=== PATIENT | female | born 1935 | race Caucasian/White ===

== ENCOUNTER 2016-08-14 11:24 | Emergency (ER) | payer MEDICARE, OTHER ==
[2016-08-14] MEDS ORDERED: Zofran 4 MG/2 ML VIAL IV ONE (11:51)
[2016-08-14 12:01] LABS: Mean Cell Volume 91.2 fl (78-100); Mean Corpuscular Hemoglobin 29.4 pg (26-32); Mean Platelet Volume 8.9 fl (6-9.5); Platelet Count 281 K/mm3 (150-450); Red Blood Count 3.77 M/mm3 (4.1-5.4); Red Cell Distribution Width 12.3 % (11.5-14.0); White Blood Count 11.5 K/mm3 (4.0-10.5)
--- NOTE | 2016-08-14 12:08 | ERPHSYRPT ---
- History of Present Illness Time Seen by Provider: 08/14/16 11:51 Source: patient Exam Limitations: no limitations Patient Subjective Stated Complaint: co not feeling well for a week,. not sleeping well. vomitedx2 this morning, loose stools since yesterday after taking a laxative, no fever, Triage Nursing Assessment: seen christianne a week ago and told she was constipated and had pain so he put her on predinsone, stopped meds after 3 days. pt alert resp easy,skin w/d ,abd soft, moves all ext well. pt aslo states quick care on thursday and started antibotics for UTI Physician History: The patient is an 81-year-old female who comes in complaining of general body pain from her neck to her toes for the past 2 weeks. She vomited twice this morning. She says her stomach is "rolling". She is a difficult historian. She saw Dr. Duke George a week ago for the pain and was given prednisone that she stopped taking after 3 days. She saw [facility] after seeing Dr. George and was given an antibiotic for a urinary tract infection. The patient states she fell on her left knee 2 weeks ago and since then she has been hurting from her neck down to her feet. Her left knee was bruised for a few days but is no longer bruised. Her past medical history is significant for diabetes. Timing/Duration: week(s) (1) Severity: mild Modifying Factors: Improves With: medication Associated Symptoms: nausea, vomiting Allergies/Adverse Reactions: aspirin Allergy (Severe, Verified 08/14/16 11:41) Difficulty Breathing iodine Allergy (Severe, Verified 08/14/16 11:41) Difficulty Breathing Penicillins Allergy (Severe, Verified 08/14/16 11:41) Difficulty Breathing Home Medications: Clopidogrel Bisulfate 75 mg [PLAVIX 75 MG Tablet] 75 mg PO HS 02/11/15 [ History] Metformin HCl 500 mg [Glucophage 500 MG] 500 mg PO DAILY PRN PRN 02/11/15 [History] Trazodone HCl 100 mg PO HS 02/11/15 [History] Alprazolam 1 mg [Xanax 1 mg] 1 mg PO HS 10/15/15 [History] Albuterol Sulfate [Albuterol Sulfate Hfa] 1 neb IH Q4H 11/23/15 [History] Citalopram Hydrobromide 20 mg* [ceLEXa 20 MG] 40 mg PO DAILY 01/06/16 [ History] Hx Tetanus, Diphtheria Vaccination/Date Given: No Hx Influenza Vaccination/Date Given: No Hx Pneumococcal Vaccination/Date Given: Yes Immunizations Up to Date: Yes - Review of Systems Constitutional: Other (body pain), No Fever, No Chills Eyes: No Symptoms Ears, Nose, & Throat: No Symptoms Respiratory: No Cough, No Dyspnea Cardiac: No Chest Pain, No Edema, No Syncope Abdominal/Gastrointestinal: Nausea, Vomiting Genitourinary Symptoms: Dysuria Musculoskeletal: Back Pain, Fall, No Neck Pain Skin: No Rash Neurological: No Dizziness, No Focal Weakness, No Sensory Changes Psychological: No Symptoms Endocrine: No Symptoms Hematologic/Lymphatic: No Symptoms Immunological/Allergic: No Symptoms All Other Systems: Reviewed and Negative - Past Medical History Pertinent Past Medical History: Yes Neurological History: No Pertinent History ENT History: Cataracts, Macular Degeneration Cardiac History: Arrhythmia Respiratory History: Asthma, Bronchitis, COPD Endocrine Medical History: Diabetes Type II Musculoskeletal History: Arthritis GI Medical History: GERD History: Other Psycho-Social History: Anxiety, Depression Female Reproductive Disorders: Endometriosis, Other Other Medical History: DVT left leg - Past Surgical History Past Surgical History: Yes Neuro Surgical History: No Pertinent History Cardiac: No Pertinent History Respiratory: No Pertinent History Gastrointestinal: Appendectomy, Cholecystectomy Genitourinary: No Pertinent History Musculoskeletal: Joint Replacement, Orthopedic Surgery Female Surgical History: Section, Hysterectomy Other Surgical History: Fernando hip replacement,back surgery-disc replacement per pt., cataracts - Social History Smoking Status: Never smoker Exposure to second hand smoke: No Drug Use: none Patient Lives Alone: Yes Significant Family History: no pertinent family hx - Female History Hx Last Menstrual Period: post Hx Now: No - Nursing Vital Signs Nursing Vital Signs: Initial Vital Signs Temperature 98.2 F Temperature Source Oral Pulse Rate 80 Respiratory Rate 18 Blood Pressure 169/68 Pain Intensity 3 - Physical Exam General Appearance: no apparent distress, alert Eye Exam: PERRL/EOMI, eyes nml inspection Ears, Nose, Throat Exam: normal ENT inspection, TMs normal, pharynx normal, moist mucous membranes Neck Exam: normal inspection, non-tender, supple, full range of motion Respiratory Exam: normal breath sounds, lungs clear, No respiratory distress Cardiovascular Exam: regular rate/rhythm, normal heart sounds, normal peripheral pulses Gastrointestinal/Abdomen Exam: tenderness (generalized) Pelvic Exam: not done Rectal Exam: not done Back Exam: normal inspection, normal range of motion, No CVA tenderness, No vertebral tenderness Extremity Exam: normal inspection, normal range of motion, pelvis stable Neurologic Exam: alert, oriented x 3, cooperative, normal mood/affect, nml cerebellar function, nml station & gait, sensation nml, No motor deficits Skin Exam: normal color, warm, dry, No rash Lymphatic Exam: No adenopathy SpO2 Interpretation: normal SpO2: 98 Oxygen Delivery: Room Air - Radiology Exams Abdomen X-ray Interpretation: Teleradiologist Report, Other (minimal air fluid levels in colon.) - CT Exams Abdomen/Pelvis CT Interpretation: Tele-radiologist Report, Other (colonic air fluid levels consistent with diarrhea.) Ordered Tests: Active Orders 24 hr Category Date Time Status IV Insertion STAT Care 08/14/16 11:51 Active ABDOMEN AND PELVIS W/0 CONTRAS [CT] Stat Exams 08/14/16 14:31 Completed OBSTR/ACUTE ABDOMEN SERIES Stat Exams 08/14/16 11:52 Completed BMP Stat Lab 08/14/16 11:58 Completed CBC W DIFF Stat Lab 08/14/16 11:58 Completed Manual Differential NC Stat Lab 08/14/16 11:58 Completed UA W/ MICROSCOPIC Stat Lab 08/14/16 14:02 Completed Respiratory Nebulizer STAT RT 08/14/16 14:27 Completed Medication Summary Discontinued Medications Generic Name Dose Route Start Last Admin Trade Name Freq PRN Reason Stop Dose Admin Albuterol Sulfate 2.5 mg 08/14/16 14:27 08/14/16 14:31 Proventil 2.5 Mg/3 Ml Neb IH 08/14/16 14:28 2.5 mg STAT ONE Administration Albuterol Sulfate Confirm 08/14/16 14:30 Proventil 2.5 Mg/3 Ml Neb Administered 08/14/16 14:31 Dose 2.5 mg IH .STK-MED ONE Ondansetron HCl 4 mg 08/14/16 11:51 08/14/16 12:18 Zofran 4 Mg/2 Ml Vial IV 08/14/16 11:52 4 mg STAT ONE Administration Ondansetron HCl Confirm 08/14/16 12:17 Zofran 4 Mg/2 Ml Vial Administered 08/14/16 12:18 Dose 4 mg .ROUTE .[facility]-MED ONE Lab/Rad Data: Laboratory Result Diagrams 08/14/16 11:58 08/14/16 11:58 Laboratory Results 08/14/16 08/14/16 08/14/16 Range/Units 14:02 11:58 11:58 WBC 11.5 H (4.0-10.5) K/mm3 RBC 3.77 L (4.1-5.4) M/mm3 Hgb 11.1 L (12.0-16.0) gm/dl Hct 34.4 L (35-47) % MCV 91.2 (78-100) fl MCH 29.4 (26-32) pg MCHC 32.3 (32-36) g/dl RDW 12.3 (11.5-14.0) % Plt Count 281 (150-450) K/mm3 MPV 8.9 (6-9.5) fl Segmented Neutrophils 82 H (36.0-66.0) % Lymphocytes (Manual) 7 L (24-44) % Monocytes (Manual) 11 (0.0-12.0) % Differential Comment ABNORMAL Platelet Estimate NORMAL (NORMAL) Anisocytosis 1+ Sodium 129 L (136-145) mEq/L Potassium 4.4 (3.5-5.1) mEq/L Chloride 93 L (98-107) mEq/L Carbon Dioxide 27.9 (21-32) mEq/L Anion Gap 12.7 (5-15) MEQ/L BUN 14 (9-20) mg/dL Creatinine 0.84 (0.55-1.30) mg/dl Estimated GFR > 60 ML/MIN Glucose 125 H (70-110) MG/DL Calcium 8.7 (8.5-10.1) mg/dL Ur Collection Type CCMS Urine Color YELLOW (YELLOW) Urine Appearance SLIGHTLY CLOUDY (CLEAR) Urine pH 7.0 (5-6) Ur Specific [place] 1.020 (1.005-1.025) Urine Protein 30 (Negative) Urine Glucose (UA) NEGATIVE (NEGATIVE) mg/dL Urine Ketones NEGATIVE (NEGATIVE) Urine Nitrite NEGATIVE (NEGATIVE) Urine Bilirubin NEGATIVE (NEGATIVE) Urine Urobilinogen 0.2 (0-1) mg/dL Urine WBC (Auto) NEGATIVE (NEGATIVE) Urine RBC (Auto) MODERATE (0-5) Oh/ul Urine Microscopic RBC 5-10 (0-2) /HPF Urine Microscopic WBC 0-2 (0-5) /HPF Ur Epithelial Cells RARE (FEW) /HPF Amorphous Crystals MODERATE (NEGATIVE) /HPF Urine Bacteria FEW (NEGATIVE) /HPF Specimen Received 08-14-16 1420 - Progress Progress: improved Discussed with : Vidal (Discussed pt with Dr Drake who will see pt tomorrow at 12:45.) Counseled pt/family regarding: lab results, diagnosis, need for follow-up, rad results - Departure Time of Disposition: 15:40 Departure Disposition: Home Clinical Impression: Gastroenteritis Condition: Stable Critical Care Time: No Additional Instructions: You have gastroenteritis. Take ciprofloxacin twice a day for 3 days. Take zofran as needed and directed for nausea and vomiting. You have a follow appt tomorrow at 12:[address] Drake. Prescriptions: Ondansetron [Zofran Odt] 4 mg PO Q6HPRN PRN #10 tab.rapdis PRN Reason: Nausea/Vomiting Ciprofloxacin HCl 500 mg [Cipro 500 MG] 1 tab PO BID #6 tablet
[2016-08-14 12:13] LABS: ANION GAP 12.7 MEQ/L (5-15); BLOOD UREA NITROGEN 14 mg/dL (9-20); CHLORIDE 93 mEq/L (98-107); Carbon Dioxide 27.9 mEq/L (21-32); Glucose 125 MG/DL (70-110); SODIUM 129 mEq/L (136-145)
[2016-08-14 12:16] LABS: Potassium 4.4 mEq/L (3.5-5.1)
[2016-08-14] MEDS ORDERED: Zofran 4 MG/2 ML VIAL ONE (12:17)
[2016-08-14 12:29] LABS: Total Cells Counted 100
[2016-08-14 12:30] LABS: Platelet Estimate NORMAL (NORMAL)
--- NOTE | 2016-08-14 12:30 | XRAY ---
Indication: Nausea, vomiting, and diarrhea. Comparison: None 2 views of the abdomen demonstrates minimal air distended colon with minimal fluid leveling favoring known diarrhea. No focal bowel dilatation, obstruction, or free air. Previous cholecystectomy. Solid organs unremarkable. Osseous structures intact with osteopenia, spinal degenerative changes, L4-L5 laminectomy, and bilateral total hip arthroplasty. Single frontal chest remains clear again with right mid lung calcified granuloma. Heart is not enlarged. Bony thorax intact again with osteopenia and degenerative changes. Impression: Minimal air distended colon with some fluid leveling favoring known diarrhea. Remaining abdomen negative. Stable nonacute one view chest.
[2016-08-14 12:33] LABS: ANISOCYTOSIS 1+
[2016-08-14 14:27] LABS: COMPLETE URINE MICROSCOPIC? YES; Collection Type CCMS; WBC 0-2 /HPF (0-5)
[2016-08-14] MEDS ORDERED: PROVENTIL 2.5 MG/3 ML NEB IH ONE ×2 (14:27→14:30)
[2016-08-14 14:28] LABS: Bacteria FEW /HPF (NEGATIVE); Epithelial Cells RARE /HPF (FEW)
--- NOTE | 2016-08-14 15:14 | XRAY ---
Indication: Nausea, vomiting, and diarrhea. Multiple contiguous axial images obtained through the abdomen and pelvis without contrast as ordered. Comparison: February 13, 2016 Lung bases demonstrate stable bibasilar fibrosis/scarring. Heart is not enlarged. Again bilateral hip prostheses produces extensive beam artifact limiting evaluation of the pelvis. Noncontrasted stomach and bowel loops appear nonobstructed. Mild fluid distended transverse and descending colon with some fluid leveling favoring diarrhea. Stable sigmoid diverticulosis. Previous cholecystectomy, hysterectomy, and appendectomy. No free fluid/air. Remaining liver, pancreas, spleen, adrenal glands, kidneys, ureters, bladder, and aorta unremarkable for noncontrast exam. Osseous structures intact again with osteopenia, degenerative changes throughout the lumbar spine, and previous lower lumbar laminectomy. Impression: 1. Again previous bilateral total hip arthroplasty producing beam artifact limiting evaluation of the pelvic contents. 2. Mild fluid distended transverse/descending colon with fluid leveling consistent with patient's symptoms of diarrhea. 3. Stable sigmoid diverticulosis. 4. Remaining CT abdomen/pelvis without contrast exam is negative. CT DI is 18.14
[2016-08-14 15:43] VITALS: O2SAT 98
[2016-08-14 16:06] VITALS: BP 139/64; PULSE 75
== END 2016-08-14 16:05 | disposition home or self-care (01) ==
LOC: ED 11:24
DX: K52.9 Noninfective gastroenteritis and colitis, unspecified (principal); R11.2 Nausea with vomiting, unspecified; Z79.899 Other long term (current) drug therapy
CPT/HCPCS: 36000; 36415; 74022; 74176; 80048; 81000; 85025; 94640; 96374; 99283; J2405

== ENCOUNTER 2016-12-06 17:04 | Emergency (ER) | payer MEDICARE, OTHER ==
[2016-12-06 17:59] VITALS: BP 134/69; PULSE 73; O2SAT 96
--- NOTE | 2016-12-06 18:06 | ERPHSYRPT ---
- History of Present Illness Time Seen by Provider: 12/06/16 18:04 Source: patient Exam Limitations: no limitations Patient Subjective Stated Complaint: pt reports her heart rate was 110 when she left her house-reports dizziness beginning this am-reports feeling bad all over Triage Nursing Assessment: pt pale diaphoetic anxious upon arrival to ed-resp nonlaobred-lungs clear-speaking in complete sentences with ease-right radial pulse regular et strong Physician History: 81-year-old female with significant past medical history of peripheral vascular disease and COPD came to the emergency room with complaining of dizziness. She states that she felt her heart was running fast and she checked her pulse and it was around 110 when she came to the emergency room her pulse was back to normal. She was just feeling weak all over. She has a recent history of urinary tract infection. She denies any fever, nausea, vomiting, chills, loss of consciousness, headache or changing the vision Timing/Duration: today Associated Symptoms: denies symptoms Allergies/Adverse Reactions: aspirin Allergy (Severe, Verified 12/06/16 17:19) Difficulty Breathing iodine Allergy (Severe, Verified 12/06/16 17:19) Difficulty Breathing Penicillins Allergy (Severe, Verified 12/06/16 17:19) Difficulty Breathing Home Medications: Clopidogrel Bisulfate 75 mg [PLAVIX 75 MG Tablet] 75 mg PO HS 02/11/15 [ History] Metformin HCl 500 mg [Glucophage 500 MG] 500 mg PO DAILY PRN PRN 02/11/15 [History] Alprazolam 1 mg [Xanax 1 mg] 1 mg PO HS 10/15/15 [History] Albuterol Sulfate [Albuterol Sulfate Hfa] 1 neb IH Q4H 11/23/15 [History] Citalopram Hydrobromide 20 mg* [ceLEXa 20 MG] 40 mg PO DAILY 01/06/16 [ History] Nortriptyline HCl 50 mg PO HS 12/06/16 [History] Hx Tetanus, Diphtheria Vaccination/Date Given: No Hx Influenza Vaccination/Date Given: No Hx Pneumococcal Vaccination/Date Given: Yes Immunizations Up to Date: Yes - Review of Systems Constitutional: No Fever, No Chills Eyes: No Symptoms Ears, Nose, & Throat: No Symptoms Respiratory: No Cough, No Dyspnea Cardiac: No Chest Pain, No Edema, No Syncope Abdominal/Gastrointestinal: No Abdominal Pain, No Nausea, No Vomiting, No Diarrhea Genitourinary Symptoms: No Dysuria Musculoskeletal: No Back Pain, No Neck Pain Skin: No Rash Neurological: Dizziness, No Focal Weakness, No Sensory Changes Psychological: No Symptoms Endocrine: No Symptoms All Other Systems: Reviewed and Negative - Past Medical History Pertinent Past Medical History: Yes Neurological History: No Pertinent History ENT History: Cataracts, Macular Degeneration Cardiac History: Arrhythmia Respiratory History: Asthma, Bronchitis, COPD Endocrine Medical History: Diabetes Type II Musculoskeletal History: Arthritis GI Medical History: GERD History: Other Psycho-Social History: Anxiety, Depression Female Reproductive Disorders: Endometriosis, Other Other Medical History: DVT left leg - Past Surgical History Past Surgical History: Yes Neuro Surgical History: No Pertinent History Cardiac: No Pertinent History Respiratory: No Pertinent History Gastrointestinal: Appendectomy, Cholecystectomy Genitourinary: No Pertinent History Musculoskeletal: Joint Replacement, Orthopedic Surgery Female Surgical History: Section, Hysterectomy Other Surgical History: Fernando hip replacement,back surgery-disc replacement per pt., cataracts - Social History Smoking Status: Never smoker Exposure to second hand smoke: No Drug Use: none Patient Lives Alone: Yes Significant Family History: no pertinent family hx - Female History Hx Now: No - Nursing Vital Signs Nursing Vital Signs: Initial Vital Signs Temperature 98.1 F Temperature Source Oral Pulse Rate 73 Respiratory Rate 18 Blood Pressure [Right Arm] 134/69 Pain Intensity 0 - Physical Exam General Appearance: no apparent distress, alert Eye Exam: PERRL/EOMI, eyes nml inspection Ears, Nose, Throat Exam: normal ENT inspection, TMs normal, pharynx normal, moist mucous membranes Neck Exam: normal inspection, non-tender, supple, full range of motion Respiratory Exam: normal breath sounds, lungs clear, No respiratory distress Cardiovascular Exam: regular rate/rhythm, normal heart sounds, normal peripheral pulses Gastrointestinal/Abdomen Exam: soft, normal bowel sounds, No tenderness, No mass Back Exam: normal inspection, normal range of motion, No CVA tenderness, No vertebral tenderness Extremity Exam: normal inspection, normal range of motion, pelvis stable Neurologic Exam: alert, oriented x 3, cooperative, normal mood/affect, nml cerebellar function, nml station & gait, sensation nml, No motor deficits Skin Exam: normal color, warm, dry, No rash Lymphatic Exam: No adenopathy SpO2: 96 Oxygen Delivery: Room Air - Course Nursing assessment & vital signs reviewed: Yes Ordered Tests: Active Orders 24 hr Category Date Time Status CBC W DIFF Stat Lab 12/06/16 18:15 Completed CMP Stat Lab 12/06/16 18:15 Completed Manual Differential NC Stat Lab 12/06/16 18:15 Completed UA W/ MICROSCOPIC Stat Lab 12/06/16 18:30 Completed Lab/Rad Data: Laboratory Result Diagrams 12/06/16 18:15 12/06/16 18:15 Laboratory Results 12/06/16 12/06/16 12/06/16 Range/Units 18:30 18:15 18:15 WBC 9.4 (4.0-10.5) K/mm3 RBC 3.70 L (4.1-5.4) M/mm3 Hgb 10.9 L (12.0-16.0) gm/dl Hct 34.6 L (35-47) % MCV 93.5 (78-100) fl MCH 29.4 (26-32) pg MCHC 31.5 L (32-36) g/dl RDW 12.6 (11.5-14.0) % Plt Count 238 (150-450) K/mm3 MPV 8.7 (6-9.5) fl Segmented Neutrophils 77 H (36.0-66.0) % Lymphocytes (Manual) 12 L (24-44) % Monocytes (Manual) 9 (0.0-12.0) % Eosinophils (Manual) 2 (0.00-3.0) % Differential Comment NORMAL Platelet Estimate NORMAL (NORMAL) Sodium 135 L (136-145) mEq/L Potassium 4.7 (3.5-5.1) mEq/L Chloride 100 (98-107) mEq/L Carbon Dioxide 26.2 (21-32) mEq/L Anion Gap 13.7 (5-15) MEQ/L BUN 21 H (9-20) mg/dL Creatinine 1.18 (0.55-1.30) mg/dl Estimated GFR 46 ML/MIN Glucose 99 (70-110) MG/DL Calcium 8.9 (8.5-10.1) mg/dL Total Bilirubin 0.3 (0.2-1.0) mg/dL AST 15 (15-37) U/L ALT 13 (12-78) U/L Alkaline Phosphatase 94 (46-116) U/L Serum Total Protein 6.9 (6.4-8.2) gm/dL Albumin 3.9 (3.4-5.0) g/dL Ur Collection Type CLEAN CATCH Urine Color YELLOW (YELLOW) Urine Appearance SLIGHTLY CLOUDY (CLEAR) Urine pH 6.5 (5-6) Ur Specific [place] 1.020 (1.005-1.025) Urine Protein 30 (Negative) Urine Glucose (UA) NEGATIVE (NEGATIVE) mg/dL Urine Ketones TRACE (NEGATIVE) Urine Nitrite NEGATIVE (NEGATIVE) Urine Bilirubin NEGATIVE (NEGATIVE) Urine Urobilinogen 0.2 (0-1) mg/dL Urine WBC (Auto) SMALL (NEGATIVE) Urine RBC (Auto) MODERATE (0-5) Oh/ul Urine Microscopic RBC 10-15 (0-2) /HPF Urine Microscopic WBC 2-5 (0-5) /HPF Ur Epithelial Cells FEW (FEW) /HPF Urine Bacteria FEW (NEGATIVE) /HPF Urine Mucus SLIGHT (NEGATIVE) /HPF Specimen Received 12/06/16:1830 - Progress Progress: improved Counseled pt/family regarding: lab results, diagnosis, need for follow-up - Departure Time of Disposition: 18:50 Departure Disposition: Home Clinical Impression: UTI (lower urinary tract infection), Dizziness and giddiness Condition: Stable Critical Care Time: No Referrals: CJ MORROW [Primary Care Provider] - Additional Instructions: URINARY TRACT INFECTION 1. You will need to drink plenty of fluids in order to keep your urinary system flushed. These fluids should mainly consist of water and juices. 2. Take medications as directed. You need to completely finish any antiobiotic prescription given. 3. Try to avoid coffee, tea, alcohol, and seasoned foods as they may cause bladder irritation. 4. If signs and symptoms persist after 3-4 days, you will need to follow up with your family physician. 5. Female Patients: A. Avoid intercourse for 3-4 days. B. Empty bladder before and after intercourse to reduce risk of re- infection. C. After emptying bladder, wipe from front to back to reduce the risk of re- infection. Please follow the instructions given to you. Please take your medication as prescribed if given. If symptoms recur or get worse, come back to the emergency room if you cannot reach your primary care physician, or call your primary care physician for an appointment. Again if your symptoms get worse, come back to the emergency room. Thanks for visiting emergency room, and let us take care of you. Prescriptions: Meclizine HCl 25 mg [Antivert 25 mg] 25 mg PO TID #15 tablet Ciprofloxacin HCl 500 mg [Cipro 500 MG] 500 mg PO BIDAC #20 tablet
[2016-12-06 18:27] LABS: Mean Cell Volume 93.5 fl (78-100); Mean Platelet Volume 8.7 fl (6-9.5); Platelet Count 238 K/mm3 (150-450); Red Cell Distribution Width 12.6 % (11.5-14.0); White Blood Count 9.4 K/mm3 (4.0-10.5)
[2016-12-06 18:34] LABS: Mean Corpuscular Hemoglobin 29.4 pg (26-32)
[2016-12-06 18:43] LABS: Bacteria FEW /HPF (NEGATIVE); COMPLETE URINE MICROSCOPIC? YES; Collection Type CLEAN CATCH; Epithelial Cells FEW /HPF (FEW); Mucus SLIGHT /HPF (NEGATIVE); Ph 6.5 (5-6)
[2016-12-06 18:44] LABS: Eosinophil 2 % (0.00-3.0); Platelet Estimate NORMAL (NORMAL); Total Cells Counted 100
[2016-12-06 18:47] LABS: ALBUMIN 3.9 g/dL (3.4-5.0); ANION GAP 13.7 MEQ/L (5-15); BILIRUBIN,TOTAL 0.3 mg/dL (0.2-1.0); Carbon Dioxide 26.2 mEq/L (21-32); Potassium 4.7 mEq/L (3.5-5.1); Total Protein 6.9 gm/dL (6.4-8.2)
[2016-12-06] MEDS ORDERED: Rocephin 1000 MG INJ IM ONE (18:49)
[2016-12-06] MEDS ORDERED: Rocephin 1000 MG INJ ONE (18:56)
== END 2016-12-06 19:10 | disposition home or self-care (01) ==
LOC: ED 17:04
DX: N39.0 Urinary tract infection, site not specified (principal); R42 Dizziness and giddiness; I73.9 Peripheral vascular disease, unspecified; J44.9 Chronic obstructive pulmonary disease, unspecified; Z79.899 Other long term (current) drug therapy
CPT/HCPCS: 36415; 80053; 81000; 85025; 96372; 99282; J0696

== ENCOUNTER 2016-12-13 22:58 | Emergency (ER) | payer MEDICARE, OTHER ==
--- NOTE | 2016-12-13 23:19 | ERPHSYRPT ---
- History of Present Illness Time Seen by Provider: 12/13/16 23:06 Source: patient Exam Limitations: no limitations Physician History: The patient is an 81-year-old female who complains of urinary retention since yesterday morning. She says it does not hurt to urinate but she only dribbles a small amount. She feels a little bit of pressure and discomfort in her lower abdomen. She was seen in the doctor's office and in the ER recently and is currently on ciprofloxacin for UTI. Her past medical history is significant for diabetes, COPD, UTI, gout, COPD, hypertension, and high cholesterol. Timing/Duration: yesterday Activites at Onset: none Quality: other (retention) Pain Radiation: other (suprapubic) Severity of Pain-Max: mild Severity of Pain-Current: mild Prior abdominal problems: UTI Sexual intercourse history: non-contributory Modifying Factors: Improves With: nothing Associated Symptoms: abdominal pain Allergies/Adverse Reactions: aspirin Allergy (Severe, Verified 12/13/16 23:09) Difficulty Breathing iodine Allergy (Severe, Verified 12/13/16 23:09) Difficulty Breathing Penicillins Allergy (Severe, Verified 12/13/16 23:09) Difficulty Breathing Home Medications: Clopidogrel Bisulfate 75 mg [PLAVIX 75 MG Tablet] 75 mg PO HS 02/11/15 [ History] Metformin HCl 500 mg [Glucophage 500 MG] 500 mg PO DAILY PRN PRN 02/11/15 [History] Alprazolam 1 mg [Xanax 1 mg] 1 mg PO HS 10/15/15 [History] Albuterol Sulfate [Albuterol Sulfate Hfa] 1 neb IH Q4H 11/23/15 [History] Citalopram Hydrobromide 20 mg* [ceLEXa 20 MG] 40 mg PO DAILY 01/06/16 [ History] Nortriptyline HCl 50 mg PO HS 12/06/16 [History] Hx Tetanus, Diphtheria Vaccination/Date Given: No Hx Influenza Vaccination/Date Given: No Hx Pneumococcal Vaccination/Date Given: Yes - Review of Systems Constitutional: No Fever, No Chills Eyes: No Symptoms Ears, Nose, & Throat: No Symptoms Respiratory: No Cough, No Dyspnea Cardiac: No Chest Pain, No Edema, No Syncope Abdominal/Gastrointestinal: No Abdominal Pain, No Nausea, No Vomiting, No Diarrhea Genitourinary Symptoms: Other (retention), No Dysuria Musculoskeletal: No Back Pain, No Neck Pain Skin: No Rash Neurological: No Dizziness, No Focal Weakness, No Sensory Changes Psychological: No Symptoms Endocrine: No Symptoms Hematologic/Lymphatic: No Symptoms Immunological/Allergic: No Symptoms All Other Systems: Reviewed and Negative - Past Medical History Pertinent Past Medical History: Yes Neurological History: No Pertinent History ENT History: Cataracts, Macular Degeneration Cardiac History: Arrhythmia Respiratory History: Asthma, Bronchitis, COPD Endocrine Medical History: Diabetes Type II Musculoskeletal History: Arthritis GI Medical History: GERD History: Other Psycho-Social History: Anxiety, Depression Female Reproductive Disorders: Endometriosis, Other Other Medical History: DVT left leg - Past Surgical History Past Surgical History: Yes Neuro Surgical History: No Pertinent History Cardiac: No Pertinent History Respiratory: No Pertinent History Gastrointestinal: Appendectomy, Cholecystectomy Genitourinary: No Pertinent History Musculoskeletal: Joint Replacement, Orthopedic Surgery Female Surgical History: Section, Hysterectomy Other Surgical History: Fernando hip replacement,back surgery-disc replacement per pt., cataracts - Social History Smoking Status: Never smoker Exposure to second hand smoke: No Drug Use: none Patient Lives Alone: Yes Significant Family History: no pertinent family hx - Female History Hx Now: No - Nursing Vital Signs Nursing Vital Signs: Initial Vital Signs Temperature 98.3 F Temperature Source Oral Pulse Rate 90 Respiratory Rate 18 Blood Pressure [Right Arm] 158/67 Pain Intensity 0 - Physical Exam General Appearance: no apparent distress, alert Eye Exam: PERRL/EOMI, eyes nml inspection Ears, Nose, Throat Exam: normal ENT inspection, TMs normal, pharynx normal, moist mucous membranes Neck Exam: normal inspection, non-tender, supple, full range of motion Respiratory Exam: normal breath sounds, lungs clear, No respiratory distress Cardiovascular Exam: regular rate/rhythm, normal heart sounds, normal peripheral pulses Gastrointestinal/Abdomen Exam: soft, No tenderness, No mass Pelvic Exam: not done Rectal Exam: not done Back Exam: normal inspection, normal range of motion, No CVA tenderness, No vertebral tenderness Extremity Exam: normal inspection, normal range of motion, pelvis stable Neurologic Exam: alert, oriented x 3, cooperative, supervising law enforcement analyst II-XII nml as tested, normal mood/affect, sensation nml, No motor deficits Skin Exam: normal color, warm, dry Lymphatic Exam: No adenopathy SpO2 Interpretation: normal SpO2: 99 Oxygen Delivery: Room Air Ordered Tests: Active Orders 24 hr Category Date Time Status Catheter-Higginson David STAT Care 12/13/16 23:31 Active UA W/ MICROSCOPIC Stat Lab 12/13/16 23:36 Completed Lab/Rad Data: Laboratory Results 12/13/16 Range/Units 23:36 Ur Collection Type CLEAN CATCH Urine Color YELLOW (YELLOW) Urine Appearance CLEAR (CLEAR) Urine pH 6.0 (5-6) Ur Specific [place] 1.025 (1.005-1.025) Urine Protein 30 (Negative) Urine Glucose (UA) NEGATIVE (NEGATIVE) mg/dL Urine Ketones NEGATIVE (NEGATIVE) Urine Nitrite NEGATIVE (NEGATIVE) Urine Bilirubin NEGATIVE (NEGATIVE) Urine Urobilinogen 0.2 (0-1) mg/dL Urine WBC (Auto) NEGATIVE (NEGATIVE) Urine RBC (Auto) MODERATE (0-5) Oh/ul Urine Microscopic RBC 15-25 (0-2) /HPF Urine Microscopic WBC 2-5 (0-5) /HPF Ur Epithelial Cells FEW (FEW) /HPF Urine Bacteria FEW (NEGATIVE) /HPF Urine Mucus MODERATE (NEGATIVE) /HPF Specimen Received 12/16/16 2330 - Progress Progress: unchanged Blood Culture(s) Obtained: No Antibiotics given: No Counseled pt/family regarding: lab results, diagnosis - Departure Time of Disposition: 00:13 Departure Disposition: Home Clinical Impression: Urinary retention Condition: Stable Critical Care Time: No Additional Instructions: You had a David catheter placed and your bladder for the feeling of urinary retention. Your urinalysis does not show an infection in her bladder at this time. Continue to take the ciprofloxacin as directed. Keep the David catheter in until you see Dr. denny Estevez on Thursday. Call him on Thursday for an appointment and tell him you were seen by Dr. Muñoz in the ER on Thursday.
[2016-12-13 23:50] LABS: Bacteria FEW /HPF (NEGATIVE); COMPLETE URINE MICROSCOPIC? YES; Collection Type CLEAN CATCH; Epithelial Cells FEW /HPF (FEW); Mucus MODERATE /HPF (NEGATIVE)
[2016-12-14 00:35] VITALS: BP 147/65; PULSE 75; O2SAT 98
== END 2016-12-14 00:37 | disposition home or self-care (01) ==
LOC: ED 22:58
DX: R33.9 Retention of urine, unspecified (principal); R10.30 Lower abdominal pain, unspecified; E11.9 Type 2 diabetes mellitus without complications; J44.9 Chronic obstructive pulmonary disease, unspecified; I10 Essential (primary) hypertension; E78.00 Pure hypercholesterolemia, unspecified; Z79.899 Other long term (current) drug therapy; Z79.84 Long term (current) use of oral hypoglycemic drugs
CPT/HCPCS: 51702; 81000; 99283

== ENCOUNTER 2016-12-16 21:55 | Observation (INO) | payer MEDICARE, OTHER ==
--- NOTE | 2016-12-16 22:44 | ERPHSYRPT ---
- History of Present Illness Time Seen by Provider: 12/16/16 22:35 Source: patient Exam Limitations: no limitations Patient Subjective Stated Complaint: pt states she had guillaume dc'd today at 1000 and has not been able to void since then. pt also states her head has been spinning and she feels unsteady when shes up. Triage Nursing Assessment: pt alert and oriented. answers questions approp. skin pink warm and dry. respirations nonlabored with lungs cta. speech normal. pupils equal and reactive. sap ppm consultant equal and strong. lower ext strength equal and wnl. abd soft and nontender. Physician History: This 81-year-old white female with history of macular degeneration arrhythmia asthma bronchitis COPD diabetes arthritis GERD anxiety depression endometriosis and DVT of the left leg. She arrives with complaint that she has been unable to urinate since 10:00 this morning. Patient states she was seen here in the emergency room 3 prior times secondary to the same complaint she states that she went to Dr. Benson's office this morning and the nurse practitioner there pulled the Guillaume. She states she has been unable to urinate since. She states this is the fourth time that she's been here to the emergency room for the same complaint. She does state now that she feels dizzy and feels like her head is spinning around she is not having any problems moving she has no speech problems she has no fevers no nausea no vomiting. Past medical history includes cataracts, macular degeneration, arrhythmia, asthma, bronchitis, COPD, diabetes type 2, arthritis, GERD, anxiety, depression , endometriosis, DVT of the left leg. Past surgical history includes appendectomy, cholecystectomy, orthopedic surgery , joint replacement, , hysterectomy, bilateral hip arthroplasty, back disc replacement, cataracts Timing/Duration: today (unable to urinate since 10:00 toda) Severity: moderate Modifying Factors: Improves With: other (patient had Guillaume removed today at urologist's office) Associated Symptoms: other (patient states she feels dizzy and unable to urinate ), No nausea, No vomiting, No abdominal pain, No shortness of breath, No heartburn, No diaphoresis, No cough, No chills, No chest pain, No fever, No headaches, No loss of appetite, No malaise, No rash, No syncope, No seizure, No weakness Allergies/Adverse Reactions: aspirin Allergy (Severe, Verified 12/16/16 22:30) Difficulty Breathing iodine Allergy (Severe, Verified 12/16/16 22:30) Difficulty Breathing Penicillins Allergy (Severe, Verified 12/16/16 22:30) Difficulty Breathing Home Medications: Clopidogrel Bisulfate 75 mg [PLAVIX 75 MG Tablet] 75 mg PO HS 02/11/15 [ History] Metformin HCl 500 mg [Glucophage 500 MG] 500 mg PO DAILY PRN PRN 02/11/15 [History] Alprazolam 1 mg [Xanax 1 mg] 1 mg PO HS 10/15/15 [History] Albuterol Sulfate [Albuterol Sulfate Hfa] 1 neb IH Q4H 11/23/15 [History] Citalopram Hydrobromide 20 mg* [ceLEXa 20 MG] 40 mg PO DAILY 01/06/16 [ History] Nortriptyline HCl 50 mg PO HS 12/06/16 [History] Fluticasone Propionate [Flonase NASAL] 1 puff INTRANASAL BID 12/16/16 [ History] Hx Tetanus, Diphtheria Vaccination/Date Given: No Hx Influenza Vaccination/Date Given: No Hx Pneumococcal Vaccination/Date Given: Yes - Review of Systems Constitutional: No Fever, No Chills Eyes: No Symptoms Ears, Nose, & Throat: No Symptoms Respiratory: No Cough, No Dyspnea Cardiac: No Chest Pain, No Edema, No Syncope Abdominal/Gastrointestinal: No Abdominal Pain, No Nausea, No Vomiting, No Diarrhea Genitourinary Symptoms: Urinary Retention, No Dysuria, No Frequency, No Hematuria, No Hesitancy, No Incontinence, No Urgency, No Flank Pain, No Menorrhagia, No , No Vaginal Bleeding, No Vaginal Discharge, No Vaginal Itching Musculoskeletal: No Back Pain, No Neck Pain Skin: No Rash Neurological: Dizziness, Vertigo, No Focal Weakness, No Headache, No Irritability, No Lethargy, No Paralysis, No Parasthesia, No Seizure, No Sensory Changes, No Speech Changes, No Tics, No Tremors Psychological: No Symptoms Endocrine: No Symptoms All Other Systems: Reviewed and Negative - Past Medical History Pertinent Past Medical History: Yes Neurological History: No Pertinent History ENT History: Cataracts, Macular Degeneration Cardiac History: Arrhythmia Respiratory History: Asthma, Bronchitis, COPD Endocrine Medical History: Diabetes Type II Musculoskeletal History: Arthritis GI Medical History: GERD History: Other Psycho-Social History: Anxiety, Depression Female Reproductive Disorders: Endometriosis, Other Other Medical History: DVT left leg - Past Surgical History Past Surgical History: Yes Neuro Surgical History: No Pertinent History Cardiac: No Pertinent History Respiratory: No Pertinent History Gastrointestinal: Appendectomy, Cholecystectomy Genitourinary: No Pertinent History Musculoskeletal: Joint Replacement, Orthopedic Surgery Female Surgical History: Section, Hysterectomy Other Surgical History: Fernando hip replacement,back surgery-disc replacement per pt., cataracts - Social History Smoking Status: Never smoker Exposure to second hand smoke: No Drug Use: none Patient Lives Alone: Yes Significant Family History: no pertinent family hx - Female History Hx Now: No - Nursing Vital Signs Nursing Vital Signs: Initial Vital Signs Temperature 98.3 F Temperature Source Oral Pulse Rate 76 Respiratory Rate 16 Blood Pressure [Right Arm] 151/63 Pain Intensity 0 - Physical Exam General Appearance: no apparent distress, alert Eye Exam: PERRL/EOMI, eyes nml inspection Ears, Nose, Throat Exam: normal ENT inspection, TMs normal, pharynx normal, moist mucous membranes Neck Exam: normal inspection, non-tender, supple, full range of motion Respiratory Exam: normal breath sounds, lungs clear, No respiratory distress Cardiovascular Exam: regular rate/rhythm, normal heart sounds, normal peripheral pulses Gastrointestinal/Abdomen Exam: soft, normal bowel sounds, No tenderness, No mass Back Exam: normal inspection, normal range of motion, No CVA tenderness, No vertebral tenderness Extremity Exam: normal inspection, normal range of motion, pelvis stable Neurologic Exam: alert, oriented x 3, cooperative, normal mood/affect, nml cerebellar function, nml station & gait, sensation nml, No motor deficits Skin Exam: normal color, warm, dry, No rash SpO2 Interpretation: normal (99%) SpO2: 99 Oxygen Delivery: Room Air - Course Nursing assessment & vital signs reviewed: Yes EKG Interpreted by Me: RATE (74 bpm), Sinus Rhythm, NORMAL AXIS, Other (EKG: Sinus rhythm, 74 bpm, normal axis, no acute ST or T wave changes, compared to January 25, 2016) Ordered Tests: Active Orders 24 hr Category Date Time Status Accucheck STAT Care 12/16/16 22:39 Active Catheter-Vilonia Guillaume STAT Care 12/16/16 22:38 Active EKG-ER Only STAT Care 12/16/16 22:38 Active IV Insertion STAT Care 12/16/16 22:39 Active Orthostatic Vital Signs STAT Care 12/16/16 22:39 Active AMYLASE Stat Lab 12/16/16 23:07 Completed CBC W DIFF Stat Lab 12/16/16 23:07 Completed CMP Stat Lab 12/16/16 23:07 Completed CULTURE,URINE Stat Lab 12/17/16 00:05 Received LIPASE Stat Lab 12/16/16 23:07 Completed Manual Differential NC Stat Lab 12/16/16 23:07 Completed TROPONIN Stat Lab 12/16/16 23:07 Completed UA W/ MICROSCOPIC Stat Lab 12/16/16 23:25 Completed Lab/Rad Data: Laboratory Result Diagrams 12/16/16 23:07 12/16/16 23:07 Laboratory Results 12/16/16 12/16/16 12/16/16 Range/Units 23:25 23:07 23:07 WBC 9.1 (4.0-10.5) K/mm3 RBC 3.31 L (4.1-5.4) M/mm3 Hgb 9.7 L (12.0-16.0) gm/dl Hct 30.4 L (35-47) % MCV 91.8 (78-100) fl MCH 29.3 (26-32) pg MCHC 31.9 L (32-36) g/dl RDW 12.5 (11.5-14.0) % Plt Count 204 (150-450) K/mm3 MPV 8.9 (6-9.5) fl Segmented Neutrophils 79 H (36.0-66.0) % Band Neutrophils 1 (0.0-2.0) % Lymphocytes (Manual) 10 L (24-44) % Monocytes (Manual) 10 (0.0-12.0) % Differential Comment ABNORMAL Platelet Estimate NORMAL (NORMAL) Poikilocytosis 2+ Ovalocytes 2+ Sodium 130 L (136-145) mEq/L Potassium 4.5 (3.5-5.1) mEq/L Chloride 95 L (98-107) mEq/L Carbon Dioxide 25.7 (21-32) mEq/L Anion Gap 14.0 (5-15) MEQ/L BUN 17 (9-20) mg/dL Creatinine 1.24 (0.55-1.30) mg/dl Estimated GFR 44 ML/MIN Glucose 135 H (70-110) MG/DL Calcium 8.7 (8.5-10.1) mg/dL Total Bilirubin 0.4 (0.2-1.0) mg/dL AST 20 (15-37) U/L ALT 13 (12-78) U/L Alkaline Phosphatase 87 (46-116) U/L Troponin I < 0.017 (0.000-0.056) ng/ml Serum Total Protein 6.5 (6.4-8.2) gm/dL Albumin 3.6 (3.4-5.0) g/dL Amylase 39 (25-115) U/L Lipase 82 (73-393) U/L Ur Collection Type CLEAN CATCH Urine Color YELLOW (YELLOW) Urine Appearance SLIGHTLY CLOUDY (CLEAR) Urine pH 7.0 (5-6) Ur Specific [place] 1.020 (1.005-1.025) Urine Protein 30 (Negative) Urine Glucose (UA) NEGATIVE (NEGATIVE) mg/dL Urine Ketones NEGATIVE (NEGATIVE) Urine Nitrite NEGATIVE (NEGATIVE) Urine Bilirubin NEGATIVE (NEGATIVE) Urine Urobilinogen 0.2 (0-1) mg/dL Urine WBC (Auto) TRACE (NEGATIVE) Urine RBC (Auto) MODERATE (0-5) Oh/ul Urine Microscopic RBC 25-50 (0-2) /HPF Urine Microscopic WBC 10-15 (0-5) /HPF Ur Epithelial Cells FEW (FEW) /HPF Amorphous Crystals MODERATE (NEGATIVE) /HPF Urine Bacteria MODERATE (NEGATIVE) /HPF Urine Mucus SLIGHT (NEGATIVE) /HPF Specimen Received 12/16/16 2330 - Progress Progress: improved Progress Note: 12/17/16 00:21 81-year-old white female who states that she was seen her multiple times secondary to urinary retention she states that she went to see her urologist's office today and had a Guillaume removed which was placed in this emergency room she states that this was remount at about 10:00 and she is unable to urinate since. Patient states she is now feeling dizzy she has no chest pain no shortness of breath she states she just feels like her head is spinning she has not had any problems speaking or moving. Patient's vitals are stable EKG remarkable for normal sinus rhythm 74 bpm normal axis no acute ST or T wave changes are noted Patient has a normal neurologic exam CBC is essentially normal with white count 9.1 hemoglobin 9.7 hematocrit 30.4 chemistry is normal patient with normal orthostatic vital signs Patient did have 25-50 red cells and 10-15 white cells in her urine Guillaume was placed and patient really produced less than 100 mL of urine when this was placed. patient apparently is on Cipro 500 mg at home. I've discussed the case with Dr. Drake like the patient placed on observation IV fluids and Rocephin Will provide telemetry will ask the nurses to do every 4 hours neuro checks. Diagnosis UTI. Urinary retention. Dizziness. - Departure Time of Disposition: 00:24 Departure Disposition: Observation Clinical Impression: Urinary retention, Dizziness UTI (urinary tract infection) Qualifiers: Urinary tract infection type: site unspecified Hematuria presence: with hematuria Qualified Code(s): N39.0 - Urinary tract infection, site not specified Condition: Fair Critical Care Time: No Referrals: CJ DRAKE [Primary Care Provider] -
[2016-12-16 23:11] LABS: Mean Cell Volume 91.8 fl (78-100); Mean Corpuscular Hemoglobin 29.3 pg (26-32); Mean Platelet Volume 8.9 fl (6-9.5); Platelet Count 204 K/mm3 (150-450); Red Blood Count 3.31 M/mm3 (4.1-5.4); Red Cell Distribution Width 12.5 % (11.5-14.0); White Blood Count 9.1 K/mm3 (4.0-10.5)
[2016-12-16 23:36] LABS: ALBUMIN 3.6 g/dL (3.4-5.0); ALKALINE PHOSPHATASE 87 U/L (46-116); BILIRUBIN,TOTAL 0.4 mg/dL (0.2-1.0); BLOOD UREA NITROGEN 17 mg/dL (9-20); CHLORIDE 95 mEq/L (98-107); Carbon Dioxide 25.7 mEq/L (21-32); Glucose 135 MG/DL (70-110); LIPASE 82 U/L (73-393); Potassium 4.5 mEq/L (3.5-5.1); SGOT/AST 20 U/L (15-37); SODIUM 130 mEq/L (136-145); Total Protein 6.5 gm/dL (6.4-8.2)
[2016-12-16 23:45] LABS: SGPT/ALT 13 U/L (12-78)
[2016-12-16 23:52] LABS: TROPONIN < 0.017 ng/ml (0.000-0.056)
[2016-12-17 00:07] LABS: Bacteria MODERATE /HPF (NEGATIVE); COMPLETE URINE MICROSCOPIC? YES; Collection Type CLEAN CATCH; Epithelial Cells FEW /HPF (FEW); Mucus SLIGHT /HPF (NEGATIVE)
[2016-12-17 00:17] LABS: BAND 1 % (0.0-2.0); Ovalocytes 2+; Platelet Estimate NORMAL (NORMAL); Poikilocytosis 2+; Total Cells Counted 100
[2016-12-17] MEDS ORDERED: ROCEPHIN 1 Gm-D5w 50 ml Bag** 50 ML IV ONE ×2 (00:55→00:56)
[2016-12-17] MEDS ORDERED: XANAX 1 MG ONE (02:38)
[2016-12-17] MEDS ORDERED: PLAVIX 75 MG Tablet ONE (02:39)
[2016-12-17] MEDS ORDERED: NORTRIPTYLINE HCL ONE (02:39)
[2016-12-17] MEDS: XANAX 1 MG PO SCH ×2 (02:40→22:18)
[2016-12-17] MEDS: PLAVIX 75 MG Tablet PO SCH ×2 (02:40→23:50)
[2016-12-17] MEDS: NORTRIPTYLINE HCL PO SCH ×2 (02:40→22:18)
[2016-12-17] MEDS ORDERED: DUONEB 0.5-3 MG/3 ml Neb IH SCH (03:00)
[2016-12-17] MEDS ORDERED: PROVENTIL 2.5 MG/3 ML NEB IH ONE (03:04)
[2016-12-17] MEDS: PROVENTIL 2.5 MG/3 ML NEB IH SCH ×6 (03:10→22:38)
[2016-12-17] MEDS: Sodium Chloride 0.9% 1000 ML 1,000 ML IV SCH ×2 (03:44→13:29)
[2016-12-17 05:51] LABS: Mean Cell Volume 91.2 fl (78-100); Mean Corpuscular Hemoglobin 29.2 pg (26-32); Platelet Count 182 K/mm3 (150-450); Red Blood Count 3.18 M/mm3 (4.1-5.4); Red Cell Distribution Width 12.3 % (11.5-14.0); White Blood Count 8.3 K/mm3 (4.0-10.5)
[2016-12-17 06:14] LABS: ALBUMIN 3.2 g/dL (3.4-5.0); ANION GAP 10.7 MEQ/L (5-15); BILIRUBIN,TOTAL 0.3 mg/dL (0.2-1.0); Carbon Dioxide 27.1 mEq/L (21-32); Potassium 3.8 mEq/L (3.5-5.1); Total Protein 5.9 gm/dL (6.4-8.2)
[2016-12-17 07:54] LABS: BAND 3 % (0.0-2.0); Eosinophil 2 % (0.00-3.0); Total Cells Counted 100
[2016-12-17 07:55] LABS: Platelet Estimate NORMAL (NORMAL); Toxic Granulation 1+
--- NOTE | 2016-12-17 10:57 | PCM.HP ---
History of Present Illness - Chief Complaint Chief Complaint: Urinary retention, UTI, dizziness History of Present Illness: is a 81 year old female pt from [facility] with COPD and recent urinary retention who came to the ER last night c/o inability to urinate. She had some urinary retention during her last admission for COPD exacerbation (discharged 06/26) and she followed up with Dr. Benson. He did a cystoscopy per pt without issues. On 12/06/16 she came to the ER and was found to have UTI, was treated and released. On 12/13/16 she came to ER with urinary retention, guillaume catheter was placed and she was discharged to home. She followed up with Viri Leyva NP in Dr. Benson's office yesterday morning and the catheter was removed. She was instructed to return to the office if she didn't urinate before 3 p.m. She did have a small, approx several Tablespoon output of urine so she did not call the office. By 7 pm she had drunk 2 water bottles and couldn't urinate so she came to [facility] ER. Per pt report she had 1400 cc out with guillaume placement, but I do not see this documented. She denies any dysuria. Did feel "hot" at one point at home. Yayo po. - Review of Systems Constitutional: Fatigue Respiratory: Cough, Short Of Breath, Wheezing (at baseline) Abdominal/Gastrointestinal: Abdominal Pain (epigastric/RUQ pain after eating, feels like gas) Genitourinary Symptoms: Urinary Retention, Other (blood with catheter removal and placement.) Musculoskeletal: No Symptoms Neurological: Dizziness (when she first stands) Psychological: Anxiety Hematologic/Lymphatic: Anemia All Other Systems: Reviewed and Negative Medications & Allergies Home Medications: Home Medication List Cholecalciferol (Vitamin D3) [Vitamin D3] 2,000 unit PO DAILY #90 tab 06/30/14 [ Rx Confirmed 12/16/16] PANTOPRAZOLE 40 mg Tablet [Protonix 40MG Tablet] 40 mg PO DAILY #90 tab [Rx Confirmed 12/16/16] Zafirlukast 20 mg [Accolate 20 mg] 20 mg PO BID #180 tablet 06/30/14 [Rx Confirmed 12/16/16] Clopidogrel Bisulfate 75 mg [PLAVIX 75 MG Tablet] 75 mg PO HS 02/11/15 [ History Confirmed 12/16/16] Metformin HCl 500 mg [Glucophage 500 MG] 500 mg PO DAILY PRN PRN 02/11/15 [History Confirmed 12/16/16] Alprazolam 1 mg [Xanax 1 mg] 1 mg PO HS 10/15/15 [History Confirmed ] Albuterol Sulfate [Albuterol Sulfate Hfa] 1 neb IH Q4H 11/23/15 [History Confirmed 12/16/16] Citalopram Hydrobromide 20 mg* [ceLEXa 20 MG] 40 mg PO DAILY 01/06/16 [ History Confirmed 12/16/16] Ciprofloxacin [Cipro 500 MG] 500 mg PO BIDAC #20 tablet 12/06/16 [Rx Confirmed 12/16/16] Meclizine HCl 25 mg [Antivert 25 mg] 25 mg PO TID #15 tablet 12/06/16 [Rx Confirmed 12/16/16] Nortriptyline HCl 50 mg PO HS 12/06/16 [History Confirmed 12/16/16] Fluticasone Propionate [Flonase NASAL] 1 puff INTRANASAL BID 12/16/16 [ History Confirmed 12/16/16] Allergies/Adverse Reactions: Allergies Allergy/AdvReac Type Severity Reaction Status Date / Time aspirin Allergy Severe Difficulty Verified 12/16/16 22:30 Breathing iodine Allergy Severe Difficulty Verified 12/16/16 22:30 Breathing Penicillins Allergy Severe Difficulty Verified 12/16/16 22:30 Breathing - Past Medical History Past Medical History: Yes Neurological History: No Pertinent History ENT History: Cataracts, Macular Degeneration Cardiac History: Arrhythmia Respiratory History: Asthma, Bronchitis, COPD Endocrine Medical History: Diabetes Type II Musculoskelatal History: Arthritis GI Medical History: GERD History: Other Pyscho-Social History: Anxiety, Depression Reproductive Disorders: Endometriosis, Other Comment: DVT left leg - Female History Are you now?: (post) - Past Surgical History Past Surgical History: Yes Neuro Surgical History: No Pertinent History Cardiac History: No Pertinent History Respiratory Surgery: No Pertinent History GI Surgical History: Appendectomy, Cholecystectomy Genitourinary Surgical Hx: No Pertinent History Musculskeletal Surgical Hx: Joint Replacement, Orthopedic Surgery Female Surgical History: Section, Hysterectomy Other Surgical History: Fernando hip replacement,back surgery-disc replacement per pt., cataracts - Social History Smoking Status: Never smoker Exposure to second hand smoke: No Alcohol: None Drug Use: none Significant Family History: no pertinent family hx - Physical Exam Vital Signs: Vital Signs - 24 hr Temp Pulse Resp BP Pulse Ox 12/17/16 10:36 79 18 98 12/17/16 07:09 98.1 F 78 18 150/70 95 12/17/16 06:59 72 20 99 12/17/16 04:00 98.4 F 81 14 169/76 93 L 12/17/16 03:00 81 18 94 L 12/17/16 01:28 98.5 F 81 16 160/71 94 L 12/17/16 00:48 99 12/17/16 00:07 76 16 151/63 97 12/16/16 22:19 98.3 F 81 20 156/66 99 General Appearance: no apparent distress Neurologic Exam: alert, oriented x 3, cooperative Eye Exam: eyes nml inspection Neck Exam: normal inspection, non-tender, No lymphadenopathy Respiratory Exam: diminished breath sounds, No crackles/rales, No rhonchi, No wheezing Cardiovascular Exam: regular rate/rhythm, normal heart sounds, No murmur Gastrointestinal/Abdomen Exam: soft, normal bowel sounds, No tenderness Back Exam: normal inspection Extremity Exam: No pedal edema, No swelling Skin Exam: normal color, warm, dry Results - Labs Lab/Micro Results: Accuchecks Date 12/17/16 Time 07:30 Accucheck Value: 98 Lab Results-Last 24 Hours 12/17/16 12/17/16 Range/Units 05:05 05:05 WBC 8.3 (4.0-10.5) K/mm3 RBC 3.18 L (4.1-5.4) M/mm3 Hgb 9.3 L (12.0-16.0) gm/dl Hct 29.0 L (35-47) % MCV 91.2 (78-100) fl MCH 29.2 (26-32) pg MCHC 32.1 (32-36) g/dl RDW 12.3 (11.5-14.0) % Plt Count 182 (150-450) K/mm3 MPV 9.0 (6-9.5) fl Segmented Neutrophils 74 H (36.0-66.0) % Band Neutrophils 3 H (0.0-2.0) % Lymphocytes (Manual) 16 L (24-44) % Monocytes (Manual) 5 (0.0-12.0) % Eosinophils (Manual) 2 (0.00-3.0) % Differential Comment NORMAL Toxic Granulation 1+ Platelet Estimate NORMAL (NORMAL) Sodium 134 L (136-145) mEq/L Potassium 3.8 (3.5-5.1) mEq/L Chloride 100 (98-107) mEq/L Carbon Dioxide 27.1 (21-32) mEq/L Anion Gap 10.7 (5-15) MEQ/L BUN 14 (9-20) mg/dL Creatinine 1.04 (0.55-1.30) mg/dl Estimated GFR 54 ML/MIN Glucose 116 H (70-110) MG/DL Calcium 8.4 L (8.5-10.1) mg/dL Total Bilirubin 0.3 (0.2-1.0) mg/dL AST 16 (15-37) U/L ALT 10 L (12-78) U/L Alkaline Phosphatase 82 (46-116) U/L Serum Total Protein 5.9 L (6.4-8.2) gm/dL Albumin 3.2 L (3.4-5.0) g/dL Accuchecks Date 12/17/16 Time 07:30 Accucheck Value: 98 - Other Procedures and Tests Respiratory Therapy 12/17/16 03:00 Respiratory Nebulizer Q4H 12/17/16 03:01 Oxygen NASAL CANNULA 2 lpm Assessment/Plan (1) UTI (urinary tract infection) Current Visit: Yes Status: Acute Qualifiers: Urinary tract infection type: site unspecified Hematuria presence: with hematuria Qualified Code(s): N39.0 - Urinary tract infection, site not specified; R31.9 - Hematuria, unspecified Assessment & Plan: On IV rocephin, UCx pending. Will likely send th epatient home tomorrow. Code(s): N39.0 - URINARY TRACT INFECTION, SITE NOT SPECIFIED (2) Urinary retention Current Visit: Yes Status: Chronic Assessment & Plan: RN spoke wiht Dr. Benson, will leave the catheter in for 1 week and will have remove it one morning wiht a urology appointment that afternoon. Code(s): R33.9 - RETENTION OF URINE, UNSPECIFIED (3) Dizziness Current Visit: Yes Status: Acute Assessment & Plan: chronic, somewhat worse recently; perhaps due to UTI. check orthostats. Code(s): R42 - DIZZINESS AND GIDDINESS (4) Anemia Current Visit: No Status: Acute Qualifiers: Iron deficiency anemia type: unspecified iron deficiency Assessment & Plan: hemoccult stool. Code(s): D64.9 - ANEMIA, UNSPECIFIED (5) COPD (chronic obstructive pulmonary disease) Current Visit: No Status: Acute Qualifiers: COPD type: unspecified COPD Qualified Code(s): J44.9 - Chronic obstructive pulmonary disease, unspecified Assessment & Plan: doing great here. on RA at times while awake. (6) Diabetes mellitus Current Visit: No Status: Acute Qualifiers: Diabetes mellitus type: type 2 Diabetes mellitus complication status: with other specified complication Diabetes mellitus ferry terminal supervisor insulin use: without ferry terminal supervisor use Qualified Code(s): E11.69 - Type 2 diabetes mellitus with other specified complication Assessment & Plan: she is diet controlled; last a1c was 5.8. Code(s): E11.9 - TYPE 2 DIABETES MELLITUS WITHOUT COMPLICATIONS (7) Generalized weakness Current Visit: No Status: Acute Assessment & Plan: PT to eval Code(s): R53.1 - WEAKNESS
[2016-12-17] MEDS ORDERED: Glucophage 500 MG PO PRN (12:52)
[2016-12-17] MEDS ORDERED: Ventolin Hfa MDI IH SCH (13:00)
[2016-12-17] MEDS: Protonix 40MG Tablet PO SCH (13:24)
[2016-12-17] MEDS: VITAMIN D PO SCH (13:25)
[2016-12-17] MEDS: ACCOLATE 20 MG PO SCH ×2 (13:25→22:18)
[2016-12-17] MEDS: Flonase NASAL NS SCH ×2 (13:25→22:28)
[2016-12-17] MEDS: ceLEXa 20 MG PO SCH (13:25)
[2016-12-17] MEDS: ANTIVERT 25 MG PO SCH ×2 (15:09→22:17)
[2016-12-17] MEDS ORDERED: ROCEPHIN 1 Gm-D5w 50 ml Bag** 50 ML IV SCH (22:00)
[2016-12-18] MEDS: PROVENTIL 2.5 MG/3 ML NEB IH SCH ×4 (03:04→15:02)
[2016-12-18] MEDS: Sodium Chloride 0.9% 1000 ML 1,000 ML IV SCH ×2 (05:40)
--- NOTE | 2016-12-18 09:03 | XRAY ---
Indication: Head injury following fall. Multiple contiguous axial images obtained through the head without contrast. Comparison: October 15, 2015. Age-appropriate global atrophy and minimal periventricular degenerative micro-ischemia. Again left anterior parafalcine calcified meningioma. No acute intracranial hemorrhage, abnormal extra- axial fluid collection, or mass effect. Fourth ventricle is midline without hydrocephalus. Bony calvarium intact. Again minimal opacification of the right mastoid air cells. Tiny fluid leveling in the visualized left maxillary sinus. Impression: 1. Again anterior parafalcine calcified meningioma, age related atrophy, and degenerative micro-ischemia. 2. No new/acute intracranial abnormalities. 3. Stable partial opacification of the right mastoid air cells, presumed inflammatory. 4. New paranasal sinus disease. Comment: Preliminary interpretation was made by [facility]. No critical discrepancy. CT DI 49.27
[2016-12-18] MEDS: VITAMIN D PO SCH (09:57)
[2016-12-18] MEDS: ANTIVERT 25 MG PO SCH ×2 (09:57→14:57)
[2016-12-18] MEDS: ceLEXa 20 MG PO SCH (09:58)
[2016-12-18] MEDS: ACCOLATE 20 MG PO SCH (09:58)
[2016-12-18] MEDS: Protonix 40MG Tablet PO SCH (09:58)
[2016-12-18] MEDS ORDERED: NON-FORMULARY ITEM (Cholecalciferol (Vitamin D3) [Vitamin D3] 2,000 UNIT) PO SCH (10:00)
[2016-12-18] MEDS: Flonase NASAL NS SCH (10:00)
[2016-12-18 10:15] LABS: Mean Cell Volume 94.2 fl (78-100); Platelet Count 181 K/mm3 (150-450); Red Blood Count 2.95 M/mm3 (4.1-5.4); Red Cell Distribution Width 12.7 % (11.5-14.0); White Blood Count 9.1 K/mm3 (4.0-10.5)
[2016-12-18 10:22] LABS: Mean Corpuscular Hemoglobin 29.4 pg (26-32)
[2016-12-18 10:26] LABS: ANION GAP 10.3 MEQ/L (5-15); BLOOD UREA NITROGEN 12 mg/dL (9-20); CHLORIDE 104 mEq/L (98-107); Carbon Dioxide 27.8 mEq/L (21-32); Glucose 98 MG/DL (70-110); Potassium 4.5 mEq/L (3.5-5.1); SODIUM 138 mEq/L (136-145)
[2016-12-18] MEDS ORDERED: Miralax Powder 17GM PACKET PO SCH (12:28)
--- NOTE | 2016-12-18 14:38 | PCM.DS ---
Discharge Summary Date of Admission: 12/17/16 01:15 Admitting Physician: CJ MORROW Consults: Consults on Case 12/17/16 11:04 Consult Nephrology ROUTINE 12/17/16 11:14 Consult Neurology ROUTINE 12/17/16 11:59 Consult Urology ROUTINE 12/18/16 12:02 Consult Neurology ROUTINE Primary Care Provider: CJ MORROW Allergies Allergies aspirin Allergy (Severe, Verified 12/16/16 22:30) Difficulty Breathing iodine Allergy (Severe, Verified 12/16/16 22:30) Difficulty Breathing Penicillins Allergy (Severe, Verified 12/16/16 22:30) Difficulty Breathing Hospital Summary - Hospital Course Hospital Course: Pt admitted with urinary retention, found to have UTI and treated with IV antibiotics. David catheter was placed and will remain in place for [address] Benson. She had a fall last night, was standing up by her end table and just fell down. She hit her head but CT of the head was negative. Today she is feeling well, georgette po well. PT has evaluated, they recommend a walker or cane. Will f/u with neurology OP for ongoing dizziness. - Vitals & Intake/Output Vital Signs: Vital Signs Temperature 99.5 F 12/18/16 11:43 Pulse Rate 84 12/18/16 11:43 Respiratory Rate 18 12/18/16 11:43 Blood Pressure 129/57 12/18/16 11:43 O2 Sat by Pulse Oximetry 95 12/18/16 11:43 Oxygen-Last Documented O2 Percentage 4 Liters = 36% Intake & Output: Intake & Output 12/16/16 12/17/16 12/18/16 12/19/16 11:59 11:59 11:59 11:59 Intake Total 360 2550 420 Output Total 1700 2225 Balance -1340 325 420 Weight 70.987 kg 71.214 kg - Lab Result Diagrams: 12/18/16 09:45 12/18/16 09:45 Lab Results-Last 24 Hrs: Accuchecks Date 12/18/16 Date 12/18/16 Date 12/17/16 Time 11:42 Time 07:30 Time 16:30 Accucheck Value: 94 Accucheck Value: 102 Accucheck Value: 124 Accucheck Value: 166 Lab Results-Last 24 Hours 12/18/16 12/18/16 Range/Units 09:45 09:45 WBC 9.1 (4.0-10.5) K/mm3 RBC 2.95 L (4.1-5.4) M/mm3 Hgb 8.7 L (12.0-16.0) gm/dl Hct 27.8 L (35-47) % MCV 94.2 (78-100) fl MCH 29.4 (26-32) pg MCHC 31.3 L (32-36) g/dl RDW 12.7 (11.5-14.0) % Plt Count 181 (150-450) K/mm3 MPV 9.0 (6-9.5) fl Sodium 138 (136-145) mEq/L Potassium 4.5 (3.5-5.1) mEq/L Chloride 104 (98-107) mEq/L Carbon Dioxide 27.8 (21-32) mEq/L Anion Gap 10.3 (5-15) MEQ/L BUN 12 (9-20) mg/dL Creatinine 0.89 (0.55-1.30) mg/dl Estimated GFR > 60 ML/MIN Glucose 98 (70-110) MG/DL Calcium 8.5 (8.5-10.1) mg/dL Micro Results-Entire Visit: Accuchecks Date 12/18/16 Date 12/18/16 Date 12/17/16 Time 11:42 Time 07:30 Time 16:30 Accucheck Value: 94 Accucheck Value: 102 Accucheck Value: 124 Accucheck Value: 166 - Radiology Exams Ordered Rad Exams-Entire Visit: Radiology Procedures Category Date Time Status HEAD WITHOUT CONTRAST [CT] Stat Exams 12/17/16 23:13 Completed - Procedures and Test Procedures and Tests throughout Hospitalization: Therapy Orders & Screens 12/17/16 01:57 RT Screen per Nursing Assess ONCE Comment: Protocol Order Physician Instructions: Greater than 3 points order RT Admission Screen Reason For Exam: Triggered on Admission Diagnosis: Urinary retention, UTI, dizziness Diagnosis: Urinary retention, UTI, dizziness Pneumonia: No Home O2: Yes: PRN Asthma: No CHF: No Home CPAP/BIPAP: No Home Nebs/MDI: Yes Total Points: 12/17/16 03:00 Respiratory Nebulizer Q4H Comment: Diagnosis: Urinary retention, UTI, dizziness 12/17/16 03:01 Oxygen NASAL CANNULA 2 lpm Comment: 2l at night Diagnosis: Urinary retention, UTI, dizziness 12/17/16 11:06 PT Eval & Treat (MD Order) ROUTINE Evaluate: Yes Treat: Yes Reason for Eval:: weakness, dizziness on standing Diagnosis: Urinary retention, UTI, dizziness Discharge Exam General Appearance: no apparent distress Neurologic Exam: alert, oriented x 3, cooperative, other (muscles grossly nl bilat) Skin Exam: normal color, warm, dry Respiratory Exam: lungs clear, diminished breath sounds, No crackles/rales, No rhonchi, No wheezing Cardiovascular Exam: regular rate/rhythm, normal heart sounds, No murmur Gastrointestinal/Abdomen Exam: soft, normal bowel sounds, No tenderness, No distention Extremity Exam: No pedal edema, No swelling Final Diagnosis/Problem List - Final Discharge Diagnosis/Problem (1) UTI (urinary tract infection) Current Visit: Yes Status: Acute Assessment & Plan: Day #3 of IV rocephin - no meds needed at home. UCx final - no growth. (2) Urinary retention Current Visit: Yes Status: Chronic Assessment & Plan: David to remain in place per urology instructions for the next [address] Benson for removal. (3) Dizziness Current Visit: Yes Status: Chronic Assessment & Plan: outpatient neurology follow up. (4) Anemia Current Visit: No Status: Acute Assessment & Plan: Hgb to 8.7 today. Hemoccult is pending. Would like her to have a CBC next week. F/u with me in office next week. (5) COPD (chronic obstructive pulmonary disease) Current Visit: No Status: Acute (6) Diabetes mellitus Current Visit: No Status: Acute (7) Generalized weakness Current Visit: No Status: Acute - Discharge Disposition: Home, Self-Care Condition: Stable Prescriptions: Continue Zafirlukast 20 mg [Accolate 20 mg] 20 mg PO BID #180 tablet PANTOPRAZOLE 40 mg Tablet [Protonix 40MG Tablet] 40 mg PO DAILY #90 tab Cholecalciferol (Vitamin D3) [Vitamin D3] 2,000 unit PO DAILY #90 tab Clopidogrel Bisulfate 75 mg [PLAVIX 75 MG Tablet] 75 mg PO HS Metformin HCl 500 mg [Glucophage 500 MG] 500 mg PO DAILY PRN PRN PRN Reason: BLOOD SUGAR Alprazolam 1 mg [Xanax 1 mg] 1 mg PO HS Albuterol Sulfate [Albuterol Sulfate Hfa] 1 neb IH Q4H Citalopram Hydrobromide 20 mg* [ceLEXa 20 MG] 40 mg PO DAILY Nortriptyline HCl 50 mg PO HS Meclizine HCl 25 mg [Antivert 25 mg] 25 mg PO TID #15 tablet Fluticasone Propionate [Flonase NASAL] 1 puff INTRANASAL BID Discontinued Ciprofloxacin [Cipro 500 MG] 500 mg PO BIDAC #20 tablet Instructions: Urinary Tract Infection (UTI), Care for Your David Catheter -- Female, Urinary Retention in Women Additional Instructions: David Catheter is to stay for one week. After one week discontinue David catheter and see with Dr Benson's PN in the office in the afternoon the same day. December 24, 2016 2:45. Follow up with: CJ MORROW [Primary Care Provider] - 12/26/16 10:00 am MARLINE LANCASTER NP [ALLIED HEALTH PROFESSION STAFF] - 12/24/16 2:45 pm ([place] office) LUCY ALTAMIRANO [NON-STAFF PHY W/O PRIVILEGES] - 12/29/16 10:15 am (patients appt is december 29 at 1045 a.m. but they want her there at 1015 for paper work.) Forms: Discharge Instructions
[2016-12-18 15:55] VITALS: BP 129/59; PULSE 100; O2SAT 99
[2016-12-19] MEDS ORDERED: Miralax Powder 17GM PACKET PO SCH (11:30)
== END 2016-12-18 16:12 | disposition home or self-care (01) ==
LOC: ED 21:55 → MED SURG 12-17 01:15
PROVIDERS: ADMIT Family Medicine; ATTEND Family Medicine
DX: N39.0 Urinary tract infection, site not specified (principal); R33.9 Retention of urine, unspecified; R42 Dizziness and giddiness; D64.9 Anemia, unspecified; J44.9 Chronic obstructive pulmonary disease, unspecified; E11.69 Type 2 diabetes mellitus with other specified complication; Z79.01 Long term (current) use of anticoagulants; R53.1 Weakness; J45.909 Unspecified asthma, uncomplicated; Z79.899 Other long term (current) drug therapy
CPT/HCPCS: 36000; 36415; 51702; 70450; 80048; 80053; 81000; 81002; 82150; 82962; 83690; 84484; 85025; 85027; 87086; 93005; 93268; 94640; 94760; 96365; 99285; G0378; J0696; A9270-GY

== ENCOUNTER 2016-12-22 00:57 | Inpatient (IN) | payer MEDICARE, OTHER ==
[2016-12-22] MEDS ORDERED: Sodium Chloride 0.9% 1000 ML 1,000 ML IV STA (01:25)
--- NOTE | 2016-12-22 01:31 | ERPHSYRPT ---
- History of Present Illness Time Seen by Provider: 12/22/16 01:20 Source: patient Exam Limitations: other Patient Subjective Stated Complaint: PT STATES SHE FELL WHILE IN THE HOSPITAL ON THURSDAY AND HAS BEEN HAVING HEAD AND NECK PAIN SINCE. STATES TODAY SHE SLID DOWN THE THE CABINETS WHILE STANDING IN THE KITCHEN. DENIES HITTING HEAD AOR ANY OTHER INJURIES TODAY. Triage Nursing Assessment: PT ALERT AND ORIENTED, ANSWERS QUESTIONS APPROP. RESPIRATIONS NONLABORED WITH LUNGS CTA. C COLLAR IN PLACE PER EMS. BRUISING NOTED TO BILAT POSTERIOR SHOULDERS AND UNDER LT ARM. RASH NOTED TO BILAT THIGHS. PT STATES SHE WAS NOT AWARE THAT SHE HAD A RASH. Physician History: PATIENT WITH HISTORY OF COPD, AND FREQUENT FALLS, FELL WHILE IN THE HOSPITAL 5 DAYS AGO STRUCK BACK OF HEAD AND NECK. STATES HER RIGHT KNEE GAVE OUT AND SHE SLID DOWN THE BACK OF THE WALL. DENIES LOSS OF CONSCIOUSNESS, NECK PAIN AND RIGHT KNEE PAIN.ALSO HAS DIFFICULT BREATHING. Occurred: just prior to arrival Reason for Fall: unknown Injuries/Pain Location: head, face, lower extremity Loss of Consciousness: brief (seconds) Severity of Pain-Max: none Severity of Pain-Current: none Associated Symptoms (Fall): extremity injury Allergies/Adverse Reactions: aspirin Allergy (Severe, Verified 12/22/16 00:58) Difficulty Breathing iodine Allergy (Severe, Verified 12/22/16 00:58) Difficulty Breathing Penicillins Allergy (Severe, Verified 12/22/16 00:58) Difficulty Breathing Home Medications: Clopidogrel Bisulfate 75 mg [PLAVIX 75 MG Tablet] 75 mg PO HS 02/11/15 [ History] Metformin HCl 500 mg [Glucophage 500 MG] 500 mg PO DAILY PRN PRN 02/11/15 [History] Alprazolam 1 mg [Xanax 1 mg] 1 mg PO HS 10/15/15 [History] Albuterol Sulfate [Albuterol Sulfate Hfa] 1 neb IH Q4H 11/23/15 [History] Citalopram Hydrobromide 20 mg* [ceLEXa 20 MG] 40 mg PO DAILY 01/06/16 [ History] Nortriptyline HCl 50 mg PO HS 12/06/16 [History] Fluticasone Propionate [Flonase NASAL] 1 puff INTRANASAL BID 12/16/16 [ History] Hx Tetanus, Diphtheria Vaccination/Date Given: No Hx Influenza Vaccination/Date Given: No Hx Pneumococcal Vaccination/Date Given: Yes - Review of Systems Constitutional: No Fever, No Chills Eyes: No Symptoms Ears, Nose, & Throat: No Symptoms Respiratory: Cough, Dyspnea Cardiac: No Symptoms, No Chest Pain, No Edema, No Syncope Abdominal/Gastrointestinal: No Abdominal Pain, No Nausea, No Vomiting, No Diarrhea Genitourinary Symptoms: No Symptoms, No Dysuria Musculoskeletal: Neck Pain, No Back Pain Skin: No Rash Neurological: No Dizziness, No Focal Weakness, No Sensory Changes Psychological: No Symptoms Endocrine: No Symptoms Hematologic/Lymphatic: No Symptoms, Easy Bruising Immunological/Allergic: No Symptoms All Other Systems: Reviewed and Negative - Past Medical History Pertinent Past Medical History: Yes Neurological History: No Pertinent History ENT History: Cataracts, Macular Degeneration Cardiac History: Arrhythmia Respiratory History: Asthma, Bronchitis, COPD Endocrine Medical History: Diabetes Type II Musculoskeletal History: Arthritis GI Medical History: GERD History: Other Psycho-Social History: Anxiety, Depression Female Reproductive Disorders: Endometriosis, Other Other Medical History: DVT left leg - Past Surgical History Past Surgical History: Yes Neuro Surgical History: No Pertinent History Cardiac: No Pertinent History Respiratory: No Pertinent History Gastrointestinal: Appendectomy, Cholecystectomy Genitourinary: No Pertinent History Musculoskeletal: Joint Replacement, Orthopedic Surgery Female Surgical History: Section, Hysterectomy Other Surgical History: Fernando hip replacement,back surgery-disc replacement per pt., cataracts - Social History Smoking Status: Never smoker Exposure to second hand smoke: No Drug Use: none Patient Lives Alone: Yes Significant Family History: no pertinent family hx - Female History Hx Now: No - Nursing Vital Signs Nursing Vital Signs: Initial Vital Signs Temperature 100.5 F Temperature Source Oral Pulse Rate 90 Respiratory Rate 16 Blood Pressure [] 127/43 Pain Intensity 5 - Thom Coma Score Best Eye Response (Charlotte): (4) open spontaneously Best Verbal Response (Charlotte): (5) oriented Best Motor Response (Charlotte): (6) obeys commands Thom Total: 15 - Physical Exam General Appearance: no apparent distress, alert Head Injury: no evidence of injury Eye Exam: PERRL/EOMI ENT Exam: airway nml Neck Exam: normal inspection, stiff neck, other (ARRIVE TO EMERGENCY ROOM WITH RIGID COLLAR INTACT), No tenderness Respiratory/Chest Exam: chest tenderness (THERE IS RIGHT UPPER BACK TENDERNESS, 6CM X 7CM AROUND THE SPINE OF THE SCAPULA, NO CREPITUS), normal breath sounds, No respiratory distress Cardiovascular Exam: normal heart sounds, regular rate/rhythm Gastrointestinal Exam: soft, No tenderness, No distention, No guarding, No ecchymosis Back Exam: normal inspection, No vertebral tenderness Extremity Exam: normal inspection, normal range of motion, pelvis stable, No deformities Neurologic Exam: alert, oriented x 3, cooperative, sensation nml, No motor deficits Skin Exam: normal color, warm, dry SpO2: 94 Oxygen Delivery: Room Air - Radiology Exams Chest X-ray Interpretation: Interpreted by me (COPD, HYPERINFLATION.) Right Knee X-ray Interpretation: Interpreted by me (DEGENERATIVE ARHRITIS, NO DISLOCATION OR FRACTURE) - CT Exams Head CT Interpretation: Negative, Tele-radiologist Report (THERE IS A FRONTAL PARAFALCINE 2.2X 1.6CM CALCIFIED MEINGOMA) Cervical Spine CT Interpretation: Negative (NO FRACTURE) Ordered Tests: Active Orders 24 hr Category Date Time Status Up With Assistance ROUTINE Activity 12/22/16 03:18 Active Accucheck ACHS Care 12/22/16 03:18 Active Admission/Status Order ROUTINE Care 12/22/16 03:18 Active Rear Admiral STAT Care 12/22/16 01:25 Active Catheter-[place] David STAT Care 12/22/16 01:25 Active Code Status Order ROUTINE Care 12/22/16 03:18 Active IV Care Q6H Care 12/22/16 03:18 Active IV Insertion STAT Care 12/22/16 01:25 Active Oxygen-ED Only NASAL CANNULA 2 lpm Care 12/22/16 01:28 Active Hever Hose, Apply ROUTINE Care 12/22/16 03:18 Active Telemetry ROUTINE Care 12/22/16 03:18 Active Vital Signs Q4H Care 12/22/16 03:18 Active Weight,Daily 0600 Care 12/22/16 03:18 Active 1800 Calorie ADA Diet 12/22/16 Breakfast Active CERVICAL SPINE WO CONTRAST [CT] Stat Exams 12/22/16 01:29 Taken CHEST 1 VIEW (PORTABLE) Stat Exams 12/22/16 01:26 Taken HEAD WITHOUT CONTRAST [CT] Stat Exams 12/22/16 01:29 Taken KNEE (3 VIEWS) Stat Exams 12/22/16 01:28 Taken CBC W DIFF Stat Lab 12/22/16 01:30 Completed CMP Stat Lab 12/22/16 01:30 Completed Manual Differential NC Stat Lab 12/22/16 01:30 Completed PROTIME WITH INR Stat Lab 12/22/16 01:30 Completed TROPONIN Q3H Lab 12/22/16 01:30 Completed TROPONIN Q3H Lab 12/22/16 04:30 Ordered TROPONIN Q3H Lab 12/22/16 07:30 Ordered TROPONIN Q3H Lab 12/22/16 10:30 Ordered TROPONIN Q3H Lab 12/22/16 13:30 Ordered UA W/ MICROSCOPIC Stat Lab 12/22/16 02:45 Completed Oxygen NASAL CANNULA 2 lpm RT 12/22/16 03:18 Active Respiratory Nebulizer STAT RT 12/22/16 02:26 Completed Respiratory Nebulizer STAT RT 12/22/16 03:25 Active Transfer Order Routine Transfer 12/22/16 03:16 Ordered Medication Summary Generic Name Dose Route Start Last Admin Trade Name Freq PRN Reason Stop Dose Admin Clopidogrel Bisulfate 75 mg 12/22/16 10:00 Plavix 75 Mg Tablet PO 01/21/17 09:59 DAILY PARIS Levofloxacin/Dextrose 150 mls @ 150 mls/hr 12/22/16 03:30 12/22/16 03:30 Levofloxacin 750mg/150ml D5w IV 01/21/17 03:29 150 mls/hr Q24H PARIS Administration Levalbuterol HCl 1.25 mg 12/22/16 03:24 Xopenex 1.25 Mg/0.5 Ml Ud Nebule 01/21/17 03:23 Q2HPRN PRN DIFFICULTY BREATHING Metformin HCl 500 mg 12/22/16 08:00 Glucophage 500 Mg PO 01/21/17 07:59 BREAKFAST [place] Methylprednisolone Sodium Succinate 80 mg 12/22/16 06:00 Solu-Medrol 125 Mg IV 01/21/17 05:59 Q6HT PARIS Discontinued Medications Generic Name Dose Route Start Last Admin Trade Name Freq PRN Reason Stop Dose Admin Albuterol/Ipratropium 3 ml 12/22/16 02:25 12/22/16 02:41 Duoneb 0.5-3 Mg/3 Ml Neb IH 12/22/16 02:26 3 ml STAT ONE Administration Albuterol/Ipratropium Confirm 12/22/16 02:38 Duoneb 0.5-3 Mg/3 Ml Neb Administered 12/22/16 02:39 Dose 3 ml IH .STK-MED ONE Sodium Chloride 1,000 mls @ 60 mls/hr 12/22/16 01:25 12/22/16 02:13 Sodium Chloride 0.9% 1000 Ml IV 12/22/16 18:04 500 mls/hr .[id number] STA Administration Sodium Chloride Confirm 12/22/16 02:11 Sodium Chloride 0.9% 1000 Ml Administered 12/22/16 02:12 Dose 1,000 mls @ ud .ROUTE .STK-MED ONE Methylprednisolone Sodium Succinate 125 mg 12/22/16 03:26 12/22/16 03:30 Solu-Medrol 125 Mg IV 12/22/16 03:27 125 mg STAT ONE Administration Lab/Rad Data: Laboratory Result Diagrams 12/22/16 01:30 12/22/16 01:30 Laboratory Results 12/22/16 12/22/16 12/22/16 Range/Units 02:45 01:30 01:30 WBC (4.0-10.5) K/mm3 RBC (4.1-5.4) M/mm3 Hgb (12.0-16.0) gm/dl Hct (35-47) % MCV (78-100) fl MCH (26-32) pg MCHC (32-36) g/dl RDW (11.5-14.0) % Plt Count (150-450) K/mm3 MPV (6-9.5) fl Segmented Neutrophils (36.0-66.0) % Lymphocytes (Manual) (24-44) % Monocytes (Manual) (0.0-12.0) % Eosinophils (Manual) (0.00-3.0) % Differential Comment Atypical Lymphocytes % Platelet Estimate (NORMAL) Hypochromasia Anisocytosis INR 1.18 (0.8-3.0) Sodium (136-145) mEq/L Potassium (3.5-5.1) mEq/L Chloride (98-107) mEq/L Carbon Dioxide (21-32) mEq/L Anion Gap (5-15) MEQ/L BUN (9-20) mg/dL Creatinine (0.55-1.30) mg/dl Estimated GFR ML/MIN Glucose (70-110) MG/DL Calcium (8.5-10.1) mg/dL Total Bilirubin (0.2-1.0) mg/dL AST (15-37) U/L ALT (12-78) U/L Alkaline Phosphatase (46-116) U/L Troponin I < 0.017 (0.000-0.056) ng/ml Serum Total Protein (6.4-8.2) gm/dL Albumin (3.4-5.0) g/dL Ur Collection Type CLEAN CATCH Urine Color YELLOW (YELLOW) Urine Appearance CLEAR (CLEAR) Urine pH 8.0 (5-6) Ur Specific Dema 1.010 (1.005-1.025) Urine Protein 30 (Negative) Urine Glucose (UA) NEGATIVE (NEGATIVE) mg/dL Urine Ketones NEGATIVE (NEGATIVE) Urine Nitrite NEGATIVE (NEGATIVE) Urine Bilirubin NEGATIVE (NEGATIVE) Urine Urobilinogen 0.2 (0-1) mg/dL Urine WBC (Auto) SMALL (NEGATIVE) Urine RBC (Auto) LARGE (0-5) Oh/ul Urine Microscopic RBC 25-50 (0-2) /HPF Urine Microscopic WBC 2-5 (0-5) /HPF Ur Epithelial Cells FEW (FEW) /HPF Urine Bacteria FEW (NEGATIVE) /HPF Urine Mucus SLIGHT (NEGATIVE) /HPF Specimen Received 12/22/16:0245 12/22/16 12/22/16 Range/Units 01:30 01:30 WBC 12.7 H (4.0-10.5) K/mm3 RBC 2.93 L (4.1-5.4) M/mm3 Hgb 8.7 L (12.0-16.0) gm/dl Hct 27.1 L (35-47) % MCV 92.5 (78-100) fl MCH 29.6 (26-32) pg MCHC 32.1 (32-36) g/dl RDW 12.6 (11.5-14.0) % Plt Count 242 (150-450) K/mm3 MPV 9.5 (6-9.5) fl Segmented Neutrophils 68 H (36.0-66.0) % Lymphocytes (Manual) 14 L (24-44) % Monocytes (Manual) 10 (0.0-12.0) % Eosinophils (Manual) 1 (0.00-3.0) % Differential Comment ABNORMAL Atypical Lymphocytes 7 % Platelet Estimate NORMAL (NORMAL) Hypochromasia 1+ Anisocytosis 1+ INR (0.8-3.0) Sodium 127 L (136-145) mEq/L Potassium 4.8 (3.5-5.1) mEq/L Chloride 96 L (98-107) mEq/L Carbon Dioxide 24.7 (21-32) mEq/L Anion Gap 11.4 (5-15) MEQ/L BUN 14 (9-20) mg/dL Creatinine 0.85 (0.55-1.30) mg/dl Estimated GFR > 60 ML/MIN Glucose 145 H (70-110) MG/DL Calcium 8.3 L (8.5-10.1) mg/dL Total Bilirubin 0.5 (0.2-1.0) mg/dL AST 23 (15-37) U/L ALT 11 L (12-78) U/L Alkaline Phosphatase 82 (46-116) U/L Troponin I (0.000-0.056) ng/ml Serum Total Protein 5.8 L (6.4-8.2) gm/dL Albumin 3.1 L (3.4-5.0) g/dL Ur Collection Type Urine Color (YELLOW) Urine Appearance (CLEAR) Urine pH (5-6) Ur Specific Dema (1.005-1.025) Urine Protein (Negative) Urine Glucose (UA) (NEGATIVE) mg/dL Urine Ketones (NEGATIVE) Urine Nitrite (NEGATIVE) Urine Bilirubin (NEGATIVE) Urine Urobilinogen (0-1) mg/dL Urine WBC (Auto) (NEGATIVE) Urine RBC (Auto) (0-5) Oh/ul Urine Microscopic RBC (0-2) /HPF Urine Microscopic WBC (0-5) /HPF Ur Epithelial Cells (FEW) /HPF Urine Bacteria (NEGATIVE) /HPF Urine Mucus (NEGATIVE) /HPF Specimen Received - Progress Progress Note: 12/22/16 03:01 PATIENT GIVEN DUO NEB AEROSOL TR, IV NORMAL SALINE, LEVAQUIN 500MG IVPB 12/22/16 03:[address] Welch (DISCUSSED WITH DR WELCH AT 0310 FOR ADMISSION) - Departure Time of Disposition: 03:40 Departure Disposition: Observation Clinical Impression: FREQUENT FALLS, EXACERBATION COPD, ANEMIA Condition: Stable Critical Care Time: No Referrals: CJ OMRROW [Primary Care Provider] -
[2016-12-22 02:09] LABS: Mean Cell Volume 92.5 fl (78-100); Mean Platelet Volume 9.5 fl (6-9.5); Platelet Count 242 K/mm3 (150-450); Red Blood Count 2.93 M/mm3 (4.1-5.4); Red Cell Distribution Width 12.6 % (11.5-14.0); White Blood Count 12.7 K/mm3 (4.0-10.5)
[2016-12-22 02:10] LABS: Mean Corpuscular Hemoglobin 29.6 pg (26-32)
[2016-12-22] MEDS ORDERED: Sodium Chloride 0.9% 1000 ML 1,000 ML ONE (02:11)
[2016-12-22 02:15] LABS: INR 1.18 (0.8-3.0); PROTIME 13.2 SECONDS (9.95-12.35)
[2016-12-22] MEDS ORDERED: DUONEB 0.5-3 MG/3 ml Neb IH ONE ×2 (02:25→02:38)
[2016-12-22 02:26] LABS: ALBUMIN 3.1 g/dL (3.4-5.0); ALKALINE PHOSPHATASE 82 U/L (46-116); ANION GAP 11.4 MEQ/L (5-15); BILIRUBIN,TOTAL 0.5 mg/dL (0.2-1.0); BLOOD UREA NITROGEN 14 mg/dL (9-20); CHLORIDE 96 mEq/L (98-107); Carbon Dioxide 24.7 mEq/L (21-32); Glucose 145 MG/DL (70-110); Potassium 4.8 mEq/L (3.5-5.1); SGOT/AST 23 U/L (15-37); SGPT/ALT 11 U/L (12-78); SODIUM 127 mEq/L (136-145); Total Protein 5.8 gm/dL (6.4-8.2)
[2016-12-22 02:56] LABS: COMPLETE URINE MICROSCOPIC? YES; Collection Type CLEAN CATCH
[2016-12-22 02:59] LABS: Bacteria FEW /HPF (NEGATIVE); Epithelial Cells FEW /HPF (FEW); Mucus SLIGHT /HPF (NEGATIVE)
[2016-12-22 03:05] LABS: ANISOCYTOSIS 1+; ATYPICAL LYMPHS 7 %; Eosinophil 1 % (0.00-3.0); Hypochromia 1+; Platelet Estimate NORMAL (NORMAL); Total Cells Counted 100
[2016-12-22] MEDS ORDERED: Xopenex 1.25 MG/0.5 ML UD NEBULE IH PRN (03:24)
[2016-12-22] MEDS ORDERED: solu-MEDROL 125 MG IV ONE (03:26)
[2016-12-22] MEDS ORDERED: solu-MEDROL 125 MG ONE (03:29)
[2016-12-22] MEDS: LEVOFLOXACIN 750MG/150ML D5W 150 ML IV SCH (03:30)
[2016-12-22] MEDS: solu-MEDROL 125 MG IV SCH ×4 (05:35→23:25)
[2016-12-22] MEDS: DUONEB 0.5-3 MG/3 ml Neb IH SCH ×5 (06:48→22:23)
[2016-12-22] MEDS ORDERED: Glucophage 500 MG PO SCH (08:00)
--- NOTE | 2016-12-22 08:48 | PCM.HP ---
History of Present Illness - Chief Complaint Chief Complaint: frequient fall, anemia, exb COPD History of Present Illness: is a 81 year old female pt of mine who was discharged from the hospital 4 days ago with UTI, urinary retention, and a fall. She fell while in the hospital and hit her head; CT head was neg. She does complain of more dizziness than usual at home. She was dx with COPD exacerbation here and has a tmax of 100.5. She also had a rash to bilateral upper legs on admission that she was not aware of. She complains of neck stiffness and R knee pain since her fall. - Review of Systems Constitutional: Fever Respiratory: Cough, Short Of Breath, Wheezing Genitourinary Symptoms: Urinary Retention (has guillaume catheter in place) Musculoskeletal: Neck Pain, Fall, Joint Pain Skin: Rash Neurological: Dizziness Psychological: Anxiety All Other Systems: Reviewed and Negative Medications & Allergies Home Medications: Home Medication List Cholecalciferol (Vitamin D3) [Vitamin D3] 2,000 unit PO DAILY #90 tab 06/30/14 [ Rx Confirmed 12/22/16] PANTOPRAZOLE 40 mg Tablet [Protonix 40MG Tablet] 40 mg PO DAILY #90 tab [Rx Confirmed 12/22/16] Zafirlukast 20 mg [Accolate 20 mg] 20 mg PO BID #180 tablet 06/30/14 [Rx Confirmed 12/22/16] Clopidogrel Bisulfate 75 mg [PLAVIX 75 MG Tablet] 75 mg PO HS 02/11/15 [ History Confirmed 12/22/16] Metformin HCl 500 mg [Glucophage 500 MG] 500 mg PO DAILY PRN PRN 02/11/15 [History Confirmed 12/22/16] Alprazolam 1 mg [Xanax 1 mg] 1 mg PO HS 10/15/15 [History Confirmed ] Albuterol Sulfate [Albuterol Sulfate Hfa] 1 neb IH Q4H 11/23/15 [History Confirmed 12/22/16] Citalopram Hydrobromide 20 mg* [ceLEXa 20 MG] 40 mg PO DAILY 01/06/16 [ History Confirmed 12/22/16] Fluticasone Propionate [Flonase NASAL] 1 puff INTRANASAL BID PRN 12/16/16 [History Confirmed 12/22/16] Meclizine HCl 25 mg [Antivert 25 mg] 25 mg PO TIDPRN PRN 12/22/16 [ History Confirmed 12/22/16] Allergies/Adverse Reactions: Allergies Allergy/AdvReac Type Severity Reaction Status Date / Time aspirin Allergy Severe Difficulty Verified 12/22/16 00:58 Breathing iodine Allergy Severe Difficulty Verified 12/22/16 00:58 Breathing Penicillins Allergy Severe Difficulty Verified 12/22/16 00:58 Breathing - Past Medical History Past Medical History: Yes Neurological History: No Pertinent History ENT History: Cataracts, Macular Degeneration Cardiac History: Arrhythmia Respiratory History: Asthma, Bronchitis, COPD Endocrine Medical History: Diabetes Type II Musculoskelatal History: Arthritis, Other GI Medical History: GERD History: Other Pyscho-Social History: Anxiety, Depression Reproductive Disorders: Endometriosis, Other Comment: DVT left leg, pt cant remember arrhythmia states " it was a long time ago". hx of UTI, ovary removed, fernando hip replacements, hx of back problems - Female History Are you now?: No - Past Surgical History Past Surgical History: Yes Neuro Surgical History: No Pertinent History Cardiac History: No Pertinent History Respiratory Surgery: No Pertinent History GI Surgical History: Appendectomy, Cholecystectomy Genitourinary Surgical Hx: No Pertinent History Musculskeletal Surgical Hx: Joint Replacement, Orthopedic Surgery Female Surgical History: Hysterectomy, Section, Other Other Surgical History: Fernando hip replacement,back surgery-disc replacement per pt., cataracts - Social History Smoking Status: Never smoker Exposure to second hand smoke: No Alcohol: None Drug Use: none Significant Family History: no pertinent family hx - Physical Exam Vital Signs: Vital Signs - 24 hr Temp Pulse Resp BP Pulse Ox 12/22/16 08:00 98.6 F 88 20 139/71 91 L 12/22/16 06:50 88 22 94 L 12/22/16 04:50 99.9 F 90 20 143/63 99 12/22/16 03:50 94 L 12/22/16 03:43 90 16 127/43 96 12/22/16 02:50 91 H 20 133/53 97 12/22/16 02:41 94 H 24 99 12/22/16 02:25 95 H 20 142/60 94 L 12/22/16 01:03 100.5 F 84 20 139/56 94 L General Appearance: no apparent distress Neurologic Exam: alert, oriented x 3, cooperative Eye Exam: eyes nml inspection Neck Exam: normal inspection Respiratory Exam: lungs clear, diminished breath sounds, No crackles/rales, No rhonchi, No wheezing Cardiovascular Exam: regular rate/rhythm, normal heart sounds, No murmur Gastrointestinal/Abdomen Exam: soft, normal bowel sounds, No tenderness, No distention, No guarding Extremity Exam: No pedal edema, No swelling Skin Exam: rash (scattered to coalescent macular nonblanching erythema; on R anterior upper leg there is a linear demarcation with no rash distal of the line. On L anterior upper leg the rash extends just distal to the knee laterally.) Results - Labs Lab/Micro Results: Lab Results-Last 24 Hours 12/22/16 12/22/16 Range/Units 04:30 07:12 Troponin I < 0.017 < 0.017 (0.000-0.056) ng/ml - Other Procedures and Tests Respiratory Therapy 12/22/16 03:18 Oxygen NASAL CANNULA 2 lpm 12/22/16 06:13 neb [Respiratory Nebulizer] 0700,1100,1500,1900,2300,0300 Assessment/Plan (1) COPD exacerbation Current Visit: No Status: Acute Assessment & Plan: On IV levaquin and steroids. Code(s): J44.1 - CHRONIC OBSTRUCTIVE PULMONARY DISEASE W (ACUTE) EXACERBATION (2) Accidental fall Current Visit: No Status: Acute Qualifiers: Encounter type: subsequent encounter Qualified Code(s): W19.XXXD - Unspecified fall, subsequent encounter Assessment & Plan: Will add flexeril for neck pain. C-Spine CT done in ER. Code(s): W19.XXXA - UNSPECIFIED FALL, INITIAL ENCOUNTER (3) Neck pain Current Visit: Yes Status: Acute Code(s): M54.2 - CERVICALGIA (4) Rash Current Visit: Yes Status: Acute Assessment & Plan: With linear nature of rash, suspect related to a dressing or garment. She denies wearing thigh high DARRION hose. Will check for coagulapathy. Code(s): R21 - RASH AND OTHER NONSPECIFIC SKIN ERUPTION (5) Anemia Current Visit: No Status: Acute Qualifiers: Anemia type: iron deficiency Iron deficiency anemia type: unspecified iron deficiency Qualified Code(s): D50.9 - Iron deficiency anemia, unspecified Assessment & Plan: start po iron. hemoccult stool. Code(s): D64.9 - ANEMIA, UNSPECIFIED (6) Diabetes mellitus Current Visit: No Status: Acute Qualifiers: Diabetes mellitus type: type 2 Diabetes mellitus complication status: without complication Diabetes mellitus retirement insulin use: without tissue inserter use Qualified Code(s): E11.9 - Type 2 diabetes mellitus without complications Assessment & Plan: novolog SS low dose. Code(s): E11.9 - TYPE 2 DIABETES MELLITUS WITHOUT COMPLICATIONS (7) Urinary retention Current Visit: No Status: Acute Assessment & Plan: catheter in place. She is to follow up with Dr. Benson. Code(s): R33.9 - RETENTION OF URINE, UNSPECIFIED (8) Dizziness Current Visit: No Status: Chronic Assessment & Plan: acute on chronic. May get neuro eval. Code(s): R42 - DIZZINESS AND GIDDINESS
[2016-12-22] MEDS ORDERED: Mylicon 80MG PO PRN (08:49)
[2016-12-22] MEDS ORDERED: XANAX 1 MG PO ONE (08:49)
[2016-12-22 09:15] LABS: INR 1.26 (0.8-3.0)
--- NOTE | 2016-12-22 09:18 | XRAY ---
Indication: Pain following repeat fall. Multiple contiguous axial images obtained through the head without contrast. Comparison: December 17, 2016. Stable global atrophy and minimal periventricular degenerative micro-ischemia. Again left anterior parafalcine calcified meningioma. No acute intracranial hemorrhage, abnormal extra- axial fluid collection, or mass effect. Fourth ventricle is midline without hydrocephalus. Bony calvarium intact. Again minimal opacification of the right mastoid air cells. Tiny fluid leveling in the visualized left maxillary sinus. Impression: 1. Again anterior parafalcine calcified meningioma, age related atrophy, and degenerative micro-ischemia. 2. No new/acute intracranial abnormalities. 3. Stable partial opacification of the right mastoid air cells, presumed inflammatory. 4. Stable paranasal sinus disease. Comment: Preliminary interpretation was made by [facility]. No critical discrepancy. CT DI 49.41
[2016-12-22] MEDS: Cyclobenzaprine 10 MG PO PRN (09:20)
--- NOTE | 2016-12-22 09:22 | XRAY ---
Indication: Pain following fall. Multiple contiguous axial images obtained through the cervical spine. Sagittal and coronal reformatted images obtained. Comparison: None Images through the C2-C4 level slightly degraded by motion artifact. No acute fracture, suspicious bony lesions, or spinal canal stenosis. C5-C6 degenerative endplate spurring and mild multilevel bilateral degenerative facet hypertrophy. Sagittal and coronal reformatted images demonstrates lordotic straightening, positional versus paraspinal muscular spasm. C5-C6 disc space loss. No acute compression fracture, subluxation, or jumped facet. Normal-appearing craniocervical junction. Visualized noncontrasted soft tissues demonstrates mild carotid calcifications bilaterally and minimal biapical fibrosis/scarring. Impression: 1. Negative for acute fracture/subluxation. 2. Lordotic straightening, positional versus paraspinal spasm. 3. Multilevel degenerative changes. Comment: Preliminary interpretation was made by [facility]. No critical discrepancy. CTDI 113.25
[2016-12-22] MEDS: NovoLOG Insulin SQ PRN ×3 (09:23→21:56)
--- NOTE | 2016-12-22 09:24 | XRAY ---
Indication: Cough and dyspnea. Comparison: August 14, 2016. Portable chest remains hyperinflated and clear again with right lung calcified granuloma. Heart is not enlarged. Bony thorax intact again with osteopenia and degenerative changes. Impression: Stable nonacute hyperinflated chest with chronic features.
--- NOTE | 2016-12-22 09:24 | XRAY ---
Indication: Pain following fall. Comparison: None 3 views of the right knee demonstrates osteopenia, mild tricompartmental degenerative changes, tiny nonspecific suprapatellar effusion, and faint vascular calcifications. No other bony, articular, or soft tissue abnormalities.
[2016-12-22] MEDS: FEOSOL 325 MG PO SCH ×2 (09:34→21:56)
[2016-12-22] MEDS ORDERED: PLAVIX 75 MG Tablet PO SCH (10:00)
[2016-12-22] MEDS ORDERED: ANTIVERT 25 MG PO PRN (10:13)
[2016-12-22] MEDS ORDERED: Ventolin Hfa MDI IH SCH (10:15)
[2016-12-22] MEDS: ceLEXa 20 MG PO SCH (10:52)
[2016-12-22] MEDS: VITAMIN D PO SCH (10:52)
[2016-12-22] MEDS: ACCOLATE 20 MG PO SCH ×2 (10:54→21:56)
[2016-12-22] MEDS: XANAX 1 MG PO SCH (21:56)
[2016-12-23] MEDS: DUONEB 0.5-3 MG/3 ml Neb IH SCH ×6 (02:49→22:48)
[2016-12-23] MEDS: LEVOFLOXACIN 750MG/150ML D5W 150 ML IV SCH (02:58)
[2016-12-23] MEDS: solu-MEDROL 125 MG IV SCH (06:02)
[2016-12-23] MEDS: NovoLOG Insulin SQ PRN ×3 (08:00→22:05)
--- NOTE | 2016-12-23 08:40 | PCM.NOTE ---
Date and Time: 12/23/16834 Subjective Assessment: She woke up at 5 am when her IV made noise. She has been feeling very shaky, enough that it makes her stutter. She is concerned about her dizziness because it seems different than her previous episodes of BPPV. She is tolerating po. - Review of Systems Constitutional: No Fever Respiratory: Cough Objective Exam General Appearance: no apparent distress, other (generalized marked tremor this morning) Neurologic Exam: alert, oriented x 3, cooperative, metallographic technician II-XII nml as tested, other (unable to do finger-nose testing due to marked tremor) Skin Exam: warm, dry Eye Exam: eyes nml inspection Respiratory Exam: lungs clear, diminished breath sounds, No crackles/rales, No rhonchi, No wheezing Cardiovascular Exam: regular rate/rhythm, normal heart sounds, No murmur Extremity Exam: other (bilat erythema anterior thighs is decreased, markedly decreased on R) Back Exam: normal inspection OBJECTIVE DATA Vital Signs: Vital Signs - 24 hr Temp Pulse Resp BP Pulse Ox 12/23/16 07:02 98.8 F 80 20 132/68 96 12/23/16 06:39 89 18 96 12/23/16 04:00 97.9 F 85 21 158/68 97 12/23/16 02:51 82 20 97 12/23/16 00:00 98.5 F 93 H 18 166/70 97 12/22/16 22:23 95 H 18 95 12/22/16 20:00 97.8 F 89 18 160/70 98 12/22/16 18:26 89 20 98 12/22/16 16:00 97.5 F 84 20 174/72 99 12/22/16 14:46 79 20 98 12/22/16 12:00 97.9 F 79 20 147/65 96 12/22/16 11:22 78 20 96 Oxygen-Last 24 hours O2 Percentage 3 Liters = 32% O2 Percentage 3 Liters = 32% Pain Assessment - Last Documented Pain Intensity 2 Pain Scale Used 0-10 Pain Scale Intake and Output: Intake & Output 12/20/16 12/21/16 12/22/16 12/23/16 11:59 11:59 11:59 11:59 Intake Total 200 1857 Output Total 2400 1550 Balance -2200 307 Weight 73.573 kg 72.393 kg Lab Results: Accuchecks Date 12/23/16 Date 12/22/16 Date 12/22/16 Date 12/22/16 Time 07:30 Time 16:30 Time 11:30 Accucheck Value: 214 Accucheck Value: 244 Accucheck Value: 196 Accucheck Value: 215 Lab Results-Last 24 Hours 12/22/16 12/22/16 12/22/16 Range/Units 07:00 10:10 10:49 INR 1.26 (0.8-3.0) Lactic Acid 1.0 (0.4-2.0) Troponin I < 0.017 (0.000-0.056) ng/ml 12/22/16 Range/Units 13:45 INR (0.8-3.0) Lactic Acid (0.4-2.0) Troponin I < 0.017 (0.000-0.056) ng/ml Multi-Disciplinary Progress Notes: Multi-Disciplinary Progress Notes 12/22/16 15:57 Physical Therapy Note by Raquel Jonas PATIENT SLEEPING THROUGHOUT THE DAY....WAS ADMITTED DURING THE NIGHT. WILL ATTEMPT TO SEE PATIENT IN THE A.M. Initialized on 12/22/16 15:57 - END OF NOTE 12/22/16 10:30 Pharmacy Note by Suresh Troncoso Please be aware of possible drug interaction with Levaquin and Celexa. May prolong the QT interval. Initialized on 12/22/16 10:30 - END OF NOTE 12/22/16 09:45 (created 12/22/16 14:13) Case Management Note by Rosie Peters DISCHARGE PLAN REVIEWED, PROVIDES SELF CARE, INDEPENDENT WITH ALL ADL'S. DECLINED NEEDS FOR [facility] SERVICES/EQUIP ON DC. DRIVES AND HAS TRANSPORTATION FOR ALL APPTS. DISCUSSED HHC SERVICES FOR ADD[facility] SUPPORT ON DISCHARGE. REFUSED AT PRESENT. REPORTS THAT SHE PLANS TO RETURN HOME TO PRE EPISODIC LEVEL OF [place]. ALSO, HAS BROTHER THAT CAN ASSIST IF NEEDED. ENCOURAGED HHC SERVICES FOR ADDNL SUPPORT ON DISCHARGE. REPORTS THAT SHE WILL THINK ABOUT IT. DECLINED ADDNL NEEDS. WILL CONTINUE TO FOLLOW AND ASSESS FOR ALL DC NEEDS. Initialized on 12/22/16 14:13 - END OF NOTE Assessment/Plan (1) Dizziness Current Visit: No Status: Chronic Assessment & Plan: with increased falling. MRI brain, RPR, TSH, B12/folate. Then neurology consult. Code(s): R42 - DIZZINESS AND GIDDINESS (2) Tremor Current Visit: Yes Status: Acute Assessment & Plan: marked; I have never seen her have a tremor of this amplitude before. Could be related to steroids; decreasing drastically to po dosing today. Also neuro workup as below. Code(s): R25.1 - TREMOR, UNSPECIFIED (3) COPD exacerbation Current Visit: No Status: Acute Assessment & Plan: on IV levaquin. Decrease steroid to 60mg po daily, starting at 2 p.m. Code(s): J44.1 - CHRONIC OBSTRUCTIVE PULMONARY DISEASE W (ACUTE) EXACERBATION (4) Accidental fall Current Visit: No Status: Acute Qualifiers: Encounter type: subsequent encounter Qualified Code(s): W19.XXXD - Unspecified fall, subsequent encounter Assessment & Plan: PT consulting. Code(s): W19.XXXA - UNSPECIFIED FALL, INITIAL ENCOUNTER (5) Neck pain Current Visit: Yes Status: Acute Assessment & Plan: added flexeril yesterday prn Code(s): M54.2 - CERVICALGIA (6) Rash Current Visit: Yes Status: Acute Assessment & Plan: better, I think related to the plavix. Code(s): R21 - RASH AND OTHER NONSPECIFIC SKIN ERUPTION (7) Anemia Current Visit: No Status: Acute Qualifiers: Anemia type: iron deficiency Iron deficiency anemia type: unspecified iron deficiency Qualified Code(s): D50.9 - Iron deficiency anemia, unspecified Assessment & Plan: recheck Code(s): D64.9 - ANEMIA, UNSPECIFIED (8) Diabetes mellitus Current Visit: No Status: Acute Qualifiers: Diabetes mellitus type: type 2 Diabetes mellitus complication status: without complication Diabetes mellitus technician terminal and repeater insulin use: without detention use Qualified Code(s): E11.9 - Type 2 diabetes mellitus without complications Assessment & Plan: stable Code(s): E11.9 - TYPE 2 DIABETES MELLITUS WITHOUT COMPLICATIONS (9) Urinary retention Current Visit: No Status: Acute Assessment & Plan: has guillaume catheter in place and will f/u with urology on discharge. relatively new issue. Code(s): R33.9 - RETENTION OF URINE, UNSPECIFIED (10) Meningioma Current Visit: Yes Status: Chronic Assessment & Plan: calcified. however will recheck on MRI. Code(s): D32.9 - BENIGN NEOPLASM OF MENINGES, UNSPECIFIED
[2016-12-23 09:21] LABS: Mean Corpuscular Hemoglobin 29.9 pg (26-32); Platelet Count 322 K/mm3 (150-450); Red Blood Count 3.21 M/mm3 (4.1-5.4); Red Cell Distribution Width 12.3 % (11.5-14.0); White Blood Count 16.2 K/mm3 (4.0-10.5)
[2016-12-23] MEDS: Protonix 40MG Tablet PO SCH (09:37)
[2016-12-23] MEDS: ceLEXa 20 MG PO SCH (09:37)
[2016-12-23] MEDS: ACCOLATE 20 MG PO SCH ×2 (09:37→21:47)
[2016-12-23] MEDS: VITAMIN D PO SCH (09:37)
[2016-12-23] MEDS: FEOSOL 325 MG PO SCH ×2 (09:37→21:48)
[2016-12-23 09:49] LABS: ALBUMIN 3.1 g/dL (3.4-5.0); ANION GAP 12.5 MEQ/L (5-15); BILIRUBIN,TOTAL 0.3 mg/dL (0.2-1.0); Carbon Dioxide 25.1 mEq/L (21-32); MAGNESIUM 1.9 mg/dL (1.8-2.4); Potassium 3.9 mEq/L (3.5-5.1)
[2016-12-23] MEDS ORDERED: PREVNAR 13 SYRINGE IM ONE (10:00)
[2016-12-23] MEDS ORDERED: NON-FORMULARY ITEM (Cholecalciferol (Vitamin D3) [Vitamin D3] 2,000 UNIT) PO SCH (10:00)
[2016-12-23 10:24] LABS: Platelet Estimate NORMAL (NORMAL); Total Cells Counted 100
--- NOTE | 2016-12-23 10:31 | XRAY ---
Indication: Dizziness. Two-dimensional sonogram and color Doppler imaging of the carotid arteries of the neck was performed. Comparison: None Examination of the right carotid circulation demonstrates minimal soft plaquing in the bulb and proximal internal carotid artery. PSV of the CCA is 63 cm/s. PSV of the ICA is 105 cm/s. ICA/CCA ratio is 1.7. Normal antegrade vertebral artery flow. Examination of the left carotid circulation demonstrates minimal soft plaquing in the bulb and proximal external carotid artery. PSV of the CCA is 102 cm/s. PSV of the ICA is 100 cm/s. ICA/CCA ratio is 1.0. Normal antegrade vertebral artery flow. Impression: Minimal arteriosclerotic disease bilaterally. Velocity measurements and ratios are however negative for hemodynamically significant flow-limiting stenosis.
[2016-12-23 12:55] LABS: Erythrocyte Sedimentation Rate 100 mm/hr (0-20)
--- NOTE | 2016-12-23 13:10 | XRAY ---
Indication: Dizziness. Status post fall. Sagittal, coronal, and axial MRI brain was performed without contrast using T1, T2, FLAIR, diffusion, and ADC sequences. Comparison: September 29, 2016. Stable age-appropriate global atrophy and known left parafalcine calcified meningioma. No acute intracranial hemorrhage, abnormal extra-axial fluid collection, or mass effect. Diffusion images are again negative for restricted signal. Fourth ventricle is midline without hydrocephalus. 7/8 cranial nerve complex bilaterally symmetric. Normal flow-void signal within the major intracerebral circulation. Normal-appearing craniocervical junction and sella turcica. Again tiny fluid leveling in the left maxillary sinus and fluid signal in both mastoid air cells presumed inflammatory. Impression: 1. Again no acute intracranial abnormalities or evidence for evolving large vessel territorial stroke. 2. Stable age-appropriate global atrophy. 3. Stable known left parafalcine calcified meningioma. 4. Stable left maxillary sinus disease and fluid signal in both mastoid air cells presumed inflammatory.
[2016-12-23] MEDS ORDERED: DELTASONE 20 MG PO SCH (14:00)
[2016-12-23] MEDS: TYLENOL 325 MG PO PRN (15:07)
[2016-12-23] MEDS: Flonase NASAL NS PRN (15:10)
[2016-12-23] MEDS ORDERED: PLAVIX 75 MG Tablet ONE (19:39)
[2016-12-23] MEDS ORDERED: ELIQUIS ONE (19:43)
[2016-12-23] MEDS: PLAVIX 75 MG Tablet PO SCH (21:49)
[2016-12-23] MEDS: XANAX 1 MG PO SCH (21:49)
[2016-12-23] MEDS: Cyclobenzaprine 10 MG PO PRN (22:04)
[2016-12-24] MEDS: LEVOFLOXACIN 750MG/150ML D5W 150 ML IV SCH (03:05)
[2016-12-24] MEDS: DUONEB 0.5-3 MG/3 ml Neb IH SCH ×6 (03:13→23:18)
[2016-12-24 05:34] LABS: Mean Cell Volume 90.8 fl (78-100); Mean Platelet Volume 8.7 fl (6-9.5); Platelet Count 340 K/mm3 (150-450); Red Blood Count 3.14 M/mm3 (4.1-5.4); Red Cell Distribution Width 12.4 % (11.5-14.0)
[2016-12-24 05:44] LABS: Mean Corpuscular Hemoglobin 28.9 pg (26-32)
[2016-12-24 06:00] LABS: ANION GAP 10.6 MEQ/L (5-15); BLOOD UREA NITROGEN 20 mg/dL (9-20); CHLORIDE 99 mEq/L (98-107); Carbon Dioxide 26.8 mEq/L (21-32); Glucose 184 MG/DL (70-110); Potassium 4.4 mEq/L (3.5-5.1); SODIUM 132 mEq/L (136-145)
[2016-12-24 07:09] LABS: BAND 1 % (0.0-2.0); Total Cells Counted 100
[2016-12-24 07:10] LABS: Platelet Estimate NORMAL (NORMAL); Toxic Granulation 1+
[2016-12-24] MEDS ORDERED: CITROMA 296 ML PO ONE (08:31)
--- NOTE | 2016-12-24 08:35 | PCM.NOTE ---
Date and Time: 12/24/16828 Subjective Assessment: Pt did not sleep at all last night. States when she closed her eyes she saw a white sheet descending from the ceiling; states in the past she saw things crawling on the esparza when she had steroids. She is still having tremor and some stuttering. She has been constipated. States the catheter is bothering her. - Review of Systems Constitutional: No Fever Respiratory: Cough Objective Exam General Appearance: no apparent distress, other (tremor hands bilat worse with movement, some mild stuttering) Neurologic Exam: alert, oriented x 3, cooperative Skin Exam: normal color, warm, dry Respiratory Exam: diminished breath sounds, No crackles/rales, No rhonchi, No wheezing Cardiovascular Exam: regular rate/rhythm, normal heart sounds, No murmur Back Exam: normal inspection OBJECTIVE DATA Vital Signs: Vital Signs - 24 hr Temp Pulse Resp BP Pulse Ox 12/24/16 07:12 98 F 91 H 20 158/70 97 12/24/16 06:40 91 H 18 98 12/24/16 04:00 98.7 F 92 H 18 155/67 97 12/24/16 03:13 92 H 18 97 12/23/16 23:49 20 12/23/16 23:25 98.6 F 86 20 161/70 100 12/23/16 22:48 86 20 96 12/23/16 20:03 99 H 139/65 12/23/16 20:00 99.1 F 95 H 20 148/65 95 12/23/16 19:12 91 H 20 95 12/23/16 16:00 98.4 F 88 20 165/68 97 12/23/16 15:00 89 18 96 12/23/16 12:18 98.4 F 98 H 20 130/65 96 12/23/16 12:00 18 12/23/16 10:28 93 H 18 98 Oxygen-Last 24 hours O2 Percentage 2 Liters = 28% O2 Percentage 2 Liters = 28% Pain Assessment - Last Documented Pain Intensity 5 Pain Scale Used [facility] Intake and Output: Intake & Output 12/21/16 12/22/16 12/23/16 12/24/16 11:59 11:59 11:59 11:59 Intake Total 200 1857 1610 Output Total 2400 1550 1925 Balance -2200 307 -315 Weight 73.573 kg 72.393 kg 72.393 kg Lab Results: Accuchecks Date 12/24/16 Date 12/23/16 Date 12/23/16 Time 07:21 Time 16:30 Time 11:00 Accucheck Value: 234 Accucheck Value: 160 Accucheck Value: 249 Lab Results-Last 24 Hours 12/23/16 12/23/16 12/23/16 Range/Units 08:40 08:55 08:55 WBC 16.2 H (4.0-10.5) K/mm3 RBC 3.21 L (4.1-5.4) M/mm3 Hgb 9.6 L (12.0-16.0) gm/dl Hct 29.2 L (35-47) % MCV 91.0 (78-100) fl MCH 29.9 (26-32) pg MCHC 32.9 (32-36) g/dl RDW 12.3 (11.5-14.0) % Plt Count 322 (150-450) K/mm3 MPV 9.0 (6-9.5) fl Segmented Neutrophils 88 H (36.0-66.0) % Band Neutrophils (0.0-2.0) % Lymphocytes (Manual) 8 L (24-44) % Monocytes (Manual) 4 (0.0-12.0) % Differential Comment NORMAL Toxic Granulation Platelet Estimate NORMAL (NORMAL) ESR 100 H (0-20) mm/hr Sodium 131 L (136-145) mEq/L Potassium 3.9 (3.5-5.1) mEq/L Chloride 97 L (98-107) mEq/L Carbon Dioxide 25.1 (21-32) mEq/L Anion Gap 12.5 (5-15) MEQ/L BUN 16 (9-20) mg/dL Creatinine 1.23 (0.55-1.30) mg/dl Estimated GFR 44 ML/MIN Glucose 205 H (70-110) MG/DL Calcium 9.2 (8.5-10.1) mg/dL Magnesium 1.9 (1.8-2.4) mg/dL Total Bilirubin 0.3 (0.2-1.0) mg/dL AST 11 L (15-37) U/L ALT 11 L (12-78) U/L Alkaline Phosphatase 79 (46-116) U/L Serum Total Protein 7.0 (6.4-8.2) gm/dL Albumin 3.1 L (3.4-5.0) g/dL Vitamin B12 (193-986) Folic Acid (8.6-58.9) Free T4 1.24 (0.76-1.46) ng/dl TSH 3rd Generation 0.154 L (0.358-3.740) mIU/L 12/24/16 12/24/16 12/24/16 Range/Units 05:15 05:15 05:15 WBC 19.0 H (4.0-10.5) K/mm3 RBC 3.14 L (4.1-5.4) M/mm3 Hgb 9.1 L (12.0-16.0) gm/dl Hct 28.5 L (35-47) % MCV 90.8 (78-100) fl MCH 28.9 (26-32) pg MCHC 31.9 L (32-36) g/dl RDW 12.4 (11.5-14.0) % Plt Count 340 (150-450) K/mm3 MPV 8.7 (6-9.5) fl Segmented Neutrophils 87 H (36.0-66.0) % Band Neutrophils 1 (0.0-2.0) % Lymphocytes (Manual) 6 L (24-44) % Monocytes (Manual) 6 (0.0-12.0) % Differential Comment NORMAL Toxic Granulation 1+ Platelet Estimate NORMAL (NORMAL) ESR (0-20) mm/hr Sodium 132 L (136-145) mEq/L Potassium 4.4 (3.5-5.1) mEq/L Chloride 99 (98-107) mEq/L Carbon Dioxide 26.8 (21-32) mEq/L Anion Gap 10.6 (5-15) MEQ/L BUN 20 (9-20) mg/dL Creatinine 0.94 (0.55-1.30) mg/dl Estimated GFR > 60 ML/MIN Glucose 184 H (70-110) MG/DL Calcium 9.2 (8.5-10.1) mg/dL Magnesium (1.8-2.4) mg/dL Total Bilirubin (0.2-1.0) mg/dL AST (15-37) U/L ALT (12-78) U/L Alkaline Phosphatase (46-116) U/L Serum Total Protein (6.4-8.2) gm/dL Albumin (3.4-5.0) g/dL Vitamin B12 507 (193-986) Folic Acid 16.0 (8.6-58.9) Free T4 (0.76-1.46) ng/dl TSH 3rd Generation (0.358-3.740) mIU/L Radiology Exams: Radiology Procedures Category Date Time Status CAROTID BILATERAL [US] Routine Exams 12/23/16 08:42 Completed MRI BRAIN W/O CONTRAST [MRI] Routine Exams 12/23/16 08:42 Completed Multi-Disciplinary Progress Notes: Multi-Disciplinary Progress Notes 12/23/16 17:26 Physical Therapy Note by Raquel Jonas PATIENT AMBULATED WITH ROLLER WALKER IN THE HALLWAY APPROX 150' WITH MINIMAL/ CGA OF 1. SOME PROBLEMS WITH MEDICATION REACTION TODAY...WILL CONTINUE TOLERATED TOMORROW. Initialized on 12/23/16 17:26 - END OF NOTE 12/23/16 10:00 (created 12/23/16 13:54) Case Management Note by Rosie Peters DISCHARGE PLAN REVIEWED, CONTINUES TO PLAN TO RETURN HOME TO PRE EPISODIC LEVEL OF [place]. DECLINED ADDNL NEEDS FOR DISCHARGE. WILL CONTINUE TO FOLLOW AND ASSESS FOR ALL DC NEEDS. Initialized on 12/23/16 13:54 - END OF NOTE Assessment/Plan (1) Dizziness Current Visit: No Status: Chronic Assessment & Plan: Not complaining this morning, but has been a chronic issue. Appreciate neurology consult. Will let them know of the elevated ESR (100). Code(s): R42 - DIZZINESS AND GIDDINESS (2) Tremor Current Visit: Yes Status: Acute Assessment & Plan: seems a bit better. I spoke on the phone with her daughter in [place] and daughter says this shaking is often a late side effect of the steroids - for years has happened every time she goes in the hospital. Code(s): R25.1 - TREMOR, UNSPECIFIED (3) COPD exacerbation Current Visit: No Status: Acute Assessment & Plan: no wheezing currently. I am stopping steroids altogether. Code(s): J44.1 - CHRONIC OBSTRUCTIVE PULMONARY DISEASE W (ACUTE) EXACERBATION (4) Accidental fall Current Visit: No Status: Acute Qualifiers: Encounter type: subsequent encounter Qualified Code(s): W19.XXXD - Unspecified fall, subsequent encounter Code(s): W19.XXXA - UNSPECIFIED FALL, INITIAL ENCOUNTER (5) Neck pain Current Visit: Yes Status: Acute Code(s): M54.2 - CERVICALGIA (6) Rash Current Visit: Yes Status: Acute Code(s): R21 - RASH AND OTHER NONSPECIFIC SKIN ERUPTION (7) Anemia Current Visit: No Status: Acute Qualifiers: Anemia type: iron deficiency Iron deficiency anemia type: unspecified iron deficiency Qualified Code(s): D50.9 - Iron deficiency anemia, unspecified Assessment & Plan: hemoccult Code(s): D64.9 - ANEMIA, UNSPECIFIED (8) Diabetes mellitus Current Visit: No Status: Acute Qualifiers: Diabetes mellitus type: type 2 Diabetes mellitus complication status: without complication Diabetes mellitus solar sales representative insulin use: without halfway use Qualified Code(s): E11.9 - Type 2 diabetes mellitus without complications Code(s): E11.9 - TYPE 2 DIABETES MELLITUS WITHOUT COMPLICATIONS (9) Urinary retention Current Visit: No Status: Acute Assessment & Plan: will try bladder training today and see how she does with catheter out - will notify urology. pt had her appt scheduled OP for today. Code(s): R33.9 - RETENTION OF URINE, UNSPECIFIED (10) Meningioma Current Visit: Yes Status: Chronic Assessment & Plan: stable on MRI. Code(s): D32.9 - BENIGN NEOPLASM OF MENINGES, UNSPECIFIED (11) Insomnia Current Visit: Yes Status: Acute Assessment & Plan: Add trazodone tonight for sleep, she states she takes it at home but it wasn't on her med list. Code(s): G47.00 - INSOMNIA, UNSPECIFIED (12) Constipation Current Visit: No Status: Acute Qualifiers: Constipation type: drug induced constipation Qualified Code(s): K59.09 - Other constipation Assessment & Plan: try magnesium citrate per pt request. Code(s): K59.00 - CONSTIPATION, UNSPECIFIED
[2016-12-24] MEDS: FEOSOL 325 MG PO SCH ×2 (08:50→21:53)
[2016-12-24] MEDS: VITAMIN D PO SCH (08:50)
[2016-12-24] MEDS: Protonix 40MG Tablet PO SCH (08:51)
[2016-12-24] MEDS: ceLEXa 20 MG PO SCH (08:51)
[2016-12-24] MEDS: ACCOLATE 20 MG PO SCH ×2 (08:51→21:53)
[2016-12-24] MEDS: Flonase NASAL NS PRN (21:52)
[2016-12-24] MEDS: PLAVIX 75 MG Tablet PO SCH (21:54)
[2016-12-24] MEDS: DESYREL 50 MG PO SCH (21:54)
[2016-12-24] MEDS: XANAX 1 MG PO SCH (21:54)
[2016-12-25] MEDS: LEVOFLOXACIN 750MG/150ML D5W 150 ML IV SCH (03:33)
[2016-12-25] MEDS: DUONEB 0.5-3 MG/3 ml Neb IH SCH ×6 (06:17→22:36)
--- NOTE | 2016-12-25 08:10 | PCM.NOTE ---
Date and Time: 12/25/16 0804 Subjective Assessment: Pt's shaking is better although she is still stuttering this morning. Has been out of bed to the bathroom. Stool x 3 last night after magnesium citrate. She slept from 11pm to 4 a.m. Breathing is better. Was able to urinate. c/o neck pain ever since the fall. - Review of Systems Constitutional: No Fever Respiratory: Cough Objective Exam General Appearance: no apparent distress Neurologic Exam: alert, oriented x 3, cooperative, other (tremor less at baseline. Stutters with talking intermittently.) Skin Exam: normal color, warm, dry Respiratory Exam: diminished breath sounds, No crackles/rales, No rhonchi, No wheezing Cardiovascular Exam: regular rate/rhythm, normal heart sounds, No murmur Extremity Exam: No pedal edema, No swelling Back Exam: normal inspection OBJECTIVE DATA Vital Signs: Vital Signs - 24 hr Temp Pulse Resp BP Pulse Ox 12/25/16 07:02 76 18 98 12/25/16 03:39 98.0 F 91 H 18 135/72 98 12/24/16 23:22 97.4 F 82 18 120/56 94 L 12/24/16 23:00 84 18 94 L 12/24/16 20:18 84 20 95 12/24/16 20:00 98.1 F 85 20 135/70 95 12/24/16 15:15 98.1 F 92 H 20 138/64 95 12/24/16 15:00 78 18 98 12/24/16 11:15 97.8 F 99 H 20 135/58 96 12/24/16 10:36 95 H 18 98 Oxygen-Last 24 hours O2 Percentage 2 Liters = 28% O2 Percentage 2 Liters = 28% Pain Assessment - Last Documented Pain Scale Used 0-10 Pain Scale Intake and Output: Intake & Output 12/22/16 12/23/16 12/24/16 12/25/16 11:59 11:59 11:59 11:59 Intake Total 721 Output Total 1150 450 Balance -1150 271 Weight 71.169 kg Lab Results: Accuchecks Date 12/25/16 Date 12/24/16 Date 12/24/16 Time 07:30 Time 21:02 Time 16:15 Accucheck Value: 112 Accucheck Value: 125 Accucheck Value: 177 Accucheck Value: 140 Lab Results-Last 24 Hours 12/24/16 12/24/16 12/25/16 Range/Units 15:42 20:55 Unknown Stool Occult Bld Scrn NEGATIVE Stool Occult Blood NEGATIVE NEGATIVE (Negative) Assessment/Plan (1) COPD exacerbation Current Visit: No Status: Acute Assessment & Plan: On IV levaquin. No steroids due to side effects. With several recent admissions, will probably keep another 1-3 days on IV antibiotics in an effort to avoid a re-admission. Code(s): J44.1 - CHRONIC OBSTRUCTIVE PULMONARY DISEASE W (ACUTE) EXACERBATION (2) Dizziness Current Visit: No Status: Chronic Code(s): R42 - DIZZINESS AND GIDDINESS (3) Tremor Current Visit: Yes Status: Acute Assessment & Plan: improved. steroid side effect. Code(s): R25.1 - TREMOR, UNSPECIFIED (4) Accidental fall Current Visit: No Status: Acute Qualifiers: Encounter type: subsequent encounter Qualified Code(s): W19.XXXD - Unspecified fall, subsequent encounter Assessment & Plan: PT to eval today. Code(s): W19.XXXA - UNSPECIFIED FALL, INITIAL ENCOUNTER (5) Neck pain Current Visit: Yes Status: Acute Assessment & Plan: s/p fall. heat, muscle relaxers sparingly as they can increase the risk of further falls. Code(s): M54.2 - CERVICALGIA (6) Rash Current Visit: Yes Status: Resolved Assessment & Plan: resolving. Code(s): R21 - RASH AND OTHER NONSPECIFIC SKIN ERUPTION (7) Anemia Current Visit: No Status: Acute Qualifiers: Anemia type: iron deficiency Iron deficiency anemia type: unspecified iron deficiency Qualified Code(s): D50.9 - Iron deficiency anemia, unspecified Assessment & Plan: she has not tolerated iron well in the past due to her constipation. She had a colonoscopy [address] Rios - would like to see that on the chart. Code(s): D64.9 - ANEMIA, UNSPECIFIED (8) Diabetes mellitus Current Visit: No Status: Acute Qualifiers: Diabetes mellitus type: type 2 Diabetes mellitus complication status: without complication Diabetes mellitus intermediate project manager insulin use: without skilled nursing use Qualified Code(s): E11.9 - Type 2 diabetes mellitus without complications Assessment & Plan: BS 100s to 200s here; SS novolog coverage. Code(s): E11.9 - TYPE 2 DIABETES MELLITUS WITHOUT COMPLICATIONS (9) Urinary retention Current Visit: No Status: Acute Assessment & Plan: check post void residual today. Code(s): R33.9 - RETENTION OF URINE, UNSPECIFIED (10) Meningioma Current Visit: Yes Status: Chronic Assessment & Plan: stable Code(s): D32.9 - BENIGN NEOPLASM OF MENINGES, UNSPECIFIED (11) Insomnia Current Visit: Yes Status: Acute Assessment & Plan: better with her trazodone Code(s): G47.00 - INSOMNIA, UNSPECIFIED (12) Constipation Current Visit: No Status: Chronic Qualifiers: Constipation type: drug induced constipation Qualified Code(s): K59.09 - Other constipation Assessment & Plan: better since mag citrate. chronic. Code(s): K59.00 - CONSTIPATION, UNSPECIFIED
[2016-12-25] MEDS: Cyclobenzaprine 10 MG PO PRN ×2 (09:51→21:42)
[2016-12-25] MEDS: ceLEXa 20 MG PO SCH (09:52)
[2016-12-25] MEDS: FEOSOL 325 MG PO SCH ×2 (09:52→21:41)
[2016-12-25] MEDS: ACCOLATE 20 MG PO SCH ×2 (09:52→21:42)
[2016-12-25] MEDS: Protonix 40MG Tablet PO SCH (09:52)
[2016-12-25] MEDS: VITAMIN D PO SCH (09:52)
[2016-12-25] MEDS: Flonase NASAL NS PRN (09:53)
--- NOTE | 2016-12-25 11:32 | XRAY ---
Indication: Retention. Two-dimensional urinary bladder sonogram performed. Comparison: None Urinary bladder is normally distended without focal bladder mass. Prevoid volume is recorded 152 cc. Postvoid volume is 44 cc. Impression: Negative bladder sonogram. Post void residual as above.
[2016-12-25] MEDS: XANAX 1 MG PO SCH (21:41)
[2016-12-25] MEDS: PLAVIX 75 MG Tablet PO SCH (21:42)
[2016-12-25] MEDS: DESYREL 50 MG PO SCH (21:43)
[2016-12-26] MEDS: LEVOFLOXACIN 750MG/150ML D5W 150 ML IV SCH (03:29)
[2016-12-26] MEDS: DUONEB 0.5-3 MG/3 ml Neb IH SCH ×6 (03:32→23:25)
[2016-12-26 05:43] LABS: Mean Corpuscular Hemoglobin 29.2 pg (26-32); Mean Platelet Volume 8.6 fl (6-9.5); Platelet Count 323 K/mm3 (150-450); Red Blood Count 3.01 M/mm3 (4.1-5.4); Red Cell Distribution Width 12.9 % (11.5-14.0); White Blood Count 11.3 K/mm3 (4.0-10.5)
[2016-12-26 06:05] LABS: ANION GAP 9.1 MEQ/L (5-15); Carbon Dioxide 30.2 mEq/L (21-32); Potassium 4.4 mEq/L (3.5-5.1)
[2016-12-26 07:20] LABS: Eosinophil 2 % (0.00-3.0); Total Cells Counted 100
[2016-12-26 07:21] LABS: ANISOCYTOSIS 2+; Basophilic Stippling 1+; Platelet Estimate NORMAL (NORMAL); Poikilocytosis 1+
[2016-12-26] MEDS: Protonix 40MG Tablet PO SCH (09:47)
[2016-12-26] MEDS: Cyclobenzaprine 10 MG PO PRN ×2 (09:47→15:09)
[2016-12-26] MEDS: ceLEXa 20 MG PO SCH (09:48)
[2016-12-26] MEDS: VITAMIN D PO SCH (09:49)
[2016-12-26] MEDS: FEOSOL 325 MG PO SCH ×2 (09:49→22:37)
[2016-12-26] MEDS: ACCOLATE 20 MG PO SCH ×2 (09:49→22:37)
--- NOTE | 2016-12-26 14:40 | PCM.NOTE ---
Date and Time: 12/26/16 1432 Subjective Assessment: Not feeling great today. Didn't sleep well last night. - Review of Systems Constitutional: No Fever Respiratory: Cough Objective Exam General Appearance: no apparent distress Neurologic Exam: alert, oriented x 3, cooperative, other (mild tremor) Skin Exam: normal color, warm, dry Respiratory Exam: lungs clear, diminished breath sounds, No crackles/rales, No rhonchi, No wheezing Cardiovascular Exam: regular rate/rhythm, normal heart sounds, No murmur Gastrointestinal/Abdomen Exam: soft, normal bowel sounds Extremity Exam: No pedal edema, No swelling Back Exam: normal inspection OBJECTIVE DATA Vital Signs: Vital Signs - 24 hr Temp Pulse Resp BP Pulse Ox 12/26/16 12:00 18 12/26/16 11:12 97.8 F 70 18 126/60 98 12/26/16 11:06 72 18 94 L 12/26/16 08:00 20 12/26/16 07:13 97.8 F 73 20 127/58 99 12/26/16 06:45 73 16 99 12/26/16 04:02 98.4 F 74 12 128/57 98 12/26/16 04:00 12 12/26/16 03:33 74 12 98 12/25/16 23:53 98.6 F 80 20 116/55 99 12/25/16 22:36 81 20 93 L 12/25/16 20:34 82 20 94 L 12/25/16 20:00 20 12/25/16 19:16 98.7 F 81 20 104/53 95 12/25/16 16:00 20 12/25/16 15:21 98.2 F 80 20 119/72 97 12/25/16 14:56 87 20 93 L Oxygen-Last 24 hours O2 Percentage 2 Liters = 28% O2 Percentage 2 Liters = 28% Pain Assessment - Last Documented Pain Intensity 2 Pain Scale Used 0-10 Pain Scale Intake and Output: Intake & Output 12/24/16 12/25/16 12/26/16 12/27/16 11:59 11:59 11:59 11:59 Intake Total 941 1530 360 Output Total 5654 768 3257 200 Balance -1150 291 -520 160 Weight 71.169 kg 71.123 kg Lab Results: Accuchecks Date 12/26/16 Date 12/26/16 Date 12/25/16 Date 12/25/16 Time 11:00 Time 07:30 Time 21:34 Time 16:21 Accucheck Value: 120 Accucheck Value: 159 Accucheck Value: 123 Lab Results-Last 24 Hours 12/26/16 12/26/16 Range/Units 05:05 05:05 WBC 11.3 H (4.0-10.5) K/mm3 RBC 3.01 L (4.1-5.4) M/mm3 Hgb 8.8 L (12.0-16.0) gm/dl Hct 28.0 L (35-47) % MCV 93.0 (78-100) fl MCH 29.2 (26-32) pg MCHC 31.4 L (32-36) g/dl RDW 12.9 (11.5-14.0) % Plt Count 323 (150-450) K/mm3 MPV 8.6 (6-9.5) fl Segmented Neutrophils 65 (36.0-66.0) % Lymphocytes (Manual) 30 (24-44) % Monocytes (Manual) 3 (0.0-12.0) % Eosinophils (Manual) 2 (0.00-3.0) % Differential Comment ABNORMAL Platelet Estimate NORMAL (NORMAL) Poikilocytosis 1+ Basophilic Stippling 1+ Anisocytosis 2+ Sodium 134 L (136-145) mEq/L Potassium 4.4 (3.5-5.1) mEq/L Chloride 99 (98-107) mEq/L Carbon Dioxide 30.2 (21-32) mEq/L Anion Gap 9.1 (5-15) MEQ/L BUN 16 (9-20) mg/dL Creatinine 1.02 (0.55-1.30) mg/dl Estimated GFR 55 ML/MIN Glucose 111 H (70-110) MG/DL Calcium 8.5 (8.5-10.1) mg/dL Radiology Exams: Radiology Procedures Category Date Time Status BLADDER [US] Routine Exams 12/25/16 08:05 Completed Multi-Disciplinary Progress Notes: Multi-Disciplinary Progress Notes 12/26/16 09:40 Respiratory Note by Raquel Edwards 12/25/16 On the documentation for 12/25/16 at 4 it was noted that the heartrate was 22 via the respiratory therapist this was a typo and should have been 82 spershing surgical lead Initialized on 12/26/16 09:40 - END OF NOTE Assessment/Plan (1) COPD exacerbation Current Visit: No Status: Acute Assessment & Plan: Slowly improving. May be ready to d/c home tomorrow or Thursday. Code(s): J44.1 - CHRONIC OBSTRUCTIVE PULMONARY DISEASE W (ACUTE) EXACERBATION (2) Dizziness Current Visit: No Status: Chronic Assessment & Plan: chronic, but having balance issues and falls. Neuro workup neg. PT has been working with her. Code(s): R42 - DIZZINESS AND GIDDINESS (3) Tremor Current Visit: Yes Status: Acute Assessment & Plan: Likely due to steroids. All steroids stopped 2d ago. Slowly improving. Per her daughter, this happens every time she's hospitalized and on steroids for the past few years. Code(s): R25.1 - TREMOR, UNSPECIFIED (4) Accidental fall Current Visit: No Status: Acute Qualifiers: Encounter type: subsequent encounter Qualified Code(s): W19.XXXD - Unspecified fall, subsequent encounter Assessment & Plan: Had a fall during her last hospital stay. Still having some sequela in the form of neck stiffness and some headaches. CT head, MRI brain, and CT cervical spine all negative. Code(s): W19.XXXA - UNSPECIFIED FALL, INITIAL ENCOUNTER (5) Neck pain Current Visit: Yes Status: Acute Assessment & Plan: as above Code(s): M54.2 - CERVICALGIA (6) Anemia Current Visit: No Status: Acute Qualifiers: Anemia type: iron deficiency Iron deficiency anemia type: unspecified iron deficiency Qualified Code(s): D50.9 - Iron deficiency anemia, unspecified Code(s): D64.9 - ANEMIA, UNSPECIFIED (7) Diabetes mellitus Current Visit: No Status: Acute Qualifiers: Diabetes mellitus type: type 2 Diabetes mellitus complication status: without complication Diabetes mellitus usp insulin use: without terminologist use Qualified Code(s): E11.9 - Type 2 diabetes mellitus without complications Assessment & Plan: covering with SS insulin here. Code(s): E11.9 - TYPE 2 DIABETES MELLITUS WITHOUT COMPLICATIONS (8) Urinary retention Current Visit: No Status: Acute Assessment & Plan: Pt came in with Qui[place]ones catheter, this is a recent development. She completed her 1 week of catheter placement while here and when the catheter was removed, her post void residual was low. Plan on outpatient urology f/u. Code(s): R33.9 - RETENTION OF URINE, UNSPECIFIED (9) Meningioma Current Visit: Yes Status: Chronic Assessment & Plan: stable. Code(s): D32.9 - BENIGN NEOPLASM OF MENINGES, UNSPECIFIED (10) Insomnia Current Visit: Yes Status: Acute Assessment & Plan: Sleeps when she has her trazodone but wakes easily (for labs etc) Code(s): G47.00 - INSOMNIA, UNSPECIFIED (11) Constipation Current Visit: No Status: Resolved Qualifiers: Constipation type: drug induced constipation Qualified Code(s): K59.09 - Other constipation Code(s): K59.00 - CONSTIPATION, UNSPECIFIED
[2016-12-26] MEDS: TYLENOL 325 MG PO PRN (16:15)
[2016-12-26] MEDS: DESYREL 50 MG PO SCH (22:37)
[2016-12-26] MEDS: PLAVIX 75 MG Tablet PO SCH (22:37)
[2016-12-26] MEDS: XANAX 1 MG PO SCH (22:37)
[2016-12-27] MEDS: DUONEB 0.5-3 MG/3 ml Neb IH SCH ×3 (03:49→10:05)
[2016-12-27] MEDS: LEVOFLOXACIN 750MG/150ML D5W 150 ML IV SCH (06:23)
[2016-12-27] MEDS: ACCOLATE 20 MG PO SCH (09:14)
[2016-12-27] MEDS: VITAMIN D PO SCH (09:14)
[2016-12-27] MEDS: FEOSOL 325 MG PO SCH (09:14)
[2016-12-27] MEDS: Protonix 40MG Tablet PO SCH (09:14)
[2016-12-27] MEDS: ceLEXa 20 MG PO SCH (09:14)
[2016-12-27] MEDS: Flonase NASAL NS PRN (09:15)
--- NOTE | 2016-12-27 10:56 | PCM.DCORD ---
- Discharge Discharge Date: 12/27/16 Disposition: Home, Self-Care Condition: Stable Prescriptions: New Nystatin 60 ml [Nystatin SUSPENSION 60 ML] 5 ml PO QID #120 ml Acetaminophen 325 mg [Tylenol 325 mg] 650 mg PO Q6H PRN PRN #0 tablet PRN Reason: Pain And/Or Fever Continue Zafirlukast 20 mg [Accolate 20 mg] 20 mg PO BID #180 tablet PANTOPRAZOLE 40 mg Tablet [Protonix 40MG Tablet] 40 mg PO DAILY #90 tab Cholecalciferol (Vitamin D3) [Vitamin D3] 2,000 unit PO DAILY #90 tab Clopidogrel Bisulfate 75 mg [PLAVIX 75 MG Tablet] 75 mg PO HS Metformin HCl 500 mg [Glucophage 500 MG] 500 mg PO DAILY PRN PRN PRN Reason: BLOOD SUGAR Alprazolam 1 mg [Xanax 1 mg] 1 mg PO HS Albuterol Sulfate [Albuterol Sulfate Hfa] 1 neb IH Q4H Citalopram Hydrobromide 20 mg* [ceLEXa 20 MG] 40 mg PO DAILY Fluticasone Propionate [Flonase NASAL] 1 puff INTRANASAL BID PRN Meclizine HCl 25 mg [Antivert 25 mg] 25 mg PO TIDPRN PRN PRN Reason: Dizziness Follow up with: CJ MORROW [Primary Care Provider] - Forms: Patient Portal Information
[2016-12-27 11:38] VITALS: BP 121/56; PULSE 79; O2SAT 95
--- NOTE | 2016-12-27 19:43 | PCM.DS ---
Discharge Summary Date of Admission: 12/24/16 08:29 Date of Discharge: 12/27/16 Admitting Physician: CJ MORROW Primary Care Provider: CJ MORROW Allergies Allergies aspirin Allergy (Severe, Verified 12/22/16 00:58) Difficulty Breathing iodine Allergy (Severe, Verified 12/22/16 00:58) Difficulty Breathing Penicillins Allergy (Severe, Verified 12/22/16 00:58) Difficulty Breathing Hospital Summary - Hospital Course Hospital Course: she was treated for copd exacerbation then home for 4 days and had a fall with significant bruising and pain to shoulders back and neck. She presented to ED weak with fever to 100.5. She was admitted and treated for continued copd exacerbation. She had MRI of brain to rule out stroke as cause of vertigo and a neuro consult done but that evaluation is not available to me at this time. She had a chronic meningioma unchanged. Her guillaume for urinary retention was removed with normal residual post void. She continued to progressively improve her shaking improved off the steroids. She did have an IV go bad the day prior to discharge and some mild tenderness in the left antecubital area. She felt much better on day of discharge the dizziness was improved and she felt her weakness was improving and was requesting discharge back to her home. she had completed 5 days of antibiotics for the copd exacerbation and was treated prior to hospitalization for this as well and thus no further abx continued at discharge she uses home O2 at night and in day prn at her baseline. - Vitals & Intake/Output Vital Signs: Vital Signs Temperature 98.4 F 12/27/16 11:37 Pulse Rate 79 12/27/16 11:37 Respiratory Rate 20 12/27/16 12:00 Blood Pressure 121/56 12/27/16 11:37 O2 Sat by Pulse Oximetry 95 12/27/16 11:37 Oxygen-Last Documented O2 Percentage 2 Liters = 28% Intake & Output: Intake & Output 12/25/16 12/26/16 12/27/16 12/28/16 11:59 11:59 11:59 11:59 Intake Total 941 1530 1900 Output Total 650 2050 3950 Balance 291 -520 -2050 Weight 71.169 kg 71.123 kg 70.125 kg - Lab Result Diagrams: 12/26/16 05:05 12/26/16 05:05 Lab Results-Last 24 Hrs: Accuchecks Date 12/27/16 Date 12/27/16 Date 12/26/16 Time 11:30 Time 07:30 Time 21:00 Accucheck Value: 122 Accucheck Value: 148 Accucheck Value: 140 Micro Results-Entire Visit: Accuchecks Date 12/27/16 Date 12/27/16 Date 12/26/16 Time 11:30 Time 07:30 Time 21:00 Accucheck Value: 122 Accucheck Value: 148 Accucheck Value: 140 - Procedures and Test Procedures and Tests throughout Hospitalization: Therapy Orders & Screens 12/25/16 08:07 PT Eval & Treat (MD Order) Evaluate: Yes Treat: Yes Reason for Eval:: freq falls Diagnosis: frequient fall, anemia, exb COPD Discharge Exam General Appearance: no apparent distress, alert Neurologic Exam: alert, oriented x 3, cooperative, normal mood/affect, No motor deficits Skin Exam: normal color, warm, dry, ecchymosis (large on the left upper and lower arm left upper back), other (just distal to left antecubital fossa is a small papule that is not tender at the site of previous IV site warm compresses to the area were discussed.) Eye Exam: PERRL, EOMI, eyes nml inspection Ears, Nose, Throat Exam: normal ENT inspection, pharynx normal, moist mucous membranes Neck Exam: normal inspection, non-tender, supple, full range of motion Respiratory Exam: normal breath sounds, lungs clear, No respiratory distress Cardiovascular Exam: regular rate/rhythm, normal heart sounds, murmur Gastrointestinal/Abdomen Exam: soft, No tenderness, No mass Extremity Exam: normal inspection, normal range of motion Back Exam: normal inspection, normal range of motion, No CVA tenderness, No vertebral tenderness Pelvic Exam: deferred Rectal Exam: deferred Final Diagnosis/Problem List - Final Discharge Diagnosis/Problem (1) COPD exacerbation Status: Acute (2) Accidental fall Status: Acute (3) Anemia Status: Acute (4) Diabetes mellitus Status: Acute (5) Dizziness and giddiness Status: Acute (6) Elevated blood pressure Status: Acute (7) GERD (gastroesophageal reflux disease) Status: Acute (8) Generalized weakness Status: Acute (9) Urinary retention Status: Acute (10) Meningioma Status: Chronic (11) Constipation Status: Resolved - Discharge Disposition: Home, Self-Care Condition: Stable Prescriptions: New Nystatin 60 ml [Nystatin SUSPENSION 60 ML] 5 ml PO QID #120 ml Acetaminophen 325 mg [Tylenol 325 mg] 650 mg PO Q6H PRN PRN #0 tablet PRN Reason: Pain And/Or Fever Continue Zafirlukast 20 mg [Accolate 20 mg] 20 mg PO BID #180 tablet PANTOPRAZOLE 40 mg Tablet [Protonix 40MG Tablet] 40 mg PO DAILY #90 tab Cholecalciferol (Vitamin D3) [Vitamin D3] 2,000 unit PO DAILY #90 tab Clopidogrel Bisulfate 75 mg [PLAVIX 75 MG Tablet] 75 mg PO HS Metformin HCl 500 mg [Glucophage 500 MG] 500 mg PO DAILY PRN PRN PRN Reason: BLOOD SUGAR Alprazolam 1 mg [Xanax 1 mg] 1 mg PO HS Albuterol Sulfate [Albuterol Sulfate Hfa] 1 neb IH Q4H Citalopram Hydrobromide 20 mg* [ceLEXa 20 MG] 40 mg PO DAILY Fluticasone Propionate [Flonase NASAL] 1 puff INTRANASAL BID PRN Meclizine HCl 25 mg [Antivert 25 mg] 25 mg PO TIDPRN PRN PRN Reason: Dizziness Instructions: Fainting, Chronic Obstructive Pulmonary Disease Follow up with: CJ MORROW [Primary Care Provider] - 01/01/17 11:15 am Forms: Discharge Instructions, Patient Portal Information
== END 2016-12-27 12:05 | disposition home or self-care (01) | DRG 192 ==
LOC: ED 00:57 → MED SURG 03:52 → OBSVTOIN 12-24 08:29
PROVIDERS: ADMIT Family Medicine; ATTEND Family Medicine
DX: J44.1 Chronic obstructive pulmonary disease with (acute) exacerbation (principal); W18.39XA Other fall on same level, initial encounter; R29.6 Repeated falls; Z91.81 History of falling; Y93.89 Activity, other specified; Y92.230 Patient room in hospital as the place of occurrence of the external cause; D50.9 Iron deficiency anemia, unspecified; E11.9 Type 2 diabetes mellitus without complications; Z79.4 Long term (current) use of insulin; R42 Dizziness and giddiness; R03.0 Elevated blood-pressure reading, without diagnosis of hypertension; K21.9 Gastro-esophageal reflux disease without esophagitis; R53.1 Weakness; R33.9 Retention of urine, unspecified; D32.9 Benign neoplasm of meninges, unspecified; R21 Rash and other nonspecific skin eruption; M19.90 Unspecified osteoarthritis, unspecified site; K59.00 Constipation, unspecified; R25.1 Tremor, unspecified; M54.2 Cervicalgia; M25.561 Pain in right knee; G47.00 Insomnia, unspecified; J45.909 Unspecified asthma, uncomplicated; Z79.899 Other long term (current) drug therapy
CPT/HCPCS: 36000; 36415; 51702; 70450; 70551; 71010; 72125; 73562; 76705; 80048; 80053; 81000; 82270; 82272; 82607; 82746; 82962; 83605; 83735; 84439; 84443; 84480; 84484; 85025; 85610; 85652; 86592; 90670; 93041; 93268; 93880; 94640; 94760; 96360; 96361; 99285; G0009; G0378; J1956; J2930; A9270-GY; J7506

== ENCOUNTER 2016-12-31 08:13 | Observation (INO) | payer MEDICARE, OTHER ==
--- NOTE | 2016-12-31 09:03 | ERPHSYRPT ---
- History of Present Illness Time Seen by Provider: 12/31/16 08:52 Source: patient, family Patient Subjective Stated Complaint: lt rib pain since this morning Triage Nursing Assessment: pt states she has pain with breating and movement to lt rib area. splinting noted. denies injury but has bruises noted to post shoulders for 'falls over 2 weeks ago' denies sob. states was in hospital and left thursday. has had increased pain to lt side and minimal urinary input since yesterday. Physician History: The patient is an 81-year-old female complaining of left-sided upper abdominal pain that began earlier this morning and worsened at 6 AM. She is a poor historian and doesn't answer questions very well. She is continually saying it hurts. It hurts to breathe. It hurts to move. Decreased urine output today. She was in the hospital about a week ago for urinary tract infection. She also states that she was there for COPD. She denies nausea vomiting or diarrhea today. She did not eat breakfast. Her past medical history is significant for diabetes, UTI, COPD, depression, frequent falls, and gastroenteritis. Timing/Duration: hour(s) (4), gradual onset Severity: severe Modifying Factors: Improves With: nothing Associated Symptoms: denies symptoms Allergies/Adverse Reactions: aspirin Allergy (Severe, Verified 12/31/16 08:45) Difficulty Breathing iodine Allergy (Severe, Verified 12/31/16 08:45) Difficulty Breathing Penicillins Allergy (Severe, Verified 12/31/16 08:45) Difficulty Breathing iron Adverse Reaction (Verified 12/31/16 08:45) prednisone Adverse Reaction (Verified 12/31/16 08:45) Home Medications: Clopidogrel Bisulfate 75 mg [PLAVIX 75 MG Tablet] 75 mg PO HS 02/11/15 [ History] Metformin HCl 500 mg [Glucophage 500 MG] 500 mg PO DAILY PRN PRN 02/11/15 [History] Alprazolam 1 mg [Xanax 1 mg] 1 mg PO HS 10/15/15 [History] Albuterol Sulfate [Albuterol Sulfate Hfa] 1 neb IH Q4H 11/23/15 [History] Citalopram Hydrobromide 20 mg* [ceLEXa 20 MG] 40 mg PO DAILY 01/06/16 [ History] Fluticasone Propionate [Flonase NASAL] 1 puff INTRANASAL BID PRN 12/16/16 [History] Meclizine HCl 25 mg [Antivert 25 mg] 25 mg PO TIDPRN PRN 12/22/16 [History ] Hx Tetanus, Diphtheria Vaccination/Date Given: No Hx Influenza Vaccination/Date Given: No Hx Pneumococcal Vaccination/Date Given: Yes - Review of Systems Constitutional: No Fever, No Chills Eyes: No Symptoms Ears, Nose, & Throat: No Symptoms Respiratory: No Cough, No Dyspnea Cardiac: Chest Pain (left rib pain) Abdominal/Gastrointestinal: Abdominal Pain, No Nausea, No Vomiting, No Diarrhea Genitourinary Symptoms: Other (decrease urine output today.) Musculoskeletal: No Back Pain, No Neck Pain Skin: No Rash Neurological: No Dizziness, No Focal Weakness, No Sensory Changes Psychological: No Symptoms Endocrine: No Symptoms Hematologic/Lymphatic: No Symptoms Immunological/Allergic: No Symptoms All Other Systems: Reviewed and Negative - Past Medical History Pertinent Past Medical History: Yes Neurological History: No Pertinent History ENT History: Cataracts, Macular Degeneration Cardiac History: Arrhythmia Respiratory History: Asthma, Bronchitis, COPD Endocrine Medical History: Diabetes Type II Musculoskeletal History: Arthritis, Other GI Medical History: GERD History: Other Psycho-Social History: Anxiety, Depression Female Reproductive Disorders: Endometriosis, Other Other Medical History: DVT left leg, pt cant remember arrhythmia states " it was a long time ago". hx of UTI, ovary removed, fernando hip replacements, hx of back problems - Past Surgical History Past Surgical History: Yes Neuro Surgical History: No Pertinent History Cardiac: No Pertinent History Respiratory: No Pertinent History Gastrointestinal: Appendectomy, Cholecystectomy Genitourinary: No Pertinent History Musculoskeletal: Joint Replacement, Orthopedic Surgery Female Surgical History: Hysterectomy, Section, Other Other Surgical History: Fernando hip replacement,back surgery-disc replacement per pt., cataracts - Social History Smoking Status: Never smoker Exposure to second hand smoke: No Drug Use: none Patient Lives Alone: Yes Significant Family History: no pertinent family hx - Female History Hx Now: No - Nursing Vital Signs Nursing Vital Signs: Initial Vital Signs Temperature 97.9 F Temperature Source Oral Pulse Rate 80 Respiratory Rate 18 Blood Pressure [Right Arm] 129/65 Pain Intensity 6 - Physical Exam General Appearance: moderate distress Eye Exam: PERRL/EOMI, eyes nml inspection Ears, Nose, Throat Exam: normal ENT inspection, TMs normal, pharynx normal, moist mucous membranes Neck Exam: normal inspection, non-tender, supple, full range of motion Respiratory Exam: normal breath sounds, chest tenderness (left lower anterior and lateral rib cage area.), lungs clear, No respiratory distress Cardiovascular Exam: regular rate/rhythm, normal heart sounds, normal peripheral pulses Gastrointestinal/Abdomen Exam: tenderness (upper left abd. ), guarding Pelvic Exam: not done Rectal Exam: not done Back Exam: normal inspection, normal range of motion, No CVA tenderness, No vertebral tenderness Extremity Exam: normal inspection, normal range of motion, pelvis stable Neurologic Exam: alert, oriented x 3, cooperative, normal mood/affect, nml cerebellar function, nml station & gait, sensation nml, No motor deficits Skin Exam: normal color, warm, dry, No rash Lymphatic Exam: No adenopathy SpO2 Interpretation: normal SpO2: 100 Oxygen Delivery: Room Air - Course EKG Interpreted by Me: Sinus Rhythm, NORMAL ST-T - Radiology Exams Chest X-ray Interpretation: Teleradiologist Report, Other (LLL infiltrate/ atelecstasis per DR Kuo) Left Ribs X-ray Interpretation: Teleradiologist Report, No Fracture (Per Dr Kuo) - CT Exams Chest CT Interpretation: Tele-radiologist Report, Other ([place] left pleural effusion per DR Kuo.) Abdomen/Pelvis CT Interpretation: Tele-radiologist Report, Other (no acute per Dr Kuo) Ordered Tests: Active Orders 24 hr Category Date Time Status Cath [Catheter-[place] David] STAT Care 12/31/16 09:39 Active EKG-ER Only STAT Care 12/31/16 09:23 Active IV Insertion STAT Care 12/31/16 09:04 Active ABDOMEN AND PELVIS W/0 CONTRAS [CT] Stat Exams 12/31/16 10:54 Completed CHEST 2 VIEWS (PA AND LAT) Stat Exams 12/31/16 09:22 Completed CHEST WITHOUT CONTRAST [CT] Stat Exams 12/31/16 10:40 Completed RIBS UNILATERAL Stat Exams 12/31/16 09:23 Completed BNP [NT PRO BNP] Stat Lab 12/31/16 11:53 Ordered CBC W DIFF Stat Lab 12/31/16 09:30 Completed CMP Stat Lab 12/31/16 09:30 Completed LIPASE Stat Lab 12/31/16 09:30 Completed Lactic Acid Stat Lab 12/31/16 09:21 Completed Manual Differential NC Stat Lab 12/31/16 09:30 Completed TROPONIN Stat Lab 12/31/16 09:30 Completed UA W/ MICROSCOPIC Stat Lab 12/31/16 09:47 Completed Urine Triage Profile Stat Lab 12/31/16 09:21 Completed Respiratory Nebulizer STAT RT 12/31/16 11:52 Ordered Medication Summary Discontinued Medications Generic Name Dose Route Start Last Admin Trade Name Freq PRN Reason Stop Dose Admin Albuterol Sulfate 2.5 mg 12/31/16 11:51 Proventil 2.5 Mg/3 Ml Neb IH 12/31/16 11:52 STAT ONE Furosemide 40 mg 12/31/16 11:56 Lasix 40 Mg/4 Ml IV 12/31/16 11:57 STAT ONE Morphine Sulfate 4 mg 12/31/16 09:21 12/31/16 09:26 Morphine Sulfate 4 Mg Inj IV 12/31/16 09:22 4 mg STAT ONE Administration Morphine Sulfate Confirm 12/31/16 09:26 Morphine Sulfate 4 Mg Inj Administered 12/31/16 09:27 Dose 4 mg .ROUTE .STK-MED ONE Morphine Sulfate 4 mg 12/31/16 10:42 12/31/16 10:50 Morphine Sulfate 4 Mg Inj IV 12/31/16 10:43 4 mg STAT ONE Administration Morphine Sulfate Confirm 12/31/16 10:49 Morphine Sulfate 4 Mg Inj Administered 12/31/16 10:50 Dose 4 mg .ROUTE .STK-MED ONE Ondansetron HCl 4 mg 12/31/16 09:21 12/31/16 09:26 Zofran 4 Mg/2 Ml Vial IV 12/31/16 09:22 4 mg STAT ONE Administration Ondansetron HCl Confirm 12/31/16 09:26 Zofran 4 Mg/2 Ml Vial Administered 12/31/16 09:27 Dose 4 mg .ROUTE .STK-MED ONE Lab/Rad Data: Laboratory Result Diagrams 12/31/16 09:30 12/31/16 09:30 Laboratory Results 12/31/16 12/31/16 12/31/16 Range/Units 09:47 09:30 09:30 WBC 18.1 H (4.0-10.5) K/mm3 RBC 3.25 L (4.1-5.4) M/mm3 Hgb 9.5 L (12.0-16.0) gm/dl Hct 30.2 L (35-47) % MCV 92.9 (78-100) fl MCH 29.2 (26-32) pg MCHC 31.5 L (32-36) g/dl RDW 13.1 (11.5-14.0) % Plt Count 329 (150-450) K/mm3 MPV 8.9 (6-9.5) fl Segmented Neutrophils 70 H (36.0-66.0) % Lymphocytes (Manual) 12 L (24-44) % Monocytes (Manual) 18 H (0.0-12.0) % Platelet Estimate NORMAL (NORMAL) Sodium 135 L (136-145) mEq/L Potassium 4.5 (3.5-5.1) mEq/L Chloride 100 (98-107) mEq/L Carbon Dioxide 27.8 (21-32) mEq/L Anion Gap 12.0 (5-15) MEQ/L BUN 15 (9-20) mg/dL Creatinine 0.96 (0.55-1.30) mg/dl Estimated GFR 59 ML/MIN Glucose 139 H (70-110) MG/DL Lactic Acid (0.4-2.0) Calcium 9.2 (8.5-10.1) mg/dL Total Bilirubin 0.3 (0.2-1.0) mg/dL AST 12 L (15-37) U/L ALT 12 (12-78) U/L Alkaline Phosphatase 69 (46-116) U/L Troponin I < 0.017 (0.000-0.056) ng/ml Serum Total Protein 6.5 (6.4-8.2) gm/dL Albumin 3.0 L (3.4-5.0) g/dL Lipase 110 (73-393) U/L Ur Collection Type CATH Urine Color YELLOW (YELLOW) Urine Appearance CLEAR (CLEAR) Urine pH 7.0 (5-6) Ur Specific [place] 1.015 (1.005-1.025) Urine Protein NEGATIVE (Negative) Urine Glucose (UA) NEGATIVE (NEGATIVE) mg/dL Urine Ketones NEGATIVE (NEGATIVE) Urine Nitrite NEGATIVE (NEGATIVE) Urine Bilirubin NEGATIVE (NEGATIVE) Urine Urobilinogen 0.2 (0-1) mg/dL Urine WBC (Auto) NEGATIVE (NEGATIVE) Urine RBC (Auto) MODERATE (0-5) [place] Urine Microscopic RBC 2-5 (0-2) /HPF Urine Microscopic WBC 0-2 (0-5) /HPF Ur Epithelial Cells RARE (FEW) /HPF Urine Bacteria RARE (NEGATIVE) /HPF Urine Mucus SLIGHT (NEGATIVE) /HPF Urine Opiates Level (NEGATIVE) Ur Methadone (NEGATIVE) Urine Barbiturates (NEGATIVE) Ur Phencyclidine (PCP) (NEGATIVE) Urine Amphetamine (NEGATIVE) U Benzodiazepine Level (NEGATIVE) Urine Cocaine (NEGATIVE) Urine Marijuana (THC) (NEGATIVE) Specimen Received 12/31/16 0940 12/31/16 12/31/16 Range/Units 09:21 09:21 WBC (4.0-10.5) K/mm3 RBC (4.1-5.4) M/mm3 Hgb (12.0-16.0) gm/dl Hct (35-47) % MCV (78-100) fl MCH (26-32) pg MCHC (32-36) g/dl RDW (11.5-14.0) % Plt Count (150-450) K/mm3 MPV (6-9.5) fl Segmented Neutrophils (36.0-66.0) % Lymphocytes (Manual) (24-44) % Monocytes (Manual) (0.0-12.0) % Platelet Estimate (NORMAL) Sodium (136-145) mEq/L Potassium (3.5-5.1) mEq/L Chloride (98-107) mEq/L Carbon Dioxide (21-32) mEq/L Anion Gap (5-15) MEQ/L BUN (9-20) mg/dL Creatinine (0.55-1.30) mg/dl Estimated GFR ML/MIN Glucose (70-110) MG/DL Lactic Acid 1.4 (0.4-2.0) Calcium (8.5-10.1) mg/dL Total Bilirubin (0.2-1.0) mg/dL AST (15-37) U/L ALT (12-78) U/L Alkaline Phosphatase (46-116) U/L Troponin I (0.000-0.056) ng/ml Serum Total Protein (6.4-8.2) gm/dL Albumin (3.4-5.0) g/dL Lipase (73-393) U/L Ur Collection Type Urine Color (YELLOW) Urine Appearance (CLEAR) Urine pH (5-6) Ur Specific [place] (1.005-1.025) Urine Protein (Negative) Urine Glucose (UA) (NEGATIVE) mg/dL Urine Ketones (NEGATIVE) Urine Nitrite (NEGATIVE) Urine Bilirubin (NEGATIVE) Urine Urobilinogen (0-1) mg/dL Urine WBC (Auto) (NEGATIVE) Urine RBC (Auto) (0-5) [place] Urine Microscopic RBC (0-2) /HPF Urine Microscopic WBC (0-5) /HPF Ur Epithelial Cells (FEW) /HPF Urine Bacteria (NEGATIVE) /HPF Urine Mucus (NEGATIVE) /HPF Urine Opiates Level NEG. (NEGATIVE) Ur Methadone NEG. (NEGATIVE) Urine Barbiturates NEG. (NEGATIVE) Ur Phencyclidine (PCP) NEG. (NEGATIVE) Urine Amphetamine NEG. (NEGATIVE) U Benzodiazepine Level POS. (NEGATIVE) Urine Cocaine NEG. (NEGATIVE) Urine Marijuana (THC) NEG. (NEGATIVE) Specimen Received - Progress Progress: improved Discussed with : Vidal Will see patient in: hospital (observation) Counseled pt/family regarding: lab results, diagnosis, rad results - Departure Time of Disposition: 12:07 Departure Disposition: Observation (Per Dr Drake) Clinical Impression: Pleural effusion on left, Leukocytosis Condition: Stable Critical Care Time: No
[2016-12-31] MEDS ORDERED: MORPHINE SULFATE 4 MG INJ IV ONE ×2 (09:21→10:42)
[2016-12-31] MEDS ORDERED: Zofran 4 MG/2 ML VIAL IV ONE (09:21)
[2016-12-31] MEDS ORDERED: Zofran 4 MG/2 ML VIAL ONE (09:26)
[2016-12-31] MEDS ORDERED: MORPHINE SULFATE 4 MG INJ ONE ×2 (09:26→10:49)
[2016-12-31 09:51] LABS: Mean Cell Volume 92.9 fl (78-100); Mean Corpuscular Hemoglobin 29.2 pg (26-32); Mean Platelet Volume 8.9 fl (6-9.5); Platelet Count 329 K/mm3 (150-450); Red Blood Count 3.25 M/mm3 (4.1-5.4); Red Cell Distribution Width 13.1 % (11.5-14.0); White Blood Count 18.1 K/mm3 (4.0-10.5)
[2016-12-31 09:56] LABS: Collection Type CATH
[2016-12-31 09:57] LABS: COMPLETE URINE MICROSCOPIC? YES
[2016-12-31 10:03] LABS: ALKALINE PHOSPHATASE 69 U/L (46-116); BILIRUBIN,TOTAL 0.3 mg/dL (0.2-1.0); BLOOD UREA NITROGEN 15 mg/dL (9-20); CHLORIDE 100 mEq/L (98-107); Carbon Dioxide 27.8 mEq/L (21-32); Glucose 139 MG/DL (70-110); LIPASE 110 U/L (73-393); Potassium 4.5 mEq/L (3.5-5.1); SGOT/AST 12 U/L (15-37); SGPT/ALT 12 U/L (12-78); SODIUM 135 mEq/L (136-145); Total Protein 6.5 gm/dL (6.4-8.2)
[2016-12-31 10:05] LABS: TROPONIN < 0.017 ng/ml (0.000-0.056)
[2016-12-31 10:07] LABS: ADD URINE CULTURE? NO (NO); Bacteria RARE /HPF (NEGATIVE); Epithelial Cells RARE /HPF (FEW); Mucus SLIGHT /HPF (NEGATIVE); WBC 0-2 /HPF (0-5)
--- NOTE | 2016-12-31 10:18 | XRAY ---
Indication: Left rib pain following fall 1-2 weeks ago. Comparison: None 2 views of the left ribs demonstrates osteopenia and degenerative changes throughout the spine and left shoulder. Incidental left lung base infiltrate/atelectasis. No other bony, articular, or soft tissue abnormalities.
--- NOTE | 2016-12-31 10:20 | XRAY ---
Indication: Chest pain. Comparison: December 22, 2016. PA/lateral chest again hyperinflated with right lung calcified granuloma. New left lower lobe infiltrate/atelectasis. No other cardiopulmonary abnormalities.
[2016-12-31 11:23] LABS: Total Cells Counted 100
[2016-12-31 11:25] LABS: Platelet Estimate NORMAL (NORMAL)
--- NOTE | 2016-12-31 11:38 | XRAY ---
Indication: Chest pain. Multiple contiguous axial images obtained through the chest without contrast as ordered. Comparison: None There is mild/moderate effusion in the dependent left hemithorax with compressive left base atelectasis. Minimal right middle, right lower lobe, and lingular atelectasis/scarring. Subtle patchy groundglass airspace opacities in left upper lobe. Right middle lobe calcified granuloma. Heart is not enlarged. Aorta minimally arteriosclerotic without aneurysmal dilatation. Tiny mediastinal and bilateral hilar calcified nodes. No pathologic mediastinal lymphadenopathy. Small hiatal hernia. Bony thorax intact with mild degenerative changes throughout the spine. CT abdomen reported separately. Impression: 1. Left upper lobe patchy groundglass airspace disease with effusion with left base atelectasis. 2. Small hiatal hernia and evidence for old granulomatous disease. CT DI 14.09
--- NOTE | 2016-12-31 11:39 | XRAY ---
Indication: Abdominal pain. Multiple contiguous axial images obtained through the abdomen and pelvis without contrast as ordered. Comparison: August 14, 2016. CT chest reported separately. Again bilateral hip prostheses produces extensive beam artifact limiting evaluation of the pelvis. Noncontrasted stomach and bowel loops appear nonobstructed. Stable sigmoid diverticulosis. Previous cholecystectomy, hysterectomy, and appendectomy. No free fluid/air. New David catheter empties the bladder. Remaining liver, pancreas, spleen, adrenal glands, kidneys, ureters, bladder, and aorta unremarkable for noncontrast exam. Osseous structures intact again with osteopenia, degenerative changes throughout the lumbar spine, and previous lower lumbar laminectomy. Impression: 1. Again previous bilateral total hip arthroplasty producing beam artifact limiting evaluation of the pelvic contents. 2. Stable sigmoid diverticulosis. New David catheter in situ. 3. No acute intra-abdominal/pelvic abnormalities on this noncontrast exam. CT DI 16.78
[2016-12-31] MEDS ORDERED: PROVENTIL 2.5 MG/3 ML NEB IH ONE ×2 (11:51→12:08)
[2016-12-31] MEDS ORDERED: Lasix 40 MG/4 ML IV ONE (11:56)
[2016-12-31] MEDS ORDERED: Lasix 40 MG/4 ML ONE (12:03)
[2016-12-31] MEDS: ROCEPHIN 1 Gm-D5w 50 ml Bag** 1 G/50 ML IVPB IV SCH (13:18)
[2016-12-31] MEDS ORDERED: Norco 10/325 MG Tablet PO PRN (13:25)
[2016-12-31] MEDS ORDERED: Phenergan 25 MG INJ IV ONE (13:35)
[2016-12-31] MEDS ORDERED: Zithromax 500 MG/ 250 ML NaCl Premix 500 MG/250 ML IVPB IV SCH (14:00)
[2016-12-31] MEDS ORDERED: TYLENOL 325 MG PO PRN (14:58)
[2016-12-31] MEDS ORDERED: ANTIVERT 25 MG PO PRN (14:58)
[2016-12-31] MEDS ORDERED: Flonase NASAL NS SCH (15:00)
[2016-12-31] MEDS: Lasix 20 MG/2 ML IV SCH (16:12)
[2016-12-31] MEDS: Nystatin SUSPENSION 60 ML PO SCH ×2 (16:12→22:50)
[2016-12-31] MEDS ORDERED: MORPHINE SULFATE 2 MG INJ IV PRN (16:32)
[2016-12-31] MEDS: DUONEB 0.5-3 MG/3 ml Neb IH SCH ×3 (16:54→22:50)
[2016-12-31] MEDS: PROVENTIL 2.5 MG/3 ML NEB IH SCH ×2 (16:57→19:02)
[2016-12-31] MEDS: DILAUDID 1 MG/1ML PCA IV PRN ×2 (18:43→23:25)
[2016-12-31] MEDS ORDERED: Sodium Chloride 0.9% 500 ML 500 ML IV SCH (18:45)
[2016-12-31] MEDS ORDERED: PROVENTIL 2.5 MG/3 ML NEB IH PRN (19:29)
[2016-12-31] MEDS ORDERED: Narcan 0.4 MG/ML IV PRN (21:26)
[2016-12-31] MEDS ORDERED: PLAVIX 75 MG Tablet PO SCH (22:00)
[2016-12-31] MEDS ORDERED: DESYREL 50 MG PO SCH (22:00)
[2016-12-31] MEDS ORDERED: XANAX 1 MG PO SCH (22:00)
[2016-12-31] MEDS: ACCOLATE 20 MG PO SCH (22:49)
[2017-01-01] MEDS: DUONEB 0.5-3 MG/3 ml Neb IH SCH ×3 (05:56→10:59)
[2017-01-01 06:24] LABS: Mean Cell Volume 93.4 fl (78-100); Mean Corpuscular Hemoglobin 29.1 pg (26-32); Mean Platelet Volume 8.9 fl (6-9.5); Platelet Count 344 K/mm3 (150-450); Red Blood Count 3.33 M/mm3 (4.1-5.4); Red Cell Distribution Width 13.4 % (11.5-14.0); White Blood Count 23.4 K/mm3 (4.0-10.5)
[2017-01-01 06:47] LABS: ANION GAP 13.6 MEQ/L (5-15); Carbon Dioxide 27.8 mEq/L (21-32); Potassium 4.6 mEq/L (3.5-5.1)
[2017-01-01] MEDS: ROCEPHIN 1 Gm-D5w 50 ml Bag** 1 G/50 ML IVPB IV SCH (08:32)
--- NOTE | 2017-01-01 08:36 | XRAY ---
Indication: Pleural effusion. Comparison: One day earlier. PA/lateral chest demonstrates minimally increasing left base effusion/atelectasis again without cardiomegaly. Remaining chest unchanged.
[2017-01-01] MEDS ORDERED: DILAUDID 2 MG INJECTION IV PRN (09:10)
[2017-01-01] MEDS: Lasix 20 MG/2 ML IV SCH (09:59)
[2017-01-01] MEDS ORDERED: Protonix 40MG Tablet PO SCH (10:00)
[2017-01-01] MEDS ORDERED: ceLEXa 20 MG PO SCH (10:00)
[2017-01-01] MEDS ORDERED: VITAMIN D PO SCH (10:00)
[2017-01-01] MEDS ORDERED: NON-FORMULARY ITEM (Cholecalciferol (Vitamin D3) [Vitamin D3] 2,000 UNIT) PO SCH (10:00)
[2017-01-01] MEDS ORDERED: Merrem 1 GM 1 G in Sodium Chloride 100ML MINI-BAG PLUS 100 ML IV SCH ×2 (10:00→22:00)
--- NOTE | 2017-01-01 10:09 | XRAY ---
Indication: Upper abdominal pain. Multiple contiguous axial images obtained through the abdomen and pelvis without contrast as ordered. Comparison: One day earlier. Lung bases demonstrates increasing moderate left base pleural effusion with now near-complete compressive left lower lobe atelectasis. New right base dependent atelectasis with stable right middle lobe calcified granuloma. Heart is not enlarged. Stable small hiatal hernia. Again bilateral hip prostheses produces extensive beam artifact limiting evaluation of the pelvis. Stomach is now moderately fluid distended. There is now mild air distended small and large bowel loops. No focal bowel dilatation or obstruction. Stable sigmoid diverticulosis without diverticulitis. Stable cholecystectomy, hysterectomy, and appendectomy. No free fluid/air. David catheter again empties the bladder. Remaining liver, pancreas, spleen, adrenal glands, kidneys, ureters, bladder, and aorta unremarkable for noncontrast exam. Impression: 1. Again previous bilateral total hip arthroplasty producing beam artifact limiting evaluation of the pelvic contents. 2. Nonspecific mild air distended small and large bowel loops without focal bowel dilatation/obstruction. 3. Stable hiatal hernia, sigmoid diverticulosis, and David catheter in situ. 3. Worsening left lung base effusion/atelectasis. CT DI 15.78
[2017-01-01] MEDS: Nystatin SUSPENSION 60 ML PO SCH (10:10)
[2017-01-01] MEDS: ACCOLATE 20 MG PO SCH (10:12)
--- NOTE | 2017-01-01 10:13 | XRAY ---
Indication: Upper abdominal pain. Comparison: August 14, 2016. 2 views of the abdomen demonstrates mild air distended small and large bowel loops without focal bowel dilatation or obstruction. No free air. Right upper quadrant cholecystectomy clips. Solid organs unremarkable. Osseous structures intact again with osteopenia, spinal degenerative spondylosis, L4/L5 laminectomy, and bilateral total hip arthroplasty. New left lung base atelectasis/effusion. Impression: Nonspecific air distended bowel loops without obstruction. New left lung base atelectasis/effusion.
[2017-01-01] MEDS ORDERED: Sodium Chloride 0.9% 1000 ML 1,000 ML IV SCH (11:15)
[2017-01-01 11:45] VITALS: BP 115/58; PULSE 100; O2SAT 95
--- NOTE | 2017-01-01 12:01 | PCM.SSS ---
History of Present Illness - Chief Complaint Chief Complaint: plueral effusion History of Present Illness: is a 81 year old female pt of mine from [facility] with 2 recent hospital admissions over the past 2 weeks. She came to ER yesterday c/o L sided pain. She had a fall 2 hospital admissions ago and fell on that side. CT abd/pelvis done with diverticulosis and new L sided pleural effusion, otherwise no new findings. She had an elevated WBC count to 18,000 ; lactate 1.4. She was admitted on IV rocephin and zithromax and pulmonology was consulted. This morning her WBC count is 24,000 and she is c/o 8/10 upper abd pain (inferior to ribs bilat). she is not feeling well at all. On dilaudid coffee maker overnight. Antibiotics changed to merropenem. On exam her abdomen was hard. Abdominal film neg for free air; nonspecific bowel gas pattern. I [facility] with the [facility]ist [facility] and am transferring the patient out for worry for intra abdominal process. - Review of Systems Constitutional: Night Sweats, Weakness, No Fever Respiratory: No Cough Abdominal/Gastrointestinal: Abdominal Pain, No Vomiting, No Diarrhea Neurological: Dizziness Psychological: Anxiety All Other Systems: Reviewed and Negative Medications & Allergies Home Medications: Home Medication List Cholecalciferol (Vitamin D3) [Vitamin D3] 2,000 unit PO DAILY #90 tab 06/30/14 [ Rx Confirmed 12/31/16] PANTOPRAZOLE 40 mg Tablet [Protonix 40MG Tablet] 40 mg PO DAILY #90 tab [Rx Confirmed 12/31/16] Zafirlukast 20 mg [Accolate 20 mg] 20 mg PO BID #180 tablet 06/30/14 [Rx Confirmed 12/31/16] Clopidogrel Bisulfate 75 mg [PLAVIX 75 MG Tablet] 75 mg PO HS 02/11/15 [ History Confirmed 12/31/16] Metformin HCl 500 mg [Glucophage 500 MG] 500 mg PO DAILY PRN PRN 02/11/15 [History Confirmed 12/31/16] Alprazolam 1 mg [Xanax 1 mg] 1 mg PO HS 10/15/15 [History Confirmed ] Albuterol Sulfate [Albuterol Sulfate Hfa] 1 neb IH Q4H 11/23/15 [History Confirmed 12/31/16] Citalopram Hydrobromide 20 mg* [ceLEXa 20 MG] 40 mg PO DAILY 01/06/16 [ History Confirmed 12/31/16] Fluticasone Propionate [Flonase NASAL] 1 puff INTRANASAL BID PRN 12/16/16 [History Confirmed 12/31/16] Meclizine HCl 25 mg [Antivert 25 mg] 25 mg PO TIDPRN PRN 12/22/16 [ History Confirmed 12/31/16] Acetaminophen 325 mg [Tylenol 325 mg] 650 mg PO Q6H PRN PRN #0 tablet [Rx Confirmed 12/31/16] Nystatin 60 ml [Nystatin SUSPENSION 60 ML] 5 ml PO QID #120 ml 12/27/16 [ Rx Confirmed 12/31/16] Trazodone HCl 50 mg [Desyrel 50 mg] 50 mg PO HS 12/31/16 [History Confirmed 12/31/16] Allergies/Adverse Reactions: Allergies Allergy/AdvReac Type Severity Reaction Status Date / Time aspirin Allergy Severe Difficulty Verified 12/31/16 08:45 Breathing iodine Allergy Severe Difficulty Verified 12/31/16 08:45 Breathing Penicillins Allergy Severe Difficulty Verified 12/31/16 08:45 Breathing iron AdvReac Verified 12/31/16 08:45 prednisone AdvReac Verified 12/31/16 08:45 - Past Medical History Past Medical History: Yes Neurological History: No Pertinent History ENT History: Cataracts, Macular Degeneration Cardiac History: Arrhythmia Respiratory History: Asthma, Bronchitis, COPD Endocrine Medical History: Diabetes Type II Musculoskelatal History: Arthritis, Other GI Medical History: GERD History: Other Pyscho-Social History: Anxiety, Depression Reproductive Disorders: Endometriosis, Other Comment: DVT left leg, pt cant remember arrhythmia states " it was a long time ago". hx of UTI, ovary removed, fernando hip replacements, hx of back problems - Past Surgical History Past Surgical History: Yes Neuro Surgical History: No Pertinent History Cardiac History: No Pertinent History Respiratory Surgery: No Pertinent History GI Surgical History: Appendectomy, Cholecystectomy Genitourinary Surgical Hx: No Pertinent History Musculskeletal Surgical Hx: Joint Replacement, Orthopedic Surgery Female Surgical History: Hysterectomy, Section, Other Other Surgical History: Fernando hip replacement,back surgery-disc replacement per pt., cataracts - Social History Smoking Status: Never smoker Exposure to second hand smoke: No Alcohol: None Drug Use: none Significant Family History: no pertinent family hx - Physical Exam Vital Signs: Vital Signs - 24 hr Temp Pulse Resp BP Pulse Ox 01/01/17 11:44 98.8 F 100 H 20 115/58 95 01/01/17 10:59 120 H 26 H 93 L 01/01/17 07:35 98.8 F 99 H 18 105/52 91 L 01/01/17 07:25 92 L 01/01/17 06:45 108 H 26 H 94 L 01/01/17 04:00 98.4 F 86 20 119/57 97 01/01/17 03:25 97 01/01/17 00:25 99.1 F 96 H 15 113/54 99 12/31/16 23:25 99 12/31/16 22:54 98 H 30 H 98 12/31/16 20:00 98.2 F 81 15 101/60 93 L 12/31/16 19:20 83 10 L 91 L 12/31/16 18:43 96 12/31/16 16:54 93 H 24 92 L 12/31/16 13:08 99 F 87 20 124/60 95 12/31/16 12:22 85 18 133/62 12/31/16 12:15 100 12/31/16 12:10 84 24 95 Oxygen-Last 24 hours O2 Percentage 3 Liters = 32% O2 Percentage 3 Liters = 32% O2 Percentage 2 Liters = 28% O2 Percentage 2 Liters = 28% General Appearance: mild distress Neurologic Exam: alert, oriented x 3, cooperative Eye Exam: eyes nml inspection Neck Exam: normal inspection Respiratory Exam: diminished breath sounds, prolonged expirations, other (good air exchange), No crackles/rales, No rhonchi, No wheezing Cardiovascular Exam: regular rate/rhythm, normal heart sounds, No murmur Gastrointestinal/Abdomen Exam: normal bowel sounds, tenderness (diffuse), other (abd is hard throughout) Extremity Exam: No pedal edema, No swelling Skin Exam: normal color, warm, dry Results - Labs Lab/Micro Results: Lab Results-Last 24 Hours 01/01/17 01/01/17 01/01/17 Range/Units 05:45 05:45 11:20 WBC 23.4 H (4.0-10.5) K/mm3 RBC 3.33 L (4.1-5.4) M/mm3 Hgb 9.7 L (12.0-16.0) gm/dl Hct 31.1 L (35-47) % MCV 93.4 (78-100) fl MCH 29.1 (26-32) pg MCHC 31.2 L (32-36) g/dl RDW 13.4 (11.5-14.0) % Plt Count 344 (150-450) K/mm3 MPV 8.9 (6-9.5) fl Sodium 136 (136-145) mEq/L Potassium 4.6 (3.5-5.1) mEq/L Chloride 99 (98-107) mEq/L Carbon Dioxide 27.8 (21-32) mEq/L Anion Gap 13.6 (5-15) MEQ/L BUN 20 (9-20) mg/dL Creatinine 1.84 H (0.55-1.30) mg/dl Estimated GFR 28 ML/MIN Glucose 118 H (70-110) MG/DL Lactic Acid 1.4 (0.4-2.0) Calcium 9.2 (8.5-10.1) mg/dL - Radiology Impressions Radiology Exams & Impressions: Radiology Procedures Category Date Time Status ABDOMEN 2 VIEW Stat Exams 01/01/17 08:59 Completed ABDOMEN AND PELVIS W/0 CONTRAS [CT] Stat Exams 01/01/17 08:59 Completed CHEST 2 VIEWS (PA AND LAT) Routine Exams 01/01/17 12:37 Completed - Other Procedures and Tests Respiratory Therapy 12/31/16 13:16 Oxygen NASAL CANNULA 2 lpm 12/31/16 15:00 Respiratory Nebulizer Q4H Assessment/Plan (1) Abdominal pain Current Visit: No Status: Acute Assessment & Plan: transfer pt to higher level of care, concern for ischemic bowel disease. Code(s): R10.9 - UNSPECIFIED ABDOMINAL PAIN (2) Leukocytosis Current Visit: Yes Status: Acute Assessment & Plan: increased from 18,000 to 24,000. on merrem IV Code(s): D72.829 - ELEVATED WHITE BLOOD CELL COUNT, UNSPECIFIED (3) Pleural effusion on left Current Visit: Yes Status: Acute Assessment & Plan: usnure etiology, could be related to abdominal pathology. Code(s): J90 - PLEURAL EFFUSION, NOT ELSEWHERE CLASSIFIED (4) Accidental fall Current Visit: No Status: Acute Qualifiers: Encounter type: subsequent encounter Qualified Code(s): W19.XXXD - Unspecified fall, subsequent encounter Assessment & Plan: in the past 2 weeks. she is frail. Code(s): W19.XXXA - UNSPECIFIED FALL, INITIAL ENCOUNTER (5) Anemia Current Visit: No Status: Acute Qualifiers: Anemia type: iron deficiency Iron deficiency anemia type: unspecified iron deficiency Qualified Code(s): D50.9 - Iron deficiency anemia, unspecified Assessment & Plan: This is chronic; she had hemoccult testing during/after her last stay. Code(s): D64.9 - ANEMIA, UNSPECIFIED (6) COPD (chronic obstructive pulmonary disease) Current Visit: No Status: Chronic Qualifiers: COPD type: unspecified COPD Qualified Code(s): J44.9 - Chronic obstructive pulmonary disease, unspecified Assessment & Plan: sounds good today (7) Diabetes mellitus Current Visit: No Status: Acute Qualifiers: Diabetes mellitus type: type 2 Diabetes mellitus complication status: without complication Diabetes mellitus intermediate teacher insulin use: without intermediate teacher use Qualified Code(s): E11.9 - Type 2 diabetes mellitus without complications Assessment & Plan: has been stable here, only on oral meds Code(s): E11.9 - TYPE 2 DIABETES MELLITUS WITHOUT COMPLICATIONS Hospital Summary - Hospital Course Hospital Course: is a 81 year old female pt of mine from [facility] with 2 recent hospital admissions over the past 2 weeks. She came to ER yesterday c/o L sided pain. She had a fall 2 hospital admissions ago and fell on that side. CT abd/pelvis done with diverticulosis and new L sided pleural effusion, otherwise no new findings. She had an elevated WBC count to 18,000 ; lactate 1.4. She was admitted on IV rocephin and zithromax and pulmonology was consulted. This morning her WBC count is 24,000 and she is c/o 8/10 upper abd pain (inferior to ribs bilat). she is not feeling well at all. On dilaudid coffee maker overnight. Antibiotics changed to merropenem. On exam her abdomen was hard. Abdominal film neg for free air; nonspecific bowel gas pattern. I spoke with the hospitalist and trauma [facility] and am transferring the patient out for worry for intra abdominal process. - Vitals & Intake/Output Vital Signs: Vital Signs Temperature 98.8 F 01/01/17 11:44 Pulse Rate 100 H 01/01/17 11:44 Respiratory Rate 20 01/01/17 11:44 Blood Pressure 115/58 01/01/17 11:44 O2 Sat by Pulse Oximetry 95 01/01/17 11:44 Oxygen-Last Documented O2 Percentage 3 Liters = 32% Intake & Output: Intake & Output 12/29/16 12/30/16 12/31/16 01/01/17 11:59 11:59 11:59 11:59 Intake Total 1920 Output Total 1025 Balance 895 Weight 71.94 kg - Lab Result Diagrams: 01/01/17 05:45 01/01/17 05:45 Lab Results-Last 24 Hrs: Lab Results-Last 24 Hours 01/01/17 01/01/17 01/01/17 Range/Units 05:45 05:45 11:20 WBC 23.4 H (4.0-10.5) K/mm3 RBC 3.33 L (4.1-5.4) M/mm3 Hgb 9.7 L (12.0-16.0) gm/dl Hct 31.1 L (35-47) % MCV 93.4 (78-100) fl MCH 29.1 (26-32) pg MCHC 31.2 L (32-36) g/dl RDW 13.4 (11.5-14.0) % Plt Count 344 (150-450) K/mm3 MPV 8.9 (6-9.5) fl Sodium 136 (136-145) mEq/L Potassium 4.6 (3.5-5.1) mEq/L Chloride 99 (98-107) mEq/L Carbon Dioxide 27.8 (21-32) mEq/L Anion Gap 13.6 (5-15) MEQ/L BUN 20 (9-20) mg/dL Creatinine 1.84 H (0.55-1.30) mg/dl Estimated GFR 28 ML/MIN Glucose 118 H (70-110) MG/DL Lactic Acid 1.4 (0.4-2.0) Calcium 9.2 (8.5-10.1) mg/dL - Radiology Exams Ordered Rad Exams-Entire Visit: Radiology Procedures Category Date Time Status ABDOMEN 2 VIEW Stat Exams 01/01/17 08:59 Completed ABDOMEN AND PELVIS W/0 CONTRAS [CT] Stat Exams 01/01/17 08:59 Completed CHEST 2 VIEWS (PA AND LAT) Routine Exams 01/01/17 12:37 Completed - Procedures and Test Procedures and Tests throughout Hospitalization: Therapy Orders & Screens 12/31/16 13:16 Oxygen NASAL CANNULA 2 lpm Comment: 2 lpm nc at HS Diagnosis: plueral effusion 12/31/16 13:28 PT Screen per Nursing Assess ONCE Comment: Protocol Order Physician Instructions: Greater than 3 points order PT Admission Screenin Reason For Exam: Triggered on Admission Diagnosis: plueral effusion Open Wound/Cellutlitis/Pressure Ulcers: No Acute Fx/ORIF/Change in wt bearing status: No Severe MUSCULOSKELETAL pain: Yes ADL Dysfunction: No Acute CVA w/Hemiparesis/Hemiplegia: No Decreased Functional Mobility/Strength: No Sprain/Strain: No Acute Post-op Mobility Dysfunction: No Total Points: 5 RT Screen per Nursing Assess ONCE Comment: Protocol Order Physician Instructions: Greater than 3 points order RT Admission Screen Reason For Exam: Triggered on Admission Diagnosis: plueral effusion Diagnosis: plueral effusion Pneumonia: Yes Home O2: Yes Asthma: No Home CPAP/BIPAP: No Home Nebs/MDI: Yes Total Points: 13 12/31/16 15:00 Respiratory Nebulizer Q4H Comment: Diagnosis: plueral effusion - [facility]charge Disposition: [facility] Condition: Stable Prescriptions: No Action Zafirlukast 20 mg [Accolate 20 mg] 20 mg PO BID #180 tablet PANTOPRAZOLE 40 mg Tablet [Protonix 40MG Tablet] 40 mg PO DAILY #90 tab Cholecalciferol (Vitamin D3) [Vitamin D3] 2,000 unit PO DAILY #90 tab Clopidogrel Bisulfate 75 mg [PLAVIX 75 MG Tablet] 75 mg PO HS Metformin HCl 500 mg [Glucophage 500 MG] 500 mg PO DAILY PRN PRN PRN Reason: BLOOD SUGAR Alprazolam 1 mg [Xanax 1 mg] 1 mg PO HS Albuterol Sulfate [Albuterol Sulfate Hfa] 1 neb IH Q4H Citalopram Hydrobromide 20 mg* [ceLEXa 20 MG] 40 mg PO DAILY Fluticasone Propionate [Flonase NASAL] 1 puff INTRANASAL BID PRN Meclizine HCl 25 mg [Antivert 25 mg] 25 mg PO TIDPRN PRN PRN Reason: Dizziness Nystatin 60 ml [Nystatin SUSPENSION 60 ML] 5 ml PO QID #120 ml Acetaminophen 325 mg [Tylenol 325 mg] 650 mg PO Q6H PRN PRN #0 tablet PRN Reason: Pain And/Or Fever Trazodone HCl 50 mg [Desyrel 50 mg] 50 mg PO HS Follow up with: CJ MORROW [Primary Care Provider] -
[2017-01-01] MEDS: DILAUDID 1 MG/1ML PCA IV PRN (12:33)
== END 2017-01-01 12:30 | disposition short-term general hospital (02) ==
LOC: ED 08:13 → MED SURG 12:30
PROVIDERS: ADMIT Family Medicine; ATTEND Family Medicine
DX: R10.9 Unspecified abdominal pain (principal); D72.829 Elevated white blood cell count, unspecified; J90 Pleural effusion, not elsewhere classified; W19.XXXD Unspecified fall, subsequent encounter; W19.XXXA Unspecified fall, initial encounter; D50.9 Iron deficiency anemia, unspecified; J44.9 Chronic obstructive pulmonary disease, unspecified; E11.9 Type 2 diabetes mellitus without complications; Z79.4 Long term (current) use of insulin; K21.9 Gastro-esophageal reflux disease without esophagitis; J45.909 Unspecified asthma, uncomplicated; F41.8 Other specified anxiety disorders; Z79.899 Other long term (current) drug therapy; Z86.718 Personal history of other venous thrombosis and embolism
CPT/HCPCS: 36000; 36415; 51702; 71020; 71100; 71250; 74020; 74176; 80048; 80053; 80307; 81000; 83605; 83690; 83880; 84484; 85025; 85027; 93005; 93268; 94640; 94760; 96374; 96375; 96376; 99285; G0378; J0456; J0696; J1170; J1940; J2270; J2405; J2550; A9270-GY

== ENCOUNTER 2017-01-08 08:31 | Inpatient (IN) | payer MEDICARE, OTHER ==
[2017-01-08] MEDS ORDERED: DUONEB 0.5-3 MG/3 ml Neb IH ONE (13:49)
[2017-01-08] MEDS: DUONEB 0.5-3 MG/3 ml Neb IH SCH ×3 (13:54→22:21)
[2017-01-08] MEDS ORDERED: Lasix 20 MG/2 ML IV ONE (16:07)
[2017-01-08] MEDS ORDERED: Sodium Chloride 0.9% 1000 ML 1,000 ML IV SCH (16:15)
[2017-01-08] MEDS ORDERED: Lasix 40 MG/4 ML IV ONE (16:45)
[2017-01-08] MEDS ORDERED: TYLENOL 325 MG PO PRN (16:53)
[2017-01-08] MEDS ORDERED: PROVENTIL COMMON CANISTER IH PRN (17:00)
[2017-01-08] MEDS: Sodium Chloride 0.9% 1000 ML 1,000 ML IV SCH ×2 (17:06→23:46)
[2017-01-08] MEDS: ENOXAPARIN SODIUM SQ SCH (18:29)
[2017-01-08] MEDS: DESYREL 50 MG PO SCH (21:28)
[2017-01-08] MEDS: ACCOLATE 20 MG PO SCH (21:28)
[2017-01-08] MEDS: XANAX 1 MG PO SCH (21:28)
[2017-01-08] MEDS: NORCO 5/325 MG PO PRN (21:46)
[2017-01-09] MEDS: DUONEB 0.5-3 MG/3 ml Neb IH SCH ×6 (05:09→22:47)
[2017-01-09 06:13] LABS: ANION GAP 10.4 MEQ/L (5-15); BLOOD UREA NITROGEN 10 mg/dL (9-20); CHLORIDE 104 mEq/L (98-107); Carbon Dioxide 33.4 mEq/L (21-32); Glucose 92 MG/DL (70-110); Potassium 3.7 mEq/L (3.5-5.1); SODIUM 144 mEq/L (136-145)
[2017-01-09] MEDS: Sodium Chloride 0.9% 1000 ML 1,000 ML IV SCH ×3 (06:22→21:21)
[2017-01-09 06:47] LABS: Mean Cell Volume 94.9 fl (78-100); Mean Platelet Volume 9.2 fl (6-9.5); Platelet Count 379 K/mm3 (150-450); Red Blood Count 2.74 M/mm3 (4.1-5.4); Red Cell Distribution Width 13.5 % (11.5-14.0); White Blood Count 10.5 K/mm3 (4.0-10.5)
[2017-01-09 06:52] LABS: Mean Corpuscular Hemoglobin 28.4 pg (26-32)
--- NOTE | 2017-01-09 08:39 | PCM.NOTE ---
Date and Time: 01/09/17830 Subjective Assessment: She woke up at 3 am with some R sided chest pain, unable to characterize it, "it 's breathtaking." worse with inspiration. She did not tell the nurse. Still having difficulty breathing. LE edema is improved. - Review of Systems Constitutional: No Fever Respiratory: Short Of Breath Cardiac: Chest Pain Objective Exam General Appearance: moderate distress Neurologic Exam: alert, oriented x 3, cooperative Skin Exam: normal color, warm, dry Respiratory Exam: diminished breath sounds (poor to fair air exchange), wheezing (scattered exp), No crackles/rales, No rhonchi Cardiovascular Exam: regular rate/rhythm, normal heart sounds, No murmur Extremity Exam: pedal edema (1+ bilat), swelling (trace pretibial edema bilat) Back Exam: normal inspection OBJECTIVE DATA Vital Signs: Vital Signs - 24 hr Temp Pulse Resp BP Pulse Ox 01/09/17 05:10 78 18 98 01/09/17 04:15 97.9 F 77 24 136/61 97 01/08/17 23:54 98.7 F 90 20 115/54 96 01/08/17 22:21 79 20 98 01/08/17 20:00 97.4 F 79 20 154/68 98 01/08/17 18:54 79 18 98 01/08/17 16:00 20 01/08/17 15:19 98 F 93 H 20 135/60 97 01/08/17 14:09 97.8 F 90 18 174/79 95 01/08/17 13:55 90 18 95 01/08/17 13:24 97.8 F 80 20 174/79 95 Oxygen-Last 24 hours O2 Percentage 2 Liters = 28% O2 Percentage 2 Liters = 28% O2 Percentage 2 Liters = 28% Pain Assessment - Last Documented Pain Intensity 9 Pain Scale Used 0-10 Pain Scale Intake and Output: Intake & Output 01/06/17 01/07/17 01/08/17 01/09/17 11:59 11:59 11:59 11:59 Intake Total 2739 Output Total 3250 Balance -511 Weight 71.577 kg Lab Results: Lab Results-Last 24 Hours 01/08/17 01/08/17 01/08/17 Range/Units 13:52 14:00 16:02 WBC (4.0-10.5) K/mm3 RBC (4.1-5.4) M/mm3 Hgb (12.0-16.0) gm/dl Hct (35-47) % MCV (78-100) fl MCH (26-32) pg MCHC (32-36) g/dl RDW (11.5-14.0) % Plt Count (150-450) K/mm3 MPV (6-9.5) fl D-Dimer 7519.39 H* (0.00-500.00) ng/mL Sodium (136-145) mEq/L Potassium (3.5-5.1) mEq/L Chloride (98-107) mEq/L Carbon Dioxide (21-32) mEq/L Anion Gap (5-15) MEQ/L BUN (9-20) mg/dL Creatinine (0.55-1.30) mg/dl Estimated GFR ML/MIN Glucose (70-110) MG/DL Lactic Acid 2.0 3.7 H (0.4-2.0) Calcium (8.5-10.1) mg/dL NT-Pro-B Natriuret Pep (0-450) pg/ml 01/08/17 01/08/17 01/09/17 Range/Units 18:15 22:00 04:00 WBC (4.0-10.5) K/mm3 RBC (4.1-5.4) M/mm3 Hgb (12.0-16.0) gm/dl Hct (35-47) % MCV (78-100) fl MCH (26-32) pg MCHC (32-36) g/dl RDW (11.5-14.0) % Plt Count (150-450) K/mm3 MPV (6-9.5) fl D-Dimer (0.00-500.00) ng/mL Sodium (136-145) mEq/L Potassium (3.5-5.1) mEq/L Chloride (98-107) mEq/L Carbon Dioxide (21-32) mEq/L Anion Gap (5-15) MEQ/L BUN (9-20) mg/dL Creatinine (0.55-1.30) mg/dl Estimated GFR ML/MIN Glucose (70-110) MG/DL Lactic Acid 2.5 H 1.1 1.7 (0.4-2.0) Calcium (8.5-10.1) mg/dL NT-Pro-B Natriuret Pep (0-450) pg/ml 01/09/17 01/09/17 Range/Units 05:03 05:03 WBC 10.5 (4.0-10.5) K/mm3 RBC 2.74 L (4.1-5.4) M/mm3 Hgb 7.8 L (12.0-16.0) gm/dl Hct 26.0 L (35-47) % MCV 94.9 (78-100) fl MCH 28.4 (26-32) pg MCHC 30.0 L (32-36) g/dl RDW 13.5 (11.5-14.0) % Plt Count 379 (150-450) K/mm3 MPV 9.2 (6-9.5) fl D-Dimer (0.00-500.00) ng/mL Sodium 144 (136-145) mEq/L Potassium 3.7 (3.5-5.1) mEq/L Chloride 104 (98-107) mEq/L Carbon Dioxide 33.4 H (21-32) mEq/L Anion Gap 10.4 (5-15) MEQ/L BUN 10 (9-20) mg/dL Creatinine 0.90 (0.55-1.30) mg/dl Estimated GFR > 60 ML/MIN Glucose 92 (70-110) MG/DL Lactic Acid (0.4-2.0) Calcium 8.7 (8.5-10.1) mg/dL NT-Pro-B Natriuret Pep 2532 H (0-450) pg/ml Radiology Exams: Radiology Procedures Category Date Time Status ECHO W/2D AND DOPPLER [US] Routine Exams 01/09/17 08:00 Ordered PULMONARY PERF VENTILATION [NUCMED] Routine Exams 01/09/17 08:00 Ordered Multi-Disciplinary Progress Notes: Multi-Disciplinary Progress Notes 01/09/17 05:13 Respiratory Note by Thaddeus Zelaya GAVE PT HER 0300 TX AT 0500 PT REQUESTED TO NOT BE WOKE UP IF SHE WAS ASLEEP. I GAVE PT HER TX AFTER LAB WOKE HER FOR MORNING BLOOD DRAW. Initialized on 01/09/17 05:13 - END OF NOTE 01/08/17 15:53 Case Management Note by Rosie Peters SPOKE WITH [facility], NURSE SORT WORKER [employer]. REPORTS THAT WHEN HER NURSE WENT FOR ADMISSION YESTERDAY, THAT PT WAS A "MESS" ANXIOUS AND SHORT OF BREATH. REPORTS THAT NURSE, ASAD, HAD TALKED WITH HER, GOT HER SETTLED DOWN, AND ADMITTED TO SERVICE. REPORTS THAT HER NURSE FEELS THAT PT COULD BENEFIT FROM SHORT TERM REHAB STAY WELL. WILL NOTIFY [facility] WHEN PT DECIDES VS BACK HOME WITH [facility] OR SHORT TERM REHAB STAY. Initialized on 01/08/17 15:53 - END OF NOTE 01/08/17 15:14 Case Management Note by Rosie Peters DISCHARGE PLAN REVIEWED WITH PT. DISCUSSED RECENT READMISSIONS. REPORTS THAT SHE WAS DISCHARGED FROM [facility] TOO SOON. REPORTS THAT THEY TOLD HER THAT SHE HAD DOUBLE PNEUMONIA ONE DAY AND SENT HER HOME THE NEXT DAY. REPORTS THAT SHE WAS DISCHARGED ON 01/05/17. REPORTS THAT [facility] NURSE WAS IN HER HOME YESTERDAY TO ADMIT TO SERVICE. PT HAS HER OXYGEN OFF AT THIS TIME. REPORTS THAT SHE DOES NOT WEAR IT ALL THE TIME. DISPLAYS NO S/S SOB OR DIFF BREATHING DURING OUR CONVERSATION. DISCUSSED GOING FOR REHAB STAY - TO WHICH PT ADAMANTLY DECLINED NEED. ENCOURAGED REHAB STAY AND [facility] FOR NEED. PT IS MORE OPEN TO IDEA. WANTS TO DISCUSS WITH FAMILY. DID ADMIT TO FEELING SCARED AND ANXIOUS AT HOME BY HERSELF, WHICH SHE FEELS PROBABLY ADDS TO HER SHORTNESS OF BREATH. AGAIN, ENCOURAGED SHORT-TERM REHAB STAY @ [facility] PRIOR TO RETURN HOME WITH [facility]. PT REPORTS THAT SHE WILL THINK ABOUT IT AND TALK TO HER BROTHER AND HER DAUGHTER. Initialized on 01/08/17 15:14 - END OF NOTE Assessment/Plan (1) Chest pain Current Visit: Yes Status: Acute Qualifiers: Chest pain type: chest pain on breathing Qualified Code(s): R07.1 - Chest pain on breathing Assessment & Plan: Stat EKG and troponin. Nitro. Concern for acute coronary syndrome or PE. She is having VQ scan this morning. Code(s): R07.9 - CHEST PAIN, UNSPECIFIED (2) COPD exacerbation Current Visit: No Status: Acute Assessment & Plan: On IV rocephin. Code(s): J44.1 - CHRONIC OBSTRUCTIVE PULMONARY DISEASE W (ACUTE) EXACERBATION (3) Anemia Current Visit: No Status: Acute Qualifiers: Anemia type: iron deficiency Assessment & Plan: Hgb to 7.8 this morning. With concern for possible ACS as above will transfuse 1 unit PRBC at this time. Code(s): D64.9 - ANEMIA, UNSPECIFIED (4) Diabetes mellitus Current Visit: No Status: Chronic Qualifiers: Diabetes mellitus type: type 2 Diabetes mellitus complication status: without complication Diabetes mellitus prison insulin use: without prison use Qualified Code(s): E11.9 - Type 2 diabetes mellitus without complications Assessment & Plan: Off metformin currently. Cover with SS insulin. Code(s): E11.9 - TYPE 2 DIABETES MELLITUS WITHOUT COMPLICATIONS
[2017-01-09] MEDS ORDERED: NovoLOG Insulin SQ PRN (08:41)
[2017-01-09] MEDS: Nitrostat 0.4 MG Tablet SL PRN (08:45)
[2017-01-09] MEDS: Lasix 40 MG/4 ML IV SCH ×2 (08:45→16:50)
[2017-01-09] MEDS: NORCO 5/325 MG PO PRN ×2 (08:55→18:49)
[2017-01-09] MEDS: DELTASONE 10 MG PO SCH (10:24)
[2017-01-09] MEDS: ENOXAPARIN SODIUM SQ SCH (10:24)
[2017-01-09] MEDS: ceLEXa 20 MG PO SCH (10:24)
[2017-01-09] MEDS: ACCOLATE 20 MG PO SCH ×2 (10:24→21:19)
[2017-01-09] MEDS: Protonix 40MG Tablet PO SCH (10:24)
[2017-01-09] MEDS ORDERED: CITROMA 296 ML PO ONE (13:51)
--- NOTE | 2017-01-09 14:19 | XRAY ---
Indication: Dyspnea. Elevated d-dimer. COPD. Comparison: None Patient received 4.8 mCi technetium 99 MAA for the perfusion portion of the exam. Patient inhaled 38.8 mCi of aerosolized technetium 99 DTPA for the ventilation portion. Multiplanar images obtained. Perfusion images demonstrates 2 small foci of perfusion defect in the posterior left lower lobe. Ventilation images demonstrates matching defects in the posterior left lower lobe. Remaining ventilation images demonstrates heterogeneous radiopharmaceutical activity with predominant activity centrally favoring chronic of active disease. Impression: 1. 2 matched defects in the left lower lobe. Chest x-ray one day earlier demonstrates left base pleural-parenchymal opacity. PIOPED criteria for pulmonary embolus is intermediate probability. 2. Ventilation images suggests chronic affective disease.
[2017-01-09] MEDS: ROCEPHIN 1 Gm-D5w 50 ml Bag** 1 G/50 ML IVPB IV SCH (16:50)
[2017-01-09] MEDS: DESYREL 50 MG PO SCH (21:19)
[2017-01-09] MEDS: XANAX 1 MG PO SCH (21:19)
[2017-01-10] MEDS: Nitrostat 0.4 MG Tablet SL PRN (01:31)
[2017-01-10] MEDS: Sodium Chloride 0.9% 1000 ML 1,000 ML IV SCH ×4 (01:37→23:51)
[2017-01-10] MEDS: NORCO 5/325 MG PO PRN ×3 (02:04→22:09)
[2017-01-10] MEDS: DUONEB 0.5-3 MG/3 ml Neb IH SCH ×6 (03:40→22:22)
[2017-01-10 07:15] LABS: ALBUMIN 2.5 g/dL (3.4-5.0); ALKALINE PHOSPHATASE 96 U/L (46-116); ANION GAP 8.3 MEQ/L (5-15); BLOOD UREA NITROGEN 8 mg/dL (9-20); CHLORIDE 102 mEq/L (98-107); Carbon Dioxide 34.2 mEq/L (21-32); Glucose 104 MG/DL (70-110); Potassium 3.4 mEq/L (3.5-5.1); SGOT/AST 22 U/L (15-37); SGPT/ALT 18 U/L (12-78); SODIUM 141 mEq/L (136-145); Total Protein 5.8 gm/dL (6.4-8.2)
[2017-01-10 07:35] LABS: Mean Cell Volume 92.8 fl (78-100); Mean Platelet Volume 8.9 fl (6-9.5); Platelet Count 334 K/mm3 (150-450); Red Blood Count 3.05 M/mm3 (4.1-5.4); Red Cell Distribution Width 14.6 % (11.5-14.0); White Blood Count 12.7 K/mm3 (4.0-10.5)
[2017-01-10 07:40] LABS: Mean Corpuscular Hemoglobin 28.8 pg (26-32)
[2017-01-10] MEDS: Lasix 40 MG/4 ML IV SCH ×2 (08:41→16:23)
[2017-01-10] MEDS: Protonix 40MG Tablet PO SCH (08:43)
[2017-01-10] MEDS: ACCOLATE 20 MG PO SCH ×2 (08:43→22:08)
[2017-01-10] MEDS: ROCEPHIN 1 Gm-D5w 50 ml Bag** 1 G/50 ML IVPB IV SCH (08:44)
[2017-01-10] MEDS: DELTASONE 10 MG PO SCH (08:44)
[2017-01-10] MEDS: ceLEXa 20 MG PO SCH (08:44)
[2017-01-10] MEDS ORDERED: Klor Con 10 MEQ PO ONE (09:19)
[2017-01-10] MEDS ORDERED: PLAVIX 75 MG Tablet PO ONE (10:09)
--- NOTE | 2017-01-10 11:46 | PCM.NOTE ---
Date and Time: 01/10/17 1141 Subjective Assessment: She had chest pain overnight last night again. Discussed with Dr. Drake today about VQ scan results. Dr. Drake decided yesterday that since her risk was intermediate and she had other reasons for the mismatch to not anticoagulate her. Patient reports some trouble urinating. conitnued wheezing and some abdominal firmness but no tenderness. She has had some swelling in her legs. She thinks yesterday was the first time she ever had to have a blood transfusion. - Review of Systems Constitutional: No Symptoms Eyes: No Symptoms Ears, Nose, & Throat: No Symptoms Respiratory: Short Of Breath, Wheezing Cardiac: Chest Pain Abdominal/Gastrointestinal: Other (abdominal firmness), No Abdominal Pain, No Nausea, No Vomiting, No Diarrhea, No Constipation Genitourinary Symptoms: Urinary Retention Musculoskeletal: No Symptoms Skin: No Symptoms Objective Exam General Appearance: no apparent distress, alert Neurologic Exam: alert, cooperative, normal mood/affect Skin Exam: normal color, warm, dry, No rash Respiratory Exam: other (scattered wheezes throughout, equal breath sounds, no crackles) Cardiovascular Exam: regular rate/rhythm, normal heart sounds, No murmur, No friction rub, No gallop Gastrointestinal/Abdomen Exam: soft, normal bowel sounds, distention, No tenderness, No mass, No guarding Extremity Exam: other (no c/c, trace edema bilat) OBJECTIVE DATA Vital Signs: Vital Signs - 24 hr Temp Pulse Resp BP BP Pulse Ox 01/10/17 11:30 98.5 F 79 20 150/67 92 L 01/10/17 10:41 77 20 92 L 01/10/17 08:00 20 01/10/17 07:35 156/67 01/10/17 07:34 98.4 F 78 20 179/75 96 01/10/17 07:04 75 20 98 01/10/17 04:00 98.3 F 72 20 178/69 99 01/10/17 01:31 193/78 01/10/17 00:00 98.0 F 78 20 162/67 97 01/09/17 22:47 78 20 97 01/09/17 20:00 98.5 F 70 20 149/65 95 01/09/17 18:54 76 18 95 01/09/17 16:00 98.4 F 84 18 128/65 98 01/09/17 14:42 91 H 18 93 L 01/09/17 12:50 18 01/09/17 12:00 98.4 F 84 18 128/65 98 Oxygen-Last 24 hours O2 Percentage 2 Liters = 28% O2 Percentage 5 Liters = 40% O2 Percentage 2 Liters = 28% Pain Assessment - Last Documented Pain Intensity 5 Pain Scale Used 0-10 Pain Scale Intake and Output: Intake & Output 01/08/17 01/09/17 01/10/17 01/11/17 06:59 06:59 06:59 06:59 Intake Total 2739 1992 420 Output Total 3250 1890 600 Balance -511 302 -180 Weight 71.577 kg 72.439 kg Lab Results: Lab Results-Last 24 Hours 01/09/17 01/10/17 01/10/17 Range/Units 17:30 02:16 05:40 WBC 12.7 H (4.0-10.5) K/mm3 RBC 3.05 L (4.1-5.4) M/mm3 Hgb 10.3 L 8.8 L (12.0-16.0) gm/dl Hct 32.8 L 28.3 L (35-47) % MCV 92.8 (78-100) fl MCH 28.8 (26-32) pg MCHC 31.1 L (32-36) g/dl RDW 14.6 H (11.5-14.0) % Plt Count 334 (150-450) K/mm3 MPV 8.9 (6-9.5) fl Sodium (136-145) mEq/L Potassium (3.5-5.1) mEq/L Chloride (98-107) mEq/L Carbon Dioxide (21-32) mEq/L Anion Gap (5-15) MEQ/L BUN (9-20) mg/dL Creatinine (0.55-1.30) mg/dl Estimated GFR ML/MIN Glucose (70-110) MG/DL Calcium (8.5-10.1) mg/dL Magnesium (1.8-2.4) mg/dL Iron (50-175) ug/dl TIBC (250-450) ug/dl Iron Saturation (20-39) % Total Bilirubin (0.2-1.0) mg/dL AST (15-37) U/L ALT (12-78) U/L Alkaline Phosphatase (46-116) U/L Troponin I < 0.017 (0.000-0.056) ng/ml Serum Total Protein (6.4-8.2) gm/dL Albumin (3.4-5.0) g/dL Vitamin B12 (193-986) Stool Occult Blood (Negative) 01/10/17 01/10/17 01/10/17 Range/Units 05:40 05:42 07:01 WBC (4.0-10.5) K/mm3 RBC (4.1-5.4) M/mm3 Hgb (12.0-16.0) gm/dl Hct (35-47) % MCV (78-100) fl MCH (26-32) pg MCHC (32-36) g/dl RDW (11.5-14.0) % Plt Count (150-450) K/mm3 MPV (6-9.5) fl Sodium 141 (136-145) mEq/L Potassium 3.4 L (3.5-5.1) mEq/L Chloride 102 (98-107) mEq/L Carbon Dioxide 34.2 H (21-32) mEq/L Anion Gap 8.3 (5-15) MEQ/L BUN 8 L (9-20) mg/dL Creatinine 0.88 (0.55-1.30) mg/dl Estimated GFR > 60 ML/MIN Glucose 104 (70-110) MG/DL Calcium 8.0 L (8.5-10.1) mg/dL Magnesium (1.8-2.4) mg/dL Iron (50-175) ug/dl TIBC (250-450) ug/dl Iron Saturation (20-39) % Total Bilirubin 0.40 (0.2-1.0) mg/dL AST 22 (15-37) U/L ALT 18 (12-78) U/L Alkaline Phosphatase 96 (46-116) U/L Troponin I < 0.017 (0.000-0.056) ng/ml Serum Total Protein 5.8 L (6.4-8.2) gm/dL Albumin 2.5 L (3.4-5.0) g/dL Vitamin B12 740 (193-986) Stool Occult Blood (Negative) 01/10/17 01/10/17 01/10/17 Range/Units 07:01 07:01 10:50 WBC (4.0-10.5) K/mm3 RBC (4.1-5.4) M/mm3 Hgb (12.0-16.0) gm/dl Hct (35-47) % MCV (78-100) fl MCH (26-32) pg MCHC (32-36) g/dl RDW (11.5-14.0) % Plt Count (150-450) K/mm3 MPV (6-9.5) fl Sodium (136-145) mEq/L Potassium (3.5-5.1) mEq/L Chloride (98-107) mEq/L Carbon Dioxide (21-32) mEq/L Anion Gap (5-15) MEQ/L BUN (9-20) mg/dL Creatinine (0.55-1.30) mg/dl Estimated GFR ML/MIN Glucose (70-110) MG/DL Calcium (8.5-10.1) mg/dL Magnesium 2.0 (1.8-2.4) mg/dL Iron 19 L (50-175) ug/dl TIBC 145 L (250-450) ug/dl Iron Saturation 13.1 L (20-39) % Total Bilirubin (0.2-1.0) mg/dL AST (15-37) U/L ALT (12-78) U/L Alkaline Phosphatase (46-116) U/L Troponin I (0.000-0.056) ng/ml Serum Total Protein (6.4-8.2) gm/dL Albumin (3.4-5.0) g/dL Vitamin B12 (193-986) Stool Occult Blood NEGATIVE (Negative) Radiology Exams: Radiology Procedures Category Date Time Status CHEST WITHOUT CONTRAST [CT] Urgent Exams 01/10/17 10:05 Ordered ECHO W/2D AND DOPPLER [US] Routine Exams 01/09/17 08:00 Taken PULMONARY PERF VENTILATION [NUCMED] Routine Exams 01/09/17 08:00 Completed VENOUS BILATERAL EXTREMITY [US] Urgent Exams 01/10/17 11:40 Ordered Multi-Disciplinary Progress Notes: Multi-Disciplinary Progress Notes 01/09/17 16:29 Case Management Note by Rosie Peters SPOKE WITH DAVE AT [facility], REPORTS THAT THEY WILL HAVE A REHAB BED AVAILABLE WHEN MD READY FOR DISCHARGE. HAS HAD 3 DAY QUALIFYING STAY ON 12/24/16 @ 0829 - 12/27/16 @ 1205. Initialized on 01/09/17 16:29 - END OF NOTE 01/09/17 16:05 Case Management Note by Rosie Peters LEVEL I COMPLETE, REFERRAL FAXED TO [facility]. SPOKE WITH DAVE. Initialized on 01/09/17 16:05 - END OF NOTE 01/09/17 13:00 (created 01/09/17 15:08) Case Management Note by Rosie Peters DISCHARGE PLAN REVIEWED WITH PT. AGREES TO GO TO REHAB ON DISCHARGE. REQUESTS REFERRAL TO [facility]. PLANS TO GO FOR SHORT TERM REHAB STAY ON DISCHARGE. Initialized on 01/09/17 15:08 - END OF NOTE Assessment/Plan (1) Chest pain Current Visit: Yes Status: Acute Qualifiers: Chest pain type: chest pain on breathing Qualified Code(s): R07.1 - Chest pain on breathing Assessment & Plan: Troponins checked again last night x 2 when she had chest pain and still negative. Chest CT ordered today without contrast. Will check dopplers of lower extremities since her D-dimer was high. Patient denies hx of DVT and Dr. Drake does not thinks she has a hx of DVT. Code(s): R07.9 - CHEST PAIN, UNSPECIFIED (2) COPD exacerbation Current Visit: No Status: Acute Assessment & Plan: Continue ceftriaxone and prednisone by mouth. Continue oxygen if needed and breathing treatments. Code(s): J44.1 - CHRONIC OBSTRUCTIVE PULMONARY DISEASE W (ACUTE) EXACERBATION (3) Essential hypertension Current Visit: Yes Status: Acute Assessment & Plan: Start lisinopril 10 mg po daily. Code(s): I10 - ESSENTIAL (PRIMARY) HYPERTENSION (4) DNR no code (do not resuscitate) Current Visit: Yes Status: Acute Assessment & Plan: Discussed code status with patient and she does not want to have chest compression or be put on a breathing machine. Code order form 01/08/17 signed on the front of the chart today. (5) Iron deficiency anemia Current Visit: Yes Status: Acute Assessment & Plan: Iron levels checked and are low. Vit b 12 level ordered but not back yet. Patient reports she cannot take iron. She received 1 unit PRBC's yesterday. Code(s): D50.9 - IRON DEFICIENCY ANEMIA, UNSPECIFIED
[2017-01-10] MEDS ORDERED: Zestril 10 MG PO STA (11:55)
--- NOTE | 2017-01-10 16:01 | XRAY ---
Indication: Right-sided chest pain. Bloated. Multiple contiguous axial images obtained through the chest without contrast as ordered. Comparison: Made to 2016. Previous left effusion and left base atelectasis has minimally improved and persists. New mild/moderate right effusion with right base atelectasis. Stable scattered bilateral fibrosis/scarring and right middle lobe calcified granuloma. Previous left upper lobe airspace opacity has cleared. Heart is not enlarged. Aorta minimally arteriosclerotic without aneurysmal dilatation. Tiny mediastinal and bilateral hilar calcified nodes unchanged. No pathologic mediastinal lymphadenopathy. Stable small hiatal hernia. Bony thorax intact with mild degenerative changes throughout the spine. Limited upper abdomen is unremarkable. Impression: 1. New right effusion and right base atelectasis. 2. Slightly diminished left effusion and left base atelectasis. 3. Stable scattered fibrosis/scarring, small hiatal hernia, and evidence for old granulomatous disease. CTDI 14.26
--- NOTE | 2017-01-10 16:02 | ECHO ---
DATE: 01/09/17 A transthoracic echocardiograph examination with color Doppler study was done. INDICATION: Shortness of breath, diabetes, hyperlipidemia. IMPRESSION: 1. BORDERLINE LEFT VENTRICULAR HYPOKINESIA WITH ESTIMATED GLOBAL LEFT VENTRICULAR EJECTION FRACTION AROUND 50%. 2. TRACE MITRAL REGURGITATION. The left ventricle was only partially visualized, but this demonstrated some borderline left ventricular hypokinesia. Estimated global left ventricular ejection fraction is 50%. The left ventricle thickness is normal. The mitral valve was seen and this opens adequately. There is trace mitral regurgitation. The left atrium appears to be normal. The aortic valve was partially seen, but this appears to open adequately. There is no significant gradient across the left ventricular outflow tract. The right-sided chambers are normal.
--- NOTE | 2017-01-10 16:09 | XRAY ---
Indication: Elevated d-dimer. Two-dimensional sonogram and color Doppler imaging of the major venous vessels of the left and right leg was performed. Comparison: None No thrombus seen in the examined deep venous vessels of the left or right leg including greater saphenous veins. Veins demonstrate normal compressibility. Venous waveforms are normal with and without augmentation. Impression: Left and right legs negative for DVT. Comment: Preliminary report was given.
[2017-01-10] MEDS: XANAX 1 MG PO SCH (22:08)
[2017-01-10] MEDS: DESYREL 50 MG PO SCH (22:08)
[2017-01-11] MEDS: DUONEB 0.5-3 MG/3 ml Neb IH SCH ×7 (03:28→21:58)
[2017-01-11] MEDS: NORCO 5/325 MG PO PRN ×2 (04:23→21:22)
[2017-01-11] MEDS: Zestril 10 MG PO SCH (08:51)
[2017-01-11] MEDS: ceLEXa 20 MG PO SCH (08:51)
[2017-01-11] MEDS: ROCEPHIN 1 Gm-D5w 50 ml Bag** 1 G/50 ML IVPB IV SCH (08:51)
[2017-01-11] MEDS: Protonix 40MG Tablet PO SCH (08:51)
[2017-01-11] MEDS: DELTASONE 10 MG PO SCH (08:51)
[2017-01-11] MEDS: PLAVIX 75 MG Tablet PO SCH (08:51)
[2017-01-11] MEDS: ACCOLATE 20 MG PO SCH ×2 (08:51→21:22)
[2017-01-11] MEDS: Lasix 40 MG/4 ML IV SCH ×2 (08:51→16:35)
--- NOTE | 2017-01-11 09:49 | PCM.NOTE ---
Date and Time: 01/11/17942 Subjective Assessment: She reports that she does not wear her oxygen all the time so it is off this AM. She reports she had chest pain last night but it is better today. She denies any abdominal pain. - Review of Systems Constitutional: No Symptoms Eyes: No Symptoms Ears, Nose, & Throat: No Symptoms Respiratory: Cough, Wheezing Cardiac: Chest Pain Abdominal/Gastrointestinal: No Symptoms Genitourinary Symptoms: No Symptoms Musculoskeletal: No Symptoms Skin: No Symptoms Objective Exam General Appearance: no apparent distress, alert, other (Patient lying comfortably in bed, off oxygen.) Neurologic Exam: alert, cooperative, normal mood/affect Skin Exam: normal color, warm, dry, No rash Respiratory Exam: other (scattered wheezing, equal breath sounds, no crackles) Cardiovascular Exam: regular rate/rhythm, normal heart sounds, No murmur, No friction rub, No gallop Gastrointestinal/Abdomen Exam: soft, normal bowel sounds, No tenderness, No distention, No mass Extremity Exam: other (no c/c/e) OBJECTIVE DATA Vital Signs: Vital Signs - 24 hr Temp Pulse Resp BP Pulse Ox 01/11/17 08:00 18 01/11/17 07:37 98.3 F 79 18 138/62 97 01/11/17 07:36 70 18 96 01/11/17 04:27 77 20 95 01/11/17 04:08 98.6 F 80 21 168/73 100 01/11/17 04:00 20 01/11/17 00:06 99.3 F 83 22 157/67 98 01/11/17 00:00 20 01/10/17 22:22 83 22 98 01/10/17 20:25 98.5 F 83 19 153/62 91 L 01/10/17 20:00 22 01/10/17 18:49 79 18 95 01/10/17 16:00 98.3 F 86 20 155/63 93 L 01/10/17 14:56 81 18 93 L 01/10/17 12:00 18 01/10/17 11:30 98.5 F 79 20 150/67 92 L 01/10/17 10:41 77 20 92 L Oxygen-Last 24 hours O2 Percentage 2 Liters = 28% O2 Percentage 2 Liters = 28% O2 Percentage 2 Liters = 28% Pain Assessment - Last Documented Pain Intensity 0 Pain Scale Used 0-10 Pain Scale Intake and Output: Intake & Output 01/09/17 01/10/17 01/11/17 01/12/17 06:59 06:59 06:59 06:59 Intake Total 2733 7962 4957 300 Output Total 3250 4220 5500 Balance -511 302 -543 300 Weight 71.577 kg 72.439 kg 73.301 kg Lab Results: Lab Results-Last 24 Hours 01/10/17 01/10/17 01/10/17 Range/Units 07:01 07:01 10:50 Iron 19 L (50-175) ug/dl TIBC 145 L (250-450) ug/dl Iron Saturation 13.1 L (20-39) % Vitamin B12 740 (193-986) Stool Occult Blood NEGATIVE (Negative) Radiology Exams: Radiology Procedures Category Date Time Status CHEST WITHOUT CONTRAST [CT] Urgent Exams 01/10/17 10:05 Completed VENOUS BILATERAL EXTREMITY [US] Urgent Exams 01/10/17 11:40 Completed Assessment/Plan (1) Chest pain Current Visit: Yes Status: Resolved Qualifiers: Chest pain type: chest pain on breathing Qualified Code(s): R07.1 - Chest pain on breathing Assessment & Plan: Better today. Chest CT without contrast with bilat small pleural effusions and bilat atelectasis. Code(s): R07.9 - CHEST PAIN, UNSPECIFIED (2) COPD exacerbation Current Visit: No Status: Acute Assessment & Plan: Continue oxygen, breathing treatments, antibiotics and steroids. Code(s): J44.1 - CHRONIC OBSTRUCTIVE PULMONARY DISEASE W (ACUTE) EXACERBATION (3) Essential hypertension Current Visit: Yes Status: Acute Assessment & Plan: Blood pressure medication added yesterday. Her blood pressure was better this AM. Code(s): I10 - ESSENTIAL (PRIMARY) HYPERTENSION (4) DNR no code (do not resuscitate) Current Visit: Yes Status: Acute (5) Iron deficiency anemia Current Visit: Yes Status: Acute Assessment & Plan: Patient states she can't take iron. S/p 1 Unit PRBC's transfused while she was here. Code(s): D50.9 - IRON DEFICIENCY ANEMIA, UNSPECIFIED (6) Peripheral artery disease Current Visit: Yes Status: Acute Assessment & Plan: Continue plavix. Stools neg for blood. Code(s): I73.9 - PERIPHERAL VASCULAR DISEASE, UNSPECIFIED
[2017-01-11] MEDS: Sodium Chloride 0.9% 10 ML FLUSH Syringe IV PRN ×2 (10:02→16:38)
[2017-01-11] MEDS: Sodium Chloride 0.9% 10 ML FLUSH Syringe IV SCH ×2 (13:44→21:22)
[2017-01-11] MEDS: DESYREL 50 MG PO SCH (21:22)
[2017-01-11] MEDS: XANAX 1 MG PO SCH (21:22)
[2017-01-12] MEDS: DUONEB 0.5-3 MG/3 ml Neb IH SCH ×3 (06:12→10:26)
[2017-01-12 07:55] VITALS: BP 125/58
--- NOTE | 2017-01-12 08:53 | PCM.DS ---
Discharge Summary Date of Admission: 01/09/17 08:31 Admitting Physician: CJ MORROW Primary Care Provider: CJ MORROW Allergies Allergies aspirin Allergy (Severe, Verified 12/31/16 08:45) Difficulty Breathing iodine Allergy (Severe, Verified 12/31/16 08:45) Difficulty Breathing Penicillins Allergy (Severe, Verified 12/31/16 08:45) Difficulty Breathing iron Adverse Reaction (Verified 12/31/16 08:45) prednisone Adverse Reaction (Verified 01/08/17 14:32) DOES NOT LIKE HOW MED MAKES HER FEEL Hospital Summary - Hospital Course Hospital Course: She is feeling tired. Some soreness in her chest (tender to touch) on R but it is better than the last several days. Breathing is ok. - Vitals & Intake/Output Vital Signs: Vital Signs Temperature 98.0 F 01/12/17 07:54 Pulse Rate 69 01/12/17 07:54 Respiratory Rate 18 01/12/17 07:54 Blood Pressure 125/58 01/12/17 07:54 O2 Sat by Pulse Oximetry 97 01/12/17 07:54 Oxygen-Last Documented O2 Percentage 2 Liters = 28% Intake & Output: Intake & Output 01/09/17 01/10/17 01/11/17 01/12/17 11:59 11:59 11:59 11:59 Intake Total 2959 5052 4837 920 Output Total 3250 5150 4900 4500 Balance -291 -98 -63 -3580 Weight 71.577 kg 72.439 kg 73.301 kg 68.901 kg - Lab Result Diagrams: 01/10/17 05:40 01/10/17 05:40 - Radiology Exams Ordered Rad Exams-Entire Visit: Radiology Procedures Category Date Time Status CHEST WITHOUT CONTRAST [CT] Urgent Exams 01/10/17 10:05 Completed VENOUS BILATERAL EXTREMITY [US] Urgent Exams 01/10/17 11:40 Completed - Procedures and Test Procedures and Tests throughout Hospitalization: Therapy Orders & Screens 01/08/17 13:53 Oxygen NASAL CANNULA 2 lpm Comment: Keep sats 88-93% Diagnosis: Dyspnea, anemia, renal failure, COPD 01/08/17 14:47 RT Screen per Nursing Assess ONCE Comment: Protocol Order Physician Instructions: Greater than 3 points order RT Admission Screen Reason For Exam: Triggered on Admission Diagnosis: anemia. copd. renal failure. dyspnea Diagnosis: anemia. copd. renal failure. dyspnea Pneumonia: No Home O2: Yes Asthma: No CHF: No Home Nebs/MDI: Yes Total Points: 10 01/08/17 15:00 Respiratory Nebulizer Q4H Comment: Diagnosis: Dyspnea, anemia, renal failure, COPD 01/09/17 08:29 EKG STAT Comment: Diagnosis: anemia. copd. renal failure. dyspnea Discharge Exam General Appearance: no apparent distress Neurologic Exam: alert, oriented x 3, cooperative Skin Exam: normal color, warm, dry Respiratory Exam: lungs clear, diminished breath sounds (fair air exchange), wheezing (expiratory, scattered), other (R chest inferior to R breast with point ttp), No crackles/rales, No rhonchi Cardiovascular Exam: regular rate/rhythm, normal heart sounds, No murmur Extremity Exam: swelling (1+ LE edema bilat) Back Exam: normal inspection Final Diagnosis/Problem List - Final Discharge Diagnosis/Problem (1) CHF (congestive heart failure) Current Visit: Yes Status: Acute Assessment & Plan: Treated with 40mg IV lasix BID here; home on 40mg po lasix daily. Checking potassium today, may need to replete. Started po lisinopril. (2) COPD exacerbation Current Visit: No Status: Acute Assessment & Plan: Improved on IV rocephin and po prednisone. Will send her home on cefdinir and prednisone, with an extended taper. She does not do well on IV antibiotics ( shaking as a side effect). (3) Muscular deconditioning Current Visit: Yes Status: Acute Assessment & Plan: To LTCF today, which I think will be very beneficial. She has had 3 hospital admissions in the past 2 months. (4) Chest pain Current Visit: Yes Status: Resolved Assessment & Plan: Improving. May have some element of costochondritis and pleurisy. Has ruled out for AK. Pain was present all weekend, basically, and worse at night. There was some concern initially for PE, but her Wells criteria was actually quite low due to probability of CHF and COPD causing her pain. Dopplers of LE were neg for DVT. (5) Anemia Current Visit: No Status: Acute Assessment & Plan: Received 1 unit PRBC while here. She has iron deficiency but has not tolerated po iron in the past. Would discuss IV iron with her outpatient. (6) Diabetes mellitus Current Visit: No Status: Chronic Assessment & Plan: Blood sugars are usually well controlled on po meds. (7) PVD (peripheral vascular disease) Current Visit: Yes Status: Acute Assessment & Plan: On plavix. This was stopped during her last hospitalization at [facility], she said someone said she had blood in her stool but she states she didn't have a stool while she was there. At [facility] her hemoccult was neg x 3. Restarted plavix here. (8) Urinary retention Current Visit: Yes Status: Inactive Assessment & Plan: This was an issue during her last 2 admissions, but has had no urinary retention today. - Discharge Disposition: DC TO HEALTH SYSTEM Condition: Stable Prescriptions: New Albuterol/Ipratropium 3ml Neb* [DUONEB 0.5-3 MG/3 ml Neb] 3 ml IH Q4HRT # 30 ampul.neb Furosemide 40 mg [Lasix 40 MG] 40 mg PO BID #60 tablet Nitroglycerin 0.4 mg Tablet [Nitrostat 0.4 MG Tablet] 0.4 mg SL Q5MIN PRN MR X 3 PRN #25 tab PRN Reason: Chest Pain Lisinopril 10 mg [Zestril 10 MG] 10 mg PO DAILY #30 tablet Continue Zafirlukast 20 mg [Accolate 20 mg] 20 mg PO BID #180 tablet PANTOPRAZOLE 40 mg Tablet [Protonix 40MG Tablet] 40 mg PO DAILY #90 tab Clopidogrel Bisulfate 75 mg [PLAVIX 75 MG Tablet] 75 mg PO HS Metformin HCl 500 mg [Glucophage 500 MG] 500 mg PO DAILY PRN PRN PRN Reason: BLOOD SUGAR Alprazolam 1 mg [Xanax 1 mg] 1 mg PO HS Albuterol Sulfate [Albuterol Sulfate Hfa] 1 neb IH Q4H PRN PRN Reason: sob Citalopram Hydrobromide 20 mg* [ceLEXa 20 MG] 40 mg PO DAILY Trazodone HCl 50 mg [Desyrel 50 mg] 50 mg PO HS Hydrocodone/Acetaminophen [Imperial 5-325 Tablet] 1 each PO Q8H PRN PRN Reason: Pain Cefdinir 300 mg PO BID Acetaminophen 325 mg [Tylenol 325 mg] 650 mg PO Q4H PRN PRN PRN Reason: Pain And/Or Fever Prednisone 10 mg [Deltasone 10 mg] 10 mg PO DAILY Follow up with: JC MORROW [Primary Care Provider] - 1 Week
[2017-01-12 09:26] LABS: Mean Cell Volume 94.4 fl (78-100); Mean Platelet Volume 9.1 fl (6-9.5); Platelet Count 332 K/mm3 (150-450); Red Blood Count 3.22 M/mm3 (4.1-5.4); Red Cell Distribution Width 14.7 % (11.5-14.0); White Blood Count 8.9 K/mm3 (4.0-10.5)
[2017-01-12 09:28] LABS: Mean Corpuscular Hemoglobin 28.5 pg (26-32)
[2017-01-12] MEDS: ACCOLATE 20 MG PO SCH (09:33)
[2017-01-12] MEDS: PLAVIX 75 MG Tablet PO SCH (09:33)
[2017-01-12] MEDS: ROCEPHIN 1 Gm-D5w 50 ml Bag** 1 G/50 ML IVPB IV SCH ×2 (09:33→09:44)
[2017-01-12] MEDS: ceLEXa 20 MG PO SCH (09:33)
[2017-01-12] MEDS: Protonix 40MG Tablet PO SCH (09:33)
[2017-01-12] MEDS: Zestril 10 MG PO SCH (09:33)
[2017-01-12] MEDS: Sodium Chloride 0.9% 10 ML FLUSH Syringe IV PRN (09:33)
[2017-01-12] MEDS: Lasix 40 MG/4 ML IV SCH (09:33)
[2017-01-12 09:42] LABS: ANION GAP 8.7 MEQ/L (5-15); Potassium 3.7 mEq/L (3.5-5.1)
[2017-01-12 10:27] VITALS: PULSE 104; O2SAT 98
[2017-01-12] MEDS: NORCO 5/325 MG PO PRN (10:51)
[2017-01-12 12:53] LABS: ANISOCYTOSIS 1+; Eosinophil 1 % (0.00-3.0); Hypochromia 1+; Total Cells Counted 100
[2017-01-12 12:54] LABS: Platelet Estimate NORMAL (NORMAL); Poikilocytosis 1+; Toxic Granulation 1+
== END 2017-01-12 11:25 | DRG 292 ==
LOC: MED SURG 08:31 → OBSVTOIN 01-09 08:31
PROVIDERS: ADMIT Family Medicine; ATTEND Family Medicine
DX: I50.9 Heart failure, unspecified (principal); J44.1 Chronic obstructive pulmonary disease with (acute) exacerbation; R29.898 Other symptoms and signs involving the musculoskeletal system; R07.9 Chest pain, unspecified; D50.9 Iron deficiency anemia, unspecified; E11.9 Type 2 diabetes mellitus without complications; I73.9 Peripheral vascular disease, unspecified; R33.9 Retention of urine, unspecified; I10 Essential (primary) hypertension; Z79.899 Other long term (current) drug therapy
CPT/HCPCS: 36415; 36430; 71250; 78582; 80048; 80053; 82272; 82607; 83540; 83550; 83605; 83735; 83880; 84484; 85014; 85018; 85025; 85027; 85379; 86850; 86900; 86901; 86922; 93005; 93306; 93970; 94640; 94760; A9540; A9567; G0378; J0696; J1650; J1940; P9016; A9270-GY; J7506

== ENCOUNTER 2017-03-04 05:55 | Day surgery (SDC) | payer MEDICARE, OTHER ==
[2017-03-04] MEDS ORDERED: Lactated Ringers 1,000 ML IV SCH (06:30)
[2017-03-04] MEDS ORDERED: Lactated Ringers 1,000 ML IV ONE (06:40)
[2017-03-04 08:30] VITALS: O2SAT 98
[2017-03-04 08:51] VITALS: BP 136/72; PULSE 73
--- NOTE | 2017-03-04 12:11 | OP ---
SURGERY DATE/TIME: 03/04/2017 0736 PREOPERATIVE DIAGNOSIS: Dysphagia. POSTOPERATIVE DIAGNOSIS: Gastric polyp x1. PROCEDURE: EGD. SURGEON: Hector Caal M.D. ANESTHESIA: MAC by Eitan Chavez CRNA. ESTIMATED BLOOD LOSS: Minimal. SPECIMENS: One cold forceps gastric polypectomy. DESCRIPTION OF PROCEDURE: After informed written consent was obtained, the patient was taken to the endoscopy suite. She underwent monitored anesthesia and a bite block was inserted. The endoscopic was inserted into the posterior oropharynx and under direct visualization the esophagus was traversed. The gastric mucosa had rugated appearance free of lesions or defects. The pylorus was traversed and the first and second portions of the duodenum within normal limits. There was one small sessile gastric polyp present on the lesser curvature this was removed in its entirety with cold forceps with minimal bleeding and sent for pathology testing. The remainder of the exam was unremarkable. The gastroesophageal junction, esophageal mucosa appeared normal. Upon withdrawal there were no obvious strictures or abnormalities appreciable. The scope was removed and the patient was transferred to the recovery room in excellent condition. She will follow up for pathology results in one week. I have advised her to hold Plavix for one week as well.
[2017-03-04] MEDS ORDERED: DIPRIVAN 200 MG/20 ML IV ONE (12:30)
[2017-03-04] MEDS ORDERED: Ketamine HCl 50 MG/ML IV ONE (12:30)
== END 2017-03-04 09:00 | disposition home or self-care (01) ==
LOC: SDC 05:55
PROVIDERS: ATTEND Family Medicine
PROC: 0DB68ZX Excision of Stomach, Via Natural or Artificial Opening Endoscopic, Diagnostic (ICD-10-PCS; principal; 2017-03-04)
DX: K31.7 Polyp of stomach and duodenum (principal)
CPT/HCPCS: 00740; 36415; 88305; 99100; J2704

== ENCOUNTER 2017-07-18 19:52 | Emergency (ER) | payer MEDICARE, OTHER ==
[2017-07-18] MEDS ORDERED: Zofran 4 MG/2 ML VIAL IV ONE (20:24)
[2017-07-18] MEDS ORDERED: Sodium Chloride 0.9% 1000 ML 1,000 ML ONE (20:29)
[2017-07-18] MEDS ORDERED: Zofran 4 MG/2 ML VIAL ONE (20:29)
[2017-07-18] MEDS ORDERED: Sodium Chloride 0.9% 1000 ML 1,000 ML IV SCH (20:30)
--- NOTE | 2017-07-18 20:37 | ERPHSYRPT ---
- History of Present Illness Time Seen by Provider: 07/18/17 20:15 Historian: patient Exam Limitations: clinical condition Patient Subjective Stated Complaint: Pt reports recent dx of kidney infection on Thursday. Was put on bactrim for this. Pt sts since then started vomiting today x 6. Reports burning with urination, denies frequency. Denies dyuria. Denies urgency. Reports nausea. Denies pain. Reports chills. Reports sweats yesterday. Reports constipation, difficulty having a bowel movement, worse for the last week. Reports suprapubic pain. Triage Nursing Assessment: Pt alert, oriented, answers all questions appropriately. Skin pink, warm, dry. Resps non-labored. Pt ambulatory to tx room, steady gait noted. Urine specimen collected at triage. Pt lung sounds clear all gonzales however diminished. ABD soft, non-tender, bowel sounds hypoactive. Physician History: PATIENT WITH A HISTORY OF COPD, HYPERTENSION, CHRONIC CONSTIPATION, AND URINARY TRACT INFECTION, RECENTLY TREATED FOR URINARY TRACT INFECTION WITH ANTIBIOTIC BACTRIM DS, HAS LAST BOWEL MOVEMENT 4 DAYS, NOW COMPLAINS EMESIS X 6 EPISODES TODAY. Timing/Duration: today Activities at Onset: none Quality: fullness Abdominal Pain Onset Location: other (MINIMAL PERIUMBILICAL PAIN) Severity of Pain-Max: mild Severity of Pain-Current: mild Modifying Factors: Improves With: other (ENESIS AND CONSTIPATION) Associated Symptoms: nausea, vomiting Previous symptoms: same symptoms as today Allergies/Adverse Reactions: aspirin Allergy (Severe, Verified 03/27/17 13:30) Difficulty Breathing iodine Allergy (Severe, Verified 03/27/17 13:30) Difficulty Breathing Penicillins Allergy (Severe, Verified 03/27/17 13:30) Difficulty Breathing prednisone Adverse Reaction (Intermediate, Verified 03/27/17 13:30) Lightheadedness DOES NOT LIKE HOW MED MAKES HER FEEL , hallucinations , shakes,stutters iron Adverse Reaction (Mild, Verified 03/27/17 13:30) Nausea Home Medications: Metformin HCl 500 mg [Glucophage 500 MG] 250 mg PO DAILY 02/11/15 [History ] Alprazolam 1 mg [Xanax 1 mg] 1 mg PO HS 10/15/15 [History] Trazodone HCl 50 mg [Desyrel 50 mg] 50 mg PO HS 12/31/16 [History] Citalopram Hydrobromide [Celexa] 40 mg PO DAILY 03/04/17 [History] Ranitidine HCl [Zantac] 150 mg PO BID 03/27/17 [History] Albuterol 17 gm IH QID 07/18/17 [History] Albuterol 8 gm Mdi Hfa [Ventolin Hfa MDI] 18 gm IH QID 07/18/17 [History] Arformoterol Tartrate [Brovana] 15 mcg IH BID 07/18/17 [History] Cholecalciferol (Vitamin D3) [Vitamin D3] 2,000 unit PO DAILY 07/18/17 [History] Ferrous Sulfate 325 mg [Feosol 325 mg] 325 mg PO TID 07/18/17 [History] Linaclotide [Linzess] 0 mcg PO DAILY PRN PRN 07/18/17 [History] Hx Tetanus, Diphtheria Vaccination/Date Given: No Hx Influenza Vaccination/Date Given: Yes Hx Pneumococcal Vaccination/Date Given: Yes Immunizations Up to Date: Yes - Review of Systems Constitutional: No Fever, No Chills Eyes: No Symptoms Ears, Nose, & Throat: No Symptoms Respiratory: No Symptoms, No Cough, No Dyspnea Cardiac: No Symptoms, No Chest Pain, No Edema, No Syncope Abdominal/Gastrointestinal: Abdominal Pain, Nausea, Vomiting, No Diarrhea Genitourinary Symptoms: No Dysuria Musculoskeletal: No Back Pain, No Neck Pain Skin: No Rash Neurological: No Dizziness, No Focal Weakness, No Sensory Changes Psychological: No Symptoms Endocrine: No Symptoms All Other Systems: Reviewed and Negative - Past Medical History Pertinent Past Medical History: Yes Neurological History: Other ENT History: Cataracts, Macular Degeneration Cardiac History: Arrhythmia, Deep Vein Thrombosis Respiratory History: Asthma, Bronchitis, COPD Endocrine Medical History: Diabetes Type II Musculoskeletal History: Arthritis, Other GI Medical History: GERD History: Other Psycho-Social History: Anxiety, Depression Female Reproductive Disorders: Endometriosis, Other Other Medical History: DVT left leg, pt cant remember arrhythmia states " it was a long time ago". hx of UTI, ovary removed, justin hip replacements, hx of back problems. vertigo - Past Surgical History Past Surgical History: Yes Neuro Surgical History: No Pertinent History Cardiac: No Pertinent History Respiratory: No Pertinent History Gastrointestinal: Appendectomy, Cholecystectomy Genitourinary: No Pertinent History Musculoskeletal: Joint Replacement, Orthopedic Surgery Female Surgical History: Hysterectomy, Section, Other Other Surgical History: Justin hip replacement,back surgery-disc replacement per pt., cataracts - Social History Smoking Status: Never smoker Exposure to second hand smoke: No Drug Use: none Patient Lives Alone: Yes Significant Family History: no pertinent family hx - Female History Hx Now: No - Nursing Vital Signs Nursing Vital Signs: Initial Vital Signs Temperature 97.9 F 07/18/17 20:04 Pulse Rate 92 H 07/18/17 20:04 Respiratory Rate 16 07/18/17 20:04 Blood Pressure 139/63 07/18/17 20:04 O2 Sat by Pulse Oximetry 98 07/18/17 20:04 Pain Scale Pain Intensity 0 - Physical Exam General Appearance: no apparent distress, alert Eye Exam: PERRL/EOMI, eyes nml inspection Ears, Nose, Throat Exam: normal ENT inspection, pharynx normal, moist mucous membranes Neck Exam: normal inspection, non-tender, supple, full range of motion Respiratory Exam: normal breath sounds, other (DECREASED BREATH SOUNDS AT RIGHT BASE), No respiratory distress Cardiovascular Exam: regular rate/rhythm, normal heart sounds Gastrointestinal/Abdomen Exam: soft, tenderness (MINIMAL PERIUMBILICAL TENDERNESS), No mass Back Exam: normal inspection, normal range of motion, No CVA tenderness, No vertebral tenderness Extremity Exam: normal inspection, normal range of motion, pelvis stable Neurologic Exam: alert, oriented x 3, cooperative, normal mood/affect, nml cerebellar function, sensation nml, No motor deficits Skin Exam: normal color, warm, dry SpO2 Interpretation: normal SpO2: 98 Oxygen Delivery: Room Air - CT Exams Abdomen/Pelvis CT Interpretation: Tele-radiologist Report (NO DEFINITE ACUTE PROCESS, AIR FLUID LEVELS IN ASCENDING AND TRANSVERSE COLON, REFLECTING DIARRHEA AND POSSIBLY LOW-GRADE COLLECTIONS NO SEVERE WALL THICKENING. NO SMALL BOWEL THICKENING, ) Ordered Tests: Active Orders 24 hr Category Date Time Status Clean Catch Urine Specimen STAT Care 07/18/17 20:13 Active Enema STAT Care 07/18/17 21:57 Active IV Insertion STAT Care 07/18/17 20:13 Active ABDOMEN AND PELVIS W/0 CONTRAS [CT] Stat Exams 07/18/17 20:25 Taken CHEST 1 VIEW (PORTABLE) Stat Exams 07/18/17 20:27 Taken AMYLASE Stat Lab 07/18/17 20:35 Completed CBC W DIFF Stat Lab 07/18/17 20:35 Completed CMP Stat Lab 07/18/17 20:35 Completed CULTURE,URINE Stat Lab 07/18/17 20:30 Received LIPASE Stat Lab 07/18/17 20:35 Completed Manual Differential NC Stat Lab 07/18/17 20:35 Completed UA W/ MICROSCOPIC Stat Lab 07/18/17 20:30 Completed Medication Summary Generic Name Dose Route Start Last Admin Trade Name Freq PRN Reason Stop Dose Admin Sodium Chloride 1,000 mls @ 100 mls/hr 07/18/17 20:30 07/18/17 20:31 Sodium Chloride 0.9% 1000 Ml IV 08/17/17 20:29 100 mls/hr .Q10H [place] Administration Discontinued Medications Generic Name Dose Route Start Last Admin Trade Name Freq PRN Reason Stop Dose Admin Ondansetron HCl 4 mg 07/18/17 20:24 07/18/17 20:31 Zofran 4 Mg/2 Ml Vial IV 07/18/17 20:25 4 mg STAT ONE Administration Ondansetron HCl Confirm 07/18/17 20:29 Zofran 4 Mg/2 Ml Vial Administered 07/18/17 20:30 Dose 4 mg .ROUTE .STK-MED ONE Lab/Rad Data: Laboratory Result Diagrams 07/18/17 20:35 07/18/17 20:35 Laboratory Results 07/18/17 07/18/17 07/18/17 Range/Units 20:35 20:35 20:30 WBC 8.9 (4.0-10.5) K/mm3 RBC 3.34 L (4.1-5.4) M/mm3 Hgb 9.9 L (12.0-16.0) gm/dl Hct 31.0 L (35-47) % MCV 92.8 (78-100) fl MCH 29.6 (26-32) pg MCHC 31.9 L (32-36) g/dl RDW 12.5 (11.5-14.0) % Plt Count 198 (150-450) K/mm3 MPV 8.8 (6-9.5) fl Segmented Neutrophils 78 H (36.0-66.0) % Lymphocytes (Manual) 13 L (24-44) % Monocytes (Manual) 7 (0.0-12.0) % Eosinophils (Manual) 2 (0.00-3.0) % Differential Comment NORMAL Platelet Estimate NORMAL (NORMAL) Sodium 131 L (136-145) mEq/L Potassium 4.5 (3.5-5.1) mEq/L Chloride 97 L (98-107) mEq/L Carbon Dioxide 25.6 (21-32) mEq/L Anion Gap 12.4 (5-15) MEQ/L BUN 17 (9-20) mg/dL Creatinine 1.22 (0.55-1.30) mg/dl Estimated GFR 45 ML/MIN Glucose 137 H (70-110) MG/DL Calcium 8.9 (8.5-10.1) mg/dL Total Bilirubin 0.30 (0.2-1.0) mg/dL AST 29 (15-37) U/L ALT 9 L (12-78) U/L Alkaline Phosphatase 81 (46-116) U/L Serum Total Protein 6.9 (6.4-8.2) gm/dL Albumin 3.7 (3.4-5.0) g/dL Amylase 44 (25-115) U/L Lipase 90 (73-393) U/L Ur Collection Type CLEAN CATCH Urine Color YELLOW (YELLOW) Urine Appearance CLEAR (CLEAR) Urine pH 6.0 (5-6) Ur Specific [place] 1.015 (1.005-1.025) Urine Protein TRACE (Negative) Urine Ketones NEGATIVE (NEGATIVE) Urine Blood 250 (0-5) Oh/ul Urine Nitrite NEGATIVE (NEGATIVE) Urine Bilirubin NEGATIVE (NEGATIVE) Urine Urobilinogen NORMAL (0-1) mg/dL Ur Leukocyte Esterase TRACE (NEGATIVE) Urine Microscopic RBC 5-10 (0-2) /HPF Urine Microscopic WBC 2-5 (0-5) /HPF Ur Epithelial Cells FEW (FEW) /HPF Urine Bacteria FEW (NEGATIVE) /HPF Hyaline Casts 2-5 (0-2) /LPF Urine Mucus SLIGHT (NEGATIVE) /HPF Urine Yeast FEW (NEGATIVE) /HPF Urine Culture Reflexed YES (NO) Urine Glucose NEGATIVE (NEGATIVE) mg/dL Specimen Received 07/18/17 2030 - Progress Progress Note: 07/18/17 21:55 ADMINISTERED IV NORMAL SALINE 250ML/HR, SOAP SUDS ENEMA WITH MINIMAL RESULTS 07/18/17 23:26 - Departure Time of Disposition: 23:34 Departure Disposition: Home Clinical Impression: CONSTIPATION Condition: Stable Critical Care Time: No Referrals: CJ MORROW [Primary Care Provider] - Additional Instructions: CONTINUE ALL CURRENT MEDICATIONS. FOLLOWUP WITH YOUR PRIMARY CARE PROVIDER IN 4- 5 DAYS. RETURN TO EMERGENCY FOR VOMITING. ZOFRAN 4MG EVERY 4 HOURS FOR NAUSEA OR VOMITING. Prescriptions: Ondansetron [Zofran Odt] 4 mg PO Q4HPRN PRN #6 tab.rapdis PRN Reason: Nausea
[2017-07-18 20:42] LABS: Mean Cell Volume 92.8 fl (78-100); Mean Corpuscular Hemoglobin 29.6 pg (26-32); Mean Platelet Volume 8.8 fl (6-9.5); Platelet Count 198 K/mm3 (150-450); Red Blood Count 3.34 M/mm3 (4.1-5.4); Red Cell Distribution Width 12.5 % (11.5-14.0); White Blood Count 8.9 K/mm3 (4.0-10.5)
[2017-07-18 20:55] LABS: Collection Type CLEAN CATCH; Leukocyte Esterase TRACE (NEGATIVE)
[2017-07-18 20:56] LABS: Bilirubin NEGATIVE (NEGATIVE); Blood 250 Ery/ul (0-5); COMPLETE URINE MICROSCOPIC? YES; Glucose NEGATIVE (NEGATIVE)
[2017-07-18 21:01] LABS: Bacteria FEW /HPF (NEGATIVE); Epithelial Cells FEW /HPF (FEW); Mucus SLIGHT /HPF (NEGATIVE)
[2017-07-18 21:02] LABS: ADD URINE CULTURE? YES (NO); Yeast FEW /HPF (NEGATIVE)
[2017-07-18 21:03] LABS: ALBUMIN 3.7 g/dL (3.4-5.0); ANION GAP 12.4 MEQ/L (5-15); BILIRUBIN,TOTAL 0.3 mg/dL (0.2-1.0); Carbon Dioxide 25.6 mEq/L (21-32); Potassium 4.5 mEq/L (3.5-5.1); Total Protein 6.9 gm/dL (6.4-8.2)
[2017-07-18 21:48] VITALS: O2SAT 98
[2017-07-18 21:49] LABS: Eosinophil 2 % (0.00-3.0); Platelet Estimate NORMAL (NORMAL); Total Cells Counted 100
[2017-07-19] VITALS: BP 121/70; PULSE 73
--- NOTE | 2017-07-19 08:17 | XRAY ---
Indication: Suprapubic pain. Emesis. UTI. Multiple contiguous axial images obtained through the abdomen and pelvis without contrast as ordered. Comparison: January 01, 2017. Lung bases demonstrates minimal bibasilar fibrosis/scarring. No infiltrate or effusion. Heart is not enlarged. Stable small hiatal hernia. Again bilateral hip prostheses produces extensive beam artifact limiting evaluation of the pelvis. Noncontrasted stomach and bowel loops appear nonobstructed. Stable sigmoid diverticulosis without diverticulitis. Stable cholecystectomy, hysterectomy, and appendectomy. No free fluid/air. Remaining liver, pancreas, spleen, adrenal glands, kidneys, ureters, bladder, and aorta unremarkable for noncontrast exam. Impression: 1. Again beam artifact from bilateral hip prostheses. 2. Stable colonic diverticulosis without diverticulitis and small hiatal hernia. 3. No new or acute intra-abdominal/pelvic abnormalities on this noncontrast exam. Comment: Preliminary interpretation was made by C. No discrepancy. CT DI 15.92
--- NOTE | 2017-07-19 08:19 | XRAY ---
Indication: Cough. Comparison: March 20, 2017. Portable chest is clear today again with right midlung calcified granuloma. Heart is not enlarged. Bony thorax intact again with mild osteopenia and degenerative changes. Impression: Nonacute chest with chronic features.
== END 2017-07-19 | disposition home or self-care (01) ==
LOC: ED 19:52
DX: K59.00 Constipation, unspecified (principal); R11.2 Nausea with vomiting, unspecified; J44.9 Chronic obstructive pulmonary disease, unspecified; I10 Essential (primary) hypertension; R30.0 Dysuria; Z79.899 Other long term (current) drug therapy; Z79.84 Long term (current) use of oral hypoglycemic drugs; E11.9 Type 2 diabetes mellitus without complications
CPT/HCPCS: 36000; 36415; 71010; 74176; 80053; 81000; 82150; 83690; 85025; 87086; 96360; 96361; 96374; 99284; J2405

== ENCOUNTER 2017-09-03 16:41 | Emergency (ER) | payer MEDICARE, OTHER ==
--- NOTE | 2017-09-03 17:12 | ERPHSYRPT ---
- History of Present Illness Source: patient Exam Limitations: no limitations Patient Subjective Stated Complaint: co dizziness started last night with nausea today. no fever. Triage Nursing Assessment: pt alert, walked in resp easy, no cough, abd soft Timing/Duration: yesterday Severity: moderate Modifying Factors: Improves With: nothing Associated Symptoms: nausea, abdominal pain, malaise, No vomiting, No shortness of breath, No heartburn, No diaphoresis, No cough, No chills, No chest pain, No fever, No headaches, No loss of appetite, No syncope, No seizure, No weakness Hx Tetanus, Diphtheria Vaccination/Date Given: No Hx Influenza Vaccination/Date Given: Yes Hx Pneumococcal Vaccination/Date Given: Yes Immunizations Up to Date: Yes <RAFIA BLACKWELL - Last Filed: 09/03/17 19:08> <LORA ALMARAZ - Last Filed: 09/03/17 22:16> - History of Present Illness Time Seen by Provider: 09/03/17 17:08 Physician History: 82-year-old white female arrives with complaint dizzy, nausea, abdominal pain symptoms since last night. No vomiting Past medical history includes cataracts, macular degeneration, arrhythmia, DVT, asthma, bronchitis, COPD, diabetes, arthritis, GERD, anxiety, depression, endometriosis, DVT Past surgical history includes appendectomy, cholecystectomy, joint replacement , hysterectomy, , bilateral hip replacement, back surgery, disc removed (RAFIA BLACKWELL) Allergies/Adverse Reactions: aspirin Allergy (Severe, Verified 09/03/17 17:04) Difficulty Breathing iodine Allergy (Severe, Verified 09/03/17 17:04) Difficulty Breathing Penicillins Allergy (Severe, Verified 09/03/17 17:04) Difficulty Breathing prednisone Adverse Reaction (Intermediate, Verified 09/03/17 17:04) Lightheadedness DOES NOT LIKE HOW MED MAKES HER FEEL , hallucinations , shakes,stutters iron Adverse Reaction (Mild, Verified 09/03/17 17:04) Nausea Home Medications: Metformin HCl 500 mg [Glucophage 500 MG] 250 mg PO DAILY 02/11/15 [History ] Alprazolam 1 mg [Xanax 1 mg] 1 mg PO HS 10/15/15 [History] Trazodone HCl 50 mg [Desyrel 50 mg] 50 mg PO HS 12/31/16 [History] Citalopram Hydrobromide [Celexa] 40 mg PO DAILY 03/04/17 [History] Ranitidine HCl [Zantac] 150 mg PO BID 03/27/17 [History] Albuterol 17 gm IH QID 07/18/17 [History] Albuterol 8 gm Mdi Hfa [Ventolin Hfa MDI] 18 gm IH QID 07/18/17 [History] Arformoterol Tartrate [Brovana] 15 mcg IH BID 07/18/17 [History] Cholecalciferol (Vitamin D3) [Vitamin D3] 2,000 unit PO DAILY 07/18/17 [History] Ferrous Sulfate 325 mg [Feosol 325 mg] 325 mg PO TID 07/18/17 [History] Linaclotide [Linzess] 0 mcg PO DAILY PRN PRN 07/18/17 [History] - Review of Systems Constitutional: No Fever, No Chills Eyes: No Symptoms Ears, Nose, & Throat: No Symptoms Respiratory: No Cough, No Dyspnea Cardiac: No Chest Pain, No Edema, No Syncope Abdominal/Gastrointestinal: Abdominal Pain, Nausea, No Diarrhea, No Constipation , No Hematemesis, No Hematochezia, No Melena, No Dysphagia, No Appetite Changes Genitourinary Symptoms: No Dysuria Musculoskeletal: No Back Pain, No Neck Pain Skin: No Rash Neurological: Dizziness, No No Symptoms, No Focal Weakness, No Gait Changes, No Headache, No Irritability, No Lethargy, No Paralysis, No Parasthesia, No Seizure , No Sensory Changes, No Speech Changes, No Tics, No Tremors, No Vertigo Psychological: No Symptoms Endocrine: No Symptoms All Other Systems: Reviewed and Negative <RAFIA BLACKWELL - Last Filed: 09/03/17 19:08> - Past Medical History Pertinent Past Medical History: Yes Neurological History: Other ENT History: Cataracts, Macular Degeneration Cardiac History: Arrhythmia, Deep Vein Thrombosis Respiratory History: Asthma, Bronchitis, COPD Endocrine Medical History: Diabetes Type II Musculoskeletal History: Arthritis, Other GI Medical History: GERD History: Other Psycho-Social History: Anxiety, Depression Female Reproductive Disorders: Endometriosis, Other Other Medical History: DVT left leg, pt cant remember arrhythmia states " it was a long time ago". hx of UTI, ovary removed, justin hip replacements, hx of back problems. vertigo - Past Surgical History Past Surgical History: Yes Neuro Surgical History: No Pertinent History Cardiac: No Pertinent History Respiratory: No Pertinent History Gastrointestinal: Appendectomy, Cholecystectomy Genitourinary: No Pertinent History Musculoskeletal: Joint Replacement, Orthopedic Surgery Female Surgical History: Hysterectomy, Section, Other Other Surgical History: Justin hip replacement,back surgery-disc replacement per pt., cataracts - Social History Smoking Status: Never smoker Exposure to second hand smoke: No Drug Use: none Patient Lives Alone: No Significant Family History: no pertinent family hx - Female History Hx Last Menstrual Period: post Hx Now: No <RAFIA BLACKWELL - Last Filed: 09/03/17 19:08> - Physical Exam General Appearance: mild distress Eye Exam: PERRL/EOMI, eyes nml inspection Ears, Nose, Throat Exam: normal ENT inspection, TMs normal, pharynx normal, moist mucous membranes Neck Exam: normal inspection, non-tender, supple, full range of motion Respiratory Exam: normal breath sounds, lungs clear, No respiratory distress Cardiovascular Exam: regular rate/rhythm, normal heart sounds, normal peripheral pulses Gastrointestinal/Abdomen Exam: soft, normal bowel sounds, No tenderness, No mass Back Exam: normal inspection, normal range of motion, No CVA tenderness, No vertebral tenderness Extremity Exam: normal inspection, normal range of motion, pelvis stable Neurologic Exam: alert, oriented x 3, cooperative, maritime officer II-XII nml as tested, normal mood/affect, nml cerebellar function, nml station & gait, sensation nml, No motor deficits Skin Exam: normal color, warm, dry, No rash SpO2 Interpretation: normal (97%) SpO2: 97 Oxygen Delivery: Room Air <RAFIA BLACKWELL - Last Filed: 09/03/17 19:08> - Nursing Vital Signs Nursing Vital Signs: Initial Vital Signs Temperature 98.3 F 09/03/17 16:55 Pulse Rate 81 09/03/17 16:55 Respiratory Rate 16 09/03/17 16:55 Blood Pressure 155/57 09/03/17 16:55 O2 Sat by Pulse Oximetry 97 09/03/17 16:55 Pain Scale Pain Intensity 3 - Course Nursing assessment & vital signs reviewed: Yes EKG Interpreted by Me: RATE (74 bpm), Sinus Tach, NORMAL AXIS, Other (EKG: Sinus tachycardia, 74 beats per minute, normal axis, no acute ST or T wave changes) - Radiology Exams Chest X-ray Interpretation: Interpreted by me, Other (no acute disease process) - CT Exams Head CT Interpretation: Discussed w/radiologist, Other (head CT: Compared to December 22, 2016. Stable, nonacute, senile brain. Anterior parafalcine calcified meningioma and parietal opacification right mastoid air cells no new/acute findings) <RAFIA BLACKWELL - Last Filed: 09/03/17 19:08> Ordered Tests: Active Orders 24 hr Category Date Time Status EKG-ER Only STAT Care 09/03/17 17:08 Active IV Insertion STAT Care 09/03/17 17:08 Active ABDOMEN AND PELVIS W/0 CONTRAS [CT] Stat Exams 09/03/17 20:57 Taken CHEST 1 VIEW (PORTABLE) Stat Exams 09/03/17 17:08 Taken HEAD WITHOUT CONTRAST [CT] Stat Exams 09/03/17 17:13 Taken AMYLASE Stat Lab 09/03/17 17:13 Completed CBC W DIFF Stat Lab 09/03/17 17:13 Completed CMP Stat Lab 09/03/17 17:13 Completed LIPASE Stat Lab 09/03/17 17:13 Completed Manual Differential NC Stat Lab 09/03/17 17:13 Completed UA W/ MICROSCOPIC Stat Lab 09/03/17 19:18 Completed Respiratory Nebulizer STAT RT 09/03/17 18:41 Completed Medication Summary Generic Name Dose Route Start Last Admin Trade Name Freq PRN Reason Stop Dose Admin Sodium Chloride 1,000 mls @ 100 mls/hr 09/03/17 17:15 09/03/17 18:41 Sodium Chloride 0.9% 1000 Ml IV 10/03/17 17:14 100 mls/hr .Q10H [place] Administration Discontinued Medications Generic Name Dose Route Start Last Admin Trade Name Freq PRN Reason Stop Dose Admin Albuterol Sulfate Confirm 09/03/17 18:51 Proventil 2.5 Mg/3 Ml Neb Administered 09/03/17 18:52 Dose 2.5 mg IH .STK-MED ONE Albuterol/Ipratropium 3 ml 09/03/17 18:41 09/03/17 18:57 Duoneb 0.5-3 Mg/3 Ml Neb IH 09/03/17 18:42 3 ml STAT ONE Administration Albuterol/Ipratropium Confirm 09/03/17 18:56 Duoneb 0.5-3 Mg/3 Ml Neb Administered 09/03/17 18:57 Dose 3 ml IH .STK-MED ONE Diphenhydramine HCl 25 mg 09/03/17 20:34 09/03/17 21:33 Benadryl 50 Mg/Ml IV 09/03/17 20:35 Not Given STAT ONE Hydrocortisone Sodium Succinate 100 mg 09/03/17 20:34 09/03/17 21:33 Solu-Cortef 100mg IV 09/03/17 20:35 Not Given STAT ONE Meclizine HCl 25 mg 09/03/17 18:52 09/03/17 19:01 Antivert 25 Mg PO 09/03/17 18:53 25 mg STAT ONE Administration Meclizine HCl Confirm 09/03/17 18:58 Antivert 25 Mg Administered 09/03/17 18:59 Dose 25 mg .ROUTE .STK-MED ONE Morphine Sulfate 2 mg 09/03/17 20:13 09/03/17 21:33 Morphine Sulfate 2 Mg Inj IV 09/03/17 20:14 Not Given STAT ONE Morphine Sulfate Confirm 09/03/17 20:21 Morphine Sulfate 2 Mg Inj Administered 09/03/17 20:22 Dose 2 mg .ROUTE .STK-MED ONE Ondansetron HCl 4 mg 09/03/17 20:14 09/03/17 21:33 Zofran 4 Mg/2 Ml Vial IV 09/03/17 20:15 Not Given STAT ONE Ondansetron HCl Confirm 09/03/17 20:22 Zofran 4 Mg/2 Ml Vial Administered 09/03/17 20:23 Dose 4 mg .ROUTE .STK-MED ONE Lab/Rad Data: Laboratory Result Diagrams 09/03/17 17:13 09/03/17 17:13 Laboratory Results 09/03/17 09/03/17 09/03/17 Range/Units 19:18 17:13 17:13 WBC 8.7 (4.0-10.5) K/mm3 RBC 3.50 L (4.1-5.4) M/mm3 Hgb 10.6 L (12.0-16.0) gm/dl Hct 32.3 L (35-47) % MCV 92.3 (78-100) fl MCH 30.2 (26-32) pg MCHC 32.8 (32-36) g/dl RDW 12.2 (11.5-14.0) % Plt Count 201 (150-450) K/mm3 MPV 8.8 (6-9.5) fl Segmented Neutrophils 72 H (36.0-66.0) % Lymphocytes (Manual) 12 L (24-44) % Monocytes (Manual) 10 (0.0-12.0) % Eosinophils (Manual) 1 (0.00-3.0) % Differential Comment ABNORMAL Atypical Lymphocytes 5 % Platelet Estimate NORMAL (NORMAL) Poikilocytosis 2+ Tear Drop Cells 1+ Ovalocytes 2+ Sodium 128 L (136-145) mEq/L Potassium 4.4 (3.5-5.1) mEq/L Chloride 94 L (98-107) mEq/L Carbon Dioxide 26.3 (21-32) mEq/L Anion Gap 12.5 (5-15) MEQ/L BUN 11 (9-20) mg/dL Creatinine 1.01 (0.55-1.30) mg/dl Estimated GFR 56 ML/MIN Glucose 114 H (70-110) MG/DL Calcium 9.0 (8.5-10.1) mg/dL Total Bilirubin 0.40 (0.2-1.0) mg/dL AST 28 (15-37) U/L ALT 16 (12-78) U/L Alkaline Phosphatase 80 (46-116) U/L Serum Total Protein 7.1 (6.4-8.2) gm/dL Albumin 4.1 (3.4-5.0) g/dL Amylase 43 (25-115) U/L Lipase 87 (73-393) U/L Ur Collection Type VOID Urine Color YELLOW (YELLOW) Urine Appearance CLEAR (CLEAR) Urine pH 8.0 (5-6) Ur Specific [place] 1.005 (1.005-1.025) Urine Protein NEGATIVE (Negative) Urine Ketones SMALL (NEGATIVE) Urine Blood 250 (0-5) Oh/ul Urine Nitrite NEGATIVE (NEGATIVE) Urine Bilirubin NEGATIVE (NEGATIVE) Urine Urobilinogen NORMAL (0-1) mg/dL Ur Leukocyte Esterase NEGATIVE (NEGATIVE) Urine Microscopic RBC 10-15 (0-2) /HPF Urine Microscopic WBC 0-2 (0-5) /HPF Ur Epithelial Cells RARE (FEW) /HPF Urine Bacteria FEW (NEGATIVE) /HPF Urine Culture Reflexed NO (NO) Urine Glucose NEGATIVE (NEGATIVE) mg/dL Specimen Received 09/03/17 191 - Progress Progress: improved <RAFIA BLACKWELL - Last Filed: 09/03/17 19:08> <LORA ALMARAZ - Last Filed: 09/03/17 22:16> - Progress Progress Note: 09/03/17 19:07 Patient was discussed with Dr. Almaraz He will be assuming care of this patient secondary to shift change. (RAFIA BLACKWELL) On reassessment, patient admits to having lower abdominal pain similar to when she had diverticulitis. Pt will need to have a CT abd/pelvis as well as zofran and morphine. 09/03/17 20:11 09/03/17 22:13 Pt has not required any pain meds. The CT abd/pelvis does not show any acute findings. The patient will be d/c home with F/U with PCP. (LORA ALMARAZ) <RAFIA BLACKWELL - Last Filed: 09/03/17 19:08> - Departure Time of Disposition: 22:14 Departure Disposition: Home Critical Care Time: No <LORA ALMARAZ - Last Filed: 09/03/17 22:16> - Departure Clinical Impression: Dizziness Abdominal pain Qualifiers: Abdominal location: unspecified location Qualified Code(s): R10.9 - Unspecified abdominal pain Condition: Stable Referrals: CJ MORROW [Primary Care Provider] - Instructions: Acute Abdomen (Belly Pain), Adult (DC), Dizziness, Nonvertigo, ( DC) Additional Instructions: Follow up with your primary care doctor tomorrow for further recommendations.
[2017-09-03 17:33] LABS: Hematocrit 32.3 % (35-47); Hemoglobin 10.6 gm/dl (12.0-16.0); Mean Cell Volume 92.3 fl (78-100); Mean Corpuscular Hgb Concent. 32.8 g/dl (32-36); Mean Platelet Volume 8.8 fl (6-9.5); Platelet Count 201 K/mm3 (150-450); Red Cell Distribution Width 12.2 % (11.5-14.0); White Blood Count 8.7 K/mm3 (4.0-10.5)
[2017-09-03 17:37] LABS: Mean Corpuscular Hemoglobin 30.2 pg (26-32)
[2017-09-03 17:39] LABS: Granulocyte Absolute (ANC) 6.13 (1.4-6.9)
[2017-09-03 17:45] LABS: ALBUMIN 4.1 g/dL (3.4-5.0); ANION GAP 12.5 MEQ/L (5-15); BILIRUBIN,TOTAL 0.4 mg/dL (0.2-1.0); Carbon Dioxide 26.3 mEq/L (21-32); Creatinine 1 1.01 mg/dl (0.55-1.30); Potassium 4.4 mEq/L (3.5-5.1); Total Protein 7.1 gm/dL (6.4-8.2)
[2017-09-03] MEDS: Sodium Chloride 0.9% 1000 ML 1,000 ML IV SCH (18:41)
[2017-09-03] MEDS ORDERED: PROVENTIL 2.5 MG/3 ML NEB IH ONE (18:51)
[2017-09-03 18:56] LABS: ATYPICAL LYMPHS 5 %; Eosinophil 1 % (0.00-3.0); Lymphocytes 12 % (24-44); Monocyte 10 % (0.0-12.0); Neutrophils 72 % (36.0-66.0); Total Cells Counted 100
[2017-09-03] MEDS ORDERED: DUONEB 0.5-3 MG/3 ml Neb IH ONE (18:56)
[2017-09-03 18:57] LABS: Ovalocytes 2+; Platelet Estimate NORMAL (NORMAL); Poikilocytosis 2+; Tear Drop Cells 1+
[2017-09-03] MEDS: DUONEB 0.5-3 MG/3 ml Neb IH ONE (18:57)
[2017-09-03] MEDS ORDERED: ANTIVERT 25 MG ONE (18:58)
[2017-09-03] MEDS: ANTIVERT 25 MG PO ONE (19:01)
[2017-09-03] MEDS ORDERED: Sodium Chloride 0.9% 1000 ML 1,000 ML ONE (19:20)
[2017-09-03 19:36] LABS: Appearance CLEAR (CLEAR); Bacteria FEW /HPF (NEGATIVE); Bilirubin NEGATIVE (NEGATIVE); Blood 250 Ery/ul (0-5); Epithelial Cells RARE /HPF (FEW); Glucose NEGATIVE (NEGATIVE); Ketones SMALL (NEGATIVE); Leukocyte Esterase NEGATIVE (NEGATIVE); Nitrite NEGATIVE (NEGATIVE); Protein,Urine Dip NEGATIVE (Negative); Specific Gravity 1.005 (1.005-1.025); Urobilinogen NORMAL mg/dL (0-1); WBC 0-2 /HPF (0-5)
[2017-09-03 19:53] VITALS: BP 148/108; PULSE 88; O2SAT 98
[2017-09-03] MEDS ORDERED: MORPHINE SULFATE 2 MG INJ ONE (20:21)
[2017-09-03] MEDS ORDERED: Zofran 4 MG/2 ML VIAL ONE (20:22)
[2017-09-03] MEDS: BENADRYL 50 MG/ML IV ONE (21:33)
[2017-09-03] MEDS: Zofran 4 MG/2 ML VIAL IV ONE (21:33)
[2017-09-03] MEDS: MORPHINE SULFATE 2 MG INJ IV ONE (21:33)
[2017-09-03] MEDS: solu-CORTEF 100MG IV ONE (21:33)
--- NOTE | 2017-09-04 08:33 | XRAY ---
Indication: Epigastric pain. Comparison: July 22, 2017. Portable chest remains clear again with right midlung calcified granuloma. Heart is not enlarged. Bony thorax intact again with mild osteopenia and degenerative changes. Impression: Stable nonacute chest with chronic features.
--- NOTE | 2017-09-04 08:38 | XRAY ---
Indication: Dizziness 2 days. No known injury. Multiple contiguous axial images obtained through the head without contrast. Comparison: December 22, 2016. Stable age-appropriate global atrophy, minimal periventricular degenerative micro-ischemia, and left anterior parafalcine calcified meningioma. Again no acute intracranial hemorrhage, abnormal extra-axial fluid collection, or mass effect. Fourth ventricle is midline without hydrocephalus. Bony calvarium intact. Again partial opacification of the inferior right mastoid air cells. Visualized paranasal sinuses clear. Impression: 1. Stable nonacute senile brain again with anterior parafalcine calcified meningioma. 2. Stable partial opacification of the right mastoid air cells presumed inflammatory. CTDI 69.38
--- NOTE | 2017-09-04 09:08 | XRAY ---
Indication: Abdominal pain. Multiple contiguous axial images obtained through the abdomen and pelvis without contrast as ordered. Comparison: July 18, 2017. Lung bases again demonstrates bibasilar fibrosis/scarring. No infiltrate or effusion. Heart is not enlarged. Stable small hiatal hernia. Again images through the pelvis are limited due to extensive beam artifact from bilateral hip prostheses. Noncontrasted stomach and bowel loops appear nonobstructed with stable sigmoid diverticulosis. Again previous cholecystectomy, hysterectomy, and reported appendectomy. No free fluid/air. Remaining liver, pancreas, spleen, adrenal glands, kidneys, ureters, and bladder appear unremarkable for noncontrast exam. There remains minimal aortoiliac calcifications without AAA. Osseous structures intact again with moderate degenerative spondylosis and L4-L5 laminectomy. Impression: 1. Again images of the pelvis limited due to bilateral hip prostheses. 2. Stable colonic diverticulosis and small hiatal hernia. 3. No new or acute intra-abdominal/pelvic abnormalities on this noncontrast exam. CTDI 15.31
== END 2017-09-03 22:21 | disposition home or self-care (01) ==
LOC: ED 16:41
DX: R42 Dizziness and giddiness (principal); R10.30 Lower abdominal pain, unspecified; J44.9 Chronic obstructive pulmonary disease, unspecified; J45.909 Unspecified asthma, uncomplicated; E11.9 Type 2 diabetes mellitus without complications; Z79.4 Long term (current) use of insulin; M19.90 Unspecified osteoarthritis, unspecified site; K21.9 Gastro-esophageal reflux disease without esophagitis; Z86.718 Personal history of other venous thrombosis and embolism; F41.8 Other specified anxiety disorders; N80.9 Endometriosis, unspecified; Z79.899 Other long term (current) drug therapy
CPT/HCPCS: 36000; 36415; 70450; 71045; 74176; 80053; 81000; 82150; 83690; 85025; 93005; 94640; 96360; 96361; 99284; J2270; J2405; A9270-GY

== ENCOUNTER 2017-11-14 21:00 | Inpatient (IN) | payer MEDICARE, OTHER ==
[2017-11-14] MEDS ORDERED: Zofran 4 MG/2 ML VIAL IV ONE (21:32)
[2017-11-14] MEDS ORDERED: MORPHINE SULFATE 2 MG INJ IV ONE (21:32)
--- NOTE | 2017-11-14 21:42 | ERPHSYRPT ---
- History of Present Illness Time Seen by Provider: 11/14/17 21:27 Source: patient Exam Limitations: no limitations Physician History: 82 y/o female comes to the ER with complaints of right upper abdominal and right lower chest wall pain since falling 2 weeks ago. Pt had negative x rays at that time. Pt describes the pain as sharp, intermittent, as high as 8/10 and not relieved by tylenol. Pt also received a shot in her PCPs office with no relief. Pt also admits to having constipation and not passing gas as much. Pt has been having occasional nausea with vomiting. Pt denies any fever, chills, bloody stools or urinary symptoms. Occurred: days ago Reason for Fall: lightheaded, fell from standing pos Injuries/Pain Location: chest, abdomen Loss of Consciousness: no loss of consciousness Quality: sharpness Severity of Pain-Max: severe Severity of Pain-Current: mild Modifying Factors: Improves With: nothing Associated Symptoms (Fall): abdominal pain, back pain, chest pain Allergies/Adverse Reactions: aspirin Allergy (Severe, Verified 11/14/17 21:40) Difficulty Breathing iodine Allergy (Severe, Verified 11/14/17 21:40) Difficulty Breathing Penicillins Allergy (Severe, Verified 11/14/17 21:40) Difficulty Breathing prednisone Adverse Reaction (Intermediate, Verified 11/14/17 21:40) Lightheadedness DOES NOT LIKE HOW MED MAKES HER FEEL , hallucinations , shakes,stutters iron Adverse Reaction (Mild, Verified 11/14/17 21:40) Nausea Home Medications: Metformin HCl 500 mg [Glucophage 500 MG] 250 mg PO DAILY 02/11/15 [History ] Alprazolam 1 mg [Xanax 1 mg] 1 mg PO HS 10/15/15 [History] Trazodone HCl 50 mg [Desyrel 50 mg] 50 mg PO HS 12/31/16 [History] Citalopram Hydrobromide [Celexa] 40 mg PO DAILY 03/04/17 [History] Ranitidine HCl [Zantac] 150 mg PO BID 03/27/17 [History] Albuterol 17 gm IH QID 07/18/17 [History] Albuterol 8 gm Mdi Hfa [Ventolin Hfa MDI] 18 gm IH QID 07/18/17 [History] Arformoterol Tartrate [Brovana] 15 mcg IH BID 07/18/17 [History] Cholecalciferol (Vitamin D3) [Vitamin D3] 2,000 unit PO DAILY 07/18/17 [History] Ferrous Sulfate 325 mg [Feosol 325 mg] 325 mg PO TID 07/18/17 [History] Linaclotide [Linzess] 0 mcg PO DAILY PRN PRN 07/18/17 [History] Hx Tetanus, Diphtheria Vaccination/Date Given: No Hx Influenza Vaccination/Date Given: Yes Hx Pneumococcal Vaccination/Date Given: Yes - Review of Systems Constitutional: No Fever, No Chills Eyes: No Symptoms Ears, Nose, & Throat: No Symptoms Respiratory: No Cough, No Dyspnea Cardiac: Chest Pain, No Edema, No Syncope Abdominal/Gastrointestinal: Abdominal Pain, Nausea, Vomiting, Constipation, No Diarrhea Genitourinary Symptoms: No Dysuria Musculoskeletal: Back Pain, No Neck Pain Skin: No Rash Neurological: No Dizziness, No Focal Weakness, No Sensory Changes Psychological: No Symptoms Endocrine: No Symptoms All Other Systems: Reviewed and Negative - Past Medical History Pertinent Past Medical History: Yes Neurological History: Other ENT History: Cataracts, Macular Degeneration Cardiac History: Arrhythmia, Deep Vein Thrombosis Respiratory History: Asthma, Bronchitis, COPD Endocrine Medical History: Diabetes Type II Musculoskeletal History: Arthritis, Other GI Medical History: GERD History: Other Psycho-Social History: Anxiety, Depression Female Reproductive Disorders: Endometriosis, Other Other Medical History: DVT left leg, pt cant remember arrhythmia states " it was a long time ago". hx of UTI, ovary removed, justin hip replacements, hx of back problems. vertigo - Past Surgical History Past Surgical History: Yes Neuro Surgical History: No Pertinent History Cardiac: No Pertinent History Respiratory: No Pertinent History Gastrointestinal: Appendectomy, Cholecystectomy Genitourinary: No Pertinent History Musculoskeletal: Joint Replacement, Orthopedic Surgery Female Surgical History: Hysterectomy, Section, Other Other Surgical History: Justin hip replacement,back surgery-disc replacement per pt., cataracts - Social History Smoking Status: Never smoker Exposure to second hand smoke: No Drug Use: none Patient Lives Alone: No Significant Family History: no pertinent family hx - Nursing Vital Signs Nursing Vital Signs: Initial Vital Signs Temperature 98.5 F 11/14/17 21:33 Pulse Rate 71 11/14/17 21:33 Respiratory Rate 18 11/14/17 21:33 Blood Pressure 138/51 11/14/17 21:33 O2 Sat by Pulse Oximetry 99 11/14/17 21:33 Pain Scale Pain Intensity 4 - [place] Coma Score Best Eye Response (Thom): (4) open spontaneously Best Verbal Response (Thom): (5) oriented Best Motor Response ([place]): (6) obeys commands Thom Total: 15 - Physical Exam General Appearance: mild distress, alert Head Injury: no evidence of injury Eye Exam: PERRL/EOMI ENT Exam: airway nml Neck Exam: supple, trachea midline, normal inspection, No tenderness Respiratory/Chest Exam: chest tenderness, normal breath sounds, No respiratory distress Cardiovascular Exam: normal heart sounds, regular rate/rhythm Gastrointestinal Exam: soft, tenderness, No normal bowel sounds, No distention, No guarding, No ecchymosis Back Exam: normal inspection, No vertebral tenderness Extremity Exam: normal inspection, normal range of motion, pelvis stable, No deformities Neurologic Exam: alert, oriented x 3, cooperative, sensation nml, No motor deficits Skin Exam: normal color, warm, dry - Course Nursing assessment & vital signs reviewed: Yes Ordered Tests: Active Orders 24 hr Category Date Time Status Enema STAT Care 11/15/17 01:27 Active IV Insertion STAT Care 11/14/17 21:32 Active ABDOMEN AND PELVIS W CONTRAST [CT] Stat Exams 11/14/17 21:32 Ordered CHEST WITH CONTRAST [CT] Stat Exams 11/14/17 21:34 Ordered AMYLASE Stat Lab 11/14/17 22:03 Completed CBC W DIFF Stat Lab 11/14/17 22:03 Completed CMP Stat Lab 11/14/17 22:03 Completed CULTURE,URINE Stat Lab 11/14/17 22:47 Received LIPASE Stat Lab 11/14/17 22:03 Completed Lactic Acid Stat Lab 11/14/17 22:05 Completed Manual Differential NC Stat Lab 11/14/17 22:03 Completed UA W/ MICROSCOPIC Stat Lab 11/14/17 22:47 Completed Medication Summary Discontinued Medications Generic Name Dose Route Start Last Admin Trade Name Freq PRN Reason Stop Dose Admin Diphenhydramine HCl 50 mg 11/14/17 21:57 11/14/17 22:21 Benadryl 50 Mg/Ml IV 11/14/17 21:58 50 mg STAT ONE Administration Diphenhydramine HCl Confirm 11/14/17 22:02 Benadryl 50 Mg/Ml Administered 11/14/17 22:03 Dose 50 mg .ROUTE .STK-MED ONE Hydrocortisone Sodium Succinate 100 mg 11/14/17 21:57 11/14/17 22:21 Solu-Cortef 100mg IV 11/14/17 21:58 100 mg STAT ONE Administration Hydrocortisone Sodium Succinate Confirm 11/14/17 22:02 Solu-Cortef 100mg Administered 11/14/17 22:03 Dose 100 mg .ROUTE .STK-MED ONE Magnesium Citrate 296 ml 11/15/17 01:21 11/15/17 01:41 Citroma 296 Ml PO 11/15/17 01:22 296 ml STAT ONE Administration Magnesium Citrate Confirm 11/15/17 01:32 Citroma 296 Ml Administered 11/15/17 01:33 Dose 296 ml .ROUTE .STK-MED ONE Morphine Sulfate 2 mg 11/14/17 21:32 11/14/17 22:20 Morphine Sulfate 2 Mg Inj IV 11/14/17 21:33 2 mg STAT ONE Administration Morphine Sulfate Confirm 11/14/17 22:02 Morphine Sulfate 2 Mg Inj Administered 11/14/17 22:03 Dose 2 mg .ROUTE .STK-MED ONE Morphine Sulfate 4 mg 11/15/17 01:26 11/15/17 01:36 Morphine Sulfate 4 Mg Inj IV 11/15/17 01:27 4 mg STAT ONE Administration Morphine Sulfate Confirm 11/15/17 01:31 Morphine Sulfate 4 Mg Inj Administered 11/15/17 01:32 Dose 4 mg .ROUTE .STK-MED ONE Nitrofurantoin Macrocrystals 100 mg 11/14/17 23:19 11/15/17 01:16 Macrobid 100mg Capsule PO 11/14/17 23:20 100 mg STAT ONE Administration Nitrofurantoin Macrocrystals Confirm 11/15/17 01:15 Macrobid 100mg Capsule Administered 11/15/17 01:16 Dose 100 mg .ROUTE .STK-MED ONE Ondansetron HCl 4 mg 11/14/17 21:32 11/14/17 22:21 Zofran 4 Mg/2 Ml Vial IV 11/14/17 21:33 4 mg STAT ONE Administration Ondansetron HCl Confirm 11/14/17 22:02 Zofran 4 Mg/2 Ml Vial Administered 11/14/17 22:03 Dose 4 mg .ROUTE .STK-MED ONE Ondansetron HCl 4 mg 11/15/17 01:26 11/15/17 01:36 Zofran 4 Mg/2 Ml Vial IV 11/15/17 01:27 4 mg STAT ONE Administration Ondansetron HCl Confirm 11/15/17 01:31 Zofran 4 Mg/2 Ml Vial Administered 11/15/17 01:32 Dose 4 mg .ROUTE .STK-MED ONE Lab/Rad Data: Laboratory Result Diagrams 11/14/17 22:03 11/14/17 22:03 Laboratory Results 11/14/17 11/14/17 11/14/17 Range/Units 22:47 22:05 22:03 WBC (4.0-10.5) K/mm3 RBC (4.1-5.4) M/mm3 Hgb (12.0-16.0) gm/dl Hct (35-47) % MCV (78-100) fl MCH (26-32) pg MCHC (32-36) g/dl RDW (11.5-14.0) % Plt Count (150-450) K/mm3 MPV (6-9.5) fl Absolute Granulocytes (1.4-6.9) Segmented Neutrophils (36.0-66.0) % Lymphocytes (Manual) (24-44) % Monocytes (Manual) (0.0-12.0) % Atypical Lymphocytes % Toxic Granulation Hypochromasia Poikilocytosis Ovalocytes Sodium 129 L (137-145) mmol/L Potassium 4.7 (3.5-5.1) mmol/L Chloride 93 L (98-107) mmol/L Carbon Dioxide 27 (22-30) mmol/L Anion Gap 14.1 (5-15) MEQ/L BUN 18 H (7-17) mg/dL Creatinine 0.88 (0.52-1.04) mg/dL Estimated GFR > 60.0 ML/MIN Glucose 102 (74-106) mg/dL Lactic Acid 1.3 (0.4-2.0) Calcium 9.3 (8.4-10.2) mg/dL Total Bilirubin 0.30 (0.2-1.3) mg/dL AST 40 H (14-36) U/L ALT 12 (0-35) U/L Alkaline Phosphatase 105 (38-126) U/L Serum Total Protein 7.1 (6.3-8.2) g/dL Albumin 4.3 (3.5-5.0) g/dL Amylase 77 (30-110) U/L Lipase 64 (23-300) U/L Ur Collection Type VOID Urine Color YELLOW (YELLOW) Urine Appearance HAZY (CLEAR) Urine pH 8.0 (5-6) Ur Specific [place] 1.010 (1.005-1.025) Urine Protein TRACE (Negative) Urine Ketones NEGATIVE (NEGATIVE) Urine Blood 250 (0-5) Oh/ul Urine Nitrite NEGATIVE (NEGATIVE) Urine Bilirubin NEGATIVE (NEGATIVE) Urine Urobilinogen NORMAL (0-1) mg/dL Ur Leukocyte Esterase 1+ (NEGATIVE) Urine Microscopic RBC 15-25 (0-2) /HPF Urine Microscopic WBC 10-15 (0-5) /HPF Ur Epithelial Cells FEW (FEW) /HPF Urine Bacteria MANY (NEGATIVE) /HPF Urine Mucus MODERATE (NEGATIVE) /HPF Urine Culture Reflexed YES (NO) Urine Glucose NEGATIVE (NEGATIVE) mg/dL Specimen Received 11/14/170 11/14/17 Range/Units 22:03 WBC 10.8 H (4.0-10.5) K/mm3 RBC 3.33 L (4.1-5.4) M/mm3 Hgb 10.1 L (12.0-16.0) gm/dl Hct 31.5 L (35-47) % MCV 94.6 (78-100) fl MCH 30.3 (26-32) pg MCHC 32.1 (32-36) g/dl RDW 12.3 (11.5-14.0) % Plt Count 273 (150-450) K/mm3 MPV 8.8 (6-9.5) fl Absolute Granulocytes 7.25 H (1.4-6.9) Segmented Neutrophils 71 H (36.0-66.0) % Lymphocytes (Manual) 11 L (24-44) % Monocytes (Manual) 16 H (0.0-12.0) % Atypical Lymphocytes 2 % Toxic Granulation 1+ Hypochromasia 1+ Poikilocytosis 2+ Ovalocytes 2+ Sodium (137-145) mmol/L Potassium (3.5-5.1) mmol/L Chloride (98-107) mmol/L Carbon Dioxide (22-30) mmol/L Anion Gap (5-15) MEQ/L BUN (7-17) mg/dL Creatinine (0.52-1.04) mg/dL Estimated GFR ML/MIN Glucose (74-106) mg/dL Lactic Acid (0.4-2.0) Calcium (8.4-10.2) mg/dL Total Bilirubin (0.2-1.3) mg/dL AST (14-36) U/L ALT (0-35) U/L Alkaline Phosphatase (38-126) U/L Serum Total Protein (6.3-8.2) g/dL Albumin (3.5-5.0) g/dL Amylase (30-110) U/L Lipase (23-300) U/L Ur Collection Type Urine Color (YELLOW) Urine Appearance (CLEAR) Urine pH (5-6) Ur Specific [place] (1.005-1.025) Urine Protein (Negative) Urine Ketones (NEGATIVE) Urine Blood (0-5) Oh/ul Urine Nitrite (NEGATIVE) Urine Bilirubin (NEGATIVE) Urine Urobilinogen (0-1) mg/dL Ur Leukocyte Esterase (NEGATIVE) Urine Microscopic RBC (0-2) /HPF Urine Microscopic WBC (0-5) /HPF Ur Epithelial Cells (FEW) /HPF Urine Bacteria (NEGATIVE) /HPF Urine Mucus (NEGATIVE) /HPF Urine Culture Reflexed (NO) Urine Glucose (NEGATIVE) mg/dL Specimen Received - Progress Progress: unchanged Progress Note: 11/15/17 03:[address] chest/abdomen/pelvis shows a fracture of the right 5th and 6th ribs anteriorly and moderately severe ileus with increased stool with the the ascending and transverse colon and stool like material within multiple loops of small bowel. There is also severe intrahepatic and extrahepatic bile duct dilatation but her liver enzymes are within normal limits. Pt was given morphine 2mg and then 4mg with minimal relief. Pt was also given magnesium citrate and fleet enema with minimal stool output. Pt also has a UTI and was given a dose of macrobid. Pt has been admitted to Dr Salas for pain control of rib fractures and ileus from constipation. 11/15/17 03:20 - Departure Time of Disposition: 03:21 Departure Disposition: In-patient Admission Clinical Impression: Ileus Rib fractures Qualifiers: Encounter type: initial encounter Rib fracture type: multiple ribs Fracture type: closed Laterality: right Qualified Code(s): S22.41XA - Multiple fractures of ribs, right side, initial encounter for closed fracture Constipation Qualifiers: Constipation type: unspecified constipation type Qualified Code(s): K59.00 - Constipation, unspecified Condition: Fair Critical Care Time: Yes Critical Care Time(excluding separately billable procedures): 75-104 minutes Referrals: CJ MORROW [Primary Care Provider] -
[2017-11-14] MEDS ORDERED: solu-CORTEF 100MG IV ONE (21:57)
[2017-11-14] MEDS ORDERED: BENADRYL 50 MG/ML IV ONE (21:57)
[2017-11-14] MEDS ORDERED: MORPHINE SULFATE 2 MG INJ ONE (22:02)
[2017-11-14] MEDS ORDERED: solu-CORTEF 100MG ONE (22:02)
[2017-11-14] MEDS ORDERED: Zofran 4 MG/2 ML VIAL ONE (22:02)
[2017-11-14] MEDS ORDERED: BENADRYL 50 MG/ML ONE (22:02)
[2017-11-14 22:08] LABS: Granulocyte Absolute (ANC) 7.25 (1.4-6.9); Hematocrit 31.5 % (35-47); Hemoglobin 10.1 gm/dl (12.0-16.0); Mean Cell Volume 94.6 fl (78-100); Mean Corpuscular Hemoglobin 30.3 pg (26-32); Mean Corpuscular Hgb Concent. 32.1 g/dl (32-36); Mean Platelet Volume 8.8 fl (6-9.5); Platelet Count 273 K/mm3 (150-450); Red Blood Count 3.33 M/mm3 (4.1-5.4); Red Cell Distribution Width 12.3 % (11.5-14.0); White Blood Count 10.8 K/mm3 (4.0-10.5)
[2017-11-14 23:07] LABS: ALBUMIN 4.3 g/dL (3.5-5.0); ALKALINE PHOSPHATASE 105 U/L (38-126); AMYLASE 77 U/L (30-110); ANION GAP 14.1 MEQ/L (5-15); BLOOD UREA NITROGEN 18 mg/dL (7-17); CHLORIDE 93 mmol/L (98-107); Calcium 9.3 mg/dL (8.4-10.2); Carbon Dioxide 27 mmol/L (22-30); Creatinine 1 0.88 mg/dL (0.52-1.04); Glucose 102 mg/dL (74-106); LIPASE 64 U/L (23-300); Potassium 4.7 mmol/L (3.5-5.1); SGOT/AST 40 U/L (14-36); SGPT/ALT 12 U/L (0-35); SODIUM 129 mmol/L (137-145); Total Protein 7.1 g/dL (6.3-8.2)
[2017-11-14 23:10] LABS: Appearance HAZY (CLEAR); Bilirubin NEGATIVE (NEGATIVE); Blood 250 Ery/ul (0-5); Epithelial Cells FEW /HPF (FEW); Glucose NEGATIVE (NEGATIVE); Ketones NEGATIVE (NEGATIVE); Leukocyte Esterase 1+ (NEGATIVE); Mucus MODERATE /HPF (NEGATIVE); Nitrite NEGATIVE (NEGATIVE); Protein,Urine Dip TRACE (Negative); Urobilinogen NORMAL mg/dL (0-1)
[2017-11-14 23:11] LABS: Bacteria MANY /HPF (NEGATIVE)
[2017-11-14] MEDS ORDERED: Macrobid 100MG Capsule PO ONE (23:19)
[2017-11-14 23:36] LABS: ATYPICAL LYMPHS 2 %; Lymphocytes 11 % (24-44); Monocyte 16 % (0.0-12.0); Neutrophils 71 % (36.0-66.0); Ovalocytes 2+; Poikilocytosis 2+; Total Cells Counted 100
[2017-11-14 23:37] LABS: Hypochromia 1+; Toxic Granulation 1+
[2017-11-15] MEDS ORDERED: HOLD METFORMIN PRODUCTS FOR 48 HOURS MC SCH (00:30)
[2017-11-15] MEDS ORDERED: Macrobid 100MG Capsule ONE (01:15)
[2017-11-15] MEDS ORDERED: CITROMA 296 ML PO ONE (01:21)
[2017-11-15] MEDS ORDERED: Zofran 4 MG/2 ML VIAL IV ONE (01:26)
[2017-11-15] MEDS ORDERED: MORPHINE SULFATE 4 MG INJ IV ONE (01:26)
[2017-11-15] MEDS ORDERED: MORPHINE SULFATE 4 MG INJ ONE (01:31)
[2017-11-15] MEDS ORDERED: Zofran 4 MG/2 ML VIAL ONE (01:31)
[2017-11-15] MEDS ORDERED: CITROMA 296 ML ONE (01:32)
[2017-11-15] MEDS ORDERED: Zofran 4 MG/2 ML VIAL IV PRN (03:22)
[2017-11-15] MEDS: Sodium Chloride 0.9% 1000 ML 1,000 ML IV SCH ×2 (04:48→14:40)
[2017-11-15 05:44] LABS: BASOPHIL % 0.1 % (0.0-0.4); Basophil (Absolute #) 0.01 (0-0.4); Eosinophil % 0.1 % (0.00-5.0); Eosinophil (Absolute #) 0.01 (0-0.5); Granulocyte Absolute (ANC) 12.28 (1.4-6.9); Granulocytes % 82.4 % (36.0-66.0); Hematocrit 32.6 % (35-47); Hemoglobin 10.5 gm/dl (12.0-16.0); Lymphocyte (Absolute #) 0.51 (1.0-4.6); Lymphocytes % 3.4 % (24.0-44.0); Mean Cell Volume 95.3 fl (78-100); Mean Corpuscular Hemoglobin 30.7 pg (26-32); Mean Corpuscular Hgb Concent. 32.2 g/dl (32-36); Mean Platelet Volume 8.9 fl (6-9.5); Monocyte (Absolute #) 2.08 (0.0-1.3); Platelet Count 294 K/mm3 (150-450); Red Blood Count 3.42 M/mm3 (4.1-5.4); Red Cell Distribution Width 12.3 % (11.5-14.0); White Blood Count 14.9 K/mm3 (4.0-10.5)
[2017-11-15 06:03] LABS: ALBUMIN 4.4 g/dL (3.5-5.0); BILIRUBIN,TOTAL 0.9 mg/dL (0.2-1.3); Calcium 9.5 mg/dL (8.4-10.2); Creatinine 1 1.04 mg/dL (0.52-1.04); Potassium 4.1 mmol/L (3.5-5.1); Total Protein 7.1 g/dL (6.3-8.2)
[2017-11-15 07:26] LABS: Slide Review 1 YES
[2017-11-15] MEDS ORDERED: PROVENTIL 2.5 MG/3 ML NEB IH ONE ×2 (08:00→08:17)
--- NOTE | 2017-11-15 08:18 | XRAY ---
Indication: Lower abdominal pain and distention. Right lower rib pain following fall. Multiple contiguous axial images obtained through the abdomen and pelvis using 80 cc Isovue 370 contrast. Patient was premedicated with Benadryl and Solu-Medrol. Comparison: September 03, 2017. CT chest reported separately. Stable small hiatal hernia. Again images through the pelvis limited due to beam artifact from bilateral hip prostheses. Noncontrasted stomach and bowel loops appear nonobstructed. There are now mild fluid distended small and large bowel loops with synchronous fluid leveling, ileus versus enterocolitis. No free fluid/air. Stable sigmoid diverticulosis and prominent biliary tree. Again previous cholecystectomy, hysterectomy, and reported appendectomy. Remaining liver, pancreas, spleen, adrenal glands, kidneys, ureters, and bladder appear unremarkable for noncontrast exam. There remains minimal aortoiliac calcifications. No AAA or pathologic retroperitoneal lymphadenopathy. Osseous structures with stable multilevel degenerative spondylosis and L4-L5 laminectomy. Impression: 1. Images through the pelvis again limited due to beam artifact from hip prostheses. 2. Fluid distended small and large bowel loops with synchronous fluid leveling. Rule out ileus versus enterocolitis. 3. Stable small hiatal hernia and colonic diverticulosis. Comment: Preliminary interpretation was made by [facility]. No critical discrepancy. CTDI 18.08
--- NOTE | 2017-11-15 08:26 | XRAY ---
Indication: Lower abdominal pain and distention. Right lower rib pain following fall. Multiple contiguous axial images obtained through the chest using 80 cc Isovue 370 contrast. Patient was premedicated with Benadryl and Solu-Medrol. Comparison: January 10, 2017. Stable scattered bilateral fibrosis/scarring and right middle lobe calcified granuloma. No suspicious pulmonary mass, infiltrate, or effusion. Heart is not enlarged. Aorta is normal in course and caliber. No pathologic mediastinal/hilar lymphadenopathy. Stable small hiatal hernia. Bony thorax again demonstrates mild degenerative changes throughout the spine. Nondisplaced healing cortical fractures seen of the anterior right 5/[address] abdomen/pelvis reported separately. Impression: 1. Healing right 5/6 rib fractures. 2. Stable scattered pulmonary fibrosis/scarring and evidence for old granulomatous disease. 3. No new/acute cardiopulmonary abnormalities. Comment: Preliminary interpretation was made by [facility]. No critical discrepancy. CTDI 13.93
[2017-11-15] MEDS ORDERED: Ativan 2 MG/1 ML VIAL IV PRN (10:04)
[2017-11-15] MEDS ORDERED: PROTONIX 40 MG IV IV SCH (10:30)
[2017-11-15] MEDS ORDERED: MILK OF MAGNESIA 30 ML PO PRN (12:20)
[2017-11-15] MEDS ORDERED: CITROMA 296 ML PO SCH (16:00)
[2017-11-15] MEDS: PROVENTIL 2.5 MG/3 ML NEB IH SCH ×2 (17:41→20:51)
--- NOTE | 2017-11-15 21:13 | XRAY ---
Indication: Abdominal pain and bloating. No bowel sounds. Comparison: Portable chest September 03, 2017. 2 views of the abdomen demonstrates mild uniformly distended small and large bowel loops with synchronous fluid leveling, ileus versus enterocolitis. No free air. Previous cholecystectomy. Bladder contrast from same day CT study. Osseous structures demonstrates multilevel degenerative spondylosis, mild osteopenia, double curvature scoliosis, L4/L5 laminectomy, and bilateral total hip arthroplasty. Single frontal chest again demonstrate normal heart and lungs with right midlung calcified granuloma. Impression: 1. Air distended bowel loops with synchronous fluid leveling similar to same day CT abdomen/pelvis exam. Rule out ileus versus enterocolitis. 2. Stable nonacute one view chest. Comment: Preliminary interpretation was made by [facility]. No discrepancy.
[2017-11-15] MEDS: DESYREL 50 MG PO SCH (22:53)
[2017-11-15] MEDS: XANAX 1 MG PO SCH (22:53)
[2017-11-16] MEDS: Sodium Chloride 0.9% 1000 ML 1,000 ML IV SCH ×2 (04:52→16:24)
[2017-11-16] MEDS: PROVENTIL 2.5 MG/3 ML NEB IH SCH ×3 (07:49→19:47)
--- NOTE | 2017-11-16 08:47 | PCM.NOTE ---
Date and Time: 11/16/17840 Subjective Assessment: Pt's R sided (rib) pain is 5/10 currently. She had a bowel movement yesterday and her abdomen is feeling significantly less distended. Pt indicates if she pushes on her mid-abdomen it is rabble furnace tender. Pt has been NPO. States her O2 was off last night and she was restless all night. Pt c/o increased drainage and sinus pressure for over a week. Subjectively thinks she may have had a fever last night (Tmax recorded 99.5). - Review of Systems Ears, Nose, & Throat: Sinus Drainage Abdominal/Gastrointestinal: Abdominal Pain Objective Exam General Appearance: no apparent distress, No alert Neurologic Exam: oriented x 3, cooperative Skin Exam: normal color, warm, dry, No rash Ears, Nose, Throat Exam: moist mucous membranes, other (R maxillary sinus ttp) Respiratory Exam: lungs clear, diminished breath sounds, No crackles/rales, No rhonchi, No wheezing Cardiovascular Exam: regular rate/rhythm, normal heart sounds, other (some regular irregularity), No murmur Gastrointestinal/Abdomen Exam: soft, normal bowel sounds, tenderness (mild, mid abd, RUQ, LLQ), No distention, No mass, No guarding, No rebound Extremity Exam: normal inspection, No pedal edema, No swelling OBJECTIVE DATA Vital Signs: Vital Signs - 24 hr Temp Pulse Resp BP Pulse Ox 11/16/17 08:00 98.6 F 89 16 124/75 93 L 11/16/17 07:49 69 16 93 L 11/16/17 04:26 98.5 F 84 16 136/64 91 L 11/15/17 23:54 98.2 F 81 18 117/57 90 L 11/15/17 20:52 72 20 96 11/15/17 20:06 99.2 F 70 20 126/60 94 L 11/15/17 16:00 99.0 F 70 17 123/59 93 L 11/15/17 12:00 98.1 F 69 18 153/61 97 Pain Assessment - Last Documented Pain Intensity [address] [facility] Intake and Output: Intake & Output 11/13/17 11/14/17 11/15/17 11/16/17 11:59 11:59 11:59 11:59 Intake Total 3667 Output Total 300 250 Balance -300 3417 Weight 64.5 kg 64.6 kg Lab Results: Accuchecks Date 11/15/17 Date 11/15/17 Time 16:30 Accucheck Value: 124 Accucheck Value: 121 Radiology Exams: Radiology Procedures Category Date Time Status BARIUM ENEMA Routine Exams 11/16/17 08:00 Ordered OBSTR/ACUTE ABDOMEN SERIES Urgent Exams 11/15/17 10:47 Completed Assessment/Plan (1) Ileus Current Visit: Yes Status: Acute Assessment & Plan: Will start advancing diet, slowly, starting with CLD today. Code(s): K56.7 - ILEUS, UNSPECIFIED (2) Rib fractures Current Visit: Yes Status: Acute Qualifiers: Encounter type: initial encounter Rib fracture type: multiple ribs Fracture type: closed Laterality: right Qualified Code(s): S22.41XA - Multiple fractures of ribs, right side, initial encounter for closed fracture Assessment & Plan: She states she can "handle the pain" as I discussed that opioids will possibly cause a prolongation of the ileus. Code(s): S22.39XA - FRACTURE OF ONE RIB, UNSP SIDE, INIT FOR CLOS FX (3) Sinusitis Current Visit: Yes Status: Acute Qualifiers: Sinusitis location: maxillary Chronicity: acute Recurrence: recurrent Qualified Code(s): J01.01 - Acute recurrent maxillary sinusitis Assessment & Plan: start tx with rocephin. Code(s): J32.9 - CHRONIC SINUSITIS, UNSPECIFIED
--- NOTE | 2017-11-16 08:56 | HP ---
HISTORY OF PRESENT ILLNESS: This is a patient of Dr. Montgomery who presented to the emergency department. She reports that she fell two weeks ago and her back pain has gotten worse. She also felt constipated. She has tried magnesium citrate at home but vomited with this and Milk of Magnesia for the past two days. She reports her stomach has been more swollen and feels like it is pushing up high in the middle. She reports the last normal stool was three days ago. She had a little bit of stool yesterday with an enema here. The patient reports she also takes Linzess. She is concerned about her anxiety medication and would like to have this restarted. She reports she feels anxious right now. REVIEW OF SYSTEMS: No fever. She has had some sweating, some constipation. She denies any rashes. No lower extremity edema. She has had a headache. PAST MEDICAL HISTORY: Anxiety, chronic obstructive pulmonary disease, diabetes mellitus type 2, vitamin B12 deficiency, insomnia, constipation. She reports some kind of left leg problem diagnosed in [place] and states this is why she is on Plavix and she has been on this for two years, macular degeneration, cataracts, arrhythmia unknown type, arthritis. PAST SURGICAL HISTORY: Colonoscopy five years ago with Dr. Cedric Rios which she thinks was normal. She had a couple of upper endoscopies with Dr. Caal the last one in 2017. I put copies of these on the chart, appendectomy, cholecystectomy, bilateral hips replaced, hysterectomy, section, back surgery. MEDICATIONS: Taken from her clinic chart as she does not have a list and her pharmacy is currently closed. Albuterol 2.5 mg nebulized four times a day, Alprazolam 1 mg at bedtime as needed, Brovana 15 mcg/2 ml nebulized twice daily, vitamin D 2,000 units daily, citalopram 40 mg daily, Plavix 75 mg daily, vitamin B12 1,000 mcg/ml 1 ml every month, gentamicin eye drops, hydrocodone ear drops, ipratropium 2.5 ml every six hours, linaclotide 72 mcg daily, Metformin Extended Release one half tablet daily, omeprazole 20 mg daily, oxygen at night, prednisolone eye drops, trazodone 50 mg at bedtime, Ventolin HFA 2 puffs every four hours as needed, zafirlukast 20 mg b.i.d. again this needs to be confirmed with her pharmacy as this is taken from the [facility] chart. ALLERGIES: ASPIRIN, IODINE, PENICILLIN, PREDNISONE, IRON. SOCIAL HISTORY: She denies any alcohol use. She has never smoked. She lives alone. She reports a nurse comes in once a week. PHYSICAL EXAMINATION: VITAL SIGNS: Temperature current 98.5F, temperature max 98.5F, heart rate 71 to 91, respiratory rate 14 to 18, blood pressure 132 to 138 over 51 to 63, weight 64.5 kg. Oxygen saturation 95 to 98% on room air. GENERAL: The patient is sitting up a pleasant talkative lady in no acute distress. She is holding an emesis bag. CVS: She has a regular rate and rhythm. No murmurs, gallops or rubs are appreciated. CHEST: Clear to auscultation bilaterally. No crackles or wheezes. ABDOMEN: Distended with no bowel sounds, mild tenderness throughout, no guarding, no rigidity. EXTREMITIES: No clubbing, cyanosis or edema. SKIN: Warm, dry and intact. LABORATORY DATA AND TESTS: White blood cell count 14,900, hemoglobin 10.5, PLT 294,000. Sodium 131, chloride 91, BUN 18, glucose 175. AST 258 up from 40 yesterday and ALT 108 up from 12 yesterday. UA 15 to 25 red blood cells and 10 to 15 white blood cells with many bacteria and few epithelial cells. She has a urine culture in lab. CT chest was read as healing right 5/6 rib fractures, stable scattered pulmonary fibrosis/scarring. No new acute cardiopulmonary abnormalities. Please see the radiologist dictation for the full report. Abdomen and pelvis CT was read as fluid distended small and large bowel loops, small stable hiatal hernia and colonic diverticulosis. Please see the radiologist report for full dictation. ASSESSMENT AND PLAN: 1) ILEUS WITH POSSIBLE SMALL BOWEL OBSTRUCTION: She is currently NPO. I consulted the general surgeon to see her and more than likely she will need NG placed for decompression. 2) CHRONIC OBSTRUCTIVE PULMONARY DISEASE: Will continue to monitor to monitor her closely. Her home medications are not available here at the hospital and she does not have anyone who can bring those in. 3) ANXIETY: She reports some anxiety will order something IV for her for this. 4) INSOMNIA: We ordered her trazodone if needed. 5) HISTORY OF ANTICOAGULATION WITH PLAVIX: Plavix has been held at this time pending possible surgery.
[2017-11-16 09:25] LABS: Hematocrit 30.5 % (35-47); Hemoglobin 9.5 gm/dl (12.0-16.0); Mean Cell Volume 97.8 fl (78-100); Mean Corpuscular Hemoglobin 30.4 pg (26-32); Mean Corpuscular Hgb Concent. 31.1 g/dl (32-36); Mean Platelet Volume 8.9 fl (6-9.5); Platelet Count 259 K/mm3 (150-450); Red Blood Count 3.12 M/mm3 (4.1-5.4); Red Cell Distribution Width 12.8 % (11.5-14.0); White Blood Count 9.3 K/mm3 (4.0-10.5)
[2017-11-16 09:42] LABS: ANION GAP 10.9 MEQ/L (5-15); BLOOD UREA NITROGEN 19 mg/dL (7-17); CHLORIDE 102 mmol/L (98-107); Calcium 8.7 mg/dL (8.4-10.2); Carbon Dioxide 30 mmol/L (22-30); Creatinine 1 0.92 mg/dL (0.52-1.04); Glucose 104 mg/dL (74-106); Potassium 3.8 mmol/L (3.5-5.1); SODIUM 139 mmol/L (137-145)
[2017-11-16] MEDS ORDERED: PROVENTIL COMMON CANISTER IH PRN (09:55)
[2017-11-16] MEDS ORDERED: NON-FORMULARY ITEM (Citalopram Hydrobromide [Celexa] 20 MG) PO SCH (10:00)
[2017-11-16] MEDS ORDERED: Flonase NASAL NS SCH (10:00)
[2017-11-16] MEDS ORDERED: NON-FORMULARY ITEM (Omeprazole 20 Mg [Prilosec 20 Mg] 20 MG) PO SCH (10:00)
[2017-11-16] MEDS ORDERED: ARFORMOTEROL TARTRATE 15 MCG IH SCH (10:00)
[2017-11-16] MEDS: ACCOLATE 20 MG PO SCH ×2 (10:14→21:48)
[2017-11-16] MEDS: ROCEPHIN 1 Gm-D5w 50 ml Bag** 1 G/50 ML IVPB IV SCH (10:14)
[2017-11-16] MEDS: ceLEXa 20 MG PO SCH (10:14)
[2017-11-16] MEDS: Protonix 40MG Tablet PO SCH (10:14)
[2017-11-16] MEDS ORDERED: MEDICATION INTERVENTION MC SCH (10:15)
--- NOTE | 2017-11-16 10:24 | CONS ---
CONSULT DATE: 11/15/2017 REASON FOR CONSULT: Nausea. HISTORY: This 82 year-old female presents after a fall a few weeks ago and she has been having right chest pain since that time. She has been feeling constipated for a while as well. She did have a good bowel movement three days ago but since then she has only had small bowel movements. She has been passing gas. She does not have any diarrhea. She does have chest pain mainly on the right and some dyspnea with deep breathing. She denies fever or dysuria. She threw up yesterday after taking magnesium citrate as an outpatient. She went to the emergency department. She has been feeling quite bloated. She had magnesium citrate and Fleet's enema with fairly minimal results she feels again after having the magnesium citrate in the emergency room. She has not had any significant abdominal pain but is feeling bloated. PAST MEDICAL HISTORY: Diabetes, chronic obstructive pulmonary disease. PAST SURGICAL HISTORY: Appendectomy, section, hysterectomy, cholecystectomy, bilateral hip replacement, back surgery. MEDICATIONS: Metformin, Albuterol, 2 liters home oxygen at night, Plavix. ALLERGIES: PENICILLIN, ASPIRIN, IODINE, PREDNISONE, IRON. SOCIAL HISTORY: No tobacco. No alcohol. FAMILY HISTORY: Breast cancer. PHYSICAL EXAMINATION: GENERAL: No acute distress. HEENT: Sclera nonicteric. Extraocular movements intact. NECK: Supple. No JVD. CHEST: Nonlabored breathing, tenderness to palpation right lower ribs. ABDOMEN: Soft, distended, nontender. Multiple prior abdominal scars. EXTREMITIES: Mild peripheral edema. SKIN: Warm, dry and intact. NEURO: Awake, alert and oriented. Appropriate mood and affect. Cooperative. LAB DATA AND TESTS: CT scan of the chest, abdomen and pelvis showed old right hip and sixth rib fractures. Dilated small bowel and colon consistent with ileus. White blood cell count 14,000 today. UA was positive leukocytes and bacteria. ASSESSMENT AND PLAN: Ileus with obstipation. The ileus is likely secondary to urinary tract infection as well as obstipation. Will try another enema today. Will also plan for therapeutic Gastrografin enema with radiology tomorrow. No acute surgical intervention indicated.
[2017-11-16] MEDS: Flonase NASAL NS SCH (10:33)
[2017-11-16 10:35] LABS: Eosinophil 1 % (0.00-3.0); Lymphocytes 12 % (24-44); Monocyte 10 % (0.0-12.0); Neutrophils 77 % (36.0-66.0); Platelet Estimate NORMAL (NORMAL); Total Cells Counted 100; Toxic Granulation 1+
[2017-11-16] MEDS: XANAX 1 MG PO SCH (21:49)
[2017-11-16] MEDS: DESYREL 50 MG PO SCH (21:49)
[2017-11-17] MEDS: Sodium Chloride 0.9% 1000 ML 1,000 ML IV SCH ×2 (03:59→16:21)
[2017-11-17] MEDS: PROVENTIL 2.5 MG/3 ML NEB IH SCH ×3 (06:50→20:35)
--- NOTE | 2017-11-17 08:55 | PCM.NOTE ---
Date and Time: 11/17/17 0846 Subjective Assessment: Pt c/o not sleeping last night or the night before. She did have her O2 on last night but her IV kept beeping, keeping her from sleep. She is c/o worse R rib pain today (R flank/R lower thoracic lateral pain). She ate a soft diet yesterday, then immediately felt increased pressure in her LUQ and had "about 10 lb of gas" that "burned like fire." She has not passed any gas today. Her last BM was yesterday. Apparently her gastrografin enema was cancelled, and Dr. Rios had advanced her diet to soft foods yesterday. - Review of Systems Constitutional: No Fever Abdominal/Gastrointestinal: Abdominal Pain Musculoskeletal: Back Pain Objective Exam General Appearance: no apparent distress, alert Neurologic Exam: oriented x 3, cooperative Skin Exam: normal color, warm, dry, No rash Respiratory Exam: diminished breath sounds, No crackles/rales, No rhonchi, No wheezing Cardiovascular Exam: regular rate/rhythm, normal heart sounds, No murmur Gastrointestinal/Abdomen Exam: soft, tenderness (epigastrum and RUQ), other ( INTERMITTENT BOWEL SOUNDS), No distention, No mass, No guarding, No rebound Extremity Exam: normal inspection, No pedal edema, No swelling Back Exam: normal inspection, other (ttp inferior thoracic ribs R lateral), No rash OBJECTIVE DATA Vital Signs: Vital Signs - 24 hr Temp Pulse Resp BP Pulse Ox 11/17/17 07:51 98.5 F 71 18 132/68 98 11/17/17 07:50 71 16 97 11/17/17 04:00 98.2 F 67 20 149/65 99 11/17/17 00:00 99 F 74 18 120/82 99 11/16/17 20:00 97.8 F 74 18 129/59 97 11/16/17 19:49 69 16 96 11/16/17 16:00 98.5 F 76 16 158/70 94 L 11/16/17 13:53 71 16 95 11/16/17 12:00 99.0 F 77 18 160/69 92 L Oxygen-Last 24 hours O2 Percentage 2 Liters = 28% O2 Percentage 2 Liters = 28% O2 Percentage 2 Liters = 28% Pain Assessment - Last Documented Pain Intensity 6 Pain Scale Used [facility] Intake and Output: Intake & Output 11/14/17 11/15/17 11/16/17 11/17/17 11:59 11:59 11:59 11:59 Intake Total 3667 1140 Output Total 300 250 Balance -300 3417 1140 Weight 64.5 kg 64.6 kg 66 kg Lab Results: Accuchecks Date 11/16/17 Date 11/16/17 Date 11/16/17 Time 20:50 Accucheck Value: 112 Accucheck Value: 96 Accucheck Value: 105 Accucheck Value: 117 Lab Results-Last 24 Hours 11/16/17 11/16/17 Range/Units 09:00 09:00 WBC 9.3 (4.0-10.5) K/mm3 RBC 3.12 L (4.1-5.4) M/mm3 Hgb 9.5 L (12.0-16.0) gm/dl Hct 30.5 L (35-47) % MCV 97.8 (78-100) fl MCH 30.4 (26-32) pg MCHC 31.1 L (32-36) g/dl RDW 12.8 (11.5-14.0) % Plt Count 259 (150-450) K/mm3 MPV 8.9 (6-9.5) fl Absolute Granulocytes 6.10 (1.4-6.9) Segmented Neutrophils 77 H (36.0-66.0) % Lymphocytes (Manual) 12 L (24-44) % Monocytes (Manual) 10 (0.0-12.0) % Eosinophils (Manual) 1 (0.00-3.0) % Differential Comment NORMAL Toxic Granulation 1+ Platelet Estimate NORMAL (NORMAL) Sodium 139 (137-145) mmol/L Potassium 3.8 (3.5-5.1) mmol/L Chloride 102 (98-107) mmol/L Carbon Dioxide 30 (22-30) mmol/L Anion Gap 10.9 (5-15) MEQ/L BUN 19 H (7-17) mg/dL Creatinine 0.92 (0.52-1.04) mg/dL Estimated GFR > 60.0 ML/MIN Glucose 104 (74-106) mg/dL Calcium 8.7 (8.4-10.2) mg/dL Radiology Exams: Radiology Procedures Category Date Time Status OBSTR/ACUTE ABDOMEN SERIES Urgent Exams 11/15/17 10:47 Completed Assessment/Plan (1) Ileus Current Visit: Yes Status: Acute Assessment & Plan: Seems to have increased pain since resuming soft diet yesterday. She is tolerating it, but no longer passing gas. Will decrease to full liquids today. Code(s): K56.7 - ILEUS, UNSPECIFIED (2) Rib fractures Current Visit: Yes Status: Acute Qualifiers: Encounter type: initial encounter Rib fracture type: multiple ribs Fracture type: closed Laterality: right Qualified Code(s): S22.41XA - Multiple fractures of ribs, right side, initial encounter for closed fracture Assessment & Plan: Try lidoderm patch for pain. Code(s): S22.39XA - FRACTURE OF ONE RIB, UNSP SIDE, INIT FOR CLOS FX (3) Sinusitis Current Visit: Yes Status: Acute Qualifiers: Sinusitis location: maxillary Chronicity: acute Recurrence: recurrent Qualified Code(s): J01.01 - Acute recurrent maxillary sinusitis Assessment & Plan: on IV rocephin. Code(s): J32.9 - CHRONIC SINUSITIS, UNSPECIFIED (4) UTI (urinary tract infection) Current Visit: Yes Status: Acute Qualifiers: Urinary tract infection type: acute cystitis Hematuria presence: with hematuria Qualified Code(s): N30.01 - Acute cystitis with hematuria Assessment & Plan: had elevated WBC and RBC on admission; however her culture only grew out mixed lonnie. Regardless, she is on IV rocephin for sinusitis as above. Code(s): N39.0 - URINARY TRACT INFECTION, SITE NOT SPECIFIED (5) Insomnia Current Visit: Yes Status: Acute Assessment & Plan: added ativan IV 1mg prn at night. Code(s): G47.00 - INSOMNIA, UNSPECIFIED (6) Chronic hypoxemic respiratory failure Current Visit: Yes Status: Chronic Assessment & Plan: O2 as needed. (7) COPD (chronic obstructive pulmonary disease) Current Visit: No Status: Chronic Qualifiers: COPD type: unspecified COPD Qualified Code(s): J44.9 - Chronic obstructive pulmonary disease, unspecified Assessment & Plan: stable. 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
[2017-11-17] MEDS: ACCOLATE 20 MG PO SCH ×2 (09:10→21:04)
[2017-11-17] MEDS: ROCEPHIN 1 Gm-D5w 50 ml Bag** 1 G/50 ML IVPB IV SCH (09:10)
[2017-11-17] MEDS: Protonix 40MG Tablet PO SCH (09:10)
[2017-11-17] MEDS: Miralax Powder 17GM PACKET PO SCH (09:10)
[2017-11-17] MEDS: Flonase NASAL NS SCH (09:10)
[2017-11-17] MEDS: ceLEXa 20 MG PO SCH (09:10)
[2017-11-17] MEDS: ENOXAPARIN SODIUM SQ SCH (09:11)
[2017-11-17] MEDS ORDERED: Lidoderm Patch 5% TOP SCH (10:00)
[2017-11-17] MEDS ORDERED: Pepcid 20 MG PO PRN (20:28)
[2017-11-17] MEDS ORDERED: Tums EX 750 MG PO PRN (20:29)
[2017-11-17] MEDS: XANAX 1 MG PO SCH (21:04)
[2017-11-17] MEDS: Ativan 2 MG/1 ML VIAL IV PRN (21:20)
[2017-11-18] MEDS: PROVENTIL 2.5 MG/3 ML NEB IH PRN (03:16)
[2017-11-18] MEDS: MORPHINE SULFATE 4 MG INJ IV PRN ×2 (03:34→11:47)
[2017-11-18] MEDS: Sodium Chloride 0.9% 1000 ML 1,000 ML IV SCH (03:35)
[2017-11-18] MEDS: PROVENTIL 2.5 MG/3 ML NEB IH SCH ×3 (07:10→18:27)
--- NOTE | 2017-11-18 08:31 | PCM.NOTE ---
Date and Time: 11/18/17825 Subjective Assessment: Pt did not pass flatus all day yesterday and has not been able to today. No bowel movements. Did eat some full liquid diet breakfast. Slept lightly some last night. Has been wearing her O2 at night. Pain better with lidoderm patch except she notes several other areas of her back hurt so that impedes the pain relief. Objective Exam General Appearance: no apparent distress, alert, anxiety Neurologic Exam: oriented x 3, cooperative Skin Exam: normal color, warm, dry, No rash Ears, Nose, Throat Exam: moist mucous membranes Respiratory Exam: diminished breath sounds, prolonged expirations, No crackles/ rales, No rhonchi, No wheezing Cardiovascular Exam: regular rate/rhythm, normal heart sounds, No murmur Gastrointestinal/Abdomen Exam: soft, tenderness (epigastrum and RUQ), other ( low pitched bowel sounds), No distention, No mass, No guarding, No rebound Extremity Exam: normal inspection, No pedal edema, No swelling Back Exam: normal inspection, No rash OBJECTIVE DATA Vital Signs: Vital Signs - 24 hr Temp Pulse Resp BP Pulse Ox 11/18/17 07:00 98 F 91 H 20 191/70 99 11/18/17 03:17 80 22 98 11/18/17 03:00 98.1 F 83 17 177/69 99 11/17/17 23:00 18 11/17/17 20:41 72 18 97 11/17/17 19:00 98.2 F 74 19 177/72 96 11/17/17 15:00 98.5 F 71 18 141/63 95 11/17/17 13:09 76 16 11/17/17 11:07 98.9 F 78 18 142/60 95 Oxygen-Last 24 hours O2 Percentage 2 Liters = 28% O2 Percentage 2 Liters = 28% Pain Assessment - Last Documented Pain Intensity 10 Pain Scale Used [facility] Intake and Output: Intake & Output 11/15/17 11/16/17 11/17/17 11/18/17 11:59 11:59 11:59 11:59 Intake Total 3667 1140 1955 Output Total 174 548 9564 Balance -300 3417 1140 955 Weight 64.5 kg 64.6 kg 66 kg 67 kg Lab Results: Accuchecks Date 11/18/17 Date 11/18/17 Date 11/17/17 Date 11/17/17 Time 07:30 Time 06:57 Time 21:00 Time 16:52 Accucheck Value: 113 Accucheck Value: 113 Accucheck Value: 95 Accucheck Value: 106 Accucheck Value: 125 Lab Results-Last 24 Hours 11/17/17 Range/Units 09:00 Hemoglobin A1c 5.48 (4.5-6.0) % Assessment/Plan (1) Ileus Current Visit: Yes Status: Acute Assessment & Plan: Concern for developing SBO; recheck abd xr. Make pt NPO. Will place NG if needed. Code(s): K56.7 - ILEUS, UNSPECIFIED (2) Rib fractures Current Visit: Yes Status: Acute Qualifiers: Encounter type: initial encounter Rib fracture type: multiple ribs Fracture type: closed Laterality: right Qualified Code(s): S22.41XA - Multiple fractures of ribs, right side, initial encounter for closed fracture Assessment & Plan: Pain seems better with lidoderm patch, but will increase to 3 patches/d to cover more area of back. PT has been consulted, thank you. Code(s): S22.39XA - FRACTURE OF ONE RIB, UNSP SIDE, INIT FOR CLOS FX (3) Sinusitis Current Visit: Yes Status: Acute Qualifiers: Sinusitis location: maxillary Chronicity: acute Recurrence: recurrent Qualified Code(s): J01.01 - Acute recurrent maxillary sinusitis Assessment & Plan: On IV rocephin Code(s): J32.9 - CHRONIC SINUSITIS, UNSPECIFIED (4) UTI (urinary tract infection) Current Visit: Yes Status: Acute Qualifiers: Urinary tract infection type: acute cystitis Hematuria presence: with hematuria Qualified Code(s): N30.01 - Acute cystitis with hematuria Assessment & Plan: Urine culture was negative (3 or more species) - but on rocephin as above for sinusitis. Code(s): N39.0 - URINARY TRACT INFECTION, SITE NOT SPECIFIED (5) Insomnia Current Visit: Yes Status: Acute Qualifiers: Insomnia type: primary Qualified Code(s): F51.01 - Primary insomnia Assessment & Plan: somewhat better with some ativan here in the hospital. Code(s): G47.00 - INSOMNIA, UNSPECIFIED (6) Chronic hypoxemic respiratory failure Current Visit: Yes Status: Chronic Assessment & Plan: On O2 particularly at night. (7) COPD (chronic obstructive pulmonary disease) Current Visit: No Status: Chronic Qualifiers: COPD type: unspecified COPD Qualified Code(s): J44.9 - Chronic obstructive pulmonary disease, unspecified Assessment & Plan: Her COPD is actually stable at this point. 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
[2017-11-18 08:57] LABS: Hematocrit 27.9 % (35-47); Hemoglobin 8.7 gm/dl (12.0-16.0); Mean Cell Volume 97.6 fl (78-100); Mean Corpuscular Hemoglobin 30.4 pg (26-32); Mean Corpuscular Hgb Concent. 31.2 g/dl (32-36); Mean Platelet Volume 8.9 fl (6-9.5); Platelet Count 228 K/mm3 (150-450); Red Blood Count 2.86 M/mm3 (4.1-5.4); Red Cell Distribution Width 12.6 % (11.5-14.0); White Blood Count 10.9 K/mm3 (4.0-10.5)
--- NOTE | 2017-11-18 09:12 | XRAY ---
Indication: Follow-up ileus. Comparison: November 15, 2017. Supine and left lateral decubitus abdomen again demonstrates several air distended small/large bowel loops with synchronous fluid leveling, slightly less than before, again favoring ileus. Solid organs obscured due to overlying bowel gas. Again cholecystectomy clips, L4-L5 laminectomy, and bilateral total hip arthroplasty.
[2017-11-18 09:13] LABS: ALBUMIN 3.3 g/dL (3.5-5.0); ALKALINE PHOSPHATASE 94 U/L (38-126); ANION GAP 13.8 MEQ/L (5-15); BLOOD UREA NITROGEN 6 mg/dL (7-17); CHLORIDE 105 mmol/L (98-107); Calcium 8.7 mg/dL (8.4-10.2); Carbon Dioxide 24 mmol/L (22-30); Creatinine 1 0.69 mg/dL (0.52-1.04); Glucose 190 mg/dL (74-106); Potassium 4.2 mmol/L (3.5-5.1); SGOT/AST 46 U/L (14-36); SGPT/ALT 93 U/L (0-35); SODIUM 138 mmol/L (137-145); Total Protein 5.9 g/dL (6.3-8.2)
[2017-11-18] MEDS: ACCOLATE 20 MG PO SCH ×2 (09:28→21:32)
[2017-11-18] MEDS: ceLEXa 20 MG PO SCH (09:29)
[2017-11-18] MEDS: Protonix 40MG Tablet PO SCH (09:29)
[2017-11-18] MEDS: MILK OF MAGNESIA 30 ML PO PRN ×2 (09:30→20:00)
[2017-11-18] MEDS: Miralax Powder 17GM PACKET PO SCH (09:30)
[2017-11-18] MEDS: Flonase NASAL NS SCH (09:33)
[2017-11-18] MEDS: ENOXAPARIN SODIUM SQ SCH (09:35)
[2017-11-18] MEDS: Lidoderm Patch 5% TOP SCH (09:42)
[2017-11-18] MEDS: ROCEPHIN 1 Gm-D5w 50 ml Bag** 1 G/50 ML IVPB IV SCH (09:49)
[2017-11-18] MEDS: Dextrose 5% -0.45 NaCl 1000 ML 1,000 ML IV SCH (13:28)
[2017-11-18] MEDS: XANAX 1 MG PO SCH (21:32)
[2017-11-18] MEDS: Ativan 2 MG/1 ML VIAL IV PRN (21:37)
[2017-11-19] MEDS: PROVENTIL 2.5 MG/3 ML NEB IH SCH ×3 (01:42→11:27)
[2017-11-19] MEDS: Dextrose 5% -0.45 NaCl 1000 ML 1,000 ML IV SCH (01:43)
[2017-11-19 05:27] LABS: Hematocrit 26.9 % (35-47); Hemoglobin 8.3 gm/dl (12.0-16.0); Mean Cell Volume 97.8 fl (78-100); Mean Corpuscular Hgb Concent. 30.9 g/dl (32-36); Platelet Count 228 K/mm3 (150-450); Red Blood Count 2.75 M/mm3 (4.1-5.4); Red Cell Distribution Width 12.5 % (11.5-14.0); White Blood Count 9.1 K/mm3 (4.0-10.5)
[2017-11-19 05:34] LABS: Mean Corpuscular Hemoglobin 30.1 pg (26-32)
[2017-11-19 05:49] LABS: ALBUMIN 3.2 g/dL (3.5-5.0); ALKALINE PHOSPHATASE 128 U/L (38-126); ANION GAP 9.2 MEQ/L (5-15); BLOOD UREA NITROGEN 6 mg/dL (7-17); CHLORIDE 102 mmol/L (98-107); Calcium 8.6 mg/dL (8.4-10.2); Carbon Dioxide 29 mmol/L (22-30); Creatinine 1 0.66 mg/dL (0.52-1.04); Glucose 128 mg/dL (74-106); Potassium 4.1 mmol/L (3.5-5.1); SGOT/AST 101 U/L (14-36); SGPT/ALT 152 U/L (0-35); SODIUM 136 mmol/L (137-145); Total Protein 5.8 g/dL (6.3-8.2)
--- NOTE | 2017-11-19 08:43 | PCM.NOTE ---
Date and Time: 11/19/17 08 Subjective Assessment: Feeling better, did pass some gas this a.m., she states but in the toilet there appears to be quite a bit of stool. She is tolerating CLD this morning without any nausea or vomiting but she is complaining of abdominal distension. Her BP has been elevated overnight to 160s-180s systolic; is not on bp meds at home and BP were 120s-140s systolic prior to this. - Review of Systems Constitutional: No Fever Abdominal/Gastrointestinal: Abdominal Pain Objective Exam General Appearance: no apparent distress, alert (sitting up in a chair) Neurologic Exam: oriented x 3, cooperative Skin Exam: normal color, warm, dry, No rash Eye Exam: eyes nml inspection Ears, Nose, Throat Exam: moist mucous membranes Respiratory Exam: lungs clear, diminished breath sounds, prolonged expirations, No crackles/rales, No rhonchi, No wheezing (just upper airway wheeze as always) Cardiovascular Exam: regular rate/rhythm, normal heart sounds, No murmur Gastrointestinal/Abdomen Exam: soft, normal bowel sounds, distention, No tenderness, No mass, No guarding, No rebound Extremity Exam: normal inspection, No pedal edema, No swelling OBJECTIVE DATA Vital Signs: Vital Signs - 24 hr Temp Pulse Resp BP Pulse Ox 11/19/17 07:22 72 18 99 11/19/17 07:00 98 F 77 18 171/68 99 11/19/17 03:00 18 11/19/17 01:43 90 22 97 11/18/17 23:00 20 11/18/17 19:00 98.3 F 83 20 189/80 97 11/18/17 18:28 74 20 96 11/18/17 15:00 99 F 78 20 167/75 96 11/18/17 13:15 91 H 18 95 11/18/17 11:00 98 F 78 18 186/73 97 Oxygen-Last 24 hours O2 Percentage 2 Liters = 28% Pain Assessment - Last Documented Pain Intensity 4 Pain Scale Used [facility] Intake and Output: Intake & Output 11/16/17 11/17/17 11/18/17 11/19/17 11:59 11:59 11:59 11:59 Intake Total 3667 1140 2075 2596 Output Total 250 1000 1600 Balance 3417 1140 1075 996 Weight 64.6 kg 66 kg 67 kg 69.4 kg Lab Results: Accuchecks Date 11/19/17 Date 11/18/17 Date 11/18/17 Date 11/18/17 Time 06:52 Time 21:00 Time 16:30 Time 10:48 Accucheck Value: 116 Accucheck Value: 125 Accucheck Value: 144 Accucheck Value: 113 Lab Results-Last 24 Hours 11/18/17 11/18/17 11/19/17 Range/Units 08:39 08:39 05:00 WBC 10.9 H 9.1 (4.0-10.5) K/mm3 RBC 2.86 L 2.75 L (4.1-5.4) M/mm3 Hgb 8.7 L 8.3 L (12.0-16.0) gm/dl Hct 27.9 L 26.9 L (35-47) % MCV 97.6 97.8 (78-100) fl MCH 30.4 30.1 (26-32) pg MCHC 31.2 L 30.9 L (32-36) g/dl RDW 12.6 12.5 (11.5-14.0) % Plt Count 228 228 (150-450) K/mm3 MPV 8.9 9.0 (6-9.5) fl Sodium 138 (137-145) mmol/L Potassium 4.2 (3.5-5.1) mmol/L Chloride 105 (98-107) mmol/L Carbon Dioxide 24 (22-30) mmol/L Anion Gap 13.8 (5-15) MEQ/L BUN 6 L (7-17) mg/dL Creatinine 0.69 (0.52-1.04) mg/dL Estimated GFR > 60.0 ML/MIN Glucose 190 H (74-106) mg/dL Calcium 8.7 (8.4-10.2) mg/dL Total Bilirubin 0.30 (0.2-1.3) mg/dL AST 46 H (14-36) U/L ALT 93 H (0-35) U/L Alkaline Phosphatase 94 (38-126) U/L Serum Total Protein 5.9 L (6.3-8.2) g/dL Albumin 3.3 L (3.5-5.0) g/dL 11/19/17 Range/Units 05:00 WBC (4.0-10.5) K/mm3 RBC (4.1-5.4) M/mm3 Hgb (12.0-16.0) gm/dl Hct (35-47) % MCV (78-100) fl MCH (26-32) pg MCHC (32-36) g/dl RDW (11.5-14.0) % Plt Count (150-450) K/mm3 MPV (6-9.5) fl Sodium 136 L (137-145) mmol/L Potassium 4.1 (3.5-5.1) mmol/L Chloride 102 (98-107) mmol/L Carbon Dioxide 29 (22-30) mmol/L Anion Gap 9.2 (5-15) MEQ/L BUN 6 L (7-17) mg/dL Creatinine 0.66 (0.52-1.04) mg/dL Estimated GFR > 60.0 ML/MIN Glucose 128 H (74-106) mg/dL Calcium 8.6 (8.4-10.2) mg/dL Total Bilirubin 0.40 (0.2-1.3) mg/dL AST 101 H (14-36) U/L ALT 152 H (0-35) U/L Alkaline Phosphatase 128 H (38-126) U/L Serum Total Protein 5.8 L (6.3-8.2) g/dL Albumin 3.2 L (3.5-5.0) g/dL Radiology Exams: Radiology Procedures Category Date Time Status ABDOMEN 2 VIEW Urgent Exams 11/18/17 08:54 Completed Assessment/Plan (1) Ileus Current Visit: Yes Status: Acute Assessment & Plan: Initially surgery was consulted and was going to do a gastrografin enema, but she started passing gas and having stools so they opted against any action. Then yesterday she had passed no gas for about 24 hours, so I decreased her to NPO status again. Today she is moving some stool, will observe today. Stay on CLD unless any vomiting, in which case I would place an NG tube and re-consult surgery. Abd xr done yesterday without new findings, just ileus. She had a colonoscopy with Dr. Rios about 5 yrs ago, per pt. Her plavix has been held since admission in the event she requires a procedure. On Lovenox. Code(s): K56.7 - ILEUS, UNSPECIFIED (2) Elevated liver enzymes Current Visit: Yes Status: Acute Assessment & Plan: Recheck in a.m. Code(s): R74.8 - ABNORMAL LEVELS OF OTHER SERUM ENZYMES (3) Rib fractures Current Visit: Yes Status: Acute Qualifiers: Encounter type: initial encounter Rib fracture type: multiple ribs Fracture type: closed Laterality: right Qualified Code(s): S22.41XA - Multiple fractures of ribs, right side, initial encounter for closed fracture Assessment & Plan: No complaint of pain this morning - started lidoderm patches x 3 yesterday. Code(s): S22.39XA - FRACTURE OF ONE RIB, UNSP SIDE, INIT FOR CLOS FX (4) Sinusitis Current Visit: Yes Status: Acute Qualifiers: Sinusitis location: maxillary Chronicity: acute Recurrence: recurrent Qualified Code(s): J01.01 - Acute recurrent maxillary sinusitis Assessment & Plan: On IV rocephin here for c/o sinus pain, pressure. Code(s): J32.9 - CHRONIC SINUSITIS, UNSPECIFIED (5) UTI (urinary tract infection) Current Visit: Yes Status: Acute Qualifiers: Urinary tract infection type: acute cystitis Hematuria presence: with hematuria Qualified Code(s): N30.01 - Acute cystitis with hematuria Assessment & Plan: UCx was actually neg. Code(s): N39.0 - URINARY TRACT INFECTION, SITE NOT SPECIFIED (6) Insomnia Current Visit: Yes Status: Acute Qualifiers: Insomnia type: primary Qualified Code(s): F51.01 - Primary insomnia Code(s): G47.00 - INSOMNIA, UNSPECIFIED (7) Chronic hypoxemic respiratory failure Current Visit: Yes Status: Chronic (8) COPD (chronic obstructive pulmonary disease) Current Visit: No Status: Chronic Qualifiers: COPD type: unspecified COPD Qualified Code(s): J44.9 - Chronic obstructive pulmonary disease, unspecified (9) Diabetes mellitus Current Visit: No Status: Chronic Qualifiers: Diabetes mellitus type: type 2 Diabetes mellitus fpc insulin use: without intermediate designer use Diabetes mellitus complication status: without complication Qualified Code(s): E11.9 - Type 2 diabetes mellitus without complications Code(s): E11.9 - TYPE 2 DIABETES MELLITUS WITHOUT COMPLICATIONS
[2017-11-19] MEDS: ROCEPHIN 1 Gm-D5w 50 ml Bag** 1 G/50 ML IVPB IV SCH (09:37)
[2017-11-19] MEDS: Miralax Powder 17GM PACKET PO SCH (09:37)
[2017-11-19] MEDS: Lidoderm Patch 5% TOP SCH (09:37)
[2017-11-19] MEDS: ceLEXa 20 MG PO SCH (09:38)
[2017-11-19] MEDS: ACCOLATE 20 MG PO SCH ×2 (09:38→21:18)
[2017-11-19] MEDS: NORVASC 5 MG PO SCH (09:38)
[2017-11-19] MEDS: ENOXAPARIN SODIUM SQ SCH (09:38)
[2017-11-19] MEDS: Protonix 40MG Tablet PO SCH (09:38)
[2017-11-19] MEDS: Flonase NASAL NS SCH (09:38)
[2017-11-19] MEDS: Sodium Chloride 0.9% 1000 ML 1,000 ML IV SCH (11:42)
[2017-11-19] MEDS: PROVENTIL 2.5 MG/3 ML NEB IH PRN ×2 (14:40→19:10)
[2017-11-19] MEDS: MORPHINE SULFATE 4 MG INJ IV PRN (21:17)
[2017-11-19] MEDS: XANAX 1 MG PO SCH (21:18)
[2017-11-19] MEDS: MILK OF MAGNESIA 30 ML PO PRN (21:21)
[2017-11-20] MEDS: PROVENTIL 2.5 MG/3 ML NEB IH PRN (01:00)
[2017-11-20] MEDS: Dextrose 5% -0.45 NaCl 1000 ML 1,000 ML IV SCH (04:34)
[2017-11-20 05:56] LABS: Hematocrit 26.8 % (35-47); Hemoglobin 8.4 gm/dl (12.0-16.0); Mean Cell Volume 98.2 fl (78-100); Mean Corpuscular Hgb Concent. 31.3 g/dl (32-36); Mean Platelet Volume 9.1 fl (6-9.5); Platelet Count 220 K/mm3 (150-450); Red Blood Count 2.73 M/mm3 (4.1-5.4); Red Cell Distribution Width 12.5 % (11.5-14.0); White Blood Count 9.6 K/mm3 (4.0-10.5)
[2017-11-20 06:00] LABS: Mean Corpuscular Hemoglobin 30.7 pg (26-32)
[2017-11-20 06:17] LABS: ALBUMIN 3.4 g/dL (3.5-5.0); ALKALINE PHOSPHATASE 134 U/L (38-126); ANION GAP 10.8 MEQ/L (5-15); BLOOD UREA NITROGEN 5 mg/dL (7-17); CHLORIDE 102 mmol/L (98-107); Calcium 8.6 mg/dL (8.4-10.2); Carbon Dioxide 28 mmol/L (22-30); Creatinine 1 0.62 mg/dL (0.52-1.04); Glucose 124 mg/dL (74-106); Potassium 3.6 mmol/L (3.5-5.1); SGOT/AST 97 U/L (14-36); SGPT/ALT 136 U/L (0-35); SODIUM 137 mmol/L (137-145); Total Protein 5.9 g/dL (6.3-8.2)
[2017-11-20] MEDS ORDERED: MORPHINE SULFATE 4 MG INJ IV PRN (06:24)
[2017-11-20] MEDS: PROVENTIL 2.5 MG/3 ML NEB IH SCH ×2 (06:44→12:52)
--- NOTE | 2017-11-20 08:55 | PCM.NOTE ---
Date and Time: 11/20/17 0853 Subjective Assessment: patient tolerating clear liquids, having bowel movements but complains of bloating with eating apparently during her stay. no new complaints Objective Exam General Appearance: no apparent distress, alert Skin Exam: normal color, warm, dry Respiratory Exam: normal breath sounds, lungs clear, No respiratory distress Cardiovascular Exam: regular rate/rhythm, normal heart sounds Gastrointestinal/Abdomen Exam: normal bowel sounds, No tenderness, No distention Extremity Exam: normal inspection, normal range of motion OBJECTIVE DATA Vital Signs: Vital Signs - 24 hr Temp Pulse Resp BP Pulse Ox 11/20/17 07:04 97.8 F 78 20 152/86 95 11/20/17 06:45 77 16 99 11/20/17 03:00 98.4 F 78 18 180/71 97 11/20/17 01:22 76 18 98 11/19/17 23:00 19 11/19/17 19:54 98.9 F 79 19 155/68 97 11/19/17 19:15 86 20 97 11/19/17 16:42 98.1 F 83 20 140/63 96 11/19/17 15:00 98.1 F 87 22 188/83 97 11/19/17 14:40 78 24 100 11/19/17 11:10 87 11/19/17 11:00 98.1 F 87 22 188/83 97 Oxygen-Last 24 hours O2 Percentage 2 Liters = 28% Pain Assessment - Last Documented Pain Intensity 6 Pain Scale Used [facility] Intake and Output: Intake & Output 11/17/17 11/18/17 11/19/17 11/20/17 11:59 11:59 11:59 11:59 Intake Total 1140 2075 2596 2345 Output Total 1000 1600 600 Balance 1140 7568 214 1314 Weight 66 kg 67 kg 69.4 kg 69.8 kg Lab Results: Accuchecks Date 11/20/17 Date 11/19/17 Date 11/19/17 Date 11/19/17 Time 21:00 Time 16:12 Time 10:48 Accucheck Value: 125 Accucheck Value: 96 Accucheck Value: 130 Accucheck Value: 117 Lab Results-Last 24 Hours 11/20/17 11/20/17 Range/Units 05:45 05:45 WBC 9.6 (4.0-10.5) K/mm3 RBC 2.73 L (4.1-5.4) M/mm3 Hgb 8.4 L (12.0-16.0) gm/dl Hct 26.8 L (35-47) % MCV 98.2 (78-100) fl MCH 30.7 (26-32) pg MCHC 31.3 L (32-36) g/dl RDW 12.5 (11.5-14.0) % Plt Count 220 (150-450) K/mm3 MPV 9.1 (6-9.5) fl Sodium 137 (137-145) mmol/L Potassium 3.6 (3.5-5.1) mmol/L Chloride 102 (98-107) mmol/L Carbon Dioxide 28 (22-30) mmol/L Anion Gap 10.8 (5-15) MEQ/L BUN 5 L (7-17) mg/dL Creatinine 0.62 (0.52-1.04) mg/dL Estimated GFR > 60.0 ML/MIN Glucose 124 H (74-106) mg/dL Calcium 8.6 (8.4-10.2) mg/dL Total Bilirubin 0.30 (0.2-1.3) mg/dL AST 97 H (14-36) U/L ALT 136 H (0-35) U/L Alkaline Phosphatase 134 H (38-126) U/L Serum Total Protein 5.9 L (6.3-8.2) g/dL Albumin 3.4 L (3.5-5.0) g/dL Radiology Exams: Radiology Procedures Category Date Time Status ABDOMEN 2 VIEW Urgent Exams 11/18/17 08:54 Completed Multi-Disciplinary Progress Notes: Multi-Disciplinary Progress Notes 11/19/17 11:00 (created 11/19/17 15:40) Case Management Note by Rosie Peters REVIEWED DISCHARGE PLAN. LIVES ALONE, PROVIDES SELF CARE, AND INDEPENDENT WITH ALL ADL'S. REPORTS THAT SHE DRIVES IN [place] TO BANK, DRUG STORE, AND GROCERY STORE. REPORTS THAT SHE WILL NOT DRIVE ON THE [place]IG[place] AND SHE CAN NOT DRIVE HERSELF TO [place] AP[place]. REPORTS THAT HER 81 YEAR OLD BROTHER TRIES TO COME DOWN EVERY THURSDAY TO VISIT AND SOMETIMES TAKES HER TO APPTS. DISCUSSED LIST OF TRANSPORTATION PROVIDERS. REPORTS THAT SHE HAS A NEIGHBOR THAT WILL SOMETIMES TAKE HER. DISCUSSED THE IMPORTANCE OF MAKING ALL F/U APPTS. REPORTS THAT SHE WILL TRY. VERBALIZED UNDERSTANDING AND ABLE TO REPEAT INFORMATION BACK. Initialized on 11/19/17 15:40 - END OF NOTE Assessment/Plan (1) Ileus Current Visit: Yes Status: Acute Assessment & Plan: will advance to bland diet today Code(s): K56.7 - ILEUS, UNSPECIFIED (2) Elevated liver enzymes Current Visit: Yes Status: Acute Code(s): R74.8 - ABNORMAL LEVELS OF OTHER SERUM ENZYMES
[2017-11-20] MEDS: Protonix 40MG Tablet PO SCH (10:14)
[2017-11-20] MEDS: Flonase NASAL NS SCH (10:14)
[2017-11-20] MEDS: ACCOLATE 20 MG PO SCH (10:14)
[2017-11-20] MEDS: ceLEXa 20 MG PO SCH (10:14)
[2017-11-20] MEDS: ROCEPHIN 1 Gm-D5w 50 ml Bag** 1 G/50 ML IVPB IV SCH (10:15)
[2017-11-20] MEDS: ENOXAPARIN SODIUM SQ SCH (10:15)
[2017-11-20] MEDS: Lidoderm Patch 5% TOP SCH (10:15)
[2017-11-20] MEDS: Miralax Powder 17GM PACKET PO SCH (10:18)
[2017-11-20] MEDS: NORVASC 5 MG PO SCH (10:35)
[2017-11-20 11:06] VITALS: BP 169/76; PULSE 70; O2SAT 97
--- NOTE | 2017-11-20 15:31 | PCM.DS ---
Discharge Summary Date of Admission: 11/15/17 03:48 Admitting Physician: CJ DRAKE Consults: Consults on Case 11/15/17 10:04 Consult Surgery ROUTINE Primary Care Provider: CJ DRAKE Allergies Allergies aspirin Allergy (Severe, Verified 11/14/17 21:40) Difficulty Breathing iodine Allergy (Severe, Verified 11/14/17 21:40) Difficulty Breathing Penicillins Allergy (Severe, Verified 11/14/17 21:40) Difficulty Breathing prednisone Adverse Reaction (Intermediate, Verified 11/14/17 21:40) Lightheadedness DOES NOT LIKE HOW MED MAKES HER FEEL , hallucinations , shakes,stutters iron Adverse Reaction (Mild, Verified 11/14/17 21:40) Nausea Hospital Summary - Hospital Course Hospital Course: patient has been under the care of Dr Drake up until date of discharge, had an ileus with nausea but no vomiting. tolerating clears, having bowel movement. on date of discharge tolerating solid/bland diet and doing well with it. patient actually requested discharge from nursing. - Vitals & Intake/Output Vital Signs: Vital Signs Temperature 98 F 11/20/17 11:05 Pulse Rate 70 11/20/17 12:52 Respiratory Rate 18 11/20/17 12:52 Blood Pressure 169/76 11/20/17 11:05 O2 Sat by Pulse Oximetry 97 11/20/17 12:52 Oxygen-Last Documented O2 Percentage 2 Liters = 28% Intake & Output: Intake & Output 11/18/17 11/19/17 11/20/17 11/21/17 11:59 11:59 11:59 11:59 Intake Total 2075 2596 2705 360 Output Total 1000 2794 185 5145 Balance 6118 771 3575 -740 Weight 67 kg 69.4 kg 69.8 kg - Lab Result Diagrams: 11/20/17 05:45 11/20/17 05:45 Lab Results-Last 24 Hrs: Accuchecks Date 11/20/17 Date 11/19/17 Date 11/19/17 Time 11:00 Time 21:00 Time 16:12 Accucheck Value: 130 Accucheck Value: 125 Accucheck Value: 96 Accucheck Value: 130 Lab Results-Last 24 Hours 11/20/17 11/20/17 Range/Units 05:45 05:45 WBC 9.6 (4.0-10.5) K/mm3 RBC 2.73 L (4.1-5.4) M/mm3 Hgb 8.4 L (12.0-16.0) gm/dl Hct 26.8 L (35-47) % MCV 98.2 (78-100) fl MCH 30.7 (26-32) pg MCHC 31.3 L (32-36) g/dl RDW 12.5 (11.5-14.0) % Plt Count 220 (150-450) K/mm3 MPV 9.1 (6-9.5) fl Sodium 137 (137-145) mmol/L Potassium 3.6 (3.5-5.1) mmol/L Chloride 102 (98-107) mmol/L Carbon Dioxide 28 (22-30) mmol/L Anion Gap 10.8 (5-15) MEQ/L BUN 5 L (7-17) mg/dL Creatinine 0.62 (0.52-1.04) mg/dL Estimated GFR > 60.0 ML/MIN Glucose 124 H (74-106) mg/dL Calcium 8.6 (8.4-10.2) mg/dL Total Bilirubin 0.30 (0.2-1.3) mg/dL AST 97 H (14-36) U/L ALT 136 H (0-35) U/L Alkaline Phosphatase 134 H (38-126) U/L Serum Total Protein 5.9 L (6.3-8.2) g/dL Albumin 3.4 L (3.5-5.0) g/dL Micro Results-Entire Visit: Accuchecks Date 11/20/17 Date 11/19/17 Date 11/19/17 Time 11:00 Time 21:00 Time 16:12 Accucheck Value: 130 Accucheck Value: 125 Accucheck Value: 96 Accucheck Value: 130 - Procedures and Test Procedures and Tests throughout Hospitalization: Therapy Orders & Screens 11/15/17 08:04 Respiratory Nebulizer TID Comment: Diagnosis: rib fractures 11/16/17 09:05 RT Miscellaneous Order ROUTINE Comment: Physician Instructions: o2 at night Reason For Exam: Diagnosis: rib fractures 11/16/17 19:40 Oxygen NASAL CANNULA 2 lpm Comment: 2lpm O2 NOC Diagnosis: rib fractures 11/17/17 13:32 PT Eval & Treat (MD Order) ROUTINE Reason for Eval:: Weakness Diagnosis: rib fractures 11/18/17 03:17 Respiratory Nebulizer UD Comment: albuterol neb q2prn Diagnosis: rib fractures Discharge Exam General Appearance: no apparent distress, alert Skin Exam: normal color, warm, dry Respiratory Exam: normal breath sounds, lungs clear, No respiratory distress Cardiovascular Exam: regular rate/rhythm, normal heart sounds Gastrointestinal/Abdomen Exam: soft, No tenderness, No mass Extremity Exam: normal inspection, normal range of motion Final Diagnosis/Problem List - Final Discharge Diagnosis/Problem (1) Ileus Current Visit: Yes Status: Acute (2) Elevated liver enzymes Current Visit: Yes Status: Acute (3) Hypertension Current Visit: Yes Status: Acute Assessment & Plan: prescribe amlodipine, has refused. recommended to take, will send home with rx to f/u with Dr Drake - Discharge Disposition: Home, Self-Care Condition: Fair Prescriptions: New Amlodipine Besylate 5 mg [Norvasc 5 mg] 5 mg PO QAM #30 tablet Continue Zafirlukast 20 mg [Accolate 20 mg] 20 mg PO BID #180 tablet Metformin HCl 500 mg [Glucophage 500 MG] 250 mg PO DAILY Alprazolam 1 mg [Xanax 1 mg] 1 mg PO HS Trazodone HCl 50 mg [Desyrel 50 mg] 50 mg PO HS Citalopram Hydrobromide [Celexa] 20 mg PO DAILY Clopidogrel Bisulfate 75 mg [PLAVIX 75 MG Tablet] 75 mg PO HS #0 Arformoterol Tartrate [Brovana] 15 mcg IH BID Omeprazole 20 MG [Prilosec 20 mg] 20 mg PO DAILY Cholecalciferol (Vitamin D3) [Vitamin D] 2,000 unit PO DAILY Albuterol Common Canister [Proventil Common Canister] 2 puff IH Q6HPRN PRN PRN Reason: Shortness Of Breath Albuterol 2.5 mg/3 ml Neb [Proventil 2.5 mg/3 ml Neb] 2.5 mg IH Q6HPRN PRN PRN Reason: Shortness Of Breath Fluticasone Propionate [Flonase Nasal] 1 spray INTRANASAL DAILY Cyanocobalamin (Vitamin B-12) [Vitamin B12] 2,500 mcg IM UD Instructions: Intestinal Pseudo-obstruction (DC), Liver Function Test Follow up with: CJ DRAKE [Primary Care Provider] - 11/27/17 10:00 am Forms: Discharge Instructions
[2017-11-27] MEDS ORDERED: Cyanocobalamin B-12 1000 MCG/ML IM SCH (10:00)
== END 2017-11-20 15:10 | disposition home or self-care (01) | DRG 389 ==
LOC: ED 21:00 → MED SURG 11-15 03:48
PROVIDERS: ADMIT Family Medicine; ATTEND Family Medicine
DX: K56.7 Ileus, unspecified (principal); N39.0 Urinary tract infection, site not specified; J96.11 Chronic respiratory failure with hypoxia; K59.00 Constipation, unspecified; R74.8 Abnormal levels of other serum enzymes; I10 Essential (primary) hypertension; F41.9 Anxiety disorder, unspecified; S22.41XA Multiple fractures of ribs, right side, initial encounter for closed fracture; M54.9 Dorsalgia, unspecified; R10.9 Unspecified abdominal pain; E53.8 Deficiency of other specified B group vitamins; G47.00 Insomnia, unspecified; W19.XXXA Unspecified fall, initial encounter; F41.8 Other specified anxiety disorders; N80.9 Endometriosis, unspecified; J01.01 Acute recurrent maxillary sinusitis; Z99.81 Dependence on supplemental oxygen; Z79.899 Other long term (current) drug therapy; Z96.643 Presence of artificial hip joint, bilateral; Z86.718 Personal history of other venous thrombosis and embolism; J44.9 Chronic obstructive pulmonary disease, unspecified; J45.909 Unspecified asthma, uncomplicated; E11.9 Type 2 diabetes mellitus without complications; Z79.4 Long term (current) use of insulin; M19.90 Unspecified osteoarthritis, unspecified site; R07.89 Other chest pain
CPT/HCPCS: 28660; 36000; 36415; 71260; 74021; 74022; 74177; 80048; 80053; 81000; 82150; 82962; 83036; 83605; 83690; 85025; 85027; 87086; 94150; 94640; 94760; 96374; 96375; 96376; 99284; J0696; J1200; J1650; J1720; J2060; J2270; J2405; A9270-GY

== ENCOUNTER 2017-12-22 20:52 | Observation (INO) | payer MEDICARE, OTHER ==
[2017-12-22] MEDS ORDERED: Sodium Chloride 0.9% 1000 ML 1,000 ML IV SCH (21:15)
--- NOTE | 2017-12-22 21:16 | ERPHSYRPT ---
- History of Present Illness Time Seen by Provider: 12/22/17 21:08 Source: patient Exam Limitations: no limitations Patient Subjective Stated Complaint: pt states she has been short of breath since last night; denies any cough; breathing treatments x2 at home without relief. Triage Nursing Assessment: pt presents a&o x3; skin p, w, & d; no obvious distress noted; expiratory wheezes slightly diminished; transported to er per ems. Physician History: 82-year-old white female arrives with complaint of shortness of breath at home since last night she denies fevers but states she felt hot, states "a little cough". No chest pain positive nausea no vomiting. Past medical history includes COPD, asthma, pneumonia, macular degeneration, cataracts, arrhythmia, DVT, bronchitis, diabetes type 2, arthritis, GERD, anxiety, depression, endometriosis Past surgical history includes appendectomy, cholecystectomy, bilateral hip replacement, hysterectomy, , back surgery Social history patient denies tobacco use denies alcohol use denies illicit drugs Timing/Duration: yesterday (last night) Activities at Onset: none Severity of Dyspnea-Max: moderate Severity of Dyspnea-Current: mild Possible Cause: occasional episodes Modifying Factors: Improves With: nothing Associated Symptoms: constant, cough (states "a little cough" nonproductive), insomnia, No intermittent, No anxiety, No chest pain/discomfort, No edema, No fever, No loss of appetite, No lightheadedness, No wheezing, No weakness, No ankle swelling, No chills, No hemoptysis, No calf pain, No dizziness, No heaviness, No heart racing, No lightheadedness, No leg swelling, No muscle spasms feet, No muscle spasms hands, No painful breathing, No productive cough, No sweating, No tightness, No tingling face, No tingling hands International travel in last 2 weeks: No Allergies/Adverse Reactions: aspirin Allergy (Severe, Verified 12/22/17 21:05) Difficulty Breathing iodine Allergy (Severe, Verified 12/22/17 21:05) Difficulty Breathing Penicillins Allergy (Severe, Verified 12/22/17 21:05) Difficulty Breathing prednisone Adverse Reaction (Intermediate, Verified 12/22/17 21:05) Lightheadedness DOES NOT LIKE HOW MED MAKES HER FEEL , hallucinations , shakes,stutters iron Adverse Reaction (Mild, Verified 12/22/17 21:05) Nausea Home Medications: Metformin HCl 500 mg [Glucophage 500 MG] 250 mg PO DAILY 02/11/15 [History ] Alprazolam 1 mg [Xanax 1 mg] 1 mg PO HS 10/15/15 [History] Trazodone HCl 50 mg [Desyrel 50 mg] 50 mg PO HS 12/31/16 [History] Citalopram Hydrobromide [Celexa] 20 mg PO DAILY 03/04/17 [History] Arformoterol Tartrate [Brovana] 15 mcg IH BID 07/18/17 [History] Albuterol 2.5 mg/3 ml Neb [Proventil 2.5 mg/3 ml Neb] 2.5 mg IH Q6HPRN PRN 11/15/17 [History] Albuterol Common Canister [Proventil Common Canister] 2 puff IH Q6HPRN PRN 11/15/17 [History] Cholecalciferol (Vitamin D3) [Vitamin D] 2,000 unit PO DAILY 11/15/17 [History] Cyanocobalamin (Vitamin B-12) [Vitamin B12] 2,500 mcg IM UD 11/15/17 [History] Fluticasone Propionate [Flonase Nasal] 1 spray INTRANASAL DAILY 11/15/17 [ History] Omeprazole 20 MG [Prilosec 20 mg] 20 mg PO DAILY 11/15/17 [History] Hx Tetanus, Diphtheria Vaccination/Date Given: Yes Hx Influenza Vaccination/Date Given: Yes Hx Pneumococcal Vaccination/Date Given: Yes Immunizations Up to Date: Yes - Review of Systems Constitutional: Fever (felt hot at home), No Chills, No Fatigue, No Lethargy, No Malaise, No Night Sweats, No Weakness, No Weight Loss Eyes: No Symptoms Ears, Nose, & Throat: No Symptoms, No Ear Pain, No Ear Discharge, No Hearing Changes, No Tinnitus, No Nose Pain, No Nose Congestion, No Nose Discharge, No Sinus Drainage, No Epistaxis, No Mouth Pain, No Mouth Swelling, No Loose Teeth, No Throat Pain, No Throat Swelling, No Hoarse, No Painful Swallowing, No Snoring , No Stridor Respiratory: Cough ("a little cough" nonproductive), Dyspnea, Wheezing, No Cyanosis, No Dyspnea on Exertion (ALBA), No Stridor Cardiac: No Chest Pain, No Edema, No Syncope Abdominal/Gastrointestinal: No Abdominal Pain, No Nausea, No Vomiting, No Diarrhea Genitourinary Symptoms: No Dysuria Musculoskeletal: No Back Pain, No Neck Pain Skin: No Rash Neurological: No Dizziness, No Focal Weakness, No Sensory Changes Psychological: No Symptoms Endocrine: No Symptoms All Other Systems: Reviewed and Negative - Past Medical History Pertinent Past Medical History: Yes Neurological History: Other ENT History: Cataracts, Macular Degeneration Cardiac History: Arrhythmia, Deep Vein Thrombosis Respiratory History: Asthma, Bronchitis, COPD Endocrine Medical History: Diabetes Type II Musculoskeletal History: Arthritis, Other GI Medical History: GERD History: Other Psycho-Social History: Anxiety, Depression Female Reproductive Disorders: Endometriosis, Other Other Medical History: DVT left leg, pt cant remember arrhythmia states " it was a long time ago". hx of UTI, ovary removed, justin hip replacements, hx of back problems. vertigo - Past Surgical History Past Surgical History: Yes Neuro Surgical History: No Pertinent History Cardiac: No Pertinent History Respiratory: No Pertinent History Gastrointestinal: Appendectomy, Cholecystectomy Genitourinary: No Pertinent History Musculoskeletal: Joint Replacement, Orthopedic Surgery Female Surgical History: Hysterectomy, Section, Other Other Surgical History: Justin hip replacement,back surgery-disc replacement per pt., cataracts - Social History Smoking Status: Never smoker Exposure to second hand smoke: No Drug Use: none Patient Lives Alone: Yes Significant Family History: no pertinent family hx - Female History Hx Last Menstrual Period: hyst - Nursing Vital Signs Nursing Vital Signs: Initial Vital Signs Temperature 98.4 F 12/22/17 20:54 Pulse Rate 92 H 12/22/17 20:54 Respiratory Rate 20 12/22/17 20:54 Blood Pressure 154/68 12/22/17 20:54 O2 Sat by Pulse Oximetry 99 12/22/17 20:54 Pain Scale Pain Intensity 0 - Physical Exam General Appearance: no apparent distress, alert Eye Exam: PERRL/EOMI Ears, Nose, Throat Exam: hearing grossly normal, normal ENT inspection, normal pharynx, No abnormal TM (R), No abnormal TM (L), No nasal congestion Neck Exam: normal inspection, supple Respiratory Exam: normal breath sounds, other (patient when asked to breathe forces air out no wheezing lungs sound clear) Cardiovascular/Chest Exam: normal heart sounds, regular rate/rhythm Abdominal/Gastrointestinal Exam: soft, No tenderness, No distention, No mass Extremity Exam: non-tender, normal range of motion, normal inspection, no calf tenderness, no pedal edema Peripheral Pulses Exam: dorsalis-pedis (R): 2+, dorsalis-pedis (L): 2+ Neurologic Exam: alert, oriented x 3, cooperative, advanced manufacturing vice president II-XII nml as tested, sensation nml, No motor deficits SpO2 Interpretation: normal (100%) SpO2: 100 Oxygen Delivery: Nasal Cannula - Course Nursing assessment & vital signs reviewed: Yes EKG Interpreted by Me: RATE (90 bpm), Sinus Rhythm, NORMAL AXIS, Other (EKG: Sinus rhythm, 90 beats per minute, normal axis, poor anterior R-wave progression , no acute ST or T wave changes, no acute changes as compared to September 03, 2017) - Radiology Exams Chest X-ray Interpretation: Interpreted by me, Other (no acute disease process noted) Ordered Tests: Active Orders 24 hr Category Date Time Status Machine Setup Operator STAT Care 12/22/17 21:09 Active EKG-ER Only STAT Care 12/22/17 21:09 Active IV Insertion STAT Care 12/22/17 21:09 Active Oxygen-ED Only NASAL CANNULA 2 lpm Care 12/22/17 21:09 Active CHEST 1 VIEW (PORTABLE) Stat Exams 12/22/17 21:09 Taken CBC W DIFF Stat Lab 12/22/17 21:25 Completed CMP Stat Lab 12/22/17 21:25 Completed NT PRO BNP Stat Lab 12/22/17 21:25 Completed TROPONIN Q3H Lab 12/22/17 21:25 Completed TROPONIN Q3H Lab 12/23/17 00:15 Ordered TROPONIN Q3H Lab 12/23/17 03:15 Ordered TROPONIN Q3H Lab 12/23/17 06:15 Ordered TROPONIN Q3H Lab 12/23/17 09:15 Ordered VENOUS BLOOD GAS Stat Lab 12/22/17 21:20 Completed Respiratory Nebulizer STAT RT 12/22/17 22:08 Active Medication Summary Generic Name Dose Route Start Last Admin Trade Name Freq PRN Reason Stop Dose Admin Sodium Chloride 1,000 mls @ 100 mls/hr 12/22/17 21:15 05/15/18 21:39 Sodium Chloride 0.9% 1000 Ml IV 01/21/18 21:14 100 mls/hr .Q10H [place] Administration Discontinued Medications Generic Name Dose Route Start Last Admin Trade Name Rachel PRN Reason Stop Dose Admin Albuterol Sulfate 2.5 mg 12/22/17 22:08 Proventil 2.5 Mg/3 Ml Neb IH 12/22/17 22:09 STAT ONE Albuterol Sulfate Confirm 12/22/17 22:13 Proventil 2.5 Mg/3 Ml Neb Administered 12/22/17 22:14 Dose 2.5 mg IH .STK-MED ONE Lab/Rad Data: Laboratory Result Diagrams 12/22/17 21:25 12/22/17 21:25 Laboratory Results 12/22/17 12/22/17 12/22/17 Range/Units 21:25 21:25 21:25 WBC 6.7 (4.0-10.5) K/mm3 RBC 3.12 L (4.1-5.4) M/mm3 Hgb 9.6 L (12.0-16.0) gm/dl Hct 29.7 L (35-47) % MCV 95.2 (78-100) fl MCH 30.7 (26-32) pg MCHC 32.3 (32-36) g/dl RDW 12.8 (11.5-14.0) % Plt Count 184 (150-450) K/mm3 MPV 8.3 (6-9.5) fl Gran % 67.5 H (36.0-66.0) % Eos # (Auto) 0.07 (0-0.5) Absolute Lymphs (auto) 0.91 L (1.0-4.6) Absolute Monos (auto) 1.19 (0.0-1.3) Lymphocytes % 13.6 L (24.0-44.0) % Monocytes % 17.8 H (0.0-12.0) % Eosinophils % 1.0 (0.00-5.0) % Basophils % 0.1 (0.0-0.4) % Absolute Granulocytes 4.52 (1.4-6.9) Basophils # 0.01 (0-0.4) pO2/FiO2 Ratio % VBG pH (7.32-7.42) VBG pCO2 at Pat Temp (42-55) mm/Hg VBG pO2 at Pat Temp (25-40) mm/Hg VBG HCO3 (22-28) meq/L VBG O2 Sat (Yuliya) (95-100) VBG Base Excess (-2.0-2.0) VBG Hemoglobin VBG Carboxyhemoglobin (0.0-6.9) % T HGB POC Potassium (3.5-5.1) Sodium 134 L (137-145) mmol/L Potassium 4.3 (3.5-5.1) mmol/L Chloride 97 L (98-107) mmol/L Carbon Dioxide 28 (22-30) mmol/L Anion Gap 14.0 (5-15) MEQ/L BUN 15 (7-17) mg/dL Creatinine 0.91 (0.52-1.04) mg/dL Estimated GFR > 60.0 ML/MIN Glucose 137 H (74-106) mg/dL Calcium 9.2 (8.4-10.2) mg/dL Total Bilirubin 0.30 (0.2-1.3) mg/dL AST 19 (14-36) U/L ALT 12 (0-35) U/L Alkaline Phosphatase 94 (38-126) U/L Troponin I < 0.012 (0.000-0.034) ng/mL NT-Pro-B Natriuret Pep 334 (0-1800) pg/mL Serum Total Protein 6.6 (6.3-8.2) g/dL Albumin 3.9 (3.5-5.0) g/dL 12/22/17 Range/Units 21:20 WBC (4.0-10.5) K/mm3 RBC (4.1-5.4) M/mm3 Hgb (12.0-16.0) gm/dl Hct (35-47) % MCV (78-100) fl MCH (26-32) pg MCHC (32-36) g/dl RDW (11.5-14.0) % Plt Count (150-450) K/mm3 MPV (6-9.5) fl Gran % (36.0-66.0) % Eos # (Auto) (0-0.5) Absolute Lymphs (auto) (1.0-4.6) Absolute Monos (auto) (0.0-1.3) Lymphocytes % (24.0-44.0) % Monocytes % (0.0-12.0) % Eosinophils % (0.00-5.0) % Basophils % (0.0-0.4) % Absolute Granulocytes (1.4-6.9) Basophils # (0-0.4) pO2/FiO2 Ratio 32.0 % VBG pH 7.41 (7.32-7.42) VBG pCO2 at Pat Temp 46 (42-55) mm/Hg VBG pO2 at Pat Temp 19 L (25-40) mm/Hg VBG HCO3 29.2 H* (22-28) meq/L VBG O2 Sat (Yuliya) 37.8 L (95-100) VBG Base Excess 4.0 H (-2.0-2.0) VBG Hemoglobin 9.5 VBG Carboxyhemoglobin 2.1 (0.0-6.9) % T HGB POC Potassium 4.2 (3.5-5.1) Sodium (137-145) mmol/L Potassium (3.5-5.1) mmol/L Chloride (98-107) mmol/L Carbon Dioxide (22-30) mmol/L Anion Gap (5-15) MEQ/L BUN (7-17) mg/dL Creatinine (0.52-1.04) mg/dL Estimated GFR ML/MIN Glucose (74-106) mg/dL Calcium (8.4-10.2) mg/dL Total Bilirubin (0.2-1.3) mg/dL AST (14-36) U/L ALT (0-35) U/L Alkaline Phosphatase (38-126) U/L Troponin I (0.000-0.034) ng/mL NT-Pro-B Natriuret Pep (0-1800) pg/mL Serum Total Protein (6.3-8.2) g/dL Albumin (3.5-5.0) g/dL - Progress Progress: improved Air Movement: fair Progress Note: 12/22/17 22:16 Patient initially clear after a DuoNeb treatment by medics she still states she feels short of breath and feels like she is wheezing. On recheck I do hear a few wheezes Will go ahead and give albuterol treatment. Patient states she is allergic to prednisone she states that this causes mental status changes Will avoid Solu-Medrol. Chest x-ray on this patient no acute disease process noted. I have discussed the patient's case with Dr. Salas will give patient a dose of Ativan, consider lacing the patient on observation diagnosis of shortness of breath consider continuing albuterol treatments slow IV fluids. Will avoid antibiotics at this time patient's chest x-ray is clear she has a normal white count. Antibiotics given: No Discussed with : Josue - Departure Time of Disposition: 22:18 Departure Disposition: Observation Clinical Impression: Shortness of breath, Bronchospasm Condition: Fair Critical Care Time: No Referrals: CJ MORROW [Primary Care Provider] -
[2017-12-22 21:25] LABS: VBG CARBOXYHEMOGLOBIN 2.1 % T HGB (0.0-6.9); VBG HCO3- 29.2 meq/L (22-28); VBG HEMOGLOBIN 9.5; VBG O2 SATURATION 37.8 (95-100); VBG POTASSIUM 4.2 (3.5-5.1); VBG pH 7.41 (7.32-7.42)
[2017-12-22 21:29] LABS: BASOPHIL % 0.1 % (0.0-0.4); Basophil (Absolute #) 0.01 (0-0.4); Eosinophil (Absolute #) 0.07 (0-0.5); Granulocyte Absolute (ANC) 4.52 (1.4-6.9); Granulocytes % 67.5 % (36.0-66.0); Hematocrit 29.7 % (35-47); Hemoglobin 9.6 gm/dl (12.0-16.0); Lymphocyte (Absolute #) 0.91 (1.0-4.6); Lymphocytes % 13.6 % (24.0-44.0); Mean Cell Volume 95.2 fl (78-100); Mean Corpuscular Hemoglobin 30.7 pg (26-32); Mean Corpuscular Hgb Concent. 32.3 g/dl (32-36); Mean Platelet Volume 8.3 fl (6-9.5); Monocyte (Absolute #) 1.19 (0.0-1.3); Monocytes % 17.8 % (0.0-12.0); Platelet Count 184 K/mm3 (150-450); Red Blood Count 3.12 M/mm3 (4.1-5.4); Red Cell Distribution Width 12.8 % (11.5-14.0); White Blood Count 6.7 K/mm3 (4.0-10.5)
[2017-12-22] MEDS ORDERED: Sodium Chloride 0.9% 1000 ML 1,000 ML ONE (21:35)
[2017-12-22 21:49] LABS: ALBUMIN 3.9 g/dL (3.5-5.0); ALKALINE PHOSPHATASE 94 U/L (38-126); BLOOD UREA NITROGEN 15 mg/dL (7-17); CHLORIDE 97 mmol/L (98-107); Calcium 9.2 mg/dL (8.4-10.2); Carbon Dioxide 28 mmol/L (22-30); Creatinine 1 0.91 mg/dL (0.52-1.04); Glucose 137 mg/dL (74-106); Potassium 4.3 mmol/L (3.5-5.1); SGOT/AST 19 U/L (14-36); SGPT/ALT 12 U/L (0-35); SODIUM 134 mmol/L (137-145); Total Protein 6.6 g/dL (6.3-8.2)
[2017-12-22 21:58] LABS: NT PRO BNP 334 pg/mL (0-1800)
[2017-12-22] MEDS ORDERED: PROVENTIL 2.5 MG/3 ML NEB IH ONE ×2 (22:08→22:13)
[2017-12-22] MEDS ORDERED: Ativan 2 MG/1 ML VIAL IV ONE (22:20)
[2017-12-22] MEDS ORDERED: NovoLOG Insulin SQ PRN (22:55)
[2017-12-22] MEDS ORDERED: DUONEB 0.5-3 MG/3 ml Neb IH PRN (22:55)
[2017-12-23] MEDS ORDERED: DESYREL 50 MG ONE
[2017-12-23] MEDS ORDERED: PLAVIX 75 MG Tablet ONE (00:01)
[2017-12-23] MEDS: ACCOLATE 20 MG PO SCH ×2 (00:03→21:56)
[2017-12-23] MEDS: PLAVIX 75 MG Tablet PO SCH ×2 (00:03→21:32)
[2017-12-23] MEDS: DESYREL 50 MG PO SCH ×2 (00:04→21:56)
[2017-12-23] MEDS: Sodium Chloride 0.9% 1000 ML 1,000 ML IV SCH ×2 (00:08→07:38)
[2017-12-23] MEDS: Ativan 2 MG/1 ML VIAL IV PRN ×2 (00:15→21:32)
[2017-12-23 05:34] LABS: BASOPHIL % 0.1 % (0.0-0.4); Basophil (Absolute #) 0.01 (0-0.4); Eosinophil % 1.3 % (0.00-5.0); Eosinophil (Absolute #) 0.09 (0-0.5); Granulocyte Absolute (ANC) 4.12 (1.4-6.9); Granulocytes % 60.2 % (36.0-66.0); Hematocrit 27.6 % (35-47); Hemoglobin 8.8 gm/dl (12.0-16.0); Lymphocyte (Absolute #) 1.33 (1.0-4.6); Lymphocytes % 19.4 % (24.0-44.0); Mean Cell Volume 95.5 fl (78-100); Mean Corpuscular Hemoglobin 30.4 pg (26-32); Mean Corpuscular Hgb Concent. 31.9 g/dl (32-36); Mean Platelet Volume 8.5 fl (6-9.5); Platelet Count 183 K/mm3 (150-450); Red Blood Count 2.89 M/mm3 (4.1-5.4); Red Cell Distribution Width 12.8 % (11.5-14.0); White Blood Count 6.9 K/mm3 (4.0-10.5)
[2017-12-23 06:00] LABS: ALBUMIN 3.4 g/dL (3.5-5.0); ALKALINE PHOSPHATASE 80 U/L (38-126); ANION GAP 12.1 MEQ/L (5-15); BLOOD UREA NITROGEN 13 mg/dL (7-17); CHLORIDE 100 mmol/L (98-107); Calcium 8.9 mg/dL (8.4-10.2); Carbon Dioxide 27 mmol/L (22-30); Creatinine 1 0.82 mg/dL (0.52-1.04); Glucose 106 mg/dL (74-106); Potassium 4.3 mmol/L (3.5-5.1); SGOT/AST 17 U/L (14-36); SGPT/ALT 10 U/L (0-35); SODIUM 135 mmol/L (137-145); Total Protein 5.8 g/dL (6.3-8.2)
[2017-12-23] MEDS: PROVENTIL 2.5 MG/3 ML NEB IH SCH ×2 (07:16→21:08)
[2017-12-23] MEDS: PATIENT OWN MEDICATION IH SCH ×2 (07:16→21:08)
[2017-12-23] MEDS ORDERED: PROVENTIL 2.5 MG/3 ML NEB IH PRN (07:46)
--- NOTE | 2017-12-23 08:49 | XRAY ---
Indication: Short of breath. Comparison: November 15, 2017. Portable chest remains clear again with a few incidental calcified granulomas. Heart is not enlarged. Bony thorax intact again with osteopenia and degenerative changes. Impression: Stable nonacute chest with chronic features.
[2017-12-23 09:40] LABS: Iron 57 ug/dL (37-170)
[2017-12-23] MEDS ORDERED: PROVENTIL COMMON CANISTER IH PRN (09:40)
--- NOTE | 2017-12-23 09:41 | HP ---
HISTORY OF PRESENT ILLNESS: This is an 82 year-old patient of Dr. Montgomery who presented to the emergency department last night via ambulance. She reports that yesterday she felt like she was not getting enough air. 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 She drove over there for that. She said she felt hot yesterday, had increased stress. She did not have a fever that she knows of. She was taking her breathing medication as prescribed. She reports in the past she seen Dr. Jg Hamilton and has an upcoming appointment with him on 01/13/2018. She reports her cough is productive of thick white that has not really changed. She has Albuterol and Brovana that she uses at home. She states she was just really nervous. She denies any chest pain. She reports some gas in her belly that seems to push up and keeps her from taking a deep breath. She denies any constipation now. REVIEW OF SYSTEMS: She reports fatigue. No constipation. Some abdominal bloating, feeling anxious and having dyspnea. PAST MEDICAL HISTORY: Peripheral vascular disease, chronic obstructive pulmonary disease, asthma, insomnia, diabetes, constipation, anxiety. PAST SURGICAL HISTORY: Back surgery, hip surgery, appendectomy, hysterectomy, cholecystectomy. MEDICATIONS: Tylenol PM 1 tablet p.o. every 8 hours, Proventil 2.5 mg inhaled every four hours as needed, Albuterol 2 puffs every four hours as needed, Alprazolam 1 mg p.o. q.h.s., amlodipine 5 mg p.o. q.a.m. but she states she no longer takes this. Brovana 15 mcg inhaled b.i.d., vitamin D 2,000 units p.o. daily, citalopram 200 mg p.o. daily that she reports she has been on for years. Plavix 75 mg p.o. daily, vitamin B12 1,000 mcg IM monthly, Flonase 1 spray to each nostril b.i.d., Amitiza 240 mcg p.o. daily, Metformin 250 mg p.o. daily, omeprazole 20 mg p.o. daily, trazodone 50 mg p.o. q.h.s., Zafirlukast 20 mg p.o. b.i.d. ALLERGIES: ASPIRIN, IODINE, PENICILLIN, PREDNISONE, IRON. SOCIAL HISTORY: She denies any tobacco use except maybe smoking one pack when she was 16 years old but has had exposure to secondhand smoke. No alcohol use. She lives alone. FAMILY HISTORY: Her mother at age 92 from old age. Her father at age of 86 from pneumonia. PHYSICAL EXAMINATION: VITAL SIGNS: Temperature current 97.8F, temperature max 99F, heart rate 74 to 91, respiratory rate 15 to 20, blood pressure 126 to 161 over 65 to 80 currently 126/80, weight 56.8 kg. Oxygen saturation 96 to 100% on room air to 2 liters nasal cannula. GENERAL: The patient is walking around her room in no acute distress. She is a pleasant talkative lady. CVS: She has a regular rate and rhythm. No murmurs, gallops or rubs. CHEST: She had some forced expiratory wheezing when asked to take deep breaths otherwise there is no wheezing. Clear to auscultation bilaterally. No crackles. Equal breath sounds. No tachypnea. ABDOMEN: Soft, nontender, nondistended. EXTREMITIES: No clubbing, cyanosis or edema. SKIN: Warm, dry and intact. LABORATORY DATA AND TESTS: Her white blood cell count was normal at 6.9, hemoglobin 8.8, MCV 95. Sodium 135, protein 5.8. There is no formal report on the chest x-ray yet from the radiologist. On my reading of the portable AP x-ray, I do not see any infiltrate. I will await the radiologist report. Her EKG is normal sinus rhythm with no ST-T wave changes, sinus rhythm of 90. ASSESSMENT AND PLAN: 1) ASTHMA EXACERBATION: Will continue with breathing treatments. The patient states she is allergic to prednisone. Will ask silviculture professor, Dr. Yrn Woods to see her. Will continue with close observation. 2) ANXIETY: Will continue with citalopram, Alprazolam 0.5 mg IV every four hours as needed. I discussed [place] with her and she declines at this time. 3) DIABETES MELLITUS TYPE 2: Will continue with her current medications. 4) ANEMIA: On review of her old chart it looks like she had iron deficiency anemia back in January. I will recheck her iron levels and check her stool for occult blood. Also recheck her vitamin B12 level. 5) CODE STATUS: The patient does not want to have any chest compressions or any breaths if something should happen suddenly and her heart would stop beating or she stopped breathing. She also had a copy of her out of hospital DNR form which she signed with Dr. Drake approximately a year ago.
[2017-12-23 09:51] LABS: Iron Saturation 25 % (20-39); TIBC 230 ug/dL (265-462)
[2017-12-23] MEDS ORDERED: NON-FORMULARY ITEM (Cholecalciferol (Vitamin D3) [Vitamin D] 2,000 UNIT) PO SCH (10:00)
[2017-12-23] MEDS ORDERED: NON-FORMULARY ITEM (Citalopram Hydrobromide [Celexa] 20 MG) PO SCH (10:00)
[2017-12-23] MEDS ORDERED: NON-FORMULARY ITEM (Omeprazole 20 Mg [Prilosec 20 Mg] 20 MG) PO SCH (10:00)
[2017-12-23] MEDS ORDERED: ACCOLATE 20 MG PO SCH (10:00)
[2017-12-23 10:10] LABS: Ferritin 155 ng/mL (11.1-264)
[2017-12-23 10:24] LABS: Vitamin B12 777 pg/mL (239-931)
[2017-12-23] MEDS: Protonix 40MG Tablet PO SCH (10:58)
[2017-12-23] MEDS: Flonase NASAL NS SCH ×2 (10:58→21:30)
[2017-12-23] MEDS: ENOXAPARIN SODIUM SQ SCH (10:58)
[2017-12-23] MEDS: VITAMIN D PO SCH (10:58)
[2017-12-23] MEDS: ceLEXa 20 MG PO SCH (10:58)
[2017-12-23] MEDS: AMITIZA PO SCH (10:59)
[2017-12-23] MEDS: Glucophage 500 MG PO SCH (11:02)
[2017-12-23] MEDS ORDERED: ACETAMINOPHEN PO SCH (22:00)
[2017-12-23] MEDS ORDERED: BENADRYL 25 MG CAPSULE PO SCH (22:00)
[2017-12-23] MEDS ORDERED: DIPHENHYDRAMINE PO SCH (22:00)
[2017-12-23] MEDS ORDERED: [UNRECOGNIZED DRUG - OTHER] PO SCH (22:00)
[2017-12-23] MEDS ORDERED: TYLENOL EXTRA STRENGTH 500 MG PO SCH (22:00)
[2017-12-24 07:10] VITALS: BP 135/71; O2SAT 98
[2017-12-24] MEDS: PATIENT OWN MEDICATION IH SCH (07:21)
[2017-12-24] MEDS: PROVENTIL 2.5 MG/3 ML NEB IH SCH (07:21)
[2017-12-24 07:32] VITALS: PULSE 72
--- NOTE | 2017-12-24 08:19 | CONS ---
CONSULT DATE: 12/23/2017 HISTORY: Lima Dewitt is an 82 year-old woman with history of chronic obstructive pulmonary disease, usually followed by Dr. Hamilton, who has been sick for a few days prior to admission. She was brought in via ambulance to the emergency room as the patient had difficulty breathing. She was noted to have cough, wheezing and shortness of breath and was admitted with the diagnosis of chronic obstructive pulmonary disease. The patient was continued on Brovana and does report improvement in shortness of breath since admission. She has had multiple hospitalizations in the past. PAST MEDICAL HISTORY: Positive for history of chronic obstructive pulmonary disease, anxiety, depression, diabetes mellitus, gastroesophageal reflux disease, hypertension and peripheral vascular disease. PAST SURGICAL HISTORY: Positive for back surgery, hip surgery, appendectomy, hysterectomy and cholecystectomy. MEDICATIONS: Home and current medications are reviewed. ALLERGIES: ASPIRIN, IODINE, PENICILLIN, PREDNISONE, IRON. PHYSICAL EXAMINATION: This is an elderly woman who appears comfortable, able to speak without difficulty. Vital signs noted. HEENT: Normocephalic. Oral exam is limited. NECK: Supple. CVS: First and second heart sounds are normal, regular, rhythmic. RESPIRATORY: Shows diminished breath sounds, scattered rhonchi are heard. ABDOMEN: Soft. EXTREMITIES: No significant edema is present. LABORATORY DATA AND TESTS: X-rays reviewed. ASSESSMENT: This is an 82 year old woman admitted with: 1) Chronic obstructive pulmonary disease with acute exacerbation. 2) Acute bronchitis. 3) Hypoxemia.4) Anemia. 5) Comorbid as listed above. RECOMMENDATIONS: The patient is showing clinical improvement, continue present treatment. SCD's for deep venous thrombosis prophylaxis. Work of anemia per primary care physician, continue bronchodilators. She may benefit from a combination therapy of long acting beta-agonist/anti-mutagenic agent in outpatient setting. She will be followed by Dr. Hamilton upon discharge. Advise to remain compliant with medication. Thank you for allowing me to participate in the care of Miss Dewitt.
--- NOTE | 2017-12-24 08:45 | PCM.DCORD ---
- Discharge Discharge Date: 12/24/17 Disposition: Home, Self-Care Condition: Good Prescriptions: Continue Zafirlukast 20 mg [Accolate 20 mg] 20 mg PO BID #180 tablet Metformin HCl 500 mg [Glucophage 500 MG] 250 mg PO DAILY Alprazolam 1 mg [Xanax 1 mg] 1 mg PO HS Trazodone HCl 50 mg [Desyrel 50 mg] 50 mg PO HS Citalopram Hydrobromide [Celexa] 20 mg PO DAILY Clopidogrel Bisulfate 75 mg [PLAVIX 75 MG Tablet] 75 mg PO HS #0 Arformoterol Tartrate [Brovana] 15 mcg IH BID Omeprazole 20 MG [Prilosec 20 mg] 20 mg PO DAILY Cholecalciferol (Vitamin D3) [Vitamin D] 2,000 unit PO DAILY Albuterol Common Canister [Proventil Common Canister] 2 puff IH Q6HPRN PRN PRN Reason: Shortness Of Breath Albuterol 2.5 mg/3 ml Neb [Proventil 2.5 mg/3 ml Neb] 2.5 mg IH Q4HPRN PRN PRN Reason: Shortness Of Breath Fluticasone Propionate [Flonase Nasal] 1 spray INTRANASAL BID Amlodipine Besylate 5 mg [Norvasc 5 mg] 5 mg PO QAM #30 tablet Cyanocobalamin 1000 Mcg/ml [Cyanocobalamin B-12 1000 MCG/ML] 1,000 mcg IJ UD Lubiprostone [Amitiza] 24 mcg PO DAILY Acetaminophen/Diphenhydramine [Tylenol Pm Ex-Strength Caplet] 1 cap PO HS Follow up with: KAY SEXTON [CONSULTING PHYSICIAN] - 1 Week CJ MORORW [Primary Care Provider] - 1 Week
[2017-12-24] MEDS: Glucophage 500 MG PO SCH (08:51)
[2017-12-24] MEDS: Flonase NASAL NS SCH (09:07)
[2017-12-24] MEDS: Protonix 40MG Tablet PO SCH (09:08)
[2017-12-24] MEDS: ACCOLATE 20 MG PO SCH (09:08)
[2017-12-24] MEDS: VITAMIN D PO SCH (09:08)
[2017-12-24] MEDS: ENOXAPARIN SODIUM SQ SCH (09:08)
[2017-12-24] MEDS: ceLEXa 20 MG PO SCH (09:09)
[2017-12-24] MEDS: AMITIZA PO SCH (09:10)
--- NOTE | 2017-12-28 11:13 | DS ---
DISCHARGE DIAGNOSES: 1) ASTHMA EXACERBATION. 2) ANXIETY. 3) DIABETES MELLITUS TYPE 2. 4) ANEMIA OF CHRONIC DISEASE. DISCHARGE PHYSICAL EXAMINATION: VITALS: Temperature current 98.4F, temperature max 98.7F, heart rate 72 to 86, respiratory rate 14 to 20, blood pressure 141 to 150 over 67 to 73, weight 66.5 kg. Oxygen saturation 95 to 100% on room air to 2 liters nasal cannula. GENERAL: The patient is sitting up, a pleasant talkative lady in no acute distress. CVS: She has a regular rate and rhythm. No murmurs, gallops or rubs. CHEST: Clear to auscultation. No crackles or wheezes. She has forced wheezing in her upper airway with deep breath but when she is just talking normally or resting there is no wheezing noted at all. ABDOMEN: Soft, nontender, nondistended. EXTREMITIES: No clubbing, cyanosis or edema. SKIN: Warm, dry and intact. HOSPITAL COURSE: 1) ASTHMA EXACERBATION: She was continued on breathing treatments and oxygen as needed after Dr. Yrn Woods saw her and agreed with her treatment and asked for her to see Dr. Hamilton in follow up in two weeks. The patient felt comfortable going home today. She reported that she has plenty of her medications at home so will continue all of her home medications that she came in on which include Albuterol, Brovana and zafirlukast. 2) ANXIETY: She was continued on Citalopram while she was here. She had Alprazolam 0.5 mg every four hours as needed, continue this and she may restart her benzodiazepine that she takes at night as needed. 3) DIABETES MELLITUS TYPE 2: She was continued on her home medications and sliding scale used as needed. 4) ANEMIA OF CHRONIC DISEASE: Her iron levels were checked and were good but her TIBC was low. Her vitamin B12 level was normal so I believe at this time she has anemia of chronic disease. She can follow up with Dr. Drake concerning this as an outpatient. 5) CODE STATUS: During the hospitalization she signed a DNR form, did not want any heroic measures to be taken. DISCHARGE MEDICATIONS: Please see the discharge order. She is resuming all of her home medications. There has been no changes. FOLLOW UP: She is to follow up with Dr. Drake in one week and Dr. Hamilton in one to two weeks. DISPOSITION: The patient was discharged home in good condition.
[2018-01-01] MEDS ORDERED: Cyanocobalamin B-12 1000 MCG/ML IJ SCH (10:00)
== END 2017-12-24 11:05 | disposition home or self-care (01) ==
LOC: ED 20:52 → MED SURG 22:53
PROVIDERS: ADMIT Family Medicine; ATTEND Family Medicine
DX: J45.901 Unspecified asthma with (acute) exacerbation (principal); F32.9 Major depressive disorder, single episode, unspecified; E11.9 Type 2 diabetes mellitus without complications; Z79.4 Long term (current) use of insulin; D63.8 Anemia in other chronic diseases classified elsewhere; I73.9 Peripheral vascular disease, unspecified; J44.9 Chronic obstructive pulmonary disease, unspecified; G47.00 Insomnia, unspecified; F41.9 Anxiety disorder, unspecified; Z79.899 Other long term (current) drug therapy
CPT/HCPCS: 36000; 36415; 71045; 80053; 82272; 82607; 82728; 82805; 83540; 83550; 83880; 84484; 85025; 93005; 93041; 93268; 94150; 94640; 94760; 99285; J7609; J1650; J2060; A9270-GY; G0378

== ENCOUNTER 2018-03-04 12:52 | Inpatient (IN) | payer MEDICARE, OTHER ==
--- NOTE | 2018-03-04 13:27 | ERPHSYRPT ---
- History of Present Illness Time Seen by Provider: 03/04/18 13:19 Source: patient Exam Limitations: no limitations Patient Subjective Stated Complaint: pt reports she has vertigo and turned to fast thursday and falling-states she hit her low back-states that she has had difficulty since then Triage Nursing Assessment: pt pink warm and dry-ambulatory to ed-abd nontender to palp-pt moving extremities with no difficuylty noted Physician History: 83-year-old white female with history of diabetes COPD arrhythmia DVT chronic vertigo patient arrives with complaint of pain in her back. Also pain in her lower abdomen. She states that she fell 2 days ago has not been able to have a bowel movement since she is having pain in the anterior low abdomen also pain in her low lumbar region. She is not having any movement disorder. Past medical history includes cataracts, macular degeneration, diabetes type 2, asthma, bronchitis, COPD, arrhythmia, DVT, GERD, endometriosis, arthritis, anxiety, depression, UTI, back problems, vertigo, skin cancer Past surgical history includes appendectomy cholecystectomy hysterectomy C- section joint replacement, orthopedic surgery, bilateral hip surgery, disc repeat care, , partial he cataracts, hysterectomy Timing/Duration: day(s) (2 days) Severity: moderate Modifying Factors: Improves With: other (fell 2 days ago) Associated Symptoms: abdominal pain (suprapubic abdominal pain), other (low back pain), No nausea, No vomiting, No shortness of breath, No heartburn, No diaphoresis, No cough, No chills, No chest pain, No fever, No headaches, No loss of appetite, No malaise, No rash, No syncope, No seizure, No weakness Allergies/Adverse Reactions: aspirin Allergy (Severe, Verified 03/04/18 13:07) Difficulty Breathing iodine Allergy (Severe, Verified 03/04/18 13:07) Difficulty Breathing Penicillins Allergy (Severe, Verified 03/04/18 13:07) Difficulty Breathing prednisone Adverse Reaction (Intermediate, Verified 03/04/18 13:07) Lightheadedness DOES NOT LIKE HOW MED MAKES HER FEEL , hallucinations , shakes,stutters iron Adverse Reaction (Mild, Verified 03/04/18 13:07) Nausea Home Medications: Metformin HCl 500 mg [Glucophage 500 MG] 250 mg PO DAILY 02/11/15 [History ] Alprazolam 1 mg [Xanax 1 mg] 1 mg PO HS 10/15/15 [History] Trazodone HCl 50 mg [Desyrel 50 mg] 50 mg PO HS 12/31/16 [History] Citalopram Hydrobromide [Celexa] 20 mg PO DAILY 03/04/17 [History] Arformoterol Tartrate [Brovana] 15 mcg IH BID 07/18/17 [History] Albuterol 2.5 mg/3 ml Neb [Proventil 2.5 mg/3 ml Neb] 2.5 mg IH Q4HPRN PRN 11/15/17 [History] Albuterol Common Canister [Proventil Common Canister] 2 puff IH Q6HPRN PRN 11/15/17 [History] Cholecalciferol (Vitamin D3) [Vitamin D] 2,000 unit PO DAILY 11/15/17 [History] Fluticasone Propionate [Flonase Nasal] 1 spray INTRANASAL BID 11/15/17 [History] Omeprazole 20 MG [Prilosec 20 mg] 20 mg PO DAILY 11/15/17 [History] Cyanocobalamin 1000 Mcg/ml [Cyanocobalamin B-12 1000 MCG/ML] 1,000 mcg IJ UD 12/22/17 [History] Lubiprostone [Amitiza] 24 mcg PO DAILY 12/22/17 [History] Acetaminophen/Diphenhydramine [Tylenol Pm Ex-Strength Caplet] 1 cap PO HS [History] Hx Tetanus, Diphtheria Vaccination/Date Given: Yes Hx Influenza Vaccination/Date Given: Yes Hx Pneumococcal Vaccination/Date Given: Yes Immunizations Up to Date: Yes - Review of Systems Constitutional: No Fever, No Chills Eyes: No Symptoms Ears, Nose, & Throat: No Symptoms Respiratory: No Cough, No Dyspnea Cardiac: No Chest Pain, No Edema, No Syncope Abdominal/Gastrointestinal: Abdominal Pain (Suprapubic abdominal pain), Constipation, No Nausea, No Vomiting, No Diarrhea, No Hematemesis, No Hematochezia, No Melena, No Dysphagia, No Appetite Changes Genitourinary Symptoms: No Dysuria Musculoskeletal: Back Pain (low back pain) Skin: No Rash Neurological: No Dizziness, No Focal Weakness, No Sensory Changes Psychological: No Symptoms Endocrine: No Symptoms All Other Systems: Reviewed and Negative - Past Medical History Pertinent Past Medical History: Yes Neurological History: Other ENT History: Cataracts, Macular Degeneration Cardiac History: Arrhythmia, Deep Vein Thrombosis Respiratory History: Asthma, Bronchitis, COPD Endocrine Medical History: Diabetes Type II Musculoskeletal History: Arthritis, Other GI Medical History: GERD History: Other Psycho-Social History: Anxiety, Depression Female Reproductive Disorders: Endometriosis, Other Other Medical History: hx of UTI,, fernando hip replacements, hx of back problems, vertigo, skin CA - Past Surgical History Past Surgical History: Yes Neuro Surgical History: No Pertinent History Cardiac: No Pertinent History Respiratory: No Pertinent History Gastrointestinal: Appendectomy, Cholecystectomy Genitourinary: No Pertinent History Musculoskeletal: Joint Replacement, Orthopedic Surgery Female Surgical History: Hysterectomy, Section, Other Other Surgical History: Fernando hip replacement,back surgery-disc replacement per pt., cataracts, partial hysterectomy prior to total - Social History Smoking Status: Never smoker Exposure to second hand smoke: No Drug Use: none Patient Lives Alone: No Significant Family History: no pertinent family hx - Female History Hx Now: No - Nursing Vital Signs Nursing Vital Signs: Initial Vital Signs Temperature 97.9 F 03/04/18 13:04 Pulse Rate 82 03/04/18 13:04 Respiratory Rate 18 03/04/18 13:04 Blood Pressure 128/49 03/04/18 13:04 O2 Sat by Pulse Oximetry 96 03/04/18 13:04 Pain Scale Pain Intensity 8 - Physical Exam General Appearance: no apparent distress, alert Eye Exam: PERRL/EOMI, eyes nml inspection Ears, Nose, Throat Exam: normal ENT inspection, TMs normal, pharynx normal, moist mucous membranes Neck Exam: normal inspection, non-tender, supple, full range of motion Respiratory Exam: normal breath sounds, lungs clear, No respiratory distress Cardiovascular Exam: regular rate/rhythm, normal heart sounds, normal peripheral pulses Gastrointestinal/Abdomen Exam: soft, normal bowel sounds, tenderness ( suprapubic tenderness), No distention, No mass, No guarding, No hepatomegaly Back Exam: other (low back pain midline) Extremity Exam: normal inspection, normal range of motion, pelvis stable Neurologic Exam: alert, oriented x 3, cooperative, technical sme II-XII nml as tested, normal mood/affect, nml cerebellar function, nml station & gait, sensation nml, No motor deficits Skin Exam: normal color, warm, dry, No rash Lymphatic Exam: No adenopathy SpO2 Interpretation: normal (96%) SpO2: 96 Oxygen Delivery: Room Air - Course Nursing assessment & vital signs reviewed: Yes - CT Exams Abdomen/Pelvis CT Interpretation: Discussed w/radiologist (CT abdomen and pelvis: Impression 1. Images through the pelvis limited due to being artifact from hip prosthesis 2. Colonic ileus without obstruction, stable sigmoid diverticulosis and small hiatal hernia. 3. New T12 and L1 superior endplate acute fracture with less than 25% height loss no spinal canal or foraminal encroachment, stable osteopenia and multilevel degenerative spondylosis.) Ordered Tests: Active Orders 24 hr Category Date Time Status IV Insertion STAT Care 03/04/18 13:22 Active ABDOMEN AND PELVIS W/0 CONTRAS [CT] Stat Exams 03/04/18 13:22 Completed AMYLASE Stat Lab 03/04/18 13:55 Completed CBC W DIFF Stat Lab 03/04/18 13:55 Completed CMP Stat Lab 03/04/18 13:55 Completed CULTURE,URINE Stat Lab 03/04/18 14:45 Received LIPASE Stat Lab 03/04/18 13:55 Completed Manual Differential NC Stat Lab 03/04/18 13:55 Completed UA W/ MICROSCOPIC Stat Lab 03/04/18 14:45 Completed Medication Summary Discontinued Medications Generic Name Dose Route Start Last Admin Trade Name Freq PRN Reason Stop Dose Admin Morphine Sulfate 2 mg 03/04/18 14:49 03/04/18 14:58 Morphine Sulfate 2 Mg Inj IV 03/04/18 14:50 2 mg STAT ONE Administration Morphine Sulfate Confirm 03/04/18 14:56 Morphine Sulfate 2 Mg Inj Administered 03/04/18 14:57 Dose 2 mg .ROUTE .STK-MED ONE Promethazine HCl 12.5 mg 03/04/18 14:49 03/04/18 14:57 Phenergan 25 Mg Inj IV 03/04/18 14:50 12.5 mg STAT ONE Administration Promethazine HCl Confirm 03/04/18 14:55 Phenergan 25 Mg Inj Administered 03/04/18 14:56 Dose 25 mg .ROUTE .STK-MED ONE Lab/Rad Data: Laboratory Result Diagrams 03/04/18 13:55 03/04/18 13:55 Laboratory Results 03/04/18 03/04/18 03/04/18 Range/Units 14:45 13:55 13:55 WBC 13.6 H (4.0-10.5) K/mm3 RBC 3.26 L (4.1-5.4) M/mm3 Hgb 10.0 L (12.0-16.0) gm/dl Hct 30.7 L (35-47) % MCV 94.2 (78-100) fl MCH 30.6 (26-32) pg MCHC 32.6 (32-36) g/dl RDW 12.5 (11.5-14.0) % Plt Count 223 (150-450) K/mm3 MPV 8.8 (6-9.5) fl Gran % 71.2 H (36.0-66.0) % Eos # (Auto) 0.08 (0-0.5) Absolute Lymphs (auto) 0.82 L (1.0-4.6) Absolute Monos (auto) 3.01 H (0.0-1.3) Lymphocytes % 6.0 L (24.0-44.0) % Monocytes % 22.1 H (0.0-12.0) % Eosinophils % 0.6 (0.00-5.0) % Basophils % 0.1 (0.0-0.4) % Absolute Granulocytes 9.68 H (1.4-6.9) Segmented Neutrophils 69 H (36.0-66.0) % Band Neutrophils 2 (0.0-2.0) % Lymphocytes (Manual) 8 L (24-44) % Monocytes (Manual) 20 H (0.0-12.0) % Eosinophils (Manual) 1 (0.00-3.0) % Basophils # 0.02 (0-0.4) Platelet Estimate NORMAL (NORMAL) RBC Morphology NORMAL Sodium 133 L (137-145) mmol/L Potassium 4.6 (3.5-5.1) mmol/L Chloride 97 L (98-107) mmol/L Carbon Dioxide 27 (22-30) mmol/L Anion Gap 14.3 (5-15) MEQ/L BUN 17 (7-17) mg/dL Creatinine 0.88 (0.52-1.04) mg/dL Estimated GFR > 60.0 ML/MIN Glucose 93 (74-106) mg/dL Calcium 9.3 (8.4-10.2) mg/dL Total Bilirubin 0.80 (0.2-1.3) mg/dL AST 26 (14-36) U/L ALT 14 (0-35) U/L Alkaline Phosphatase 99 (38-126) U/L Serum Total Protein 7.3 (6.3-8.2) g/dL Albumin 4.6 (3.5-5.0) g/dL Amylase 58 (30-110) U/L Lipase 43 (23-300) U/L Ur Collection Type CATH Urine Color YELLOW (YELLOW) Urine Appearance CLOUDY (CLEAR) Urine pH 8.0 (5-6) Ur Specific [place] 1.010 (1.005-1.025) Urine Protein 100 (Negative) Urine Ketones NEGATIVE (NEGATIVE) Urine Blood 250 (0-5) Oh/ul Urine Nitrite NEGATIVE (NEGATIVE) Urine Bilirubin NEGATIVE (NEGATIVE) Urine Urobilinogen NORMAL (0-1) mg/dL Ur Leukocyte Esterase 2+ (NEGATIVE) Urine Microscopic RBC 5-10 (0-2) /HPF Urine Microscopic WBC 10-15 (0-5) /HPF Ur Epithelial Cells MODERATE (FEW) /HPF Urine Bacteria MODERATE (NEGATIVE) /HPF Urine Mucus MODERATE (NEGATIVE) /HPF Urine Culture Reflexed YES (NO) Urine Glucose 100 (NEGATIVE) mg/dL Specimen Received 03-04-18 1445 - Progress Progress: improved Progress Note: 03/04/18 14:51 83-year-old white female arrives with complaint of low back pain symptoms for 2 days she also states she's been constipated and she is having suprapubic pain patient's abdomen is remarkable for mild tenderness in the suprapubic region perhaps slight distention abdomen soft Patient's white count is 13.6 hemoglobin is 10.0 platelets are 30 patient's urinalysis is pending patient's chemistry essentially normal patient's CT of the abdomen is remarkable for colonic ileus without obstruction there is stable sigmoid diverticulosis of the small hiatal hernia. There is a new T12 and L1 superior endplate acute fractures with less than 25% height loss and no spinal canal/foraminal encroachment there is stable osteopenia moderate multilevel degenerative spondylosis and L4-L1 laminectomy Patient is having pain with movement in her low back rectal exam is performed. Patient has a lot of pain with digital examination there is some palpable stool however I can really only admit a fingertip due to the patient's discomfort. Will give patient morphine 2 mg IV Phenergan 12.5 mg IV. Awaiting urinalysis report. Plan on discussing case with Dr. Drake for possible placement on observation pain control IV fluids. 03/04/18 15:18 I discussed the patient's case with Dr. Drake Will go ahead and place patient on observation for IV fluids pain control Will go ahead and write for Dulcolax for patient's constipation. Patient does have 10-15 white cells per high-power field in her urine but negative with the site esterase cultures are pending. - Departure Time of Disposition: 15:19 Departure Disposition: Observation Clinical Impression: Compression fracture, Ileus Back pain Qualifiers: Back pain location: low back pain Chronicity: acute Back pain laterality: midline Sciatica presence: without sciatica Qualified Code(s): M54.5 - Low back pain Constipation Qualifiers: Constipation type: unspecified constipation type Qualified Code(s): K59.00 - Constipation, unspecified Abdominal pain Qualifiers: Abdominal location: unspecified location Qualified Code(s): R10.9 - Unspecified abdominal pain Condition: Fair Critical Care Time: No Referrals: CJ DRAKE [Primary Care Provider] -
[2018-03-04 14:01] LABS: BASOPHIL % 0.1 % (0.0-0.4); Basophil (Absolute #) 0.02 (0-0.4); Eosinophil % 0.6 % (0.00-5.0); Eosinophil (Absolute #) 0.08 (0-0.5); Granulocyte Absolute (ANC) 9.68 (1.4-6.9); Granulocytes % 71.2 % (36.0-66.0); Hematocrit 30.7 % (35-47); Lymphocyte (Absolute #) 0.82 (1.0-4.6); Mean Cell Volume 94.2 fl (78-100); Mean Corpuscular Hgb Concent. 32.6 g/dl (32-36); Mean Platelet Volume 8.8 fl (6-9.5); Monocyte (Absolute #) 3.01 (0.0-1.3); Monocytes % 22.1 % (0.0-12.0); Platelet Count 223 K/mm3 (150-450); Red Blood Count 3.26 M/mm3 (4.1-5.4); Red Cell Distribution Width 12.5 % (11.5-14.0); White Blood Count 13.6 K/mm3 (4.0-10.5)
[2018-03-04 14:19] LABS: ALBUMIN 4.6 g/dL (3.5-5.0); ALKALINE PHOSPHATASE 99 U/L (38-126); AMYLASE 58 U/L (30-110); ANION GAP 14.3 MEQ/L (5-15); BLOOD UREA NITROGEN 17 mg/dL (7-17); CHLORIDE 97 mmol/L (98-107); Calcium 9.3 mg/dL (8.4-10.2); Carbon Dioxide 27 mmol/L (22-30); Creatinine 1 0.88 mg/dL (0.52-1.04); Glucose 93 mg/dL (74-106); LIPASE 43 U/L (23-300); Potassium 4.6 mmol/L (3.5-5.1); SGOT/AST 26 U/L (14-36); SGPT/ALT 14 U/L (0-35); SODIUM 133 mmol/L (137-145); Total Protein 7.3 g/dL (6.3-8.2)
--- NOTE | 2018-03-04 14:28 | XRAY ---
Indication: Abdominal pain. No BM for 2 days. Status post fall. Multiple contiguous axial images obtained through the abdomen and pelvis without contrast as ordered. Comparison: November 15, 2017. Lung bases again demonstrates fibrosis/scarring. No infiltrate or effusion. Heart is not enlarged. Stable small hiatal hernia. Again images through the pelvis limited due to extreme beam artifact from bilateral hip prostheses. Noncontrasted stomach and bowel loops appear nonobstructed. There is again mild fluid distended colon with synchronous fluid leveling favoring ileus. Mild fecal debris in the descending colon and rectum. Stable sigmoid diverticulosis, reported appendectomy, cholecystectomy, and hysterectomy. No free fluid/air. Remaining liver, pancreas, spleen, adrenal glands, kidneys, ureters, and bladder appear unremarkable for noncontrast exam. Stable minimal aortoiliac calcifications without AAA. Remaining osseous structures demonstrates new T12/L1 superior endplate acute fractures with less than 25% height loss and no spinal canal/foraminal encroachment. Stable osteopenia, moderate multilevel degenerative spondylosis, and L4-L5 laminectomy. Impression: 1. Images through the pelvis again limited due to beam artifact from hip prosthesis. 2. Again colonic ileus without obstruction. Stable sigmoid diverticulosis and small hiatal hernia. 3. New T12 and L1 superior endplate acute fractures as detailed. Stable osteopenia and multilevel degenerative spondylosis. CT DI 13.73
[2018-03-04 14:34] LABS: Mean Corpuscular Hemoglobin 30.6 pg (26-32)
[2018-03-04 14:41] LABS: BAND 2 % (0.0-2.0); Eosinophil 1 % (0.00-3.0); Lymphocytes 8 % (24-44); Monocyte 20 % (0.0-12.0); Neutrophils 69 % (36.0-66.0); Platelet Estimate NORMAL (NORMAL); Total Cells Counted 100
[2018-03-04] MEDS ORDERED: MORPHINE SULFATE 2 MG INJ IV ONE (14:49)
[2018-03-04] MEDS ORDERED: Phenergan 25 MG INJ IV ONE (14:49)
[2018-03-04] MEDS ORDERED: Phenergan 25 MG INJ ONE (14:55)
[2018-03-04] MEDS ORDERED: MORPHINE SULFATE 2 MG INJ ONE (14:56)
[2018-03-04 14:59] LABS: Appearance CLOUDY (CLEAR); Leukocyte Esterase 2+ (NEGATIVE); Nitrite NEGATIVE (NEGATIVE); Protein,Urine Dip 100 (Negative)
[2018-03-04 15:00] LABS: Bilirubin NEGATIVE (NEGATIVE); Blood 250 Ery/ul (0-5); Glucose 100 mg/dL (NEGATIVE); Ketones NEGATIVE (NEGATIVE); Urobilinogen NORMAL mg/dL (0-1)
[2018-03-04 15:04] LABS: Bacteria MODERATE /HPF (NEGATIVE); Epithelial Cells MODERATE /HPF (FEW); Mucus MODERATE /HPF (NEGATIVE)
[2018-03-04] MEDS ORDERED: Phenergan 25 MG INJ IM PRN (15:45)
[2018-03-04] MEDS ORDERED: MORPHINE SULFATE 2 MG INJ IV PRN (15:45)
[2018-03-04] MEDS ORDERED: Dulcolax 10 MG SUPP PR ONE (15:45)
[2018-03-04] MEDS: PROVENTIL 2.5 MG/3 ML NEB IH PRN (16:20)
[2018-03-04] MEDS: Sodium Chloride 0.9% 1000 ML 1,000 ML IV SCH (16:37)
[2018-03-04] MEDS ORDERED: PROVENTIL 2.5 MG/3 ML NEB IH PRN (16:44)
[2018-03-04] MEDS ORDERED: PROVENTIL COMMON CANISTER IH PRN (16:44)
[2018-03-04] MEDS ORDERED: CITROMA 296 ML PO ONE (20:45)
[2018-03-04] MEDS: PROVENTIL 2.5 MG/3 ML NEB IH SCH (21:33)
[2018-03-04] MEDS: Morphine PCA 1 MG/ML 30 ML IV PRN (21:52)
[2018-03-04] MEDS: ACCOLATE 20 MG PO SCH (22:00)
[2018-03-04] MEDS ORDERED: ACETAMINOPHEN PO SCH (22:00)
[2018-03-04] MEDS: XANAX 1 MG PO SCH (22:00)
[2018-03-04] MEDS: BENADRYL 25 MG CAPSULE PO SCH (22:00)
[2018-03-04] MEDS ORDERED: ARFORMOTEROL TARTRATE 15 MCG IH SCH (22:00)
[2018-03-04] MEDS: DESYREL 50 MG PO SCH (22:00)
[2018-03-04] MEDS ORDERED: [UNRECOGNIZED DRUG - OTHER] PO SCH (22:00)
[2018-03-04] MEDS ORDERED: DIPHENHYDRAMINE PO SCH (22:00)
[2018-03-04] MEDS: TYLENOL EXTRA STRENGTH 500 MG PO SCH (22:01)
[2018-03-04] MEDS: NovoLOG Insulin SQ PRN (22:02)
[2018-03-04] MEDS: Phenergan 25 MG INJ IVIM PRN (22:10)
[2018-03-04] MEDS: PATIENT OWN MEDICATION IH SCH (22:23)
[2018-03-04] MEDS: Flonase NASAL NS SCH (22:24)
[2018-03-05] MEDS: Sodium Chloride 0.9% 1000 ML 1,000 ML IV SCH ×2 (03:08→14:38)
[2018-03-05 05:38] LABS: BASOPHIL % 0.2 % (0.0-0.4); Basophil (Absolute #) 0.02 (0-0.4); Eosinophil % 0.7 % (0.00-5.0); Eosinophil (Absolute #) 0.08 (0-0.5); Granulocyte Absolute (ANC) 8.04 (1.4-6.9); Granulocytes % 71.6 % (36.0-66.0); Hematocrit 28.1 % (35-47); Hemoglobin 9.1 gm/dl (12.0-16.0); Lymphocyte (Absolute #) 0.85 (1.0-4.6); Lymphocytes % 7.6 % (24.0-44.0); Mean Cell Volume 94.9 fl (78-100); Mean Corpuscular Hemoglobin 30.7 pg (26-32); Mean Corpuscular Hgb Concent. 32.4 g/dl (32-36); Mean Platelet Volume 9.2 fl (6-9.5); Monocyte (Absolute #) 2.24 (0.0-1.3); Monocytes % 19.9 % (0.0-12.0); Platelet Count 179 K/mm3 (150-450); Red Blood Count 2.96 M/mm3 (4.1-5.4); Red Cell Distribution Width 12.6 % (11.5-14.0); White Blood Count 11.2 K/mm3 (4.0-10.5)
[2018-03-05 05:51] LABS: ALBUMIN 3.5 g/dL (3.5-5.0); ALKALINE PHOSPHATASE 171 U/L (38-126); ANION GAP 10.2 MEQ/L (5-15); BLOOD UREA NITROGEN 16 mg/dL (7-17); CHLORIDE 99 mmol/L (98-107); Calcium 8.6 mg/dL (8.4-10.2); Carbon Dioxide 29 mmol/L (22-30); Creatinine 1 0.81 mg/dL (0.52-1.04); Glucose 122 mg/dL (74-106); Potassium 4.4 mmol/L (3.5-5.1); SGOT/AST 393 U/L (14-36); SGPT/ALT 270 U/L (0-35); SODIUM 134 mmol/L (137-145)
[2018-03-05] MEDS: Morphine PCA 1 MG/ML 30 ML IV PRN (06:45)
[2018-03-05] MEDS: PROVENTIL 2.5 MG/3 ML NEB IH SCH ×2 (07:10→22:02)
[2018-03-05] MEDS: PATIENT OWN MEDICATION IH SCH ×2 (07:19→21:04)
[2018-03-05 07:24] LABS: Slide Review 1 YES
--- NOTE | 2018-03-05 09:04 | PCM.HP ---
History of Present Illness - Chief Complaint Chief Complaint: BACK PAIN, COMPRESSION FX, ILEUS History of Present Illness: is a 83 year old female pt of mine from [facility] who fell 2.5 d ago and hit her back. She was turning and went down, hitting her back on the corner of the wall. She tried to manage her pain at home but spent a lot of time in bed. She did have some vomiting yesterday. Initially she just had back pain, but then started having generalized abd pain and bloating. In the ER she was found to have T12/L1 endplate fractures and colonic ileus. She was admitted for pain control and placed on IV morphine. This did not control her pain so she was changed to morphine PRODUCTION PLANNER last night. This morning she is still having back pain, but the PRODUCTION PLANNER helps. Her main complaint is abdominal bloating and generalized pain, with some increased pain in RUQ. She did have a bowel movement since admission. - Review of Systems Constitutional: Chills Respiratory: Cough (no increase over baseline), Short Of Breath Abdominal/Gastrointestinal: Vomiting, Constipation, Other (bloating) Musculoskeletal: Arthralgias, Back Pain Hematologic/Lymphatic: Easy Bruising All Other Systems: Reviewed and Negative Medications & Allergies Home Medications: Home Medication List Zafirlukast 20 mg [Accolate 20 mg] 20 mg PO BID #180 tablet 06/30/14 [Rx Confirmed 03/04/18] Metformin HCl 500 mg [Glucophage 500 MG] 250 mg PO DAILY 02/11/15 [ History Confirmed 03/04/18] Alprazolam 1 mg [Xanax 1 mg] 1 mg PO HS 10/15/15 [History Confirmed ] Trazodone HCl 50 mg [Desyrel 50 mg] 50 mg PO HS 12/31/16 [History Confirmed 03/04/18] Citalopram Hydrobromide [Celexa] 20 mg PO DAILY 03/04/17 [History Confirmed ] Clopidogrel Bisulfate 75 mg [PLAVIX 75 MG Tablet] 75 mg PO HS #0 03/04/17 [Rx Confirmed 03/04/18] Arformoterol Tartrate [Brovana] 15 mcg IH BID 07/18/17 [History Confirmed ] Albuterol 2.5 mg/3 ml Neb [Proventil 2.5 mg/3 ml Neb] 2.5 mg IH Q4HPRN PRN 11/15/17 [History Confirmed 03/04/18] Albuterol Common Canister [Proventil Common Canister] 2 puff IH Q6HPRN PRN 11/15/17 [History Confirmed 03/04/18] Cholecalciferol (Vitamin D3) [Vitamin D] 2,000 unit PO DAILY 11/15/17 [History Confirmed 03/04/18] Fluticasone Propionate [Flonase Nasal] 1 spray INTRANASAL BID 11/15/17 [History Confirmed 03/04/18] Omeprazole 20 MG [Prilosec 20 mg] 20 mg PO DAILY 11/15/17 [History Confirmed ] Cyanocobalamin 1000 Mcg/ml [Cyanocobalamin B-12 1000 MCG/ML] 1,000 mcg IJ UD 12/22/17 [History Confirmed 03/04/18] Lubiprostone [Amitiza] 24 mcg PO DAILY 12/22/17 [History Confirmed 03/04/18] Acetaminophen/Diphenhydramine [Tylenol Pm Ex-Strength Caplet] 1 cap PO HS [History Confirmed 03/04/18] Allergies/Adverse Reactions: Allergies Allergy/AdvReac Type Severity Reaction Status Date / Time aspirin Allergy Severe Difficulty Verified 03/04/18 13:07 Breathing iodine Allergy Severe Difficulty Verified 03/04/18 13:07 Breathing Penicillins Allergy Severe Difficulty Verified 03/04/18 13:07 Breathing prednisone AdvReac Intermediate Lightheaded Verified 03/04/18 13:07 ness iron AdvReac Mild Nausea Verified 03/04/18 13:07 - Past Medical History Past Medical History: Yes Neurological History: Other ENT History: Cataracts, Macular Degeneration Cardiac History: Arrhythmia, Deep Vein Thrombosis Respiratory History: Asthma, Bronchitis, COPD Endocrine Medical History: Diabetes Type II Musculoskelatal History: Arthritis, Other GI Medical History: No Pertinent History History: Other Pyscho-Social History: Anxiety, Depression Reproductive Disorders: Endometriosis, Other Comment: hx of UTI, hx of back problems, vertigo, skin CA - Female History Are you now?: No - Past Surgical History Past Surgical History: Yes Neuro Surgical History: No Pertinent History Cardiac History: No Pertinent History Respiratory Surgery: No Pertinent History GI Surgical History: Appendectomy, Cholecystectomy Genitourinary Surgical Hx: No Pertinent History Musculskeletal Surgical Hx: Joint Replacement, Orthopedic Surgery Female Surgical History: Hysterectomy, Section, Other Other Surgical History: Fernando hip replacement,back surgery-disc replacement per pt., cataracts, partial hysterectomy prior to total - Social History Smoking Status: Never smoker Exposure to second hand smoke: No Alcohol: None Drug Use: none Significant Family History: no pertinent family hx - Physical Exam Vital Signs: Vital Signs - 24 hr Temp Pulse Resp BP Pulse Ox 03/05/18 07:00 98.3 F 72 18 127/65 98 03/05/18 04:00 98.5 F 67 20 148/65 97 03/05/18 01:52 99 03/05/18 00:00 99.1 F 78 17 116/56 97 03/04/18 21:33 82 18 97 03/04/18 19:46 98.6 F 86 17 141/60 93 L 03/04/18 16:20 80 20 99 03/04/18 15:53 97.7 F 87 20 160/69 96 03/04/18 15:50 97.7 F 87 20 160/69 96 03/04/18 15:47 97.7 F 87 20 160/69 96 03/04/18 15:21 96 03/04/18 15:05 79 16 140/59 98 03/04/18 14:00 80 18 145/71 97 03/04/18 13:04 97.9 F 82 18 128/49 96 Oxygen-Last 24 hours O2 Percentage 2 Liters = 28% O2 Percentage 2 Liters = 28% O2 Percentage 2 Liters = 28% General Appearance: mild distress, alert Neurologic Exam: oriented x 3, cooperative Eye Exam: eyes nml inspection Neck Exam: normal inspection Respiratory Exam: diminished breath sounds, wheezing (forced expiratory wheezing as usual; with usual breaths no wheeze), No crackles/rales, No rhonchi Cardiovascular Exam: regular rate/rhythm, normal heart sounds, No murmur Gastrointestinal/Abdomen Exam: soft, tenderness (generalized, mild), distention (marked), No normal bowel sounds (higher pitched bowel sounds), No mass, No guarding, No rebound Back Exam: normal inspection, other (ttp midline around T12 to L2) Extremity Exam: normal inspection, No pedal edema, No swelling Skin Exam: normal color, warm, dry, No rash Results - Labs Lab/Micro Results: Accuchecks Date 03/04/18 Time 22:00 Accucheck Value: 131 Accucheck Value: 233 Accucheck Value: 140 Lab Results-Last 24 Hours 03/04/18 03/04/18 03/04/18 Range/Units 13:55 13:55 13:55 WBC 13.6 H (4.0-10.5) K/mm3 RBC 3.26 L (4.1-5.4) M/mm3 Hgb 10.0 L (12.0-16.0) gm/dl Hct 30.7 L (35-47) % MCV 94.2 (78-100) fl MCH 30.6 (26-32) pg MCHC 32.6 (32-36) g/dl RDW 12.5 (11.5-14.0) % Plt Count 223 (150-450) K/mm3 MPV 8.8 (6-9.5) fl Gran % 71.2 H (36.0-66.0) % Eos # (Auto) 0.08 (0-0.5) Absolute Lymphs (auto) 0.82 L (1.0-4.6) Absolute Monos (auto) 3.01 H (0.0-1.3) Lymphocytes % 6.0 L (24.0-44.0) % Monocytes % 22.1 H (0.0-12.0) % Eosinophils % 0.6 (0.00-5.0) % Basophils % 0.1 (0.0-0.4) % Absolute Granulocytes 9.68 H (1.4-6.9) Segmented Neutrophils 69 H (36.0-66.0) % Band Neutrophils 2 (0.0-2.0) % Lymphocytes (Manual) 8 L (24-44) % Monocytes (Manual) 20 H (0.0-12.0) % Eosinophils (Manual) 1 (0.00-3.0) % Basophils # 0.02 (0-0.4) Platelet Estimate NORMAL (NORMAL) RBC Morphology NORMAL Sodium 133 L (137-145) mmol/L Potassium 4.6 (3.5-5.1) mmol/L Chloride 97 L (98-107) mmol/L Carbon Dioxide 27 (22-30) mmol/L Anion Gap 14.3 (5-15) MEQ/L BUN 17 (7-17) mg/dL Creatinine 0.88 (0.52-1.04) mg/dL Estimated GFR > 60.0 ML/MIN Glucose 93 (74-106) mg/dL Hemoglobin A1c 5.24 (4.5-6.0) % Calcium 9.3 (8.4-10.2) mg/dL Total Bilirubin 0.80 (0.2-1.3) mg/dL AST 26 (14-36) U/L ALT 14 (0-35) U/L Alkaline Phosphatase 99 (38-126) U/L Serum Total Protein 7.3 (6.3-8.2) g/dL Albumin 4.6 (3.5-5.0) g/dL Amylase 58 (30-110) U/L Lipase 43 (23-300) U/L Ur Collection Type Urine Color (YELLOW) Urine Appearance (CLEAR) Urine pH (5-6) Ur Specific [place] (1.005-1.025) Urine Protein (Negative) Urine Ketones (NEGATIVE) Urine Blood (0-5) Oh/ul Urine Nitrite (NEGATIVE) Urine Bilirubin (NEGATIVE) Urine Urobilinogen (0-1) mg/dL Ur Leukocyte Esterase (NEGATIVE) Urine Microscopic RBC (0-2) /HPF Urine Microscopic WBC (0-5) /HPF Ur Epithelial Cells (FEW) /HPF Urine Bacteria (NEGATIVE) /HPF Urine Mucus (NEGATIVE) /HPF Urine Culture Reflexed (NO) Urine Glucose (NEGATIVE) mg/dL Slides for Path Review Specimen Received 03/04/18 03/05/18 03/05/18 Range/Units 14:45 04:55 04:55 WBC 11.2 H (4.0-10.5) K/mm3 RBC 2.96 L (4.1-5.4) M/mm3 Hgb 9.1 L (12.0-16.0) gm/dl Hct 28.1 L (35-47) % MCV 94.9 (78-100) fl MCH 30.7 (26-32) pg MCHC 32.4 (32-36) g/dl RDW 12.6 (11.5-14.0) % Plt Count 179 (150-450) K/mm3 MPV 9.2 (6-9.5) fl Gran % 71.6 H (36.0-66.0) % Eos # (Auto) 0.08 (0-0.5) Absolute Lymphs (auto) 0.85 L (1.0-4.6) Absolute Monos (auto) 2.24 H (0.0-1.3) Lymphocytes % 7.6 L (24.0-44.0) % Monocytes % 19.9 H (0.0-12.0) % Eosinophils % 0.7 (0.00-5.0) % Basophils % 0.2 (0.0-0.4) % Absolute Granulocytes 8.04 H (1.4-6.9) Segmented Neutrophils (36.0-66.0) % Band Neutrophils (0.0-2.0) % Lymphocytes (Manual) (24-44) % Monocytes (Manual) (0.0-12.0) % Eosinophils (Manual) (0.00-3.0) % Basophils # 0.02 (0-0.4) Platelet Estimate (NORMAL) RBC Morphology Sodium 134 L (137-145) mmol/L Potassium 4.4 (3.5-5.1) mmol/L Chloride 99 (98-107) mmol/L Carbon Dioxide 29 (22-30) mmol/L Anion Gap 10.2 (5-15) MEQ/L BUN 16 (7-17) mg/dL Creatinine 0.81 (0.52-1.04) mg/dL Estimated GFR > 60.0 ML/MIN Glucose 122 H (74-106) mg/dL Hemoglobin A1c (4.5-6.0) % Calcium 8.6 (8.4-10.2) mg/dL Total Bilirubin 2.10 H (0.2-1.3) mg/dL AST 393 H (14-36) U/L ALT 270 H (0-35) U/L Alkaline Phosphatase 171 H (38-126) U/L Serum Total Protein 6.0 L (6.3-8.2) g/dL Albumin 3.5 (3.5-5.0) g/dL Amylase (30-110) U/L Lipase (23-300) U/L Ur Collection Type CATH Urine Color YELLOW (YELLOW) Urine Appearance CLOUDY (CLEAR) Urine pH 8.0 (5-6) Ur Specific [place] 1.010 (1.005-1.025) Urine Protein 100 (Negative) Urine Ketones NEGATIVE (NEGATIVE) Urine Blood 250 (0-5) Oh/ul Urine Nitrite NEGATIVE (NEGATIVE) Urine Bilirubin NEGATIVE (NEGATIVE) Urine Urobilinogen NORMAL (0-1) mg/dL Ur Leukocyte Esterase 2+ (NEGATIVE) Urine Microscopic RBC 5-10 (0-2) /HPF Urine Microscopic WBC 10-15 (0-5) /HPF Ur Epithelial Cells MODERATE (FEW) /HPF Urine Bacteria MODERATE (NEGATIVE) /HPF Urine Mucus MODERATE (NEGATIVE) /HPF Urine Culture Reflexed YES (NO) Urine Glucose 100 (NEGATIVE) mg/dL Slides for Path Review YES Specimen Received 03-04-18 1445 Accuchecks Date 03/04/18 Time 22:00 Accucheck Value: 131 Accucheck Value: 233 Accucheck Value: 140 - Radiology Impressions Radiology Exams & Impressions: Radiology Procedures Category Date Time Status ABDOMEN AND PELVIS W/0 CONTRAS [CT] Stat Exams 03/04/18 13:22 Completed ABDOMINAL-LIMITED [US] Stat Exams 03/05/18 08:06 Ordered - Other Procedures and Tests Respiratory Therapy 03/04/18 16:44 Respiratory Nebulizer PRN 03/04/18 16:47 Oxygen NASAL CANNULA 2 lpm 03/04/18 19:00 Respiratory Nebulizer Q12H Assessment/Plan (1) Elevated liver function tests Current Visit: Yes Status: Acute Assessment & Plan: Concern this morning for acute obstruction with Tbili, AP, AST, and ALT markedly elevated (were wnl yesterday). Has had cholecystectomy. Abd u/s pending. Will consult surgery. Code(s): R94.5 - ABNORMAL RESULTS OF LIVER FUNCTION STUDIES (2) Abdominal pain Current Visit: Yes Status: Acute Qualifiers: Abdominal location: generalized Qualified Code(s): R10.84 - Generalized abdominal pain Code(s): R10.9 - UNSPECIFIED ABDOMINAL PAIN (3) Elevated bilirubin Current Visit: Yes Status: Acute Code(s): R17 - UNSPECIFIED JAUNDICE (4) Compression fracture Current Visit: Yes Status: Acute Assessment & Plan: on morphine PRODUCTION PLANNER. Consult PT. Code(s): [id number] - (5) Ileus Current Visit: Yes Status: Acute Assessment & Plan: with some constipation; did have a BM. Her BS are abnormal, will continue fluids and CLD as tolerated. Code(s): K56.7 - ILEUS, UNSPECIFIED
[2018-03-05] MEDS: Protonix 40MG Tablet PO SCH (09:35)
[2018-03-05] MEDS: ACCOLATE 20 MG PO SCH ×2 (09:35→23:06)
[2018-03-05] MEDS: ceLEXa 20 MG PO SCH (09:35)
[2018-03-05] MEDS: Flonase NASAL NS SCH ×2 (09:35→21:41)
[2018-03-05] MEDS: AMITIZA PO SCH (09:35)
--- NOTE | 2018-03-05 09:46 | XRAY ---
Indication: Biliary obstruction. Cholecystectomy. Two-dimensional right upper quadrant abdominal sonogram performed. Comparison: None Gallbladder surgically absent. Common bile duct measures 7 mm, within normal limits. No intrahepatic biliary distention. Visualized portions of the liver, pancreas, and right kidney appear sonographically unremarkable. Right kidney measures 10 cm in length. No ascites. Impression: Cholecystectomy in a otherwise negative right upper quadrant sonogram.
[2018-03-05] MEDS ORDERED: NON-FORMULARY ITEM (Citalopram Hydrobromide [Celexa] 20 MG) PO SCH (10:00)
[2018-03-05] MEDS ORDERED: NON-FORMULARY ITEM (Omeprazole 20 Mg [Prilosec 20 Mg] 20 MG) PO SCH (10:00)
[2018-03-05] MEDS: Phenergan 25 MG INJ IVIM PRN (12:49)
--- NOTE | 2018-03-05 13:03 | XRAY ---
Indication: Abdominal pain, nausea, and constipation. Cholecystectomy. Conventional MRCP was performed. Comparison: None Gallbladder is surgically absent. No suspicious mass or fluid collection in the gallbladder fossa. Common bile duct measures 8mm in diameter, within normal limits for cholecystectomy. No focal stricture, obstruction, or filling defect. Pancreatic duct is unremarkable. Visualized stomach, bowel loops, liver, pancreas, spleen, adrenal glands, kidneys, aorta, and IVC appear unremarkable. Lung bases demonstrates minimal bibasilar dependent atelectasis and partially visualized small hiatal hernia. No abnormal bone marrow signal. Impression: 1. Cholecystectomy in a otherwise negative MRCP. 2. Incidental small hiatal hernia.
[2018-03-05] MEDS: PLAVIX 75 MG Tablet PO SCH (21:43)
[2018-03-05] MEDS: DESYREL 50 MG PO SCH (23:06)
[2018-03-05] MEDS: BENADRYL 25 MG CAPSULE PO SCH (23:07)
[2018-03-05] MEDS: TYLENOL EXTRA STRENGTH 500 MG PO SCH (23:07)
[2018-03-05] MEDS: XANAX 1 MG PO SCH (23:07)
[2018-03-06] MEDS: Sodium Chloride 0.9% 1000 ML 1,000 ML IV SCH ×3 (00:58→20:49)
[2018-03-06 06:13] LABS: BASOPHIL % 0.3 % (0.0-0.4); Basophil (Absolute #) 0.02 (0-0.4); Eosinophil % 3.3 % (0.00-5.0); Eosinophil (Absolute #) 0.22 (0-0.5); Granulocyte Absolute (ANC) 3.71 (1.4-6.9); Granulocytes % 56.1 % (36.0-66.0); Hematocrit 25.8 % (35-47); Lymphocyte (Absolute #) 1.05 (1.0-4.6); Lymphocytes % 15.9 % (24.0-44.0); Mean Cell Volume 98.5 fl (78-100); Mean Corpuscular Hemoglobin 30.5 pg (26-32); Mean Platelet Volume 9.4 fl (6-9.5); Monocyte (Absolute #) 1.61 (0.0-1.3); Monocytes % 24.4 % (0.0-12.0); Platelet Count 152 K/mm3 (150-450); Red Blood Count 2.62 M/mm3 (4.1-5.4); Red Cell Distribution Width 12.6 % (11.5-14.0); White Blood Count 6.6 K/mm3 (4.0-10.5)
[2018-03-06 06:24] LABS: ALBUMIN 3.1 g/dL (3.5-5.0); ALKALINE PHOSPHATASE 131 U/L (38-126); BLOOD UREA NITROGEN 15 mg/dL (7-17); CHLORIDE 104 mmol/L (98-107); Calcium 8.1 mg/dL (8.4-10.2); Carbon Dioxide 26 mmol/L (22-30); Direct Bilirubin 0.1 mg/dL (0.0-0.4); Glucose 77 mg/dL (74-106); SGOT/AST 114 U/L (14-36); SGPT/ALT 156 U/L (0-35); SODIUM 135 mmol/L (137-145); Total Protein 5.4 g/dL (6.3-8.2)
[2018-03-06 06:27] LABS: Potassium 4.1 mmol/L (3.5-5.1)
[2018-03-06 06:37] LABS: ANION GAP 11.1 MEQ/L (5-15)
[2018-03-06 08:51] LABS: Slide Review 1 YES
[2018-03-06] MEDS: Flonase NASAL NS SCH ×2 (10:10→21:02)
[2018-03-06] MEDS: ACCOLATE 20 MG PO SCH ×2 (10:10→21:02)
[2018-03-06] MEDS: PLAVIX 75 MG Tablet PO SCH (10:10)
[2018-03-06] MEDS: ceLEXa 20 MG PO SCH (10:10)
[2018-03-06] MEDS: Protonix 40MG Tablet PO SCH (10:10)
[2018-03-06] MEDS: AMITIZA PO SCH (10:12)
[2018-03-06] MEDS: Miralax Powder 17GM PACKET PO SCH (10:14)
[2018-03-06] MEDS: PROVENTIL 2.5 MG/3 ML NEB IH SCH ×2 (10:14→18:41)
[2018-03-06] MEDS: PATIENT OWN MEDICATION IH SCH (10:19)
[2018-03-06] MEDS: BENADRYL 25 MG CAPSULE PO SCH (21:03)
[2018-03-06] MEDS: TYLENOL EXTRA STRENGTH 500 MG PO SCH (21:03)
[2018-03-06] MEDS: DESYREL 50 MG PO SCH (21:03)
[2018-03-06] MEDS: XANAX 1 MG PO SCH (21:03)
[2018-03-07] MEDS: Sodium Chloride 0.9% 1000 ML 1,000 ML IV SCH ×2 (06:39→16:15)
[2018-03-07] MEDS: PROVENTIL 2.5 MG/3 ML NEB IH SCH ×3 (07:34→19:22)
[2018-03-07] MEDS: ACCOLATE 20 MG PO SCH ×2 (09:40→21:40)
[2018-03-07] MEDS: Miralax Powder 17GM PACKET PO SCH (09:40)
[2018-03-07] MEDS: ceLEXa 20 MG PO SCH (09:40)
[2018-03-07] MEDS: Protonix 40MG Tablet PO SCH (09:40)
[2018-03-07] MEDS: AMITIZA PO SCH (09:41)
[2018-03-07] MEDS: PLAVIX 75 MG Tablet PO SCH (09:41)
[2018-03-07] MEDS: Flonase NASAL NS SCH ×2 (09:42→20:10)
[2018-03-07] MEDS: NovoLOG Insulin SQ PRN (18:29)
[2018-03-07] MEDS: TYLENOL EXTRA STRENGTH 500 MG PO SCH (21:39)
[2018-03-07] MEDS: XANAX 1 MG PO SCH (21:40)
[2018-03-07] MEDS: DESYREL 50 MG PO SCH (21:40)
[2018-03-07] MEDS: BENADRYL 25 MG CAPSULE PO SCH (21:40)
[2018-03-08] MEDS: Sodium Chloride 0.9% 1000 ML 1,000 ML IV SCH ×3 (01:43→20:33)
[2018-03-08] MEDS: Morphine PCA 1 MG/ML 30 ML IV PRN (03:31)
[2018-03-08] MEDS: Flonase NASAL NS SCH ×2 (08:16→20:24)
--- NOTE | 2018-03-08 08:44 | PCM.NOTE ---
Date and Time: 03/08/18 08 Subjective Assessment: C/o pain in the back and epigastric pain due to abdominal bloating. Has been georgette po (gets occ nausea) but not passing gas well. Last BM 2d ago. She did have a large amount of stool with mag citrate after admission. - Review of Systems Constitutional: No Fever Abdominal/Gastrointestinal: Nausea, No Vomiting Musculoskeletal: Back Pain Objective Exam General Appearance: mild distress, alert Neurologic Exam: oriented x 3, cooperative Skin Exam: normal color, warm, dry, No rash Ears, Nose, Throat Exam: moist mucous membranes Neck Exam: normal inspection Respiratory Exam: diminished breath sounds, wheezing (forced expiratory), No crackles/rales, No rhonchi Cardiovascular Exam: regular rate/rhythm, normal heart sounds, No murmur Gastrointestinal/Abdomen Exam: soft, distention, No normal bowel sounds ( hypoactive but present), No tenderness, No guarding, No rebound Extremity Exam: normal inspection, No pedal edema, No swelling Back Exam: normal inspection, No rash OBJECTIVE DATA Vital Signs: Vital Signs - 24 hr Temp Pulse Resp BP Pulse Ox 03/08/18 06:42 98.4 F 65 16 157/67 98 03/08/18 04:11 98.1 F 63 18 138/60 98 03/08/18 00:07 98.5 F 71 18 111/54 99 03/07/18 22:00 98 03/07/18 20:00 98.3 F 72 18 133/67 98 03/07/18 19:24 72 18 98 03/07/18 18:33 98 03/07/18 16:00 99.3 F 77 18 137/88 100 03/07/18 14:51 81 22 97 03/07/18 13:00 98 03/07/18 12:00 98.5 F 79 17 142/64 99 Oxygen-Last 24 hours O2 Percentage 2 Liters = 28% O2 Percentage 2 Liters = 28% O2 Percentage 2 Liters = 28% O2 Percentage 2 Liters = 28% O2 Percentage 2 Liters = 28% O2 Percentage 2 Liters = 28% Pain Assessment - Last Documented Pain Intensity 6 Pain Scale Used [facility] Intake and Output: Intake & Output 03/05/18 03/06/18 03/07/18 03/08/18 11:59 11:59 11:59 11:59 Intake Total 600 3058 1131 1403 Output Total 200 Balance 400 3058 1131 1403 Weight 66.4 kg 66.9 kg 69.9 kg 72.8 kg Lab Results: Accuchecks Date 03/07/18 Date 03/07/18 Time 18:29 Time 11:30 Accucheck Value: 108 Accucheck Value: 225 Accucheck Value: 98 Assessment/Plan (1) Compression fracture Current Visit: Yes Status: Acute Onset Date: ~03/04/18 Assessment & Plan: will try a po pain med see if she can decrease the ABSTRACT CHECKER usage. Will see if Dr. Coronel is returning soon, if so will discuss kyphoplasty with him. If not pt will need a brace and will need to determine which po meds she can d/c to home on. Code(s): [id number] - (2) Elevated liver function tests Current Visit: Yes Status: Acute Onset Date: ~03/04/18 Assessment & Plan: recheck today Code(s): R94.5 - ABNORMAL RESULTS OF LIVER FUNCTION STUDIES (3) Abdominal pain Current Visit: Yes Status: Acute Onset Date: ~03/04/18 Qualifiers: Abdominal location: generalized Qualified Code(s): R10.84 - Generalized abdominal pain Assessment & Plan: improved but having some pain again - abd xr Code(s): R10.9 - UNSPECIFIED ABDOMINAL PAIN (4) Elevated bilirubin Current Visit: Yes Status: Resolved Onset Date: ~03/04/18 Code(s): R17 - UNSPECIFIED JAUNDICE
[2018-03-08 08:54] LABS: Granulocyte Absolute (ANC) 3.53 (1.4-6.9); Hematocrit 28.2 % (35-47); Hemoglobin 8.6 gm/dl (12.0-16.0); Mean Cell Volume 98.6 fl (78-100); Mean Corpuscular Hgb Concent. 30.5 g/dl (32-36); Mean Platelet Volume 9.2 fl (6-9.5); Platelet Count 197 K/mm3 (150-450); Red Blood Count 2.86 M/mm3 (4.1-5.4); Red Cell Distribution Width 12.3 % (11.5-14.0); White Blood Count 6.7 K/mm3 (4.0-10.5)
[2018-03-08] MEDS ORDERED: Mylicon 80MG PO PRN (08:59)
--- NOTE | 2018-03-08 09:42 | XRAY ---
Indication: Abdominal distention. Back pain. Comparison: CT abdomen/pelvis 4 days ago. 2 views of the abdomen again demonstrates mild uniformly air distended small/large bowel loops with synchronous fluid leveling favoring ileus. No focal bowel dilatation or free air. Again previous cholecystectomy. Solid organs obscured. Osseous structures again demonstrates osteopenia, moderate multilevel degenerative spondylosis, and bilateral total hip arthroplasty. New tiny right base effusion. Impression: 1. Grossly stable distended bowel loops with synchronous fluid leveling again favoring ileus. 2. New tiny right base effusion.
[2018-03-08] MEDS: Miralax Powder 17GM PACKET PO SCH (09:45)
[2018-03-08] MEDS: ceLEXa 20 MG PO SCH (09:45)
[2018-03-08] MEDS: PLAVIX 75 MG Tablet PO SCH (09:45)
[2018-03-08] MEDS: Protonix 40MG Tablet PO SCH (09:45)
[2018-03-08 09:48] LABS: ALBUMIN 3.3 g/dL (3.5-5.0); ALKALINE PHOSPHATASE 124 U/L (38-126); ANION GAP 10.6 MEQ/L (5-15); BLOOD UREA NITROGEN 6 mg/dL (7-17); CHLORIDE 106 mmol/L (98-107); Calcium 8.7 mg/dL (8.4-10.2); Carbon Dioxide 26 mmol/L (22-30); Creatinine 1 0.72 mg/dL (0.52-1.04); Glucose 113 mg/dL (74-106); Potassium 4.2 mmol/L (3.5-5.1); SGOT/AST 30 U/L (14-36); SGPT/ALT 78 U/L (0-35); SODIUM 139 mmol/L (137-145)
[2018-03-08] MEDS: ACCOLATE 20 MG PO SCH ×2 (09:51→20:24)
[2018-03-08] MEDS: AMITIZA PO SCH (09:51)
[2018-03-08] MEDS: PROVENTIL 2.5 MG/3 ML NEB IH SCH ×2 (10:09→20:11)
--- NOTE | 2018-03-08 10:25 | CONS ---
CONSULT DATE: 03/05/2018 HISTORY: She presented to the hospital due to abdominal pain. She had not had a bowel movement for approximately three days. She is 83 years old and has constipation at baseline. She said she usually uses Milk of Magnesia but this time it was worse. She also fell recently just a few days ago and was found to have back fractures. She had pain in her back as well as pain in her abdomen. She was admitted. She had a suppository enema and magnesium citrate and she did start having bowel movements. She had a total of three bowel movements per report today and her abdomen is feeling better. Incidentally her liver function tests have been noted to be elevated and they were normal initially on admission and so surgery was consulted due to this. PAST MEDICAL HISTORY: Chronic obstructive pulmonary disease, arrhythmia, diabetes, gastroesophageal reflux disease, endometriosis, arthritis, anxiety, depression. History of skin cancer. PAST SURGICAL HISTORY: Appendectomy, cholecystectomy, hysterectomy, section, orthopedic surgeries in the past. MEDICATIONS: Plavix. Other medicines are reviewed and in the medicine reconciliation. ALLERGIES: ASPIRIN, IODINE, PENICILLIN, PREDNISONE, IRON. FAMILY HISTORY: Noncontributory. PHYSICAL EXAMINATION: VITAL SIGNS: Temperature 98.5F, heart rate 67, blood pressure 148/65. GENERAL: No acute distress. CVS: Stable. PULMONARY: Nonlabored. ABDOMEN: Soft, mild tenderness to palpation diffuse, mild distention. No rebound, no guarding, benign exam. LAB DATA AND TESTS: Creatinine, bilirubin, AST, ALT on 03/04/2018 were all normal. White blood cell count was 13.6, hemoglobin 10. Today bilirubin increased to 2.1, direct bilirubin 1.3, AST 393, ALT [address], [address] scan shows colonic ileus this was yesterday. Today the MRI is negative including bowels and biliary tract and the ultrasound is negative. Of note, the patient has had her gallbladder surgically removed. ASSESSMENT AND PLAN: This is a patient who appears to have an ileus status post fall with back fracture. She also has an incidental rise in her bilirubin. At this point it is hard to say why her bilirubin and liver function tests incidentally did rise slightly. We are going to recheck her laboratory studies tomorrow. She is getting rehydrated. She did have poor oral intake this may have played a role in her elevated labs. At this point she is nontoxic. She has a benign abdominal exam. She has started to have bowel function. We will have her on sips tonight. If her bowel function continues and her abdomen feels better in the morning, she may advance diet as tolerated as long as her laboratory studies have improved as well. We will check a hepatic function panel tomorrow as well as CBC and CMP also. Her Plavix has been held but if all of these improve she may resume this as well. She also is a DNR status at this point which has been reviewed with her also. Thank you for the consultation.
[2018-03-08 10:45] LABS: Eosinophil 4 % (0.00-3.0); Lymphocytes 13 % (24-44); Monocyte 23 % (0.0-12.0); Neutrophils 60 % (36.0-66.0); Platelet Estimate NORMAL (NORMAL); Total Cells Counted 100
[2018-03-08 10:46] LABS: Basophilic Stippling 1+; Polychromasia 1+
[2018-03-08] MEDS: Lidoderm Patch 5% TOP SCH (15:08)
[2018-03-08] MEDS: OXYCODONE-ACETAMINOPHEN 10-325 PO PRN (17:01)
[2018-03-08] MEDS: TYLENOL EXTRA STRENGTH 500 MG PO SCH (20:24)
[2018-03-08] MEDS: XANAX 1 MG PO SCH (20:24)
[2018-03-08] MEDS: DESYREL 50 MG PO SCH (20:24)
[2018-03-08] MEDS: BENADRYL 25 MG CAPSULE PO SCH (20:24)
[2018-03-08] MEDS: Oxycontin 10 MG ER PO SCH (23:47)
[2018-03-09] MEDS: Sodium Chloride 0.9% 1000 ML 1,000 ML IV SCH (06:23)
[2018-03-09] MEDS: OXYCODONE-ACETAMINOPHEN 10-325 PO PRN ×2 (06:43→13:16)
[2018-03-09] MEDS: PROVENTIL 2.5 MG/3 ML NEB IH SCH (06:54)
[2018-03-09] MEDS: Flonase NASAL NS SCH (07:53)
--- NOTE | 2018-03-09 09:01 | PCM.NOTE ---
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 This morning she notes the pain is not bad without moving, but wiht movement it is still marked. She is passing more gas and tolerating full liquid diet. - Review of Systems Constitutional: No Fever Abdominal/Gastrointestinal: No Vomiting Musculoskeletal: Back Pain Objective Exam General Appearance: no apparent distress, alert Neurologic Exam: oriented x 3, cooperative Skin Exam: normal color, warm, dry, No rash Respiratory Exam: diminished breath sounds, wheezing (forced expiratory), No crackles/rales, No rhonchi Cardiovascular Exam: regular rate/rhythm, normal heart sounds, No murmur Gastrointestinal/Abdomen Exam: soft, distention (decreased from yesterday), No normal bowel sounds (high pitched bowel sounds), No tenderness, No mass, No guarding, No rebound Extremity Exam: normal inspection, No pedal edema, No swelling Back Exam: normal inspection, No rash OBJECTIVE DATA Vital Signs: Vital Signs - 24 hr Temp Pulse Resp BP Pulse Ox 03/09/18 07:27 98.2 F 73 20 173/71 98 03/09/18 06:57 73 20 98 03/09/18 04:00 97.7 F 64 18 152/64 99 03/09/18 00:00 97.3 F 63 16 155/64 100 03/08/18 21:13 98 03/08/18 20:12 86 18 98 03/08/18 20:00 98.4 F 67 20 162/72 98 03/08/18 18:00 96 03/08/18 16:00 98.4 F 76 16 150/62 93 L 03/08/18 14:00 98 03/08/18 11:20 98.4 F 77 16 153/66 93 L 03/08/18 10:00 97 Oxygen-Last 24 hours O2 Percentage 2 Liters = 28% O2 Percentage 2 Liters = 28% O2 Percentage 2 Liters = 28% O2 Percentage 2 Liters = 28% O2 Percentage 2 Liters = 28% O2 Percentage 1 Liter = 24% Pain Assessment - Last Documented Pain Intensity 0 Pain Scale Used 0-10 Pain Scale Intake and Output: Intake & Output 03/06/18 03/07/18 03/08/18 03/09/18 11:59 11:59 11:59 11:59 Intake Total 3058 1131 164 3354 Balance 3058 1131 1648 3358 Weight 66.9 kg 69.9 kg 72.8 kg 75.3 kg Lab Results: Accuchecks Date 03/09/18 Date 03/08/18 Date 03/08/18 Time 07:30 Time 22:00 Time 12:00 Accucheck Value: 92 Accucheck Value: 121 Accucheck Value: 172 Accucheck Value: 121 Lab Results-Last 24 Hours 03/08/18 03/08/18 Range/Units 08:41 08:41 WBC 6.7 (4.0-10.5) K/mm3 RBC 2.86 L (4.1-5.4) M/mm3 Hgb 8.6 L (12.0-16.0) gm/dl Hct 28.2 L (35-47) % MCV 98.6 (78-100) fl MCH 30.0 (26-32) pg MCHC 30.5 L (32-36) g/dl RDW 12.3 (11.5-14.0) % Plt Count 197 (150-450) K/mm3 MPV 9.2 (6-9.5) fl Absolute Granulocytes 3.53 (1.4-6.9) Segmented Neutrophils 60 (36.0-66.0) % Lymphocytes (Manual) 13 L (24-44) % Monocytes (Manual) 23 H (0.0-12.0) % Eosinophils (Manual) 4 H (0.00-3.0) % Platelet Estimate NORMAL (NORMAL) RBC Morphology ABNORMAL Polychromasia 1+ Basophilic Stippling 1+ Sodium 139 (137-145) mmol/L Potassium 4.2 (3.5-5.1) mmol/L Chloride 106 (98-107) mmol/L Carbon Dioxide 26 (22-30) mmol/L Anion Gap 10.6 (5-15) MEQ/L BUN 6 L (7-17) mg/dL Creatinine 0.72 (0.52-1.04) mg/dL Estimated GFR > 60.0 ML/MIN Glucose 113 H (74-106) mg/dL Calcium 8.7 (8.4-10.2) mg/dL Total Bilirubin 0.40 (0.2-1.3) mg/dL AST 30 (14-36) U/L ALT 78 H (0-35) U/L Alkaline Phosphatase 124 (38-126) U/L Serum Total Protein 6.0 L (6.3-8.2) g/dL Albumin 3.3 L (3.5-5.0) g/dL Radiology Exams: Radiology Procedures Category Date Time Status ABDOMEN 2 VIEW Routine Exams 03/08/18 09:34 Completed Multi-Disciplinary Progress Notes: Multi-Disciplinary Progress Notes 03/08/18 18:30 Physical Therapy Note by Raquel Jonas PATIENT FIT WITH ABDOMINAL BINDER FOR SPINAL STABILIZATION TO COUNTER SPINAL COMPRESSION FRACTURE PAIN. PATIENT WAITING FOR KYPHOPLASTY PROCEDURE TO BE SCHEDULED. AGAIN ENCOURAGED USE OF ROLLER WALKER IN STANDING AND GAIT TO RELIEVE SPINAL LOAD WITH WEIGHT BEARING. Initialized on 03/08/18 18:30 - END OF NOTE 03/08/18 10:05 Nutrition Note by Avis Blackman F/u Note: Note pt's diet advanced to full liquids with 25-50% po intake. Pt with bloating , no BM or flatus. Waiting on surgical consult. Labs 03/08= GUN 6, glu 113, alb 3.3, hgb 8.6, hct 28.2. Pt npo/full liquids x 3 days. Recommend to advance to solids or alt feeding within 2-3 days. Will con't to monitor and f/ u prn. TANNA Puentes Initialized on 03/08/18 10:05 - END OF NOTE Assessment/Plan (1) Compression fracture Current Visit: Yes Status: Acute Onset Date: ~03/04/18 Assessment & Plan: I spoke with Dr. Voss yesterday - pt will try back brace, and if she fails that he will work her in outpatient for possible kyphoplasty. Would like to see if pain is better on oxycontin 10po BID with percocet prn. Pt must be able to get out of bed before she goes home. Code(s): XKB1061 - (2) Elevated liver function tests Current Visit: Yes Status: Acute Onset Date: ~03/04/18 Assessment & Plan: Nearly back to normal. Recheck at outpatient follow up. Code(s): R94.5 - ABNORMAL RESULTS OF LIVER FUNCTION STUDIES (3) Abdominal pain Current Visit: Yes Status: Acute Onset Date: ~03/04/18 Qualifiers: Abdominal location: generalized Qualified Code(s): R10.84 - Generalized abdominal pain Assessment & Plan: much better. no complaints of pain this morning. Code(s): R10.9 - UNSPECIFIED ABDOMINAL PAIN
[2018-03-09] MEDS: Oxycontin 10 MG ER PO SCH (10:38)
[2018-03-09] MEDS: Miralax Powder 17GM PACKET PO SCH (10:41)
[2018-03-09] MEDS: ACCOLATE 20 MG PO SCH (10:42)
[2018-03-09] MEDS: ceLEXa 20 MG PO SCH (10:42)
[2018-03-09] MEDS: PLAVIX 75 MG Tablet PO SCH (10:42)
[2018-03-09] MEDS: Protonix 40MG Tablet PO SCH (10:43)
[2018-03-09] MEDS: Lidoderm Patch 5% TOP SCH (10:44)
[2018-03-09 11:37] VITALS: BP 149/66
[2018-03-09] MEDS: PROVENTIL 2.5 MG/3 ML NEB IH PRN (13:18)
[2018-03-09 13:27] VITALS: PULSE 81; O2SAT 98
--- NOTE | 2018-03-09 14:23 | PCM.DS ---
Discharge Summary Date of Admission: 03/05/18 10:54 Admitting Physician: CJ MORROW Consults: Consults on Case 03/05/18 09:09 Consult Surgery 03/06/18 09:39 Consult Ortho Primary Care Provider: CJ MORROW Allergies Allergies aspirin Allergy (Severe, Verified 03/04/18 13:07) Difficulty Breathing iodine Allergy (Severe, Verified 03/04/18 13:07) Difficulty Breathing Penicillins Allergy (Severe, Verified 03/04/18 13:07) Difficulty Breathing prednisone Adverse Reaction (Intermediate, Verified 03/04/18 13:07) Lightheadedness DOES NOT LIKE HOW MED MAKES HER FEEL , hallucinations , shakes,stutters iron Adverse Reaction (Mild, Verified 03/04/18 13:07) Nausea Hospital Summary - Hospital Course Hospital Course: Pt admitted 2d after a fall at home with back pain, found to have vertebral fractures in T12/L1, and ileus. She had elevated LFTs on day 2 of her stay but these resolved (MRCP and u/s RUQ neg). She is anemic, Hgb stable around 8.5. Her breathing has been stable (on home O2). Her pain has been exacerbated by movement, much better at rest. She is currently wearing an abdominal binder but will get a fitted for a back brace before going home. Rehab stay was discussed with her but she does not want that. I spoke wiht Dr. Voss, neurosurgery in , and if the pt fails back brace she will be referred up to him for possible kyphoplasty. I did disucss with him that pt is on plavix. Today she is tolerating po and abdominal distension is less. - Vitals & Intake/Output Vital Signs: Vital Signs Temperature 98.2 F 03/09/18 11:36 Pulse Rate 81 03/09/18 13:24 Respiratory Rate 20 03/09/18 13:24 Blood Pressure 149/66 03/09/18 11:36 O2 Sat by Pulse Oximetry 98 03/09/18 13:24 Oxygen-Last Documented O2 Percentage 2 Liters = 28% Intake & Output: Intake & Output 03/07/18 03/08/18 03/09/18 03/10/18 11:59 11:59 11:59 11:59 Intake Total 1131 1643 3595 Balance 1131 1643 3595 Weight 69.9 kg 72.8 kg 75.3 kg - Lab Result Diagrams: 03/08/18 08:41 03/08/18 08:41 Lab Results-Last 24 Hrs: Accuchecks Date 03/09/18 Date 03/09/18 Date 03/08/18 Time 11:30 Time 07:30 Time 22:00 Accucheck Value: 107 Accucheck Value: 92 Accucheck Value: 121 Accucheck Value: 172 Micro Results-Entire Visit: Microbiology 03/04/18 14:45 Urine Culture - Final Catherized NO GROWTH Accuchecks Date 03/09/18 Date 03/09/18 Date 03/08/18 Time 11:30 Time 07:30 Time 22:00 Accucheck Value: 107 Accucheck Value: 92 Accucheck Value: 121 Accucheck Value: 172 - Radiology Exams Ordered Rad Exams-Entire Visit: Radiology Procedures Category Date Time Status ABDOMEN 2 VIEW Routine Exams 03/08/18 09:34 Completed - Procedures and Test Procedures and Tests throughout Hospitalization: Therapy Orders & Screens 03/04/18 16:19 RT Screen per Nursing Assess ONCE Comment: Protocol Order Physician Instructions: Greater than 3 points order RT Admission Screen Reason For Exam: Triggered on Admission Diagnosis: BACK PAIN, COMPRESSION FX, ILEUS Diagnosis: BACK PAIN, COMPRESSION FX, ILEUS Pneumonia: No Home O2: Yes: HS Asthma: No CHF: No Home CPAP/BIPAP: No Home Nebs/MDI: Yes Total Points: 10 03/04/18 16:44 Respiratory Nebulizer PRN Comment: ALBUTEROL Q4PRN Diagnosis: BACK PAIN, COMPRESSION FX, ILEUS 03/04/18 16:47 Oxygen NASAL CANNULA 2 lpm Comment: Diagnosis: BACK PAIN, COMPRESSION FX, ILEUS 03/04/18 19:00 Respiratory Nebulizer Q12H Comment: ALBUTEROL BID Diagnosis: BACK PAIN, COMPRESSION FX, ILEUS 03/05/18 09:08 PT Eval & Treat (MD Order) Reason for Eval:: Compression fx, T12/L1 Diagnosis: BACK PAIN, COMPRESSION FX, ILEUS 03/09/18 07:00 Respiratory Therapy Assessment DAILY Comment: Diagnosis: ILEUS CONFIRMED BY IMAGING Discharge Exam General Appearance: no apparent distress, alert, other (exam done this morning) Neurologic Exam: oriented x 3, cooperative Skin Exam: normal color, warm, dry, No rash Ears, Nose, Throat Exam: moist mucous membranes Respiratory Exam: diminished breath sounds, wheezing (forced expiratory, as usual), No crackles/rales, No rhonchi Cardiovascular Exam: regular rate/rhythm, normal heart sounds, No murmur Gastrointestinal/Abdomen Exam: soft, distention (decreased from yesterday), No normal bowel sounds (high pitched bowel sounds), No tenderness Extremity Exam: No limited range of motion, No pedal edema Back Exam: normal inspection, No rash Final Diagnosis/Problem List - Final Discharge Diagnosis/Problem (1) Compression fracture Current Visit: Yes Status: Acute Onset Date: ~03/04/18 Assessment & Plan: Home on back brace. Oxycontin 10mg 1 po BID, with percocet 10/325 1 po QID prn pain. If fails back brace, to Dr. Voss for possible kyphoplasty. (2) Elevated liver function tests Current Visit: Yes Status: Acute Onset Date: ~03/04/18 Assessment & Plan: resolving spontaneously. unsure the etiology. (3) Ileus Current Visit: Yes Status: Acute Onset Date: ~03/04/18 Assessment & Plan: Resolving. Advance diet slowly. - Discharge Disposition: Home, Self-Care Condition: Stable Prescriptions: New Lidocaine HCl 5% Patch [Lidoderm Patch 5%] 1 - 2 patch TOP DAILY #30 patch Oxycodone / APAP 10/325 mg [Oxycodone-Acetaminophen 10-325] 1 tab PO Q6H PRN PRN #28 tablet MDD 4 PRN Reason: Pain Oxycodone HCl [Oxycontin] 10 mg PO BID #30 tab.er.12h MDD 2 Continue Zafirlukast 20 mg [Accolate 20 mg] 20 mg PO BID #180 tablet Metformin HCl 500 mg [Glucophage 500 MG] 250 mg PO DAILY Alprazolam 1 mg [Xanax 1 mg] 1 mg PO HS Trazodone HCl 50 mg [Desyrel 50 mg] 50 mg PO HS Citalopram Hydrobromide [Celexa] 20 mg PO DAILY Clopidogrel Bisulfate 75 mg [PLAVIX 75 MG Tablet] 75 mg PO HS #0 Arformoterol Tartrate [Brovana] 15 mcg IH BID Omeprazole 20 MG [Prilosec 20 mg] 20 mg PO DAILY Cholecalciferol (Vitamin D3) [Vitamin D] 2,000 unit PO DAILY Albuterol Common Canister [Proventil Common Canister] 2 puff IH Q6HPRN PRN PRN Reason: Shortness Of Breath Albuterol 2.5 mg/3 ml Neb [Proventil 2.5 mg/3 ml Neb] 2.5 mg IH Q4HPRN PRN PRN Reason: Shortness Of Breath Fluticasone Propionate [Flonase Nasal] 1 spray INTRANASAL BID Cyanocobalamin 1000 Mcg/ml [Cyanocobalamin B-12 1000 MCG/ML] 1,000 mcg IJ UD Acetaminophen/Diphenhydramine [Tylenol Pm Ex-Strength Caplet] 1 cap PO HS Additional Instructions: CALL [facility] ([phone]) WHEN YOU GET HOME SO THEY CAN ARRANGE A HOME VISIT. CALL [facility] AT WHEN YOU GET HOME SO THEY CAN COME EVALUATE YOUR NEBULIZER MACHINE AND REPLACE IT IF NECESSARY. Follow up with: CJ MORROW [Primary Care Provider] - 1 Week
[2018-03-09] MEDS ORDERED: MORPHINE SULFATE 2 MG INJ IV PRN (15:53)
== END 2018-03-09 15:30 | disposition home health service (06) | DRG 552 ==
LOC: ED 12:52 → MED SURG 15:41 → OBSVTOIN 03-05 10:54
PROVIDERS: ADMIT Family Medicine; ATTEND Family Medicine
DX: S22.089A Unspecified fracture of T11-T12 vertebra, initial encounter for closed fracture (principal); K56.7 Ileus, unspecified; R17 Unspecified jaundice; W01.10XA Fall on same level from slipping, tripping and stumbling with subsequent striking against unspecified object, initial encounter; M54.5 Low back pain; K59.00 Constipation, unspecified; R10.9 Unspecified abdominal pain; Z86.718 Personal history of other venous thrombosis and embolism; J45.909 Unspecified asthma, uncomplicated; J44.9 Chronic obstructive pulmonary disease, unspecified; F41.9 Anxiety disorder, unspecified; F32.9 Major depressive disorder, single episode, unspecified; E11.9 Type 2 diabetes mellitus without complications; R94.5 Abnormal results of liver function studies; Z79.4 Long term (current) use of insulin; M19.90 Unspecified osteoarthritis, unspecified site; K21.9 Gastro-esophageal reflux disease without esophagitis; F41.8 Other specified anxiety disorders; N80.9 Endometriosis, unspecified; Z85.828 Personal history of other malignant neoplasm of skin; Z79.899 Other long term (current) drug therapy
CPT/HCPCS: 36000; 36415; 74021; 74176; 74181; 76705; 80048; 80053; 80076; 81000; 82150; 82248; 83036; 83690; 85025; 87086; 93268; 94150; 94640; 94760; 96374; 96375; 99285; J7609; P9612; J2270; J2550; L0625; A9270-GY; G0378

== ENCOUNTER 2018-04-26 17:50 | Inpatient (IN) | payer MEDICARE, OTHER ==
--- NOTE | 2018-04-26 18:29 | ERPHSYRPT ---
- History of Present Illness Source: patient Exam Limitations: no limitations Patient Subjective Stated Complaint: pt reports falling from bed 2 days ago. today reports right shoulder pain as well as lower back and abdominal pain. Triage Nursing Assessment: pt is aox3, pupils perrl, resps easy and non labored , radial pulses strong and equal, skin is pink warm and dry. slight deformity and swelling noted to the right shoulder, diffuse bruising noted to the mid back , pt reports recent back surgery approx 2 weeks ago. several small, healing incisions noted to the back. pt reports severe pain with movement of the upper extremity. Occurred: days ago (2) Reason for Fall: lost balance, fell from standing pos Injuries/Pain Location: upper extremity (right arm and shoulder), back Loss of Consciousness: no loss of consciousness Quality: sharpness, stabbing Severity of Pain-Max: severe Severity of Pain-Current: severe Modifying Factors: Improves With: pain medication Associated Symptoms (Fall): back pain, extremity injury Hx Tetanus, Diphtheria Vaccination/Date Given: Yes Hx Influenza Vaccination/Date Given: No Hx Pneumococcal Vaccination/Date Given: Yes Immunizations Up to Date: Yes <JOBY DOMINGUEZ - Last Filed: 04/26/18 19:13> <MARITZA CORDON - Last Filed: 04/27/18 00:04> - History of Present Illness Time Seen by Provider: 04/26/18 18:19 Physician History: The patient is an 83-year-old female brought in by ambulance from home where she complained of falling 2 nights ago causing her to strike her back on the bed rail and hurting her right shoulder. She had a recent back fracture that was repaired with kyphoplasty on 04/01/18. She hasn't slept well for 2 nights because of the pain. She went to [facility] yesterday evening because of the pain. She did not hit her head when she fell. She was given hydrocodone that has caused her to become bloated and not be able to have a bowel movement. Her past medical history is significant for vertebral fractures , CHF, diabetes, COPD, constipation, and ileus. The patient called Dr. Drake' s office. The nurse at the doctor's office call the ambulance to bring her to the ER. (JOBY DOMINGUEZ) Allergies/Adverse Reactions: aspirin Allergy (Severe, Verified 03/04/18 13:07) Difficulty Breathing iodine Allergy (Severe, Verified 03/04/18 13:07) Difficulty Breathing Penicillins Allergy (Severe, Verified 03/04/18 13:07) Difficulty Breathing prednisone Adverse Reaction (Intermediate, Verified 03/04/18 13:07) Lightheadedness DOES NOT LIKE HOW MED MAKES HER FEEL , hallucinations , shakes,stutters iron Adverse Reaction (Mild, Verified 03/04/18 13:07) Nausea Home Medications: Metformin HCl 500 mg [Glucophage 500 MG] 250 mg PO DAILY 02/11/15 [History ] Alprazolam 1 mg [Xanax 1 mg] 1 mg PO HS 10/15/15 [History] Trazodone HCl 50 mg [Desyrel 50 mg] 50 mg PO HS 12/31/16 [History] Citalopram Hydrobromide [Celexa] 20 mg PO DAILY 03/04/17 [History] Arformoterol Tartrate [Brovana] 15 mcg IH BID 07/18/17 [History] Albuterol 2.5 mg/3 ml Neb [Proventil 2.5 mg/3 ml Neb] 2.5 mg IH Q4HPRN PRN 11/15/17 [History] Albuterol Common Canister [Proventil Common Canister] 2 puff IH Q6HPRN PRN 11/15/17 [History] Cholecalciferol (Vitamin D3) [Vitamin D] 2,000 unit PO DAILY 11/15/17 [History] Fluticasone Propionate [Flonase Nasal] 1 spray INTRANASAL BID 11/15/17 [History] Omeprazole 20 MG [Prilosec 20 mg] 20 mg PO DAILY 11/15/17 [History] Cyanocobalamin 1000 Mcg/ml [Cyanocobalamin B-12 1000 MCG/ML] 1,000 mcg IJ UD 12/22/17 [History] Acetaminophen/Diphenhydramine [Tylenol Pm Ex-Strength Caplet] 1 cap PO HS [History] - Review of Systems Constitutional: No Fever, No Chills Eyes: No Symptoms Ears, Nose, & Throat: No Symptoms Respiratory: No Cough, No Dyspnea Cardiac: No Chest Pain, No Edema, No Syncope Abdominal/Gastrointestinal: No Abdominal Pain, No Nausea, No Vomiting, No Diarrhea Genitourinary Symptoms: No Dysuria Musculoskeletal: Back Pain, Fall, Injury Skin: No Rash Neurological: No Dizziness, No Focal Weakness, No Sensory Changes Psychological: No Symptoms Endocrine: No Symptoms Hematologic/Lymphatic: No Symptoms Immunological/Allergic: No Symptoms All Other Systems: Reviewed and Negative <JOBY DOMINGUEZ - Last Filed: 04/26/18 19:13> - Past Medical History Pertinent Past Medical History: Yes Neurological History: Other ENT History: Cataracts, Macular Degeneration Cardiac History: Arrhythmia, Deep Vein Thrombosis Respiratory History: Asthma, Bronchitis, COPD Endocrine Medical History: Diabetes Type II Musculoskeletal History: Arthritis, Other GI Medical History: No Pertinent History History: Other Psycho-Social History: Anxiety, Depression Female Reproductive Disorders: Endometriosis, Other Other Medical History: hx of UTI, hx of back problems, vertigo, skin CA - Past Surgical History Past Surgical History: Yes Neuro Surgical History: No Pertinent History Cardiac: No Pertinent History Respiratory: No Pertinent History Gastrointestinal: Appendectomy, Cholecystectomy Genitourinary: No Pertinent History Musculoskeletal: Joint Replacement, Orthopedic Surgery Female Surgical History: Hysterectomy, Section, Other Other Surgical History: Fernando hip replacement,back surgery-disc replacement per pt., cataracts, partial hysterectomy prior to total - Social History Smoking Status: Never smoker Exposure to second hand smoke: No Drug Use: none Patient Lives Alone: Yes Significant Family History: no pertinent family hx - Female History Hx Now: No <JOBY DOMINGUEZ - Last Filed: 04/26/18 19:13> - [place] Coma Score Best Eye Response ([place]): (4) open spontaneously Best Verbal Response ([place]): (5) oriented Best Motor Response ([place]): (6) obeys commands [place] Total: 15 - Physical Exam General Appearance: moderate distress Head Injury: no evidence of injury Eye Exam: PERRL/EOMI ENT Exam: airway nml Neck Exam: normal inspection, No tenderness Respiratory/Chest Exam: normal breath sounds, No chest tenderness, No respiratory distress Cardiovascular Exam: normal heart sounds, regular rate/rhythm Gastrointestinal Exam: distention Rectal Exam: not done Back Exam: decreased range of motion, other (bruising to lower right lumbar area ; tenderness) Extremity Exam: limited range of motion (right upper arm.), pain with movement, tenderness Neurologic Exam: alert, oriented x 3, cooperative, sensation nml, No motor deficits Skin Exam: ecchymosis (low back) SpO2 Interpretation: normal SpO2: 98 Oxygen Delivery: Room Air <JOBY DOMINGUEZ - Last Filed: 04/26/18 19:13> - Nursing Vital Signs Nursing Vital Signs: Initial Vital Signs Temperature 100.0 F 04/26/18 17:58 Pulse Rate 77 04/26/18 17:58 Respiratory Rate 20 04/26/18 17:58 Blood Pressure 128/65 04/26/18 17:58 O2 Sat by Pulse Oximetry 98 04/26/18 17:58 Pain Scale Pain Intensity 10 - Radiology Exams Right Humerus X-ray Interpretation: Interpreted by me, Negative, No Fracture - CT Exams Thoracic Spine CT Interpretation: Discussed w/radiologist (OSTEOPOROSIS, T12-L1 COMPRESSION FRACTURES WITH INTERVAL KYPHOPLASTY, STABLE SCOLIOSIS, MULTILEVEL DDD) Lumbar Spine CT Interpretation: DJD (DIFFUSE DEMINERALIZATION, OSTEOPOROSIS, COMPRESSION FRACTURES OF T-12 L1 WITH PRIOR VERTEBRALPASTY.) Abdomen/Pelvis CT Interpretation: Discussed w/radiologist (PARAVERTEBRAL SOFT TISSUE THICKENING HEMATOMA, AT L1 AND ILL DEFINED LUCENCY SUSPICIOUS FOR RECURRENT FRACTURE OTHERWISE NO ACUTE FINDINGS) <MARITZA CORDON - Last Filed: 04/27/18 00:04> Ordered Tests: Active Orders 24 hr Category Date Time Status IV Insertion STAT Care 04/26/18 18:38 Active ABDOMEN AND PELVIS W/0 CONTRAS [CT] Stat Exams 04/26/18 20:12 Taken HUMERUS Stat Exams 04/26/18 18:40 Taken LUMBAR SPINE W/O [CT] Stat Exams 04/26/18 19:17 Taken OBSTR/ACUTE ABDOMEN SERIES Stat Exams 04/26/18 18:40 Taken SHOULDER Stat Exams 04/26/18 18:40 Taken THORACIC SPINE W/O CONTRAST [CT] Stat Exams 04/26/18 19:17 Taken AMYLASE Stat Lab 04/26/18 20:52 Completed BLOOD CULTURE Stat Lab 04/27/18 00:01 Ordered CBC W DIFF Stat Lab 04/26/18 20:52 Completed CMP Stat Lab 04/26/18 20:52 Completed CULTURE,URINE Stat Lab 04/26/18 22:30 Received LIPASE Stat Lab 04/26/18 20:52 Completed Manual Differential NC Stat Lab 04/26/18 20:52 Completed UA W/ MICROSCOPIC Stat Lab 04/26/18 22:30 Completed Peak Expiratory Flow Rate ONCE RT 04/26/18 22:08 Active Respiratory Nebulizer STAT RT 04/26/18 22:07 Active Respiratory Therapy Assessment DAILY RT 04/26/18 22:08 Active Medication Summary Generic Name Dose Route Start Last Admin Trade Name Rachel PRN Reason Stop Dose Admin Levofloxacin/Dextrose 500 mg in 100 mls @ 100 mls/hr 04/27/18 00:00 Levofloxacin 500mg/100ml D5w IV 04/27/18 00:59 STAT STA Discontinued Medications Generic Name Dose Route Start Last Admin Trade Name Alinq PRN Reason Stop Dose Admin Albuterol/Ipratropium 3 ml 04/26/18 22:07 04/26/18 22:09 Duoneb 0.5-3 Mg/3 Ml Neb IH 04/26/18 22:08 3 ml STAT ONE Administration Albuterol/Ipratropium Confirm 04/26/18 22:06 Duoneb 0.5-3 Mg/3 Ml Neb Administered 04/26/18 22:07 Dose 3 ml IH .STK-MED ONE Sodium Chloride 500 mls @ 999 mls/hr 04/26/18 18:38 04/26/18 20:47 Sodium Chloride 0.9% 1000 Ml IV 04/26/18 19:08 Infused .Q31M STA Infusion Sodium Chloride Confirm 04/26/18 18:55 Sodium Chloride 0.9% 1000 Ml Administered 04/26/18 18:56 Dose 1,000 mls @ ud .ROUTE .STK-MED ONE Morphine Sulfate 8 mg 04/26/18 18:38 04/26/18 18:59 Morphine Sulfate 10 Mg/Ml IV 04/26/18 18:39 8 mg STAT ONE Administration Morphine Sulfate Confirm 04/26/18 18:55 Morphine Sulfate 10 Mg/Ml Administered 04/26/18 18:56 Dose 10 mg .ROUTE .STK-MED ONE Morphine Sulfate 2 mg 04/26/18 23:45 04/26/18 23:54 Morphine Sulfate 2 Mg Inj IV 04/26/18 23:46 2 mg STAT ONE Administration Morphine Sulfate Confirm 04/26/18 23:50 Morphine Sulfate 2 Mg Inj Administered 04/26/18 23:51 Dose 2 mg .ROUTE .STK-MED ONE Ondansetron HCl 4 mg 04/26/18 18:38 04/26/18 18:59 Zofran 4 Mg/2 Ml Vial IV 04/26/18 18:39 4 mg STAT ONE Administration Ondansetron HCl Confirm 04/26/18 18:55 Zofran 4 Mg/2 Ml Vial Administered 04/26/18 18:56 Dose 4 mg .ROUTE .STK-MED ONE Lab/Rad Data: Laboratory Result Diagrams 04/26/18 20:52 04/26/18 20:52 Laboratory Results 04/26/18 04/26/18 04/26/18 Range/Units 22:30 20:52 20:52 WBC 14.9 H (4.0-10.5) K/mm3 RBC 3.03 L (4.1-5.4) M/mm3 Hgb 9.0 L (12.0-16.0) gm/dl Hct 27.9 L (35-47) % MCV 92.1 (78-100) fl MCH 29.7 (26-32) pg MCHC 32.3 (32-36) g/dl RDW 12.7 (11.5-14.0) % Plt Count 212 (150-450) K/mm3 MPV 9.4 (6-9.5) fl Absolute Granulocytes 9.80 H (1.4-6.9) Segmented Neutrophils 77 H (36.0-66.0) % Lymphocytes (Manual) 16 L (24-44) % Monocytes (Manual) 7 (0.0-12.0) % Platelet Estimate NORMAL (NORMAL) RBC Morphology NORMAL Sodium 134 L (137-145) mmol/L Potassium 3.6 (3.5-5.1) mmol/L Chloride 99 (98-107) mmol/L Carbon Dioxide 24 (22-30) mmol/L Anion Gap 14.4 (5-15) MEQ/L BUN 17 (7-17) mg/dL Creatinine 1.00 (0.52-1.04) mg/dL Estimated GFR 56.0 ML/MIN Glucose 132 H (74-106) mg/dL Calcium 8.1 L (8.4-10.2) mg/dL Total Bilirubin 0.60 (0.2-1.3) mg/dL AST 17 (14-36) U/L ALT 9 (0-35) U/L Alkaline Phosphatase 78 (38-126) U/L Serum Total Protein 6.1 L (6.3-8.2) g/dL Albumin 3.7 (3.5-5.0) g/dL Amylase 31 (30-110) U/L Lipase 12 L (23-300) U/L Ur Collection Type CCMS Urine Color YELLOW (YELLOW) Urine Appearance SLIGHTLY CLOUDY (CLEAR) Urine pH 5.0 (5-6) Ur Specific [place] 1.025 (1.005-1.025) Urine Protein 30 (Negative) Urine Ketones NEGATIVE (NEGATIVE) Urine Blood 250 (0-5) Oh/ul Urine Nitrite NEGATIVE (NEGATIVE) Urine Bilirubin NEGATIVE (NEGATIVE) Urine Urobilinogen NORMAL (0-1) mg/dL Ur Leukocyte Esterase NEGATIVE (NEGATIVE) Urine Microscopic RBC 0-2 (0-2) /HPF Urine Microscopic WBC 2-5 (0-5) /HPF Ur Epithelial Cells FEW (FEW) /HPF Urine Bacteria FEW (NEGATIVE) /HPF Urine Culture Reflexed YES (NO) Urine Glucose NEGATIVE (NEGATIVE) mg/dL <JOBY DOMINGUEZ - Last Filed: 04/26/18 19:13> - Progress Discussed with : Vidal (DISCUSSED WITH DR DRAKE AT 2330 FOR OBSERVATION) <MARITZA CORDON - Last Filed: 04/27/18 00:04> - Progress Progress Note: 04/26/18 19:13 Pt care discussed and care transferred to Dr Cordon at 19:00. (JOBY DOMINGUEZ) 04/26/18 23:57 UA FROM [facility] [id number] WBC 10-25 (MARITZA CORDON) <JOBY DOMINGUEZ - Last Filed: 04/26/18 19:13> - Departure Time of Disposition: 23:56 Departure Disposition: Observation Critical Care Time: No <MARITZA CORDON - Last Filed: 04/27/18 00:04> - Departure Clinical Impression: INTRACTABLE BACK PAIN, URINARY TRACT INFECTION Condition: Stable Referrals: CJ DRAKE [Primary Care Provider] -
[2018-04-26] MEDS ORDERED: Zofran 4 MG/2 ML VIAL IV ONE (18:38)
[2018-04-26] MEDS ORDERED: MORPHINE SULFATE 10 MG/ML IV ONE (18:38)
[2018-04-26] MEDS ORDERED: MORPHINE SULFATE 10 MG/ML ONE (18:55)
[2018-04-26] MEDS ORDERED: Sodium Chloride 0.9% 1000 ML 1,000 ML ONE (18:55)
[2018-04-26] MEDS ORDERED: Zofran 4 MG/2 ML VIAL ONE (18:55)
[2018-04-26 20:55] LABS: Hematocrit 27.9 % (35-47); Mean Cell Volume 92.1 fl (78-100); Mean Corpuscular Hemoglobin 29.7 pg (26-32); Mean Corpuscular Hgb Concent. 32.3 g/dl (32-36); Mean Platelet Volume 9.4 fl (6-9.5); Platelet Count 212 K/mm3 (150-450); Red Blood Count 3.03 M/mm3 (4.1-5.4); Red Cell Distribution Width 12.7 % (11.5-14.0); White Blood Count 14.9 K/mm3 (4.0-10.5)
[2018-04-26 21:14] LABS: ALBUMIN 3.7 g/dL (3.5-5.0); ANION GAP 14.4 MEQ/L (5-15); BILIRUBIN,TOTAL 0.6 mg/dL (0.2-1.3); Calcium 8.1 mg/dL (8.4-10.2); Potassium 3.6 mmol/L (3.5-5.1); Total Protein 6.1 g/dL (6.3-8.2)
[2018-04-26] MEDS ORDERED: DUONEB 0.5-3 MG/3 ml Neb IH ONE ×2 (22:06→22:07)
[2018-04-26 22:49] LABS: Appearance SLIGHTLY CLOUDY (CLEAR); Bacteria FEW /HPF (NEGATIVE); Bilirubin NEGATIVE (NEGATIVE); Blood 250 Ery/ul (0-5); Epithelial Cells FEW /HPF (FEW); Glucose NEGATIVE (NEGATIVE); Ketones NEGATIVE (NEGATIVE); Leukocyte Esterase NEGATIVE (NEGATIVE); Nitrite NEGATIVE (NEGATIVE); Protein,Urine Dip 30 (Negative); RBC 0-2 /HPF (0-2); Specific Gravity 1.025 (1.005-1.025); Urobilinogen NORMAL mg/dL (0-1)
[2018-04-26] MEDS ORDERED: MORPHINE SULFATE 2 MG INJ IV ONE (23:45)
[2018-04-26 23:47] LABS: Lymphocytes 16 % (24-44); Monocyte 7 % (0.0-12.0); Neutrophils 77 % (36.0-66.0); Platelet Estimate NORMAL (NORMAL); Total Cells Counted 100
[2018-04-26] MEDS ORDERED: MORPHINE SULFATE 2 MG INJ ONE (23:50)
[2018-04-27] MEDS ORDERED: Levofloxacin 500MG/100ML D5W 500 MG/100 ML BAG IV STA
[2018-04-27] MEDS ORDERED: Levofloxacin 500MG/100ML D5W 500 MG/100 ML BAG IV ONE (00:03)
[2018-04-27] MEDS ORDERED: TYLENOL 325 MG PO PRN (00:36)
[2018-04-27] MEDS ORDERED: DUONEB 0.5-3 MG/3 ml Neb IH PRN (00:36)
[2018-04-27] MEDS ORDERED: OXYCODONE-ACETAMINOPHEN 10-325 PO PRN (00:36)
[2018-04-27] MEDS ORDERED: PROVENTIL COMMON CANISTER IH PRN ×2 (01:02→09:33)
[2018-04-27] MEDS ORDERED: DESYREL 50 MG ONE (01:16)
[2018-04-27] MEDS: MORPHINE SULFATE 4 MG INJ IV PRN ×3 (01:21→22:01)
[2018-04-27] MEDS: Sodium Chloride 0.9% 1000 ML 1,000 ML IV SCH ×2 (01:22→21:04)
[2018-04-27] MEDS ORDERED: xanAX 0.5 MG ONE (02:36)
[2018-04-27] MEDS: xanAX 0.5 MG PO SCH ×2 (02:37→21:03)
[2018-04-27] MEDS: PATIENT OWN MEDICATION IH SCH ×2 (07:34→21:21)
[2018-04-27] MEDS: PROVENTIL 2.5 MG/3 ML NEB IH SCH ×2 (07:34→21:21)
--- NOTE | 2018-04-27 08:51 | XRAY ---
Indication: Pain following fall. Comparison: March 08, 2018. 2 views of the abdomen demonstrates nonspecific nonobstructed bowel gas pattern again with cholecystectomy clips. No focal bowel dilatation or obstruction. Solid organs unremarkable. Osseous structures again demonstrates osteopenia, moderate multilevel degenerative spondylosis, L4/L5 laminectomy, and bilateral total hip arthroplasty. Interval T12/L1 kyphoplasty. Single AP chest demonstrates normal heart and lungs with incidental right mid lung calcific granuloma. Bony thorax intact with osteopenia and mild degenerative changes. Impression: 1. Nonacute nonobstructed abdomen with chronic features. 2. Nonacute 1 view chest with chronic features.
--- NOTE | 2018-04-27 08:54 | XRAY ---
Indication: Pain following fall. Comparison: None 2 views of the right humerus demonstrates osteopenia, multilevel degenerative spondylosis, T12/L1 kyphoplasty, right mid lung calcified granuloma, and cholecystectomy clips. No other bony, articular, or soft tissue abnormalities.
--- NOTE | 2018-04-27 08:54 | XRAY ---
Indication: Pain following fall. Comparison: None 3 views of the right shoulder demonstrates high riding humeral head as seen with rotator cuff tear. Small well-circumscribed heterotopic ossification inferior to the shoulder joint either degenerative versus sequela to old injury. Elsewhere osteopenia, moderate AC degenerative arthropathy, multilevel degenerative spondylosis, T12/L1 kyphoplasty, and right mid lung calcified granuloma. Remaining right shoulder unremarkable.
--- NOTE | 2018-04-27 09:00 | XRAY ---
Indication: Pain following fall. Multiple contiguous axial images obtained through the thoracic spine. Sagittal and coronal reformatted images obtained. Comparison: Thoracic radiograph November 27, 2017. Again age-related osteopenia, multilevel bridging/nonbridging endplate osteophytes, and inferior T11 Schmorl node. New finding T12/L1 compression fracture with kyphoplasty. L1 fracture minimally narrows the spinal canal. No other fracture, suspicious bony lesions, or spinal canal stenosis. Sagittal and coronal reformatted images demonstrates normal thoracic kyphosis with stable minimal double curvature scoliosis. Visualized soft tissues demonstrates left lower lobe subsegmental atelectasis/scarring. CT abdomen/pelvis and CT lumbar spine reported separately. Impression: 1. New T12/L1 compression fracture with kyphoplasty as detailed. 2. Stable osteopenia, multilevel degenerative changes, scoliosis, and T11 Schmorl node. CT DI 109.38
--- NOTE | 2018-04-27 09:05 | PCM.HP ---
History of Present Illness - Chief Complaint Chief Complaint: INTRACTABLE BACK PAIN History of Present Illness: is a 83 year old female with recent vertebral fracture who fell at home 2 d ago. She had taken osmoprep for persistent constipation. She did have a large BM. She tried to stand up out of bed and lost her footing and fell , scraping her back against something. She now has L lower back pian and R shoulder pain, with difficulty moving the shoulder. She states she was depressed at home, with no thought of suicidal ideaiton. She has not been getting out much. CT abdomen non-acute, showed question of L1 recurrent fracture, but no bowel issues. no blockage. - Review of Systems Constitutional: Chills, Other (tmax 100.0 here) Respiratory: Cough, Wheezing (chronic) Abdominal/Gastrointestinal: Abdominal Pain (wiht increased gas), Nausea, Constipation Neurological: Dizziness (upon standing several times) Psychological: Anxiety, Depression, No Suicidal Ideations Hematologic/Lymphatic: Anemia All Other Systems: Reviewed and Negative Medications & Allergies Home Medications: Home Medication List Zafirlukast 20 mg [Accolate 20 mg] 20 mg PO BID #180 tablet 06/30/14 [Rx Confirmed 04/27/18] Metformin HCl 500 mg [Glucophage 500 MG] 250 mg PO DAILY 02/11/15 [ History Confirmed 04/27/18] Alprazolam 1 mg [Xanax 1 mg] 0.5 mg PO HS 10/15/15 [History Confirmed ] Trazodone HCl 50 mg [Desyrel 50 mg] 50 mg PO HS 12/31/16 [History Confirmed 04/27/18] Citalopram Hydrobromide [Celexa] 20 mg PO DAILY 03/04/17 [History Confirmed ] Arformoterol Tartrate [Brovana] 15 mcg IH BID 07/18/17 [History Confirmed ] Albuterol 2.5 mg/3 ml Neb [Proventil 2.5 mg/3 ml Neb] 2.5 mg IH Q4HPRN PRN 11/15/17 [History Confirmed 04/27/18] Albuterol Common Canister [Proventil Common Canister] 2 puff IH Q6HPRN PRN 11/15/17 [History Confirmed 04/27/18] Cholecalciferol (Vitamin D3) [Vitamin D] 2,000 unit PO DAILY 11/15/17 [History Confirmed 04/27/18] Fluticasone Propionate [Flonase Nasal] 1 spray INTRANASAL BID 11/15/17 [History Confirmed 04/27/18] Omeprazole 20 MG [Prilosec 20 mg] 20 mg PO DAILY 11/15/17 [History Confirmed ] Cyanocobalamin 1000 Mcg/ml [Cyanocobalamin B-12 1000 MCG/ML] 1,000 mcg IJ UD 12/22/17 [History Confirmed 04/27/18] Oxycodone / APAP 10/325 mg [Oxycodone-Acetaminophen 10-325] 1 tab PO Q6H PRN PRN #28 tablet MDD 4 03/09/18 [Rx Confirmed 04/27/18] Oxycodone HCl [Oxycontin] 10 mg PO BID #30 tab.er.12h MDD 2 03/09/18 [Rx Confirmed 04/27/18] Clopidogrel Bisulfate 75 mg [PLAVIX 75 MG Tablet] 75 mg PO HS 04/27/18 [ History Confirmed 04/27/18] Allergies/Adverse Reactions: Allergies Allergy/AdvReac Type Severity Reaction Status Date / Time aspirin Allergy Severe Difficulty Verified 04/27/18 01:09 Breathing iodine Allergy Severe Difficulty Verified 04/27/18 01:09 Breathing Penicillins Allergy Severe Difficulty Verified 04/27/18 01:09 Breathing prednisone AdvReac Intermediate Lightheaded Verified 04/27/18 01:09 ness iron AdvReac Mild Nausea Verified 04/27/18 01:09 - Past Medical History Past Medical History: Yes Neurological History: Other ENT History: Cataracts, Macular Degeneration Cardiac History: Arrhythmia, Deep Vein Thrombosis Respiratory History: Asthma, Bronchitis, COPD Endocrine Medical History: Diabetes Type II Musculoskelatal History: Arthritis, Other GI Medical History: No Pertinent History History: Other Pyscho-Social History: Anxiety, Depression Reproductive Disorders: Endometriosis, Other Comment: hx of UTI, hx of back problems, vertigo, skin CA - Female History Are you now?: No - Past Surgical History Past Surgical History: Yes Neuro Surgical History: No Pertinent History Cardiac History: No Pertinent History Respiratory Surgery: No Pertinent History GI Surgical History: Appendectomy, Cholecystectomy Genitourinary Surgical Hx: No Pertinent History Musculskeletal Surgical Hx: Joint Replacement, Orthopedic Surgery Female Surgical History: Hysterectomy, Section, Other Other Surgical History: Fernando hip replacement,back surgery-disc replacement per pt., cataracts, partial hysterectomy prior to total - Social History Smoking Status: Never smoker Exposure to second hand smoke: No Alcohol: None Drug Use: none Significant Family History: no pertinent family hx - Physical Exam Vital Signs: Vital Signs - 24 hr Temp Pulse Resp BP Pulse Ox 04/27/18 07:53 72 18 98 04/27/18 07:30 98.6 F 76 16 122/62 93 L 04/27/18 04:00 98 F 63 21 134/64 100 04/27/18 01:03 98.8 F 72 18 125/65 98 04/27/18 00:55 80 19 98 04/27/18 00:36 98.8 F 80 18 125/65 92 L 04/26/18 22:16 79 127/47 100 04/26/18 22:09 78 23 100 04/26/18 19:17 98 04/26/18 17:58 100.0 F 77 20 128/65 98 Oxygen-Last 24 hours O2 Percentage 2 Liters = 28% O2 Percentage 2 Liters = 28% General Appearance: no apparent distress, alert Neurologic Exam: oriented x 3, cooperative, other (poor eye contact. limited affect) Eye Exam: eyes nml inspection Ears, Nose, Throat Exam: moist mucous membranes Respiratory Exam: diminished breath sounds, prolonged expirations, No crackles/ rales, No rhonchi, No wheezing Cardiovascular Exam: regular rate/rhythm, normal heart sounds, No murmur Gastrointestinal/Abdomen Exam: soft, normal bowel sounds, tenderness (suprapubic , mild), No distention, No mass, No guarding, No rebound Skin Exam: warm, dry, other (dark purple discoloration with some edema R inferior thoracic/superior lumbar spine. incisions are healing well. mildly ttp over bruise. scattere TTP L paraspinal muscles approx L4-L5), No rash Results - Labs Lab/Micro Results: Accuchecks Accucheck Value: 102 Lab Results-Last 24 Hours 04/26/18 04/26/18 04/26/18 Range/Units 20:52 20:52 22:30 WBC 14.9 H (4.0-10.5) K/mm3 RBC 3.03 L (4.1-5.4) M/mm3 Hgb 9.0 L (12.0-16.0) gm/dl Hct 27.9 L (35-47) % MCV 92.1 (78-100) fl MCH 29.7 (26-32) pg MCHC 32.3 (32-36) g/dl RDW 12.7 (11.5-14.0) % Plt Count 212 (150-450) K/mm3 MPV 9.4 (6-9.5) fl Absolute Granulocytes 9.80 H (1.4-6.9) Segmented Neutrophils 77 H (36.0-66.0) % Lymphocytes (Manual) 16 L (24-44) % Monocytes (Manual) 7 (0.0-12.0) % Platelet Estimate NORMAL (NORMAL) RBC Morphology NORMAL Sodium 134 L (137-145) mmol/L Potassium 3.6 (3.5-5.1) mmol/L Chloride 99 (98-107) mmol/L Carbon Dioxide 24 (22-30) mmol/L Anion Gap 14.4 (5-15) MEQ/L BUN 17 (7-17) mg/dL Creatinine 1.00 (0.52-1.04) mg/dL Estimated GFR 56.0 ML/MIN Glucose 132 H (74-106) mg/dL Calcium 8.1 L (8.4-10.2) mg/dL Total Bilirubin 0.60 (0.2-1.3) mg/dL AST 17 (14-36) U/L ALT 9 (0-35) U/L Alkaline Phosphatase 78 (38-126) U/L Serum Total Protein 6.1 L (6.3-8.2) g/dL Albumin 3.7 (3.5-5.0) g/dL Amylase 31 (30-110) U/L Lipase 12 L (23-300) U/L Ur Collection Type CCMS Urine Color YELLOW (YELLOW) Urine Appearance SLIGHTLY CLOUDY (CLEAR) Urine pH 5.0 (5-6) Ur Specific Leigh 1.025 (1.005-1.025) Urine Protein 30 (Negative) Urine Ketones NEGATIVE (NEGATIVE) Urine Blood 250 (0-5) Oh/ul Urine Nitrite NEGATIVE (NEGATIVE) Urine Bilirubin NEGATIVE (NEGATIVE) Urine Urobilinogen NORMAL (0-1) mg/dL Ur Leukocyte Esterase NEGATIVE (NEGATIVE) Urine Microscopic RBC 0-2 (0-2) /HPF Urine Microscopic WBC 2-5 (0-5) /HPF Ur Epithelial Cells FEW (FEW) /HPF Urine Bacteria FEW (NEGATIVE) /HPF Urine Culture Reflexed YES (NO) Urine Glucose NEGATIVE (NEGATIVE) mg/dL Accuchecks Accucheck Value: 102 - Radiology Impressions Radiology Exams & Impressions: Radiology Procedures Category Date Time Status ABDOMEN AND PELVIS W/0 CONTRAS [CT] Stat Exams 04/26/18 20:12 Taken HUMERUS Stat Exams 04/26/18 18:40 Completed LUMBAR SPINE W/O [CT] Stat Exams 04/26/18 19:17 Taken OBSTR/ACUTE ABDOMEN SERIES Stat Exams 04/26/18 18:40 Completed SHOULDER Stat Exams 04/26/18 18:40 Completed THORACIC SPINE W/O CONTRAST [CT] Stat Exams 04/26/18 19:17 Taken - Other Procedures and Tests Respiratory Therapy 04/27/18 00:36 Oxygen NASAL CANNULA 2 lpm 04/27/18 01:03 Peak Expiratory Flow Rate ONCE Respiratory Therapy Assessment DAILY Assessment/Plan (1) UTI (urinary tract infection) Current Visit: Yes Status: Acute Qualifiers: Urinary tract infection type: acute cystitis Hematuria presence: with hematuria Qualified Code(s): N30.01 - Acute cystitis with hematuria Assessment & Plan: UA at [facility] with 10-25 WBC; there is no other source of infection found. She did have some elevated temp on admisison. Treating [facility] levaquin IV, day #2. Code(s): N39.0 - URINARY TRACT INFECTION, SITE NOT SPECIFIED (2) Right shoulder pain Current Visit: Yes Status: Acute Qualifiers: Chronicity: acute Qualified Code(s): M25.511 - Pain in right shoulder Assessment & Plan: XR is pending; she was told in ER hard to read due to severe arthritis. If neg , will consult PT/OT. Code(s): M25.511 - PAIN IN RIGHT SHOULDER (3) Back pain Current Visit: No Status: Acute Onset Date: ~03/04/18 Qualifiers: Back pain location: low back pain Chronicity: acute Back pain laterality : bilateral Sciatica presence: without sciatica Qualified Code(s): M54.5 - Low back pain Assessment & Plan: Question of another fracture. This, however, is not her main source of pain at this time. Code(s): M54.9 - DORSALGIA, UNSPECIFIED (4) Compression fracture Current Visit: No Status: Acute Onset Date: ~03/04/18 Assessment & Plan: possible, L1 Code(s): [id number] - (5) Constipation Current Visit: No Status: Acute Onset Date: ~03/04/18 Qualifiers: Constipation type: slow transit constipation Qualified Code(s): K59.01 - Slow transit constipation Assessment & Plan: Will try to decrease her pain meds in an effort to curb constipation. Code(s): K59.00 - CONSTIPATION, UNSPECIFIED (6) COPD (chronic obstructive pulmonary disease) Current Visit: No Status: Chronic Qualifiers: COPD type: chronic bronchitis Chronic bronchitis type: unspecified Qualified Code(s): J42 - Unspecified chronic bronchitis (7) Chronic hypoxemic respiratory failure Current Visit: No Status: Chronic (8) Diabetes mellitus Current Visit: No Status: Chronic Qualifiers: Code(s): E11.9 - TYPE 2 DIABETES MELLITUS WITHOUT COMPLICATIONS (9) Muscular deconditioning Current Visit: No Status: Chronic Assessment & Plan: would like PT to consult. Code(s): R29.898 - [facility] SYMPTOMS AND SIGNS INVOLVING THE MUSCULOSKELETAL SYSTEM (10) Anxiety and depression Current Visit: Yes Status: Acute Assessment & Plan: exacerbated by her medical conditions. Would like to do a [facility] consult at some point if she would consent to that. Code(s): F41.9 - ANXIETY DISORDER, UNSPECIFIED; F32.9 - MAJOR DEPRESSIVE DISORDER, SINGLE EPISODE, UNSPECIFIED
--- NOTE | 2018-04-27 09:08 | XRAY ---
Indication: Abdomen pain and distention. Status post fall. Multiple contiguous axial images obtained through the abdomen and pelvis without contrast as ordered. Comparison: March 04, 2018. Lung bases again demonstrates bibasilar fibrosis/scarring. No infiltrate or effusion. Heart is not enlarged. Again bilateral hip prostheses produces extreme beam artifact limiting evaluation through the pelvis. Noncontrasted stomach and bowel loops appear nonobstructed. Stable sigmoid diverticulosis, appendectomy, cholecystectomy, and hysterectomy. No free fluid/air. Remaining liver, pancreas, spleen, adrenal glands, kidneys, ureters, and bladder appear unremarkable for noncontrast exam. There remains minimal aortoiliac calcifications without AAA. Osseous structures demonstrates worsening T12/L1 compression fractures with interval kyphoplasty. Stable osteopenia, multilevel degenerative spondylosis,, scoliosis, and L4-L5 laminectomy. Impression: 1. Stable sigmoid diverticulosis. 2. Worsening T12/L1 compression fractures with interval kyphoplasty. 3. No acute intra-abdominal/pelvic abnormalities on this noncontrast exam. Comment: Preliminary interpretation was made by [facility]. No critical discrepancy. CT DI 14.81
--- NOTE | 2018-04-27 09:14 | XRAY ---
Indication: Pain following fall. Multiple contiguous axial images obtained through the lumbar spine. Sagittal and coronal reformatted images obtained. Comparison: CT abdomen/pelvis March 04, 2018. Worsening T12/L1 compression fractures with now near complete collapse and interval kyphoplasty. L1 fracture slightly encroaches on the spinal canal producing narrowing. Minimal paraspinal subcutaneous swelling/hematoma. Stable osteopenia, multilevel moderate/advanced degenerative spondylosis, L4-L5 laminectomy, and bilateral total hip arthroplasty. Sagittal and coronal reformatted images again demonstrates L2-S1 disc space loss and mild scoliosis. CT abdomen/pelvis and CT thoracic spine reported separately. Impression: 1. Worsening T12/L1 compression fractures with interval kyphoplasty as detailed. 2. Stable osteopenia, multilevel degenerative spondylosis, and postsurgical changes. CT DI 53.30
[2018-04-27] MEDS ORDERED: PLAVIX 75 MG Tablet PO SCH (10:00)
[2018-04-27] MEDS ORDERED: NON-FORMULARY ITEM (Omeprazole 20 Mg [Prilosec 20 Mg] 20 MG) PO SCH (10:00)
[2018-04-27] MEDS: Protonix 40MG Tablet PO SCH (11:19)
[2018-04-27] MEDS: ACCOLATE 20 MG PO SCH ×2 (11:19→21:03)
[2018-04-27] MEDS: Flonase NASAL NS SCH ×2 (11:20→21:04)
[2018-04-27] MEDS: PERCOCET TABLET 5/325MG PO PRN ×2 (11:24→20:21)
[2018-04-27] MEDS: ENOXAPARIN SODIUM SQ SCH (11:27)
[2018-04-27] MEDS: Zofran 4 MG/2 ML VIAL IV PRN (20:22)
[2018-04-27] MEDS: PLAVIX 75 MG Tablet PO SCH (21:04)
[2018-04-27] MEDS ORDERED: DESYREL 50 MG PO SCH (22:00)
[2018-04-28] MEDS: MORPHINE SULFATE 4 MG INJ IV PRN ×2 (03:23→09:33)
[2018-04-28 05:47] LABS: Hematocrit 25.9 % (35-47); Mean Cell Volume 95.2 fl (78-100); Mean Corpuscular Hemoglobin 29.4 pg (26-32); Mean Corpuscular Hgb Concent. 30.9 g/dl (32-36); Mean Platelet Volume 9.4 fl (6-9.5); Platelet Count 170 K/mm3 (150-450); Red Blood Count 2.72 M/mm3 (4.1-5.4); Red Cell Distribution Width 12.5 % (11.5-14.0); White Blood Count 6.8 K/mm3 (4.0-10.5)
[2018-04-28 05:57] LABS: ANION GAP 9.9 MEQ/L (5-15); BLOOD UREA NITROGEN 11 mg/dL (7-17); CHLORIDE 104 mmol/L (98-107); Calcium 8.5 mg/dL (8.4-10.2); Carbon Dioxide 26 mmol/L (22-30); Creatinine 1 0.77 mg/dL (0.52-1.04); Glucose 95 mg/dL (74-106); SODIUM 137 mmol/L (137-145)
[2018-04-28] MEDS: PATIENT OWN MEDICATION IH SCH ×2 (06:30→19:45)
[2018-04-28] MEDS: PROVENTIL 2.5 MG/3 ML NEB IH SCH ×2 (06:30→19:44)
--- NOTE | 2018-04-28 08:20 | PCM.NOTE ---
Date and Time: 04/28/18814 Subjective Assessment: She only slept x 3h last night (held trazodone, and celexa last night). Her stomach pain is feeling better. She still has not had a BM since Sat (4d ago) but that was a large amount of stool. She is c/o feeling anxious. States also since her fall a few months ago she's lost 15 lb, appetite is decreased, and she doesn't want to go anywhere. R shoulder pain is somewhat tang.r She has been delaying pain meds as long as possible. I spoke wiht her daughter yesterday. Daughter wants to take pt home wiht her to [place] after this hospital stay. - Review of Systems Constitutional: No Fever Abdominal/Gastrointestinal: Constipation Objective Exam General Appearance: no apparent distress, alert Neurologic Exam: oriented x 3, cooperative Skin Exam: normal color, warm, dry, No rash Ears, Nose, Throat Exam: moist mucous membranes Respiratory Exam: lungs clear, diminished breath sounds, prolonged expirations, No crackles/rales, No rhonchi, No wheezing Cardiovascular Exam: regular rate/rhythm, normal heart sounds, No murmur Gastrointestinal/Abdomen Exam: soft, normal bowel sounds, No tenderness, No distention, No mass, No guarding, No rebound Extremity Exam: normal inspection, No pedal edema, No swelling Back Exam: normal inspection, No rash OBJECTIVE DATA Vital Signs: Vital Signs - 24 hr Temp Pulse Resp BP Pulse Ox 04/28/18 07:01 98.7 F 67 16 131/57 99 04/28/18 06:34 67 16 99 04/28/18 04:00 98.5 F 73 18 147/64 98 04/27/18 23:46 98.6 F 76 16 132/58 100 04/27/18 21:21 75 19 92 L 04/27/18 20:16 98.7 F 65 16 137/62 98 04/27/18 16:00 98.2 F 65 16 126/57 97 04/27/18 11:43 98.6 F 68 16 117/54 97 Oxygen-Last 24 hours O2 Percentage 2 Liters = 28% O2 Percentage 2 Liters = 28% Pain Assessment - Last Documented Pain Intensity 8 Pain Scale Used [facility] Intake and Output: Intake & Output 04/25/18 04/26/18 04/27/18 04/28/18 11:59 11:59 11:59 11:59 Intake Total 017 0299 Output Total 500 1100 Balance 387 719 Weight 58.967 kg Lab Results: Lab Results-Last 24 Hours 04/27/18 04/28/18 04/28/18 Range/Units 10:22 05:30 05:30 WBC 6.8 (4.0-10.5) K/mm3 RBC 2.72 L (4.1-5.4) M/mm3 Hgb 8.0 L (12.0-16.0) gm/dl Hct 25.9 L (35-47) % MCV 95.2 (78-100) fl MCH 29.4 (26-32) pg MCHC 30.9 L (32-36) g/dl RDW 12.5 (11.5-14.0) % Plt Count 170 (150-450) K/mm3 MPV 9.4 (6-9.5) fl Sodium 137 (137-145) mmol/L Potassium 4.0 (3.5-5.1) mmol/L Chloride 104 (98-107) mmol/L Carbon Dioxide 26 (22-30) mmol/L Anion Gap 9.9 (5-15) MEQ/L BUN 11 (7-17) mg/dL Creatinine 0.77 (0.52-1.04) mg/dL Estimated GFR > 60.0 ML/MIN Glucose 95 (74-106) mg/dL Uric Acid 5.8 (2.6-6.0) mg/dL Calcium 8.5 (8.4-10.2) mg/dL Radiology Exams: Radiology Procedures Category Date Time Status ABDOMEN AND PELVIS W/0 CONTRAS [CT] Stat Exams 04/26/18 20:12 Completed HUMERUS Stat Exams 04/26/18 18:40 Completed LUMBAR SPINE W/O [CT] Stat Exams 04/26/18 19:17 Completed OBSTR/ACUTE ABDOMEN SERIES Stat Exams 04/26/18 18:40 Completed SHOULDER Stat Exams 04/26/18 18:40 Completed THORACIC SPINE W/O CONTRAST [CT] Stat Exams 04/26/18 19:17 Completed Multi-Disciplinary Progress Notes: Multi-Disciplinary Progress Notes 04/27/18 17:43 Physical Therapy Note by Raquel Jonas INITIATED PALLIATIVE CARE TO NEW INJURY SITES LOW BACK AND RIGHT SHOULDER POST FALL - ICE APPLICATION TO BOTH TO COUNTER EDEMA AND PAIN. RIGHT SHOULDER PASSIVE MOBILIZATION PAINFUL ESPECIALLY IN ABDUCTION AND FORWARD FLEXION....COULD INDICATE IMPINGEMENT SYNDROME PATIENT DESCRIBES HER ARM BEING SHOVED UP UNDER THE ACROMIAL ROOF WITH THE FALL. NEW KYPHOPLASTY SITE T12/ L1 (04/02/18 PER THE PATIENT).....NOTE BRUISING AND EDEMA IN THAT AREA. PALPABLE PAIN. RADIOLOGY REPORTS NEAR COMPLETE COLLAPSE - COMPRESSION WITH KYPHOPLASTY. WILL CONTINUE TO ASSESS IN THE A.M. Initialized on 04/27/18 17:43 - END OF NOTE 04/27/18 16:27 Case Management Note by Maria T Iniguez RECEIVED A CALL FROM DARYA SMITH, WITH DR. MORROW. SHE STATES THAT THE PATIENT' S DAUGHTER AND POA, CINTHIA, CALLED AND WANTED DR. MORROW TO KNOW THAT JACQUELIN HAS LOST 10# IN THE LAST 1-2 MONTHS, THAT SHE COULD MOVE INTO CINTHIA'S HOME, BUT THAT CINTHIA THOUGHT IT WOULD BE HEALTHIER FOR HER TO KEEP HER OWN APARTMENT, BUT THAT SHE WOULD DO WHAT WAS BEST FOR THE PATIENT. SHE IS KEEPING THE APARTMENT OPEN FOR HER THOUGH. WANTS D/C PLANNING TO KNOW THIS. CINTHIA ALSO SAID, IF THEPATIENT DIDN'T AGREE WITH WHAT THE DOCTOR FELT WAS BEST FOR HER, SHE , CINTHIA WAS THE POA AND COULD CHOOSE FOR HER. Initialized on 04/27/18 16:27 - END OF NOTE Assessment/Plan (1) UTI (urinary tract infection) Current Visit: Yes Status: Acute Qualifiers: Urinary tract infection type: acute cystitis Hematuria presence: with hematuria Qualified Code(s): N30.01 - Acute cystitis with hematuria Assessment & Plan: Will continue to treat, although her final culture was quesitonable for contaminant. Code(s): N39.0 - URINARY TRACT INFECTION, SITE NOT SPECIFIED (2) Right shoulder pain Current Visit: Yes Status: Acute Qualifiers: Chronicity: acute Qualified Code(s): M25.511 - Pain in right shoulder Assessment & Plan: XR shoulder with anterior displacement concerning for rotator cuff tear. Code(s): M25.511 - PAIN IN RIGHT SHOULDER (3) Back pain Current Visit: No Status: Acute Onset Date: ~03/04/18 Qualifiers: Back pain location: low back pain Chronicity: acute Back pain laterality : bilateral Sciatica presence: without sciatica Qualified Code(s): M54.5 - Low back pain Assessment & Plan: complains of shoulder, not back pain Code(s): M54.9 - DORSALGIA, UNSPECIFIED (4) Compression fracture Current Visit: No Status: Acute Onset Date: ~03/04/18 Code(s): [id number] - (5) Constipation Current Visit: No Status: Acute Onset Date: ~03/04/18 Qualifiers: Constipation type: slow transit constipation Qualified Code(s): K59.01 - Slow transit constipation Assessment & Plan: start miralax and colace Code(s): K59.00 - CONSTIPATION, UNSPECIFIED (6) COPD (chronic obstructive pulmonary disease) Current Visit: No Status: Chronic Qualifiers: COPD type: chronic bronchitis Chronic bronchitis type: unspecified Qualified Code(s): J42 - Unspecified chronic bronchitis Assessment & Plan: stable (7) Chronic hypoxemic respiratory failure Current Visit: No Status: Chronic (8) Diabetes mellitus Current Visit: No Status: Chronic Qualifiers: Code(s): E11.9 - TYPE 2 DIABETES MELLITUS WITHOUT COMPLICATIONS (9) Muscular deconditioning Current Visit: No Status: Chronic Assessment & Plan: PT working with pt Code(s): R29.898 - OT SYMPTOMS AND SIGNS INVOLVING THE MUSCULOSKELETAL SYSTEM (10) Anxiety and depression Current Visit: Yes Status: Acute Assessment & Plan: [facility] consult today - pt agreeable. Code(s): F41.9 - ANXIETY DISORDER, UNSPECIFIED; F32.9 - MAJOR DEPRESSIVE DISORDER, SINGLE EPISODE, UNSPECIFIED
[2018-04-28] MEDS: ACCOLATE 20 MG PO SCH ×2 (09:34→21:18)
[2018-04-28] MEDS: ENOXAPARIN SODIUM SQ SCH (09:35)
[2018-04-28] MEDS: Flonase NASAL NS SCH ×2 (09:35→21:18)
[2018-04-28] MEDS: PERCOCET TABLET 5/325MG PO PRN ×2 (09:36→21:19)
[2018-04-28] MEDS: Protonix 40MG Tablet PO SCH (09:36)
[2018-04-28] MEDS: Miralax Powder 17GM PACKET PO SCH (09:45)
[2018-04-28] MEDS ORDERED: Levofloxacin 500MG/100ML D5W 500 MG/100 ML BAG IV SCH (10:00)
[2018-04-28] MEDS: Sodium Chloride 0.9% 1000 ML 1,000 ML IV SCH (18:39)
[2018-04-28] MEDS: xanAX 0.5 MG PO SCH (21:18)
[2018-04-28] MEDS: PLAVIX 75 MG Tablet PO SCH (21:18)
[2018-04-29] MEDS: PROVENTIL 2.5 MG/3 ML NEB IH PRN ×2 (03:00→14:12)
[2018-04-29] MEDS: PERCOCET TABLET 5/325MG PO PRN ×3 (03:20→21:20)
[2018-04-29] MEDS: PROVENTIL 2.5 MG/3 ML NEB IH SCH ×2 (07:27→19:44)
[2018-04-29] MEDS: PATIENT OWN MEDICATION IH SCH ×2 (07:30→19:44)
[2018-04-29] MEDS: Miralax Powder 17GM PACKET PO SCH (08:06)
[2018-04-29] MEDS: MORPHINE SULFATE 4 MG INJ IV PRN ×2 (08:06→23:09)
[2018-04-29] MEDS: Colace 100 MG PO PRN (08:07)
--- NOTE | 2018-04-29 08:30 | PCM.NOTE ---
Date and Time: 04/29/18820 Subjective Assessment: Pt is feeling terrible, c/o epigastric abd pain and distension. She is passing gas. No appetite. Did not order breakfast. Slept for several hours last night but then awoke and needed a breathing tx. Also c/o she feels her food is getting stuck down in her chest. Has to take extra drinks to get food down. - Review of Systems Constitutional: No Fever Abdominal/Gastrointestinal: Abdominal Pain, Other (distension) Objective Exam General Appearance: mild distress, alert Neurologic Exam: oriented x 3, cooperative, other (tremors hands bilat) Skin Exam: normal color, warm, dry, No rash Ears, Nose, Throat Exam: moist mucous membranes Respiratory Exam: diminished breath sounds, prolonged expirations, No crackles/ rales, No rhonchi, No wheezing (forced exp wheezing as usual) Cardiovascular Exam: regular rate/rhythm, normal heart sounds, No murmur Gastrointestinal/Abdomen Exam: soft, No normal bowel sounds (higher pitched bowel sounds; hyperactive), No tenderness, No distention, No mass, No guarding, No rebound Extremity Exam: normal inspection, No pedal edema, No swelling Back Exam: normal inspection, No rash OBJECTIVE DATA Vital Signs: Vital Signs - 24 hr Temp Pulse Resp BP Pulse Ox 04/29/18 08:00 98.2 F 80 20 177/71 99 04/29/18 07:31 81 16 99 04/29/18 04:05 97.9 F 87 26 H 184/78 99 04/29/18 03:01 84 19 98 04/28/18 20:15 98.8 F 79 18 167/70 98 04/28/18 19:44 91 H 22 97 04/28/18 16:00 98.8 F 75 21 135/58 98 04/28/18 12:00 98.7 F 73 18 138/62 97 Oxygen-Last 24 hours O2 Percentage 2 Liters = 28% O2 Percentage 2 Liters = 28% O2 Percentage 2 Liters = 28% O2 Percentage 2 Liters = 28% Pain Assessment - Last Documented Pain Intensity 10 Pain Scale Used 0-10 Pain Scale Intake and Output: Intake & Output 04/26/18 04/27/18 04/28/18 04/29/18 11:59 11:59 11:59 11:59 Intake Total 887 1629 2514 Output Total 500 1100 1300 Balance 387 1079 1184 Weight 58.967 kg Lab Results: Accuchecks Date 04/29/18 Time 07:30 Accucheck Value: 179 Multi-Disciplinary Progress Notes: Multi-Disciplinary Progress Notes 04/28/18 14:34 Case Management Note by Bridget Colindres S/Jeimy KAMARA AT [facility], SHE WAS NOTIFIED OF PATIENT'S STAY AND THAT PATIENT WILL BE GOING TO [place] TO LIVE WITH DAUGHTER BUT WILL BE KEEPING HER APARTMENT FOR THE TIME BEING. SHE VERIFIED UNDERSTANDING AND WILL PLACE THE PATIENT ON HOLD AND CAN RESUME SERVICES WHEN SHE COMES BACK TO AREA Initialized on 04/28/18 14:34 - END OF NOTE 04/28/18 14:18 Case Management Note by Bridget Colindres/Jeimy PATIENT AT THIS TIME. NO CHANGE IN DC PLANS AT THIS TIME Initialized on 04/28/18 14:18 - END OF NOTE Assessment/Plan (1) Abdominal pain Current Visit: No Status: Resolved Onset Date: ~03/04/18 Qualifiers: Abdominal location: generalized Qualified Code(s): R10.84 - Generalized abdominal pain Assessment & Plan: Suspect ileus with slightly abn bowel sounds. Passing flatus. Will do abd xr and get her reports on EGDs done at [facility] and [facility], at least one of which she thinks was done within the year. Code(s): R10.9 - UNSPECIFIED ABDOMINAL PAIN (2) Dysphagia Current Visit: Yes Status: Acute Assessment & Plan: Will get records on EGDs done previously. Code(s): R13.10 - DYSPHAGIA, UNSPECIFIED (3) UTI (urinary tract infection) Current Visit: Yes Status: Acute Qualifiers: Urinary tract infection type: acute cystitis Hematuria presence: with hematuria Qualified Code(s): N30.01 - Acute cystitis with hematuria Assessment & Plan: Has been on IV levaquin. However culture with skin lonnie only. Will go ahead and d/c antibiotic today. Code(s): N39.0 - URINARY TRACT INFECTION, SITE NOT SPECIFIED (4) Right shoulder pain Current Visit: Yes Status: Acute Qualifiers: Chronicity: acute Qualified Code(s): M25.511 - Pain in right shoulder Assessment & Plan: This is better today. Code(s): M25.511 - PAIN IN RIGHT SHOULDER (5) Back pain Current Visit: No Status: Acute Onset Date: ~03/04/18 Qualifiers: Back pain location: low back pain Chronicity: acute Back pain laterality : bilateral Sciatica presence: without sciatica Qualified Code(s): M54.5 - Low back pain Code(s): M54.9 - DORSALGIA, UNSPECIFIED (6) Compression fracture Current Visit: No Status: Acute Onset Date: ~03/04/18 Code(s): [id number] - (7) Constipation Current Visit: No Status: Acute Onset Date: ~03/04/18 Qualifiers: Constipation type: slow transit constipation Qualified Code(s): K59.01 - Slow transit constipation Code(s): K59.00 - CONSTIPATION, UNSPECIFIED (8) COPD (chronic obstructive pulmonary disease) Current Visit: No Status: Chronic Qualifiers: COPD type: chronic bronchitis Chronic bronchitis type: unspecified Qualified Code(s): J42 - Unspecified chronic bronchitis (9) Chronic hypoxemic respiratory failure Current Visit: No Status: Chronic (10) Diabetes mellitus Current Visit: No Status: Chronic Qualifiers: Code(s): E11.9 - TYPE 2 DIABETES MELLITUS WITHOUT COMPLICATIONS (11) Muscular deconditioning Current Visit: No Status: Chronic Code(s): R29.898 - OTH SYMPTOMS AND SIGNS INVOLVING THE MUSCULOSKELETAL SYSTEM (12) Anxiety and depression Current Visit: Yes Status: Acute Assessment & Plan: Will restart celexa at 10mg/d. Code(s): F41.9 - ANXIETY DISORDER, UNSPECIFIED; F32.9 - MAJOR DEPRESSIVE DISORDER, SINGLE EPISODE, UNSPECIFIED (13) Insomnia Current Visit: Yes Status: Acute Qualifiers: Insomnia type: primary Qualified Code(s): F51.01 - Primary insomnia Assessment & Plan: still on xanax for insomnia. Holding the trazodone. She did sleep more last night than the night before. Code(s): G47.00 - INSOMNIA, UNSPECIFIED
--- NOTE | 2018-04-29 09:18 | XRAY ---
Indication: Abdomen pain and nausea. Comparison: CT abdomen/pelvis 3 days ago. 2 views of the abdomen again nonacute and nonobstructed with cholecystectomy clips, osteopenia, T12/L1 kyphoplasty, L4-L5 laminectomy, multilevel degenerative spondylosis, scoliosis, and bilateral total hip arthroplasty. Lung bases clear. No new/acute findings.
[2018-04-29] MEDS: ACCOLATE 20 MG PO SCH ×2 (09:46→21:16)
[2018-04-29] MEDS: Protonix 40MG Tablet PO SCH (09:46)
[2018-04-29] MEDS: ceLEXa 20 MG PO SCH (09:46)
[2018-04-29] MEDS: ENOXAPARIN SODIUM SQ SCH (09:46)
[2018-04-29] MEDS: Flonase NASAL NS SCH ×2 (09:47→21:22)
[2018-04-29] MEDS: Sodium Chloride 0.9% 1000 ML 1,000 ML IV SCH (15:22)
[2018-04-29] MEDS: PLAVIX 75 MG Tablet PO SCH (21:16)
[2018-04-29] MEDS: xanAX 0.5 MG PO SCH (21:16)
[2018-04-30] MEDS: PROVENTIL 2.5 MG/3 ML NEB IH PRN ×2 (03:37→14:37)
[2018-04-30] MEDS: PROVENTIL 2.5 MG/3 ML NEB IH SCH ×2 (07:24→19:03)
[2018-04-30] MEDS: PATIENT OWN MEDICATION IH SCH ×2 (07:25→19:06)
[2018-04-30] MEDS: Zofran 4 MG/2 ML VIAL IV PRN (08:39)
--- NOTE | 2018-04-30 09:07 | PCM.NOTE ---
Date and Time: 04/30/18900 Subjective Assessment: She is having eye itching this morning. Abdomen still hurting - she is to have a small bowel follow through and upper GI ordered by surgery, thank you. Still no bowel movement for 6d after a large BM last week. C/o "cold sores" on her upper lip. - Review of Systems Constitutional: No Fever Abdominal/Gastrointestinal: Abdominal Pain Objective Exam General Appearance: mild distress, alert Neurologic Exam: oriented x 3, cooperative Skin Exam: normal color, warm, dry, No rash Respiratory Exam: diminished breath sounds, prolonged expirations, No crackles/ rales, No rhonchi, No wheezing Cardiovascular Exam: regular rate/rhythm, normal heart sounds, No murmur Gastrointestinal/Abdomen Exam: soft, normal bowel sounds, No tenderness, No distention, No mass, No guarding, No rebound Extremity Exam: normal inspection, No pedal edema, No swelling Back Exam: other (lessened purple discoloration R paraspinal approx T10-T12, with some ttp. Some ttp L paraspinal approx L1-L3) OBJECTIVE DATA Vital Signs: Vital Signs - 24 hr Temp Pulse Resp BP Pulse Ox 04/30/18 07:27 85 20 98 04/30/18 07:11 98.7 F 84 18 168/72 98 04/30/18 04:18 99.3 F 82 20 165/72 100 04/30/18 03:38 78 18 99 04/29/18 23:30 98.8 F 76 18 183/72 100 04/29/18 19:45 77 22 99 04/29/18 19:18 98.4 F 83 22 167/77 100 04/29/18 16:19 98.1 F 87 20 170/84 100 04/29/18 14:15 75 18 99 04/29/18 12:14 98.3 F 73 18 155/68 100 Oxygen-Last 24 hours O2 Percentage 2 Liters = 28% O2 Percentage 2 Liters = 28% O2 Percentage 2 Liters = 28% O2 Percentage 2 Liters = 28% Pain Assessment - Last Documented Pain Intensity 0 Pain Scale Used FLACC Intake and Output: Intake & Output 04/27/18 04/28/18 04/29/18 04/30/18 11:59 11:59 11:59 11:59 Intake Total 887 5449 2604 2406 Output Total 500 1100 1500 2000 Balance 387 1079 1104 406 Weight 58.967 kg Lab Results: Accuchecks Date 04/30/18 Date 04/29/18 Date 04/29/18 Time 07:30 Time 11:20 Time 11:20 Accucheck Value: 111 Accucheck Value: 123 Accucheck Value: 123 Radiology Exams: Radiology Procedures Category Date Time Status ABDOMEN 2 VIEW Stat Exams 04/29/18 08:54 Completed SMALL BOWEL SERIES Routine Exams 04/30/18 08:00 Ordered UPPER GI Routine Exams 04/30/18 08:00 Ordered Multi-Disciplinary Progress Notes: Multi-Disciplinary Progress Notes 04/29/18 10:57 Case Management Note by Bridget Colindres S/W PATIENT WAS NOTIFIED THAT DAUGHTER AND [facility] ARE WORKING ON SETTING UP HHC IN [facility], SHE VERIFIED UNDERSTANDING. IMPORTANT MESSAGE FROM MEDICARE SIGNED Initialized on 04/29/18 10:57 - END OF NOTE 04/29/18 10:28 Case Management Note by Bridget Colindres FROM [facility] CALLED AND STATED SHE S/W PATIENT'S DAUGHTER AND SHE IS REQUESTING HHC IN [place]. [facility] DOES NOT HAVE AN AGENCY IN THAT AREA. [facility] IS GOING TO SET PATIENT UP WITH A LOCAL AGENCY TO CONTINUE HHC AT [facility] IN [place]. INFO FAXED TO [facility] FOR ASSISTANCE WITH SET UP Initialized on 04/29/18 10:28 - END OF NOTE Assessment/Plan (1) Abdominal pain Current Visit: Yes Status: Acute Onset Date: ~04/29/18 Qualifiers: Abdominal location: generalized Qualified Code(s): R10.84 - Generalized abdominal pain Assessment & Plan: surgery initiating workup, thank you. Has been on pantoprazole po. Code(s): R10.9 - UNSPECIFIED ABDOMINAL PAIN (2) Dysphagia Current Visit: Yes Status: Acute Onset Date: ~04/27/18 Assessment & Plan: hx esophageal stricture. last EGD Jun [address] Rosa. Code(s): R13.10 - DYSPHAGIA, UNSPECIFIED (3) UTI (urinary tract infection) Current Visit: Yes Status: Resolved Onset Date: ~04/27/18 Qualifiers: Urinary tract infection type: acute cystitis Hematuria presence: with hematuria Qualified Code(s): N30.01 - Acute cystitis with hematuria Code(s): N39.0 - URINARY TRACT INFECTION, SITE NOT SPECIFIED (4) Right shoulder pain Current Visit: Yes Status: Acute Onset Date: ~04/27/18 Qualifiers: Chronicity: acute Qualified Code(s): M25.511 - Pain in right shoulder Assessment & Plan: improved Code(s): M25.511 - PAIN IN RIGHT SHOULDER (5) Back pain Current Visit: No Status: Chronic Onset Date: ~03/04/18 Qualifiers: Back pain location: low back pain Chronicity: acute Back pain laterality : bilateral Sciatica presence: without sciatica Qualified Code(s): M54.5 - Low back pain Code(s): M54.9 - DORSALGIA, UNSPECIFIED (6) Compression fracture Current Visit: No Status: Resolved Onset Date: ~03/04/18 Code(s): [id number] - (7) Constipation Current Visit: Yes Status: Acute Onset Date: ~04/29/18 Qualifiers: Constipation type: slow transit constipation Qualified Code(s): K59.01 - Slow transit constipation Assessment & Plan: May need to give mag citrate after her testing is done. Code(s): K59.00 - CONSTIPATION, UNSPECIFIED (8) COPD (chronic obstructive pulmonary disease) Current Visit: No Status: Chronic Qualifiers: COPD type: chronic bronchitis Chronic bronchitis type: unspecified Qualified Code(s): J42 - Unspecified chronic bronchitis (9) Chronic hypoxemic respiratory failure Current Visit: No Status: Chronic (10) Diabetes mellitus Current Visit: No Status: Chronic Qualifiers: Code(s): E11.9 - TYPE 2 DIABETES MELLITUS WITHOUT COMPLICATIONS (11) Muscular deconditioning Current Visit: No Status: Chronic Code(s): R29.898 - OT SYMPTOMS AND SIGNS INVOLVING THE MUSCULOSKELETAL SYSTEM (12) Anxiety and depression Current Visit: Yes Status: Chronic Onset Date: ~04/27/18 Code(s): F41.9 - ANXIETY DISORDER, UNSPECIFIED; F32.9 - MAJOR DEPRESSIVE DISORDER, SINGLE EPISODE , UNSPECIFIED (13) Insomnia Current Visit: Yes Status: Acute Onset Date: ~04/28/18 Qualifiers: Insomnia type: primary Qualified Code(s): F51.01 - Primary insomnia Code(s): G47.00 - INSOMNIA, UNSPECIFIED
[2018-04-30] MEDS ORDERED: Artificial Tears 15 ML OP PRN (09:12)
[2018-04-30] MEDS: NORVASC 5 MG PO SCH (10:34)
[2018-04-30] MEDS: Miralax Powder 17GM PACKET PO SCH (10:34)
[2018-04-30] MEDS: ZOVIRAX 800 MG PO SCH ×4 (10:34→22:00)
[2018-04-30] MEDS: PERCOCET TABLET 5/325MG PO PRN ×2 (10:34→21:35)
[2018-04-30] MEDS: ceLEXa 20 MG PO SCH (10:35)
[2018-04-30] MEDS: Protonix 40MG Tablet PO SCH (10:35)
[2018-04-30] MEDS: Flonase NASAL NS SCH ×2 (10:35→21:59)
[2018-04-30] MEDS: ENOXAPARIN SODIUM SQ SCH (10:35)
[2018-04-30] MEDS: ACCOLATE 20 MG PO SCH ×2 (10:35→21:35)
[2018-04-30] MEDS: NON-FORMULARY ITEM TOP SCH ×4 (10:36→22:00)
[2018-04-30] MEDS: Colace 100 MG PO PRN (10:47)
[2018-04-30] MEDS: Artificial Tears 15 ML OP PRN ×2 (11:03→19:22)
[2018-04-30 11:06] LABS: BASOPHIL % 0.1 % (0.0-0.4); Basophil (Absolute #) 0.01 (0-0.4); Eosinophil % 1.4 % (0.00-5.0); Granulocyte Absolute (ANC) 5.06 (1.4-6.9); Hematocrit 27.3 % (35-47); Hemoglobin 8.6 gm/dl (12.0-16.0); Lymphocyte (Absolute #) 0.53 (1.0-4.6); Lymphocytes % 7.4 % (24.0-44.0); Mean Cell Volume 94.5 fl (78-100); Mean Corpuscular Hemoglobin 29.7 pg (26-32); Mean Corpuscular Hgb Concent. 31.5 g/dl (32-36); Mean Platelet Volume 9.6 fl (6-9.5); Monocyte (Absolute #) 1.43 (0.0-1.3); Monocytes % 20.1 % (0.0-12.0); Platelet Count 246 K/mm3 (150-450); Red Blood Count 2.89 M/mm3 (4.1-5.4); Red Cell Distribution Width 12.5 % (11.5-14.0); White Blood Count 7.1 K/mm3 (4.0-10.5)
[2018-04-30 11:27] LABS: ANION GAP 11.4 MEQ/L (5-15); BLOOD UREA NITROGEN 4 mg/dL (7-17); CHLORIDE 104 mmol/L (98-107); Carbon Dioxide 27 mmol/L (22-30); Glucose 127 mg/dL (74-106); Potassium 3.5 mmol/L (3.5-5.1); SODIUM 139 mmol/L (137-145)
--- NOTE | 2018-04-30 12:59 | XRAY ---
Indication: Constipation. Food gets stuck in throat. Comparison: None Double contrast upper GI exam was performed. Patient ingested barium without miss swallow or aspiration. Esophagus is normal in course and caliber without stricture, obstruction, or filling defect. No hiatal hernia. Barium freely emptied into the stomach. Stomach normally distended. The lesser and greater curvature appears smooth. No acute ulcerations or intraluminal filling defect. Normal duodenal cap and sweep. Towards the end of the exam, gastroesophageal reflux demonstrated with a column of barium up to the level of the thoracic inlet. Impression: Gastroesophageal reflux. Remaining double contrast upper GI exam is negative. Approximately 0.7 minute fluoroscopy used.
[2018-04-30] MEDS: Sodium Chloride 0.9% 1000 ML 1,000 ML IV SCH (13:37)
[2018-04-30] MEDS: MORPHINE SULFATE 4 MG INJ IV PRN (14:19)
[2018-04-30 17:45] LABS: Folate (Folic Acid) 13.1 ng/mL (2.76 - >20)
[2018-04-30] MEDS: xanAX 0.5 MG PO SCH (21:35)
[2018-05-01] MEDS: MORPHINE SULFATE 4 MG INJ IV PRN ×3 (00:16→21:22)
[2018-05-01] MEDS: ZOVIRAX 800 MG PO SCH ×5 (06:02→21:36)
[2018-05-01] MEDS: PROVENTIL 2.5 MG/3 ML NEB IH SCH ×2 (07:33→19:24)
[2018-05-01] MEDS: PATIENT OWN MEDICATION IH SCH ×2 (07:36→19:26)
[2018-05-01] MEDS: Sodium Chloride 0.9% 1000 ML 1,000 ML IV SCH ×2 (09:35→21:36)
[2018-05-01] MEDS: NON-FORMULARY ITEM TOP SCH ×5 (09:40→21:36)
[2018-05-01] MEDS: ACCOLATE 20 MG PO SCH ×2 (11:40→21:19)
[2018-05-01] MEDS: ENOXAPARIN SODIUM SQ SCH (11:40)
[2018-05-01] MEDS ORDERED: CITROMA 296 ML PO PRN (12:27)
[2018-05-01] MEDS ORDERED: APRESOLINE 20 MG/ML INJ IV PRN (12:27)
--- NOTE | 2018-05-01 13:00 | PCM.NOTE ---
Date and Time: 05/01/18 1255 Subjective Assessment: Pt is now c/o pain in her back where there is alump along her spine. She had her EGD, found gastritis and esophageal stricture. She appears to be feeling better this morning. - Review of Systems Constitutional: No Fever Abdominal/Gastrointestinal: Abdominal Pain Musculoskeletal: Back Pain Objective Exam General Appearance: no apparent distress, alert Neurologic Exam: oriented x 3, cooperative (conversant on several subjects unrelated to her health) Skin Exam: normal color, warm, dry, No rash Respiratory Exam: diminished breath sounds, prolonged expirations, No crackles/ rales, No rhonchi, No wheezing Cardiovascular Exam: regular rate/rhythm, normal heart sounds, No murmur Gastrointestinal/Abdomen Exam: soft, tenderness (mild RLQ ttp), No distention, No mass, No guarding, No rebound Extremity Exam: normal inspection, No pedal edema, No swelling Back Exam: other (surgical sites c/d/i, healing well. Just inferior to surgical sites, approx L1, there is a hard mass that is mildly ttp. Lateral and superior to this there is bruising, decreased from previously noted.) OBJECTIVE DATA Vital Signs: Vital Signs - 24 hr Temp Pulse Resp BP Pulse Ox 05/01/18 12:30 98.7 F 80 22 146/72 98 05/01/18 11:13 98.4 F 78 16 191/75 99 05/01/18 11:10 98.4 F 78 16 178/77 99 05/01/18 07:37 78 18 100 05/01/18 07:04 98.6 F 81 16 191/75 100 05/01/18 04:00 98.2 F 72 20 156/67 100 05/01/18 00:00 97.7 F 96 H 20 143/67 100 04/30/18 19:47 98.8 F 81 20 150/64 99 04/30/18 19:07 79 20 99 04/30/18 16:20 98.5 F 76 20 161/70 100 04/30/18 14:37 81 20 97 Oxygen-Last 24 hours O2 Percentage 2 Liters = 28% O2 Percentage 2 Liters = 28% O2 Percentage 2 Liters = 28% O2 Percentage 2 Liters = 28% O2 Percentage 2 Liters = 28% O2 Percentage 2 Liters = 28% Pain Assessment - Last Documented Pain Intensity 3 Pain Scale Used 0-10 Pain Scale Intake and Output: Intake & Output 04/29/18 04/30/18 05/01/18 05/02/18 11:59 11:59 11:59 11:59 Intake Total 2604 2406 360 Output Total 1500 2000 1750 Balance 1104 406 -1390 Weight 58.967 kg Lab Results: Accuchecks Date 05/01/18 Time 07:00 Accucheck Value: 105 Lab Results-Last 24 Hours 04/30/18 Range/Units 10:15 Vitamin B12 701 (239-931) pg/mL Folic Acid 13.1 (2.76 - >20) ng/mL Radiology Exams: Radiology Procedures Category Date Time Status SMALL BOWEL SERIES Routine Exams 04/30/18 08:00 Completed UPPER GI Routine Exams 04/30/18 08:00 Completed Assessment/Plan (1) Gastritis Current Visit: Yes Status: Acute Qualifiers: Gastritis type: unspecified gastritis Chronicity: chronic Gastritis bleeding: without bleeding Qualified Code(s): K29.50 - Unspecified chronic gastritis without bleeding Assessment & Plan: Will leave pt on her PPI Code(s): K29.70 - GASTRITIS, UNSPECIFIED, WITHOUT BLEEDING (2) Esophageal stricture Current Visit: Yes Status: Acute Assessment & Plan: stretched in EGD, thank you. If pt doing well may be able to d/c to her daughter's house tomorrow. Code(s): K22.2 - ESOPHAGEAL OBSTRUCTION (3) Dysphagia Current Visit: Yes Status: Acute Onset Date: ~04/27/18 Qualifiers: Dysphagia type: unspecified Qualified Code(s): R13.10 - Dysphagia, unspecified Code(s): R13.10 - DYSPHAGIA, UNSPECIFIED (4) UTI (urinary tract infection) Current Visit: Yes Status: Resolved Onset Date: ~04/27/18 Qualifiers: Urinary tract infection type: acute cystitis Hematuria presence: with hematuria Qualified Code(s): N30.01 - Acute cystitis with hematuria Assessment & Plan: has been treated. Code(s): N39.0 - URINARY TRACT INFECTION, SITE NOT SPECIFIED (5) Right shoulder pain Current Visit: Yes Status: Acute Onset Date: ~04/27/18 Qualifiers: Chronicity: acute Qualified Code(s): M25.511 - Pain in right shoulder Assessment & Plan: ipmroved. Code(s): M25.511 - PAIN IN RIGHT SHOULDER (6) Back pain Current Visit: No Status: Chronic Onset Date: ~03/04/18 Qualifiers: Back pain location: low back pain Chronicity: acute Back pain laterality : bilateral Sciatica presence: without sciatica Qualified Code(s): M54.5 - Low back pain Assessment & Plan: Will have to f/u outpatient with neurosurgery in [place]. Code(s): M54.9 - DORSALGIA, UNSPECIFIED (7) Compression fracture Current Visit: No Status: Resolved Onset Date: ~03/04/18 Assessment & Plan: question of new fracture. as above. Code(s): [id number] - (8) Constipation Current Visit: Yes Status: Acute Onset Date: ~04/29/18 Qualifiers: Constipation type: slow transit constipation Qualified Code(s): K59.01 - Slow transit constipation Assessment & Plan: had a BM yesterday. I did add mag citrate to her meds prn Code(s): K59.00 - CONSTIPATION, UNSPECIFIED (9) COPD (chronic obstructive pulmonary disease) Current Visit: No Status: Chronic Qualifiers: COPD type: chronic bronchitis Chronic bronchitis type: unspecified Qualified Code(s): J42 - Unspecified chronic bronchitis Assessment & Plan: has been waking at night for a breathing tx. (10) Chronic hypoxemic respiratory failure Current Visit: No Status: Chronic (11) Diabetes mellitus Current Visit: No Status: Chronic Qualifiers: Code(s): E11.9 - TYPE 2 DIABETES MELLITUS WITHOUT COMPLICATIONS (12) Muscular deconditioning Current Visit: No Status: Chronic Code(s): R29.898 - OT SYMPTOMS AND SIGNS INVOLVING THE MUSCULOSKELETAL SYSTEM (13) Anxiety and depression Current Visit: Yes Status: Chronic Onset Date: ~04/27/18 Assessment & Plan: improved today Code(s): F41.9 - ANXIETY DISORDER, UNSPECIFIED; F32.9 - MAJOR DEPRESSIVE DISORDER, SINGLE EPISODE, UNSPECIFIED (14) Insomnia Current Visit: Yes Status: Acute Onset Date: ~04/28/18 Qualifiers: Insomnia type: primary Qualified Code(s): F51.01 - Primary insomnia Assessment & Plan: added 50mg trazodone back in Code(s): G47.00 - INSOMNIA, UNSPECIFIED
[2018-05-01] MEDS: PROVENTIL 2.5 MG/3 ML NEB IH PRN (13:46)
[2018-05-01] MEDS: Protonix 40MG Tablet PO SCH (13:54)
[2018-05-01] MEDS: ceLEXa 20 MG PO SCH (13:54)
[2018-05-01] MEDS: Miralax Powder 17GM PACKET PO SCH (13:54)
[2018-05-01] MEDS: NORVASC 5 MG PO SCH (13:54)
[2018-05-01] MEDS: PERCOCET TABLET 5/325MG PO PRN (13:58)
[2018-05-01] MEDS: Flonase NASAL NS SCH ×2 (15:37→21:19)
[2018-05-01] MEDS: GARAMYCIN 0.3% OPHTH SOL OP SCH ×2 (15:38→21:20)
[2018-05-01] MEDS: DESYREL 50 MG PO SCH (21:19)
[2018-05-01] MEDS: xanAX 0.5 MG PO SCH (21:21)
[2018-05-01] MEDS: PLAVIX 75 MG Tablet PO SCH (21:21)
[2018-05-02] MEDS: PROVENTIL 2.5 MG/3 ML NEB IH PRN ×4 (02:49→22:45)
[2018-05-02] MEDS: PERCOCET TABLET 5/325MG PO PRN ×3 (03:00→22:46)
[2018-05-02 05:27] LABS: Basophil (Absolute #) 0 (0-0.4); Eosinophil % 2.7 % (0.00-5.0); Eosinophil (Absolute #) 0.15 (0-0.5); Granulocyte Absolute (ANC) 3.17 (1.4-6.9); Granulocytes % 56.5 % (36.0-66.0); Hematocrit 23.2 % (35-47); Hemoglobin 7.1 gm/dl (12.0-16.0); Lymphocyte (Absolute #) 0.83 (1.0-4.6); Lymphocytes % 14.8 % (24.0-44.0); Mean Cell Volume 95.5 fl (78-100); Mean Corpuscular Hemoglobin 29.2 pg (26-32); Mean Corpuscular Hgb Concent. 30.6 g/dl (32-36); Mean Platelet Volume 8.9 fl (6-9.5); Monocyte (Absolute #) 1.46 (0.0-1.3); Platelet Count 185 K/mm3 (150-450); Red Blood Count 2.43 M/mm3 (4.1-5.4); Red Cell Distribution Width 12.6 % (11.5-14.0); White Blood Count 5.6 K/mm3 (4.0-10.5)
[2018-05-02 05:41] LABS: ALBUMIN 2.8 g/dL (3.5-5.0); ALKALINE PHOSPHATASE 65 U/L (38-126); ANION GAP 9.9 MEQ/L (5-15); BLOOD UREA NITROGEN 6 mg/dL (7-17); CHLORIDE 104 mmol/L (98-107); Calcium 8.3 mg/dL (8.4-10.2); Carbon Dioxide 29 mmol/L (22-30); Creatinine 1 0.59 mg/dL (0.52-1.04); Glucose 99 mg/dL (74-106); Potassium 3.2 mmol/L (3.5-5.1); SGOT/AST 11 U/L (14-36); SGPT/ALT 7 U/L (0-35); SODIUM 139 mmol/L (137-145); Total Protein 5.2 g/dL (6.3-8.2)
[2018-05-02] MEDS: GARAMYCIN 0.3% OPHTH SOL OP SCH ×3 (06:56→21:06)
[2018-05-02] MEDS: NON-FORMULARY ITEM TOP SCH ×5 (07:38→22:48)
[2018-05-02] MEDS: ZOVIRAX 800 MG PO SCH ×5 (07:38→22:46)
[2018-05-02] MEDS: PROVENTIL 2.5 MG/3 ML NEB IH SCH ×2 (07:40→18:54)
[2018-05-02] MEDS: PATIENT OWN MEDICATION IH SCH (07:41)
[2018-05-02] MEDS: Miralax Powder 17GM PACKET PO SCH (09:00)
[2018-05-02] MEDS: ceLEXa 20 MG PO SCH (09:00)
[2018-05-02] MEDS: ENOXAPARIN SODIUM SQ SCH (09:00)
[2018-05-02] MEDS: Protonix 40MG Tablet PO SCH (09:00)
[2018-05-02] MEDS: ACCOLATE 20 MG PO SCH ×2 (09:00→21:05)
[2018-05-02] MEDS: NORVASC 5 MG PO SCH (09:01)
[2018-05-02] MEDS: Flonase NASAL NS SCH ×2 (09:01→21:05)
[2018-05-02 10:17] LABS: Hematocrit 24.3 % (35-47); Hemoglobin 7.5 gm/dl (12.0-16.0)
--- NOTE | 2018-05-02 11:00 | PCM.NOTE ---
Date and Time: 05/02/18 1052 Subjective Assessment: She is not able to eat much, but she is not complaining of abd pain. She would like to get off O2 during the day. She got up and took a shower today. Her Hgb this morning was 7.1. - Review of Systems Constitutional: No Fever Musculoskeletal: Back Pain Hematologic/Lymphatic: Anemia Objective Exam General Appearance: no apparent distress, alert Neurologic Exam: oriented x 3, cooperative (conversant) Skin Exam: normal color, warm, dry, No rash Respiratory Exam: lungs clear, diminished breath sounds, No crackles/rales, No rhonchi, No wheezing Cardiovascular Exam: regular rate/rhythm, normal heart sounds, No murmur Gastrointestinal/Abdomen Exam: soft, normal bowel sounds, other (mild ttp suprapubic/RLQ), No distention, No mass, No guarding, No rebound Extremity Exam: normal inspection, No pedal edema, No swelling Back Exam: other (decreasing purple discoloration apprxo T10 R paraspinal area. Just adjacent and inferior to this along the R side of the spine there is a hard mass with mild ttp) OBJECTIVE DATA Vital Signs: Vital Signs - 24 hr Temp Pulse Resp BP Pulse Ox 05/02/18 07:47 69 18 100 05/02/18 07:40 98.6 F 76 18 160/74 99 05/02/18 03:53 98.2 F 82 20 136/60 100 05/02/18 02:51 75 20 98 05/01/18 20:23 98.5 F 80 20 157/66 99 05/01/18 19:27 67 20 98 05/01/18 17:00 98.4 F 80 18 175/70 99 05/01/18 13:50 83 18 144/65 99 05/01/18 13:47 88 18 100 05/01/18 13:20 83 18 158/74 100 05/01/18 12:50 78 16 152/65 98 05/01/18 12:30 98.7 F 80 22 146/72 98 05/01/18 11:13 98.4 F 78 16 191/75 99 05/01/18 11:10 98.4 F 78 16 178/77 99 Oxygen-Last 24 hours O2 Percentage 2 Liters = 28% O2 Percentage 2 Liters = 28% O2 Percentage 2 Liters = 28% O2 Percentage 2 Liters = 28% O2 Percentage 2 Liters = 28% O2 Percentage 2 Liters = 28% O2 Percentage 2 Liters = 28% O2 Percentage 2 Liters = 28% O2 Percentage 2 Liters = 28% Pain Assessment - Last Documented Pain Intensity 0 Pain Scale Used 0-10 Pain Scale Intake and Output: Intake & Output 04/29/18 04/30/18 05/01/18 05/02/18 11:59 11:59 11:59 11:59 Intake Total 2604 2406 360 2113 Output Total 1500 2000 1750 1600 Balance 1104 406 -1390 513 Weight 58.967 kg Lab Results: Accuchecks Accucheck Value: 94 Lab Results-Last 24 Hours 05/02/18 05/02/18 05/02/18 Range/Units 05:15 05:15 09:52 WBC 5.6 (4.0-10.5) K/mm3 RBC 2.43 L (4.1-5.4) M/mm3 Hgb 7.1 L 7.5 L (12.0-16.0) gm/dl Hct 23.2 L 24.3 L (35-47) % MCV 95.5 (78-100) fl MCH 29.2 (26-32) pg MCHC 30.6 L (32-36) g/dl RDW 12.6 (11.5-14.0) % Plt Count 185 (150-450) K/mm3 MPV 8.9 (6-9.5) fl Gran % 56.5 (36.0-66.0) % Eos # (Auto) 0.15 (0-0.5) Absolute Lymphs (auto) 0.83 L (1.0-4.6) Absolute Monos (auto) 1.46 H (0.0-1.3) Lymphocytes % 14.8 L (24.0-44.0) % Monocytes % 26.0 H (0.0-12.0) % Eosinophils % 2.7 (0.00-5.0) % Basophils % 0.0 (0.0-0.4) % Absolute Granulocytes 3.17 (1.4-6.9) Basophils # 0 (0-0.4) Sodium 139 (137-145) mmol/L Potassium 3.2 L (3.5-5.1) mmol/L Chloride 104 (98-107) mmol/L Carbon Dioxide 29 (22-30) mmol/L Anion Gap 9.9 (5-15) MEQ/L BUN 6 L (7-17) mg/dL Creatinine 0.59 (0.52-1.04) mg/dL Estimated GFR > 60.0 ML/MIN Glucose 99 (74-106) mg/dL Calcium 8.3 L (8.4-10.2) mg/dL Total Bilirubin 0.20 (0.2-1.3) mg/dL AST 11 L (14-36) U/L ALT 7 (0-35) U/L Alkaline Phosphatase 65 (38-126) U/L Serum Total Protein 5.2 L (6.3-8.2) g/dL Albumin 2.8 L (3.5-5.0) g/dL Assessment/Plan (1) Anemia Current Visit: Yes Status: Acute Qualifiers: Anemia type: unspecified type Qualified Code(s): D64.9 - Anemia, unspecified Assessment & Plan: Has chronic anemia, but acutely now less than 8 so will transfuse 2 units. Pt has hx blood transfusion in the past. On lovenox and plavix; however no active bleeding that I am aware of so I am not holding these at this time. Code(s): D64.9 - ANEMIA, UNSPECIFIED (2) Gastritis Current Visit: Yes Status: Acute Qualifiers: Gastritis type: unspecified gastritis Chronicity: chronic Gastritis bleeding: without bleeding Qualified Code(s): K29.50 - Unspecified chronic gastritis without bleeding Assessment & Plan: On PPI, will have her avoid NSAIDs. Spoke with her daughter about this. Code(s): K29.70 - GASTRITIS, UNSPECIFIED, WITHOUT BLEEDING (3) Esophageal stricture Current Visit: Yes Status: Acute Assessment & Plan: Stretched yesterday, thank you, and she appears to be feeling better. Code(s): K22.2 - ESOPHAGEAL OBSTRUCTION (4) Dysphagia Current Visit: Yes Status: Resolved Onset Date: ~04/27/18 Qualifiers: Dysphagia type: unspecified Qualified Code(s): R13.10 - Dysphagia, unspecified Code(s): R13.10 - DYSPHAGIA, UNSPECIFIED (5) UTI (urinary tract infection) Current Visit: Yes Status: Resolved Onset Date: ~04/27/18 Qualifiers: Urinary tract infection type: acute cystitis Hematuria presence: with hematuria Qualified Code(s): N30.01 - Acute cystitis with hematuria Code(s): N39.0 - URINARY TRACT INFECTION, SITE NOT SPECIFIED (6) Right shoulder pain Current Visit: Yes Status: Acute Onset Date: ~04/27/18 Qualifiers: Chronicity: acute Qualified Code(s): M25.511 - Pain in right shoulder Assessment & Plan: improved Code(s): M25.511 - PAIN IN RIGHT SHOULDER (7) Back pain Current Visit: No Status: Chronic Onset Date: ~03/04/18 Qualifiers: Back pain location: low back pain Chronicity: acute Back pain laterality : bilateral Sciatica presence: without sciatica Qualified Code(s): M54.5 - Low back pain Assessment & Plan: acute on chronic. She will need to f/u with neurosurgery outpatient in [place]; discussed with her daughter. Code(s): M54.9 - DORSALGIA, UNSPECIFIED (8) Compression fracture Current Visit: No Status: Acute Onset Date: ~03/04/18 Assessment & Plan: possible new acute fx; pursue outpatient workup as above. Code(s): NBD2035 - (9) Constipation Current Visit: Yes Status: Chronic Onset Date: ~04/29/18 Qualifiers: Constipation type: slow transit constipation Qualified Code(s): K59.01 - Slow transit constipation Assessment & Plan: Did have BM 2 d ago. Code(s): K59.00 - CONSTIPATION, UNSPECIFIED (10) COPD (chronic obstructive pulmonary disease) Current Visit: No Status: Chronic Qualifiers: COPD type: chronic bronchitis Chronic bronchitis type: unspecified Qualified Code(s): J42 - Unspecified chronic bronchitis Assessment & Plan: She does wake in the night for nebulizer tx around 2:30 or 3 am; will add inhaled steroid at night (pt already on albuterol and Brovana (LABA)). (11) Chronic hypoxemic respiratory failure Current Visit: No Status: Chronic Assessment & Plan: Will see if tolerates off O2 in the day (12) Diabetes mellitus Current Visit: No Status: Chronic Qualifiers: Diabetes mellitus type: type 2 Diabetes mellitus penitentiary insulin use: without penitentiary use Diabetes mellitus complication status: with unspecified complications Qualified Code(s): E11.8 - Type 2 diabetes mellitus with unspecified complications Code(s): E11.9 - TYPE 2 DIABETES MELLITUS WITHOUT COMPLICATIONS (13) Hypokalemia Current Visit: Yes Status: Acute Assessment & Plan: will add potassium to IV fluids; with her recent stomach issues do not want to add po potassium at this time. Code(s): E87.6 - HYPOKALEMIA (14) Muscular deconditioning Current Visit: No Status: Chronic Assessment & Plan: Will be discharged to her daughters home, where she already has home health set up. Code(s): R29.898 - OTH SYMPTOMS AND SIGNS INVOLVING THE MUSCULOSKELETAL SYSTEM (15) Anxiety and depression Current Visit: Yes Status: Chronic Onset Date: ~04/27/18 Code(s): F41.9 - ANXIETY DISORDER, UNSPECIFIED; F32.9 - MAJOR DEPRESSIVE DISORDER, SINGLE EPISODE , UNSPECIFIED (16) Insomnia Current Visit: Yes Status: Acute Onset Date: ~04/28/18 Qualifiers: Insomnia type: primary Qualified Code(s): F51.01 - Primary insomnia Assessment & Plan: added trazodone back in. I think if her breathing were better at night, she would be able to sleep better. Code(s): G47.00 - INSOMNIA, UNSPECIFIED
[2018-05-02] MEDS ORDERED: Sodium Chloride 0.9% W/ 20 mEq KCl/LITER 1,000 ML IV SCH (11:15)
[2018-05-02] MEDS ORDERED: Lasix 20 MG/2 ML IV SCH (11:15)
[2018-05-02 11:55] LABS: ABO TYPING A; Antibody Screen NEGATIVE (NEGATIVE); RH TYPING POSITIVE
[2018-05-02] MEDS ORDERED: Sodium Chloride 0.9% 1000 ML 1,000 ML ONE (11:56)
[2018-05-02 18:54] LABS: Hematocrit 33.3 % (35-47); Hemoglobin 10.7 gm/dl (12.0-16.0)
[2018-05-02] MEDS: Advair Hfa 115/21 Common canister IH SCH (18:58)
[2018-05-02] MEDS: DESYREL 50 MG PO SCH (21:05)
[2018-05-02] MEDS: xanAX 0.5 MG PO SCH (21:05)
[2018-05-02] MEDS: PLAVIX 75 MG Tablet PO SCH (21:05)
[2018-05-02] MEDS ORDERED: Flovent 110 Mcg COMMON CANISTER IH SCH (22:00)
[2018-05-03 05:52] LABS: Granulocyte Absolute (ANC) 4.11 (1.4-6.9); Hematocrit 31.4 % (35-47); Hemoglobin 10.3 gm/dl (12.0-16.0); Mean Cell Volume 90.5 fl (78-100); Mean Corpuscular Hemoglobin 29.6 pg (26-32); Mean Corpuscular Hgb Concent. 32.8 g/dl (32-36); Mean Platelet Volume 8.6 fl (6-9.5); Platelet Count 196 K/mm3 (150-450); Red Blood Count 3.47 M/mm3 (4.1-5.4); Red Cell Distribution Width 14.3 % (11.5-14.0); White Blood Count 7.4 K/mm3 (4.0-10.5)
[2018-05-03] MEDS: GARAMYCIN 0.3% OPHTH SOL OP SCH (05:56)
[2018-05-03 06:17] LABS: ANION GAP 8.4 MEQ/L (5-15); BLOOD UREA NITROGEN 8 mg/dL (7-17); CHLORIDE 102 mmol/L (98-107); Calcium 8.6 mg/dL (8.4-10.2); Carbon Dioxide 32 mmol/L (22-30); Creatinine 1 0.61 mg/dL (0.52-1.04); Glucose 100 mg/dL (74-106); Potassium 3.2 mmol/L (3.5-5.1); SODIUM 139 mmol/L (137-145)
[2018-05-03] MEDS: PROVENTIL 2.5 MG/3 ML NEB IH SCH (06:40)
[2018-05-03] MEDS: Advair Hfa 115/21 Common canister IH SCH (06:40)
[2018-05-03 06:56] LABS: Lymphocytes 33 % (24-44); Monocyte 7 % (0.0-12.0); Neutrophils 60 % (36.0-66.0); Total Cells Counted 100
[2018-05-03 06:57] LABS: Platelet Estimate NORMAL (NORMAL)
[2018-05-03] MEDS: NON-FORMULARY ITEM TOP SCH ×2 (07:51→11:11)
[2018-05-03] MEDS: ZOVIRAX 800 MG PO SCH ×2 (07:51→11:11)
--- NOTE | 2018-05-03 08:43 | OP ---
SURGERY DATE/TIME: 05/01/2018 1200 PREOPERATIVE DIAGNOSIS: Dysphagia. POSTOPERATIVE DIAGNOSIS: Esophageal spasm and light stricture of the distal esophagus. PROCEDURE: EGD with balloon dilatation to size 50 La[place]. SURGEON: Cedric Rios M.D. ANESTHESIA: IV sedation. COMPLICATIONS: None. CONDITION: Stable. INDICATION: The patient had difficulty swallowing. DESCRIPTION OF PROCEDURE: The patient is taken to the endoscopy suite. IV sedation provided satisfactory sedation present. Scope introduced. The pharyngoesophageal junction is normal. There was some diffuse spasm of esophagus which seemed to be worse in the lower esophageal junction area. I do not believe she has achalasia but she certainly had diffuse spasm being worse in the distal area. Fundus, body and antrum there was a moderate gastritis. Pylorus satisfactory. Duodenal bulb satisfactory. Second portion satisfactory. Scope withdrawn and looped upon itself. No hiatal hernia. Scope backed up and the balloon placed. The balloon insufflated to stage 2 at 50 for one minute. The patient tolerated the procedure satisfactorily and there was no organic stricture left at this site. The patient tolerated the procedure satisfactorily. SURGERY DATE: PREOPERATIVE DIAGNOSIS: POSTOPERATIVE DIAGNOSIS: PROCEDURE: SURGEON: ANESTHESIA: ESTIMATED BLOOD LOSS: INDICATIONS: DESCRIPTION OF PROCEDURE AND FINDINGS:
--- NOTE | 2018-05-03 08:51 | PCM.DS ---
Discharge Summary Date of Admission: 04/29/18 08:21 Admitting Physician: CJ MORROW Consults: Consults on Case 04/28/18 08:12 Consult Tele-Health [Tele-Health Consult] ROUTINE 04/29/18 16:47 Consult Surgery ROUTINE Primary Care Provider: CJ MORROW Allergies Allergies aspirin Allergy (Severe, Verified 04/27/18 01:09) Difficulty Breathing iodine Allergy (Severe, Verified 04/27/18 01:09) Difficulty Breathing Penicillins Allergy (Severe, Verified 04/27/18 01:09) Difficulty Breathing prednisone Adverse Reaction (Intermediate, Verified 04/27/18 01:09) Lightheadedness DOES NOT LIKE HOW MED MAKES HER FEEL , hallucinations , shakes,stutters iron Adverse Reaction (Mild, Verified 04/27/18 01:09) Nausea Hospital Summary - Hospital Course Hospital Course: Pt is 83 yo female with COPD who was admitted through ER with a fall. She was found to have UTI and possible new compression fracture. She started having worsening abd pain and persistent dysphagia on day #3 so surgery was consulted and she had a small bowel follow through which was negative. Upper GI positive for reflux to the level of thoracic inlet. EGD the next day with gastritis and esophagel stricture (dilated by surgery, thank you). Abd XR x 2 and CXR were non acute here. CT lumbar and thoracic spine non acute ; T12-L1 compression fx s/p kyphoplasty. CT abd/pelvis with stable diverticulosis but non acute. Her hemoglobin dropped to 7.1 the day after the EGD and she was transfused 2 units PRBCs. This morning her hgb is 10.3. This morning she is c/o bloating with eating and some nausea. No vomiting. No headache. She is going to be living with her daughter after discharge, at least temporarily. - Vitals & Intake/Output Vital Signs: Vital Signs Temperature 98.2 F 05/03/18 07:07 Pulse Rate 79 05/03/18 07:07 Respiratory Rate 16 05/03/18 07:07 Blood Pressure 148/67 05/03/18 07:07 O2 Sat by Pulse Oximetry 98 05/03/18 07:07 Oxygen-Last Documented O2 Percentage 2 Liters = 28% Intake & Output: Intake & Output 04/30/18 05/01/18 05/02/18 05/03/18 11:59 11:59 11:59 11:59 Intake Total 2236.426.2671 2207 Output Total 1999 5767 4812 5643 Balance 406 1390 513 Weight 58.967 kg - Lab Result Diagrams: 05/03/18 05:30 05/03/18 05:30 Lab Results-Last 24 Hrs: Accuchecks Date 05/03/18 Time 07:20 Accucheck Value: 109 Lab Results-Last 24 Hours 05/02/18 05/02/18 05/02/18 Range/Units 09:52 09:52 09:52 WBC (4.0-10.5) K/mm3 RBC (4.1-5.4) M/mm3 Hgb 7.5 L (12.0-16.0) gm/dl Hct 24.3 L (35-47) % MCV (78-100) fl MCH (26-32) pg MCHC (32-36) g/dl RDW (11.5-14.0) % Plt Count (150-450) K/mm3 MPV (6-9.5) fl Absolute Granulocytes (1.4-6.9) Segmented Neutrophils (36.0-66.0) % Lymphocytes (Manual) (24-44) % Monocytes (Manual) (0.0-12.0) % Platelet Estimate (NORMAL) RBC Morphology Sodium (137-145) mmol/L Potassium (3.5-5.1) mmol/L Chloride (98-107) mmol/L Carbon Dioxide (22-30) mmol/L Anion Gap (5-15) MEQ/L BUN (7-17) mg/dL Creatinine (0.52-1.04) mg/dL Estimated GFR ML/MIN Glucose (74-106) mg/dL Calcium (8.4-10.2) mg/dL ABO Group A Rh Factor POSITIVE Antibody Screen NEGATIVE (NEGATIVE) Crossmatch COMPATIBLE (COMPATIBLE) 05/02/18 05/02/18 05/03/18 Range/Units 09:52 18:41 05:30 WBC 7.4 (4.0-10.5) K/mm3 RBC 3.47 L (4.1-5.4) M/mm3 Hgb 10.7 L 10.3 L (12.0-16.0) gm/dl Hct 33.3 L 31.4 L (35-47) % MCV 90.5 (78-100) fl MCH 29.6 (26-32) pg MCHC 32.8 (32-36) g/dl RDW 14.3 H (11.5-14.0) % Plt Count 196 (150-450) K/mm3 MPV 8.6 (6-9.5) fl Absolute Granulocytes 4.11 (1.4-6.9) Segmented Neutrophils 60 (36.0-66.0) % Lymphocytes (Manual) 33 (24-44) % Monocytes (Manual) 7 (0.0-12.0) % Platelet Estimate NORMAL (NORMAL) RBC Morphology NORMAL Sodium (137-145) mmol/L Potassium (3.5-5.1) mmol/L Chloride (98-107) mmol/L Carbon Dioxide (22-30) mmol/L Anion Gap (5-15) MEQ/L BUN (7-17) mg/dL Creatinine (0.52-1.04) mg/dL Estimated GFR ML/MIN Glucose (74-106) mg/dL Calcium (8.4-10.2) mg/dL ABO Group Rh Factor Antibody Screen (NEGATIVE) Crossmatch COMPATIBLE (COMPATIBLE) 05/03/18 Range/Units 05:30 WBC (4.0-10.5) K/mm3 RBC (4.1-5.4) M/mm3 Hgb (12.0-16.0) gm/dl Hct (35-47) % MCV (78-100) fl MCH (26-32) pg MCHC (32-36) g/dl RDW (11.5-14.0) % Plt Count (150-450) K/mm3 MPV (6-9.5) fl Absolute Granulocytes (1.4-6.9) Segmented Neutrophils (36.0-66.0) % Lymphocytes (Manual) (24-44) % Monocytes (Manual) (0.0-12.0) % Platelet Estimate (NORMAL) RBC Morphology Sodium 139 (137-145) mmol/L Potassium 3.2 L (3.5-5.1) mmol/L Chloride 102 (98-107) mmol/L Carbon Dioxide 32 H (22-30) mmol/L Anion Gap 8.4 (5-15) MEQ/L BUN 8 (7-17) mg/dL Creatinine 0.61 (0.52-1.04) mg/dL Estimated GFR > 60.0 ML/MIN Glucose 100 (74-106) mg/dL Calcium 8.6 (8.4-10.2) mg/dL ABO Group Rh Factor Antibody Screen (NEGATIVE) Crossmatch (COMPATIBLE) Micro Results-Entire Visit: Microbiology 04/27/18 00:10 Blood Culture Gram Stain - Final Blood Not Reportable Blood Culture - Final NO GROWTH 04/27/18 00:00 Blood Culture Gram Stain - Final Blood Not Reportable Blood Culture - Final NO GROWTH 04/26/18 22:30 Urine Culture - Final Clean Catch Midstream <10K NORMAL SKIN KASHMIR PROBABLE SKIN CONTAMINANT Accuchecks Date 05/03/18 Time 07:20 Accucheck Value: 109 - Procedures and Test Procedures and Tests throughout Hospitalization: Therapy Orders & Screens 04/26/18 22:07 Respiratory Nebulizer STAT Comment: Diagnosis: Shortness of Breath 04/26/18 22:08 Peak Expiratory Flow Rate ONCE Comment: Reason For Exam: Diagnosis: Shortness of Breath Respiratory Therapy Assessment DAILY Comment: Diagnosis: Shortness of Breath 04/27/18 00:36 Oxygen NASAL CANNULA 2 lpm Comment: Diagnosis: Shortness of Breath 04/27/18 01:03 Peak Expiratory Flow Rate ONCE Comment: Reason For Exam: Diagnosis: INTRACTABLE BACK PAIN Respiratory Therapy Assessment DAILY Comment: Diagnosis: INTRACTABLE BACK PAIN 04/27/18 02:27 OT Screen per Nursing Assess Comment: Protocol Order Physician Instructions: Greater than 3 points order OT Admission Screening Reason For Exam: Triggered on Admission Diagnosis: INTRACTABLE BACK PAIN Open Wound/Cellutlitis/Pressure Ulcers: No Acute Fx/ORIF/Change in wt bearing status: No Severe MUSCULOSKELETAL pain: Yes ADL Dysfunction: No Acute CVA w/Hemiparesis/Hemiplegia: No Decreased Functional Mobility/Strength: Yes Sprain/Strain: No Acute Post-op Mobility Dysfunction: No Total Points: 6 PT Screen per Nursing Assess Comment: Protocol Order Physician Instructions: Greater than 3 points order PT Admission Screenin Reason For Exam: Triggered on Admission Diagnosis: INTRACTABLE BACK PAIN Open Wound/Cellutlitis/Pressure Ulcers: No Acute Fx/ORIF/Change in wt bearing status: No Severe MUSCULOSKELETAL pain: Yes ADL Dysfunction: No Acute CVA w/Hemiparesis/Hemiplegia: No Decreased Functional Mobility/Strength: Yes Sprain/Strain: No Acute Post-op Mobility Dysfunction: No Total Points: 6 RT Screen per Nursing Assess Comment: Protocol Order Physician Instructions: Greater than 3 points order RT Admission Screen Reason For Exam: Triggered on Admission Diagnosis: INTRACTABLE BACK PAIN Diagnosis: INTRACTABLE BACK PAIN Pneumonia: No Home O2: Yes Asthma: No CHF: Yes Home CPAP/BIPAP: No Home Nebs/MDI: Yes Total Points: 13 04/27/18 09:11 PT Eval & Treat (MD Order) ROUTINE Reason for Eval:: R shoulder pain (XR report pending); gen weakness; back pain Diagnosis: INTRACTABLE BACK PAIN 05/02/18 10:59 Respiratory MDI HS Comment: Diagnosis: ABDOMINAL DISTENTION, HYPOACTIVE BOWEL SOUNDS, ABDOMINAL PAIN, 05/02/18 13:25 Respiratory MDI BID Comment: Diagnosis: ABDOMINAL DISTENTION, HYPOACTIVE BOWEL SOUNDS, ABDOMINAL PAIN, Final Diagnosis/Problem List - Final Discharge Diagnosis/Problem (1) Anemia Current Visit: Yes Status: Acute Assessment & Plan: Hgb 10.3 s/p transfusion 2 units PRBC. Acute on chronic anemia. (2) Gastritis Current Visit: Yes Status: Acute Assessment & Plan: Home on PPI. F/u with gastroenterology outpatient. (3) Esophageal stricture Current Visit: Yes Status: Acute Assessment & Plan: dilated. (4) Dysphagia Current Visit: Yes Status: Resolved Onset Date: ~04/27/18 (5) UTI (urinary tract infection) Current Visit: Yes Status: Resolved Onset Date: ~04/27/18 (6) Right shoulder pain Current Visit: Yes Status: Acute Onset Date: ~04/27/18 Assessment & Plan: s/p fall; has resolved without any intervention. XR initially showed high riding humeral head concerning for possible rotator cuff injury. (7) Back pain Current Visit: No Status: Chronic Onset Date: ~03/04/18 Assessment & Plan: persistent. Needs neurosurgery f/u outpatient. (8) Compression fracture Current Visit: No Status: Acute Onset Date: ~03/04/18 Assessment & Plan: Will send home on percocet; she was previously on oxycontin BID with percocet for breakthrough pain, but would like to decrease her overall pain medicine in light of her age and her constipation. (9) Constipation Current Visit: Yes Status: Chronic Onset Date: ~04/29/18 Assessment & Plan: Home on miralax and colace. (10) COPD (chronic obstructive pulmonary disease) Current Visit: No Status: Chronic Assessment & Plan: Will send home Advair rx; if not covered she is to resume her brovana. (11) Chronic hypoxemic respiratory failure Current Visit: No Status: Chronic Assessment & Plan: On O2 at night. (12) Diabetes mellitus Current Visit: No Status: Chronic Assessment & Plan: Have been checking BS once daily here and have been in the low 100s. (13) Hypokalemia Current Visit: Yes Status: Acute Assessment & Plan: Just for the past 2 days. Will send home on 10mEq Kcl daily but will need BMP rechecked in 1 week. (14) Muscular deconditioning Current Visit: No Status: Chronic (15) Anxiety and depression Current Visit: Yes Status: Chronic Onset Date: ~04/27/18 Assessment & Plan: back on celexa, at 1/2 dose (10mg/d) and trazodone 50mg qhs. (16) Insomnia Current Visit: Yes Status: Acute Onset Date: ~04/28/18 - Discharge Disposition: Home, Self-Care Condition: Stable Prescriptions: New Fluticasone/Salmeterol 115/21 [Advair Hfa 115/21 Common canister*] 2 puff IH BIDRT #1 aer.w.adap Docusate Sodium 100 mg [Colace 100 MG] 100 mg PO BID #60 capsule Gentamicin Sulfate Eye Drops [Garamycin 0.3% Ophth Ysabel] 1 ml OP Q8HT #1 bottle Simethicone [Gas-X] 125 mg PO BID PRN #30 tab.chew PRN Reason: Gas Polyethylene Glycol 3350 17 gm [Miralax Powder 17GM PACKET] 17 gm PO DAILY #30 packet Amlodipine Besylate 5 mg [Norvasc 5 mg] 5 mg PO QAM #30 tablet Oxycodone/APAP 5 mg/325 mg [Percocet Tablet 5/325Mg] 1 tab PO Q6H PRN PRN #56 tablet MDD 4 PRN Reason: Pain Promethazine HCl 12.5 mg PO Q6H PRN #10 tablet PRN Reason: Nausea Acyclovir 800 mg [Zovirax 800 mg] 800 mg PO 5XD #20 tablet Continue Zafirlukast 20 mg [Accolate 20 mg] 20 mg PO BID #180 tablet Metformin HCl 500 mg [Glucophage 500 MG] 250 mg PO DAILY Alprazolam 1 mg [Xanax 1 mg] 0.5 mg PO HS Trazodone HCl 50 mg [Desyrel 50 mg] 50 mg PO HS Cholecalciferol (Vitamin D3) [Vitamin D] 2,000 unit PO DAILY Albuterol Common Canister [Proventil Common Canister] 2 puff IH Q6HPRN PRN PRN Reason: Shortness Of Breath Albuterol 2.5 mg/3 ml Neb [Proventil 2.5 mg/3 ml Neb] 2.5 mg IH Q4HPRN PRN PRN Reason: Shortness Of Breath Fluticasone Propionate [Flonase Nasal] 1 spray INTRANASAL BID Cyanocobalamin 1000 Mcg/ml [Cyanocobalamin B-12 1000 MCG/ML] 1,000 mcg IJ UD Clopidogrel Bisulfate 75 mg [PLAVIX 75 MG Tablet] 75 mg PO HS Omeprazole 20 MG [Prilosec 20 mg] 20 mg PO DAILY #37 capsule.dr [place] Citalopram Hydrobromide [Celexa] 10 mg PO DAILY #30 tablet Discontinued Arformoterol Tartrate [Brovana] 15 mcg IH BID Oxycodone / APAP 10/325 mg [Oxycodone-Acetaminophen 10-325] 1 tab PO Q6H PRN PRN #28 tablet MDD 4 PRN Reason: Pain Oxycodone HCl [Oxycontin] 10 mg PO BID #30 tab.er.12h MDD 2 Additional Instructions: CALL [facility] WHEN YOU RETURN TO YOUR HOME SO THEY CAN RESUME SERVICES Follow up with: CJ MORROW [Primary Care Provider] - 1 Week
[2018-05-03] MEDS: Miralax Powder 17GM PACKET PO SCH (09:02)
[2018-05-03] MEDS: NORVASC 5 MG PO SCH (09:02)
[2018-05-03] MEDS: ENOXAPARIN SODIUM SQ SCH (09:03)
[2018-05-03] MEDS: ACCOLATE 20 MG PO SCH (09:03)
[2018-05-03] MEDS: ceLEXa 20 MG PO SCH (09:03)
[2018-05-03] MEDS: Flonase NASAL NS SCH (09:03)
[2018-05-03] MEDS: Protonix 40MG Tablet PO SCH (09:03)
[2018-05-03] MEDS: PERCOCET TABLET 5/325MG PO PRN (09:07)
[2018-05-03] MEDS: Zofran 4 MG/2 ML VIAL IV PRN (09:14)
[2018-05-03 11:34] VITALS: BP 149/65; PULSE 78; O2SAT 96
[2018-05-03] MEDS ORDERED: DEMEROL 50 MG IJ ONE (13:59)
[2018-05-03] MEDS ORDERED: VERSED 5 MG/5 ML IV ONE (13:59)
[2018-05-03] MEDS ORDERED: Zofran 4 MG/2 ML VIAL IV ONE (13:59)
--- NOTE | 2018-05-11 10:50 | XRAY ---
Indication: Constipation. Food gets stuck in throat. Comparison: None Double contrast upper GI exam was performed. Patient ingested barium without miss swallow or aspiration. Esophagus is normal in course and caliber without stricture, obstruction, or filling defect. No hiatal hernia. Barium freely emptied into the stomach. Stomach normally distended. The lesser and greater curvature appears smooth. No acute ulcerations or intraluminal filling defect. Normal duodenal cap and sweep. Towards the end of the exam, gastroesophageal reflux demonstrated with a column of barium up to the level of the thoracic inlet. Impression: Gastroesophageal reflux. Remaining double contrast upper GI exam is negative. Approximately 0.7 minute fluoroscopy used. Reported by: RICHIE YOO DO Signed by: RICHIE YOO DO Signed date/time: 05/11/18 1037 Copies to: [facility] ADDENDUM Procedures: [id number] RAD/UPPER GI Indication: Abdomen pain. Upper GI reported separately. 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 Multiple overhead radiographs and digital spot images obtained. Barium moves antegrade to the level of the descending colon in 3 hours. Spot compression views of the small bowel loops negative for stricture, obstruction, or filling defect. Normal appearing ileocecal junction. Impression: Negative small bowel follow-through exam. 0.5 minute fluoroscopy used. Indication: Abdomen pain. Upper GI reported separately. 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 Multiple overhead radiographs and digital spot images obtained. Barium moves antegrade to the level of the descending colon in 3 hours. Spot compression views of the small bowel loops negative for stricture, obstruction, or filling defect. Normal appearing ileocecal junction. Impression: Negative small bowel follow-through exam. 0.5 minute fluoroscopy used. Reported by: RICHIE YOO DO Signed by: RICHIE YOO DO Signed date/time: 05/11/18 1037 ADDENDUM Procedures: [id number] RAD/UPPER GI Indication: Abdomen pain. Upper GI reported separately. 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 Multiple overhead radiographs and digital spot images obtained. Barium moves antegrade to the level of the descending colon in 3 hours. Spot compression views of the small bowel loops negative for stricture, obstruction, or filling defect. Normal appearing ileocecal junction. Impression: Negative small bowel follow-through exam. 0.5 minute fluoroscopy used. Indication: Abdomen pain. Upper GI reported separately. 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 Multiple overhead radiographs and digital spot images obtained. Barium moves antegrade to the level of the descending colon in 3 hours. Spot compression views of the small bowel loops negative for stricture, obstruction, or filling defect. Normal appearing ileocecal junction. Impression: Negative small bowel follow-through exam. 0.5 minute fluoroscopy used. Reported by: RICHIE YOO DO Signed by: RICHIE YOO DO Signed date/time: 05/11/18 [facility] ADDENDUM Procedures: [id number] RAD/UPPER GI Indication: Abdomen pain. Upper GI reported separately. 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 Multiple overhead radiographs and digital spot images obtained. Barium moves antegrade to the level of the descending colon in 3 hours. Spot compression views of the small bowel loops negative for stricture, obstruction, or filling defect. Normal appearing ileocecal junction. Impression: Negative small bowel follow-through exam. 0.5 minute fluoroscopy used.
== END 2018-05-03 14:00 | disposition home health service (06) | DRG 812 ==
LOC: ED 17:50 → MED SURG 04-27 00:31 → OBSVTOIN 04-29 08:21
PROVIDERS: ADMIT Family Medicine; ATTEND Family Medicine
PROC: 0D738ZZ Dilation of Lower Esophagus, Via Natural or Artificial Opening Endoscopic (ICD-10-PCS; principal; 2018-05-01)
DX: D64.9 Anemia, unspecified (principal); M48.56XA Collapsed vertebra, not elsewhere classified, lumbar region, initial encounter for fracture; J96.11 Chronic respiratory failure with hypoxia; N39.0 Urinary tract infection, site not specified; M54.9 Dorsalgia, unspecified; K29.70 Gastritis, unspecified, without bleeding; K22.2 Esophageal obstruction; G47.9 Sleep disorder, unspecified; K22.4 Dyskinesia of esophagus; J44.9 Chronic obstructive pulmonary disease, unspecified; R13.10 Dysphagia, unspecified; M25.511 Pain in right shoulder; J45.909 Unspecified asthma, uncomplicated; Z86.718 Personal history of other venous thrombosis and embolism; E11.9 Type 2 diabetes mellitus without complications; Z79.4 Long term (current) use of insulin; E87.6 Hypokalemia; R29.898 Other symptoms and signs involving the musculoskeletal system; K59.00 Constipation, unspecified; G47.00 Insomnia, unspecified; I50.9 Heart failure, unspecified; F41.9 Anxiety disorder, unspecified; F32.9 Major depressive disorder, single episode, unspecified; W08.XXXA Fall from other furniture, initial encounter; Z85.828 Personal history of other malignant neoplasm of skin; Z79.899 Other long term (current) drug therapy; M19.90 Unspecified osteoarthritis, unspecified site; R10.84 Generalized abdominal pain; Z23 Encounter for immunization
CPT/HCPCS: 36000; 36415; 43233; 72128; 72131; 73030; 73060; 74021; 74022; 74176; 74246; 74250; 80048; 80053; 81001; 82150; 82607; 82746; 82962; 83690; 84550; 85014; 85018; 85025; 85027; 86850; 86900; 86901; 86922; 87040; 87086; 90791; 94150; 94640; 94760; 96374; 96375; 96376; 97161; 97530; 99285; G0378; J7609; P9016; 36430; 74249; 88305; 90662; C1726; G0008; J1650; J1940; J1956; J2175; J2250; J2270; J2405; Q3014; A9270-GY